=== PATIENT | female | born 1980 | race Two or more races ===

== ENCOUNTER 2022-03-02 16:24 | Emergency (ER) | payer BC, MEDICAID, SELFPAY ==
[2022-03-02 17:31] VITALS: BP 116/82; PULSE 94; TEMP 36.3; O2SAT 97; BMI 29.2
--- NOTE | 2022-03-02 18:00 | W.ED.GENADLT ---
HPI - General Adult General: Chief complaint: General Medical Stated complaint: sore throat Time Seen by Provider: 03/02/22 18:00 History of Present Illness: 41-year-old female comes in today with sore throat and some runny nose. Patient appears mildly unwell but not toxic. Patient appears in mild pain. Associated symptoms: Deny chest pain or dyspnea Review of Systems Const: Denies: fever(s) ENMT: Reports: throat pain Card: Denies: chest pain Resp: Denies: dyspnea Physical Exam Const: COMMON NORMALS: alert HENMT: COMMON NORMALS: normocephalic HEAD & SCALP: normocephalic THROAT: abnormal tonsil bilateral erythema and hypertrophy and posterior oropharynx abnormal erythema Neck/C-Spine: GENERAL: Yes lymphadenopathy Lymphadenopathy location: anterior cervical CERVICAL SPINE: Yes cervical ROM normal Resp: COMMON NORMALS: normal respiratory effort and clear to auscultation bilaterally AUSCULTATION: clear to auscultation bilaterally Cardio: COMMON NORMALS: regular rate and regular rhythm RATE: regular rate RHYTHM: regular rhythm GI: COMMON NORMALS: Soft to palpation PALPATION: Yes Soft to palpation Extremity: COMMON NORMALS: no pedal edema Neuro: SENSORIUM/ORIENTATION: Yes alert Skin: COMMON NORMALS: turgor normal GENERAL SKIN EXAM: turgor normal Course Vital Signs: Vital signs: Vital Signs Temperature 97.4 F L 03/02/22 17:31 Pulse Rate 94 03/02/22 17:31 Blood Pressure 116/82 03/02/22 17:31 Pulse Oximetry 97 03/02/22 17:31 Oxygen Delivery Me thod 03/02/22 17:31 MDM - General Adult Medical Decision Making 41-year-old female comes in today for complaints of sore throat and runny nose. On exam patient has some tonsillar swelling and redness to the posterior pharynx. Vital signs are normal. Differential diagnosis includes viral pharyngitis, strep pharyngitis, upper respiratory infection. Strep, influenza, and COVID test were negative. We will treat for bacterial tonsillitis with a dose of dexamethasone for the swelling of the tonsils, and clindamycin. Patient was instructed in Czech per [employer]. Patient reported understanding of care plan and need for follow-up or return to the ER. Lab Data Laboratory Results Influenza Type A Ag negative (Negative) 03/02/22 18:16 Influenza Type B Ag negative (Negative) 03/02/22 18:16 SARS-CoV-2 Ag (Rapid) negative (Negative) 03/02/22 18:16 Group A Strep Rapid Negative (Negative) 03/02/22 18:16 Discharge Plan Discharge Patient Disposition: Home Clinical Impression: Acute erythematous tonsillitis Condition: Stable Prescriptions: New clindamycin HCl 300 mg capsule 300 mg PO TID 7 Days Qty: 21 0RF Discharge Orders: Discharge ED (Routine); Ordered 03/02/22 Ordered By: Junito Dillard Referrals: Jono Redding DO [Primary Care Provider] - Patient Instructions: Opioid Safety, Pain Management Activity Restrictions/Additional Instructions: Hogar y descanso. Ethel denisa agua y l?quidos. Use paracetamol e ibuprofeno para la fiebre y el dolor. Willow antibi?sheila clindamicina 300 mg 1 comprimido 3 veces al d?a ozzy 7 d?as. Seguimiento con atenci?n primaria seg?n sea necesario. Regrese a la wali de urgencias si los s?ntomas empeoran, sveta la incapacidad para tragar o la dificultad para respirar o nuevas inquietudes. Home and rest. Drink plenty of water and fluids. Use acetaminophen and ibuprofen for fever and pain. Take antibiotic clindamycin 300 mg 1 tablet 3 times a day for 7 days. Follow-up with primary care as needed. Return to ED for worsening symptoms such as inability to swallow or shortness of breath or new concerns. Coding Level of Care Code ED Clean Up Person for Allison Fwd Exam Comprehensive
[2022-03-02 18:34] LABS: Rapid Strep A Test Negative (Negative)
[2022-03-02 18:44] LABS: Influenza A by IFA negative (Negative); Influenza B by IFA negative (Negative); SARS Covid-2 Antigen negative (Negative)
[2022-03-02] MEDS: clindamycin 150 mg Capsule 300 MG PO (19:26)
[2022-03-02] MEDS: dexamethasone 10 mg/mL INJ IM (19:27)
== END 2022-03-02 19:31 | disposition home or self-care (01) ==
PROVIDERS: Emergency Provider Nurse Practitioner Family; PCP Family Medicine
DX: J03.80 Acute tonsillitis due to other specified organisms (principal); Z20.822 Contact with and (suspected) exposure to COVID-19
CPT/HCPCS: 87081; 87426; 87804; 87880; 96372; 99284; J1100

== ENCOUNTER 2022-06-04 12:37 | Outpatient (CLI) | payer BC, MEDICAID, SELFPAY ==
--- NOTE | 2022-06-04 12:43 | US_ITS ---
WS: [id number] TRANSABDOMINAL PELVIC AND TRANSVAGINAL PELVIC ULTRASOUND HISTORY: IRREGULAR MENSES Fibroids, uterus COMPARISON: None available. Uterus: 8.8 cm x 5.3 cm x 4.8 cm. Anteverted uterus with mild heterogeneity. Very coarse appearance o f the myometrium. There is mild change in echogenicity in the posterior myometrium but no definite fi broid is identified. There is some shadowing from the myometrium which may indicate an underlying fib roid. Endometrium: 1.6 cm. Top normal size endometrium. No increased vascularity or change in echogenicity. Right ovary: 2.8 cm x 2.3 cm x 1.5 cm. Normal size RIGHT ovary. No solid or cystic mass. Normal vascu larity. Left ovary: 3.1 cm x 2.1 cm x 1.8 cm. Normal size ovary. Small hemorrhagic follicle with a maximum di ameter 1.5 cm. Normal vascularity within the normal ovarian tissue. Free fluid: No free fluid. US/US pelv w/transvag [id number] IMPRESSION: 1. Mild heterogeneity throughout the myometrium. Although there is no discrete fibroid identified there may be underlying fibroids. 2. Top normal size endometrium.
== END 2022-06-04 12:38 | disposition home or self-care (01) ==
LOC: RAD 12:39
PROVIDERS: PCP Family Medicine; Visit Provider Family Medicine
DX: N92.6 Irregular menstruation, unspecified (principal); D25.9 Leiomyoma of uterus, unspecified
CPT/HCPCS: 76830; 76856

== ENCOUNTER → 2022-07-13 11:35 | Outpatient (BNVA) | payer BC, MEDICAID, SELFPAY | PROVIDERS: PCP Family Medicine; Visit Provider Obstetrics & Gynecology | DX: Z01.419 Encounter for gynecological examination (general) (routine) without abnormal findings (principal) | CPT/HCPCS: 83001; 84146; 84443; 84702 ==

== ENCOUNTER 2022-07-20 01:10 | Emergency (ER) | payer BC, MEDICAID, SELFPAY ==
--- NOTE | 2022-07-20 01:13 | XRR_ITS ---
PROCEDURE INFORMATION: Exam: XR Chest Exam date and time: 07/20/2022 1:18 AM Age: 41 years old Clinical indication: Pain; Chest pressure; Additional info: Cp TECHNIQUE: Imaging protocol: Radiologic exam of the chest. Views: 1 view. COMPARISON: No relevant prior studies available. FINDINGS: Lungs: Unremarkable. No consolidation. Pleural spaces: Unremarkable. No pleural effusion. No pneumothorax. Heart/Mediastinum: Unremarkable. No cardiomegaly. Bones/joints: Unremarkable. XR/XR chest 1V portable [id number] IMPRESSION: No acute findings.
[2022-07-20 01:17] VITALS: BP 149/101; PULSE 85; RESP 26; TEMP 37.1; O2SAT 98; BMI 29.2
--- NOTE | 2022-07-20 01:17 | ECG_ITS ---
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 Measurements Intervals [place] Rate: 83 P: 55 MT: 141 QRS: 3 QRSD: 80 T: 25 QT: 371 QTc: 438 Interpretive Statements SINUS RHYTHM LOW QRS VOLTAGE IN PRECORDIAL LEADS [QRS DEFLECTION < 1.0 mV IN CHEST LEADS] No previous ECG available for comparison Electronically Signed On 07-20-2022 23:36:58 CDT by Bridget Strange M.D. [id number]
--- NOTE | 2022-07-20 01:21 | ED_ITS ---
HPI - Chest Pain General: Chief Complaint: Chest Pain Stated Complaint: chest pain Time Seen by Provider: 07/20/22 01:13 Source: patient Mode of arrival: ambulatory Limitations: no limitations History of Present Illness: 41-year-old female states she been having very sharp left-sided chest pain today. states that she did help him lift a lawnmower earlier today she states pain is very sharp worse with palpation worse with movement she rates her pain a 7 out of 10. She denies any shortness of breath denies any nausea no diaphoresis. She has a history of hypertension along with diabetes and high cholesterol Associated symptoms: Deny abdominal pain, dyspnea, fever(s), nausea or vomiting Review of Systems Const: Denies: fever(s), chills, body aches or change in appetite Eyes: Denies: blurry vision or eye discomfort ENMT: Denies: throat pain or dental pain Card: Reports: chest pain Resp: Denies: dyspnea GI: Denies: abdominal pain, nausea, vomiting or diarrhea : Denies: dysuria Musc: Denies: neck pain or back pain Skin/Breast: Denies: rash Neuro: Denies: headache(s) Psych: Denies: depression Narinder/Lymph: Denies: easy bruising All/Imm: Denies: urticaria PFSH ED PFSH: Medical History (Updated 07/20/22 @ 02:00 by Екатерина Calixto MD) Hyperlipidemia Hypertension Type 2 diabetes mellitus Family History Father Diabetes Heart disease Mother Heart disease Grandmother Heart disease paternal/maternal Grandfather Heart disease paternal/maternal Family/Other Thyroid disease aunt/paternal Denies family history of Colon cancer Ovarian cancer Breast cancer Hypertension Uterine cancer Stroke Social History Smoking and tobacco status: former smoker Physical Exam Const: COMMON NORMALS: no acute distress, patient oriented x3 and healthy a ppearing HENMT: COMMON NORMALS: normocephalic and atraumatic HEAD & SCALP: normocephalic and atraumatic Eye: COMMON NORMALS: Equal, round and reactive pupils present and EOMs intact bilaterally PUPIL: Yes Equal, round and reactive pupils present Neck/C-Spine: COMMON NORMALS: full ROM and supple Chest: COMMONS NORMALS: normal inspection of the chest OTHER: point tender over left chest reproduces her pain Resp: COMMON NORMALS: normal respiratory effort, No retractions, No use of accessory muscles and clear to auscultation bilaterally AUSCULTATION: clear to auscultation bilaterally Cardio: COMMON NORMALS: regular rate, regular rhythm and No murmurs present (Cardio) RATE: regular rate RHYTHM: regular rhythm GI: COMMON NORMALS: Normal to inspection, nondistended, normoactive bowel sounds present, Soft to palpation, non-tender and no masses PALPATION: Yes Soft to palpation Extremity: COMMON NORMALS: normal to inspection and full ROM Neuro: COMMON NORMALS: patient oriented x3, moves all extremities and no focal motor deficits Psych: COMMON NORMALS: mental status grossly normal, Normal thought process present and cooperative THOUGHT PROCESS: Normal thought process present Skin: COMMON NORMALS: no rashes or lesions noted and no wounds GENERAL SKIN EXAM: no rashes or lesions noted Course Vital Signs: Vital signs: Vital Signs Temperature 98.7 F 07/20/22 01:17 Pulse Rate 85 07/20/22 01:17 Respiratory Rate 20 H 07/20/22 01:31 Blood Pressure 149/101 07/20/22 01:17 Pulse Oximetry 98 07/20/22 01:17 Oxygen Delivery Me thod 07/20/22 01:17 MDM - Chest Pain Medical Decision Making Patient presents here with chest pain is likely muscle skeletal pain. It st arted after she had lifted a mower earlier today she is point tender on exam reproduces her pain x-ray EKG and troponin here are all normal we will place her on pain meds she is to follow-up with her PCP and return if worsening. Lab Data 07/20/22 01:19 07/20/22 01:19 Laboratory Results WBC 9.4 10^3/uL (4.0-10.0) 07/20/22 01:19 RBC 4.81 10^6/uL (4.1-5.3) 07/20/22 01:19 Hgb 13.7 g/dL (11.5-15.3) 07/20/22 01:19 Hct 41.3 % (37.0-47.0) 07/20/22 01:19 MCV 85.9 fl (81-99) 07/20/22 01:19 MCH 28.5 pg (28.0-34.0) 07/20/22 01:19 MCHC 33.2 g/dL (30.0-36.0) 07/20/22 01:19 RDW 11.9 % (12.1-15.1) L 07/20/22 01:19 Plt Count 367 10^3/cmm (130-400) 07/20/22 01:19 MPV 9.4 fL (7.4-10.4) 07/20/22 01:19 Neut % (Auto) 47.4 % 07/20/22 01:19 Lymph % (Auto) 43.4 % 07/20/22 01:19 Whitley % (Auto) 7.4 % 07/20/22 01:19 Eos % (Auto) 1.2 % 07/20/22 01:19 Baso % (Auto) 0.4 % 07/20/22 01:19 Neut # (Auto) 4.43 10^3/uL (1.8-7.7) 07/20/22 01:19 Lymph # (Auto) 4.1 10^3/uL (0.8-4.8) 07/20/22 01:19 Whitley # (Auto) 0.7 10^3/uL (0.2-0.9) 07/20/22 01:19 Eos # (Auto) 0.1 10^3/uL (0.0-0.8) 07/20/22 01:19 Baso # (Auto) 0.0 10^3/uL (0.0-0.1) 07/20/22 01:19 Nucleated RBC % (auto) 0 % 07/20/22 01:19 Nucleated RBCs # 0.0 /100WBC 07/20/22 01:19 PT 11.60 SECONDS (12.1-14.9) L 07/20/22 01:19 INR 0.83 (0.8-1.2) 07/20/22 01:19 Sodium 137 mmol/L (136-145) 07/20/22 01:19 Potassium 4.0 mmol/L (3.5-5.1) 07/20/22 01:19 Chloride 101 mmol/L (98-107) 07/20/22 01:19 Carbon Dioxide 25 mmol/L (22-29) 07/20/22 01:19 Anion Gap 15.0 (5-19) 07/20/22 01:19 BUN 11 mg/dL (6-20) 07/20/22 01:19 Creatinine 0.5 mg/dL (0.5-0.9) 07/20/22 01:19 GFR Calculation 135.3 mL/min (90-130) H 07/20/22 01:19 Glucose 225 mg/dL (65-115) H 07/20/22 01:19 Calculated Osmolality 290 mOsm/kg (285-295) 07/20/22 01:19 Calcium 9.3 mg/dL (8.5-10.5) 07/20/22 01:19 Total Bilirubin 0.2 mg/dL (0.15-1.2) 07/20/22 01:19 AST 16 U/L (0-32) 07/20/22 01:19 ALT 29 U/L (0-33) 07/20/22 01:19 Alkaline Phosphatase 80 U/L (35-105) 07/20/22 01:19 Troponin T Baseline 6 ng/L (0-10) 07/20/22 01:19 Total Protein 7.2 g/dL (6.6-8.7) 07/20/22 01:19 Albumin 3.9 g/dL (3.5-5.2) 07/20/22 01:19 Globulin 3.3 g/dL (1.3-4.6) 07/20/22 01:19 Lipase 41 U/L (13-60) 07/20/22 01:19 EKG Data EKG 1: I personally reviewed and interpreted this EKG as follows: EKG interpretation date: 07/20/22 EKG interpretation time: 01:17 Interpretation: nsr hr [address] or t wave abnormalities qrs 80 qtc 411 Discharge Plan Discharge Patient Disposition: Home Clinical Impression: Chest wall pain Condition: Stable Prescriptions: New hydrocodone-acetaminophen 5-325 mg tablet 1 tab PO Q6H PRN (Reason: pain) Qty: 14 0RF Naprosyn 500 mg tablet 500 mg PO BID PRN (Reason: pain) Qty: 20 0RF No Action pantoprazole [Protonix] 40 mg tablet,delayed release (DR/EC) 40 mg PO DAILY lisinopril 40 mg tablet 40 mg PO DAILY cyclobenzaprine 10 mg tablet 10 mg PO TID levothyroxine [Synthroid] 300 mcg tablet 300 mcg PO DAILY levothyroxine [Synthroid] 50 mcg tablet 50 mcg PO DAILY atorvastatin 40 mg tablet 40 mg PO DAILY etodolac 500 mg tablet 500 mg PO BID Janumet 50-1,000 mg tablet 1 tab PO BID (DME) FreeStyle Federico 2 Sensor Kit See Rx Instructions .Route Qty: 1 2RF Rx Instructions: As directed (DME) Omnipod 5 G6 Intro Kit (Gen 5) Cartridge See Rx Instructions .Route Qty: 1 2RF Rx Instructions: As directed insulin aspart U-100 [Novolog FlexPen U-100 Insulin] 100 unit/mL (3 mL) insulin pen 35 unit SUBCUT TID 90 Days Qty: 96 0RF insulin glargine [Lantus Solostar U-100 Insulin] 100 unit/mL (3 mL) insulin pen 65 unit SUBCUT DAILY 30 Days Qty: 19.5 2RF Rx Instructions: 65 units at night Discharge Orders: Discharge ED (Routine); Ordered 07/20/22 Ordered By: Екатерина Calixto Referrals: Cooper Venegas MD [Primary Care Provider] - 1-3 days Discharge Diet: Advance as tolerated Discharge Activity: Resume usual activity Patient Instructions: Chest Wall Pain (ED), Opioid Safety Coding Level of Care Code ED Manager Managed Care for Allison Pope
[2022-07-20 01:31] VITALS: RESP 20
[2022-07-20] MEDS: morphine 4 mg/mL SDV 1 mL IVP (01:31)
[2022-07-20 01:32] LABS: Basophils % 0.4 %; Eosinophils # 0.1 10^3/uL (0.0-0.8); Eosinophils % 1.2 %; Hematocrit 41.3 % (37.0-47.0); Hemoglobin 13.7 g/dL (11.5-15.3); Lymphocytes # 4.1 10^3/uL (0.8-4.8); Lymphocytes % 43.4 %; Mean Corpuscular HGB Conc 33.2 g/dL (30.0-36.0); Mean Corpuscular Hemoglobin 28.5 pg (28.0-34.0); Mean Corpuscular Volume 85.9 fl (81-99); Mean Platelet Volume 9.4 fL (7.4-10.4); Monocytes # 0.7 10^3/uL (0.2-0.9); Monocytes % 7.4 %; Neutrophils # 4.43 10^3/uL (1.8-7.7); Neutrophils % 47.4 %; Nucleated Red Blood Cells % 0 %; Platelet Count 367 10^3/cmm (130-400); Red Blood Count 4.81 10^6/uL (4.1-5.3); Red Cell Distribution Width 11.9 % (12.1-15.1); White Blood Count 9.4 10^3/uL (4.0-10.0)
[2022-07-20] MEDS: ondansetron 2 mg/ML SDV 2 mL 4 MG IVP (01:32)
[2022-07-20 01:43] LABS: INR 0.83 (0.8-1.2)
[2022-07-20 01:51] LABS: Troponin(5th) Baseline 6 ng/L (0-10)
[2022-07-20 01:54] LABS: Alanine Aminotransferase 29 U/L (0-33); Albumin Level 3.9 g/dL (3.5-5.2); Alkaline Phosphatase 80 U/L (35-105); Aspartate Amino Transferase 16 U/L (0-32); Blood Urea Nitrogen 11 mg/dL (6-20); Calcium 9.3 mg/dL (8.5-10.5); Carbon Dioxide 25 mmol/L (22-29); Chloride 101 mmol/L (98-107); Creatinine Clr Calc Pharmacy 136.7277; Globulin 3.3 g/dL (1.3-4.6); Glomerular Filtration Rate 135.3 mL/min (90-130); Glucose 225 mg/dL (65-115); Lipase 41 U/L (13-60); Osmolality Calculated 290 mOsm/kg (285-295); Sodium 137 mmol/L (136-145); Total Bilirubin 0.2 mg/dL (0.15-1.2); Total Protein 7.2 g/dL (6.6-8.7)
[2022-07-20] MEDS: ketorolac 30 mg/mL INJ 15 MG IVP (02:10)
[2022-07-20] MEDS: HYDROcodone-acetaminophen 5-325 mg Tablet 1 TAB PO (02:12)
[2022-07-20 02:19] VITALS: BP 120/78; PULSE 92; RESP 20; O2SAT 95
== END 2022-07-20 02:21 | disposition home or self-care (01) ==
PROVIDERS: Emergency Provider Emergency Medicine; PCP Family Medicine
DX: R07.89 Other chest pain (principal); Z79.4 Long term (current) use of insulin; E78.5 Hyperlipidemia, unspecified; I10 Essential (primary) hypertension; E11.9 Type 2 diabetes mellitus without complications; Z87.891 Personal history of nicotine dependence
CPT/HCPCS: 71045; 80053; 83690; 84484; 85025; 85610; 93005; 96374; 96375; 99285; J1885; J2270; J2405

== ENCOUNTER 2022-08-03 08:43 | Outpatient (CLI) | payer BC, MEDICAID, SELFPAY ==
--- NOTE | 2022-08-03 08:54 | US_ITS ---
WS: [id number] RIGHT UPPER QUADRANT ULTRASOUND HISTORY: ABDOMINAL PAIN RIGHT UPPER QUADRANT COMPARISON: None available. Liver: 13.6 cm in length. Normal size liver and echogenicity. No bile duct dilatation or mass. Portal Vein: Normal hepatopetal flow with monophasic waveform. Gallbladder: Normally distended gallbladder with no stones or wall thickening. CBD: 0.3 cm Pancreas: Normal size and echogenicity. Right kidney: 10.6 cm in length. Normal size and echogenicity. No hydronephrosis or mass. Aorta and IVC: Unremarkable abdominal aorta and IVC. No ascites. US/US abdomen limited [id number] IMPRESSION: Normal RIGHT upper quadrant ultrasound.
== END 2022-08-03 08:44 | disposition home or self-care (01) ==
LOC: RAD 08:48
PROVIDERS: PCP Family Medicine; Visit Provider Family Medicine
DX: R10.11 Right upper quadrant pain (principal)
CPT/HCPCS: 76705

== ENCOUNTER → 2022-08-17 09:13 | Outpatient (BNVA) | payer BC, MEDICAID, SELFPAY | PROVIDERS: PCP Family Medicine; Visit Provider Obstetrics & Gynecology | DX: R10.2 Pelvic and perineal pain (principal); R93.89 Abnormal findings on diagnostic imaging of other specified body structures | CPT/HCPCS: 76830 ==

== ENCOUNTER 2022-09-22 10:24 | Outpatient (CLI) | payer BC, MEDICAID, SELFPAY ==
[2022-09-22 11:14] LABS: Free T4 Free Thyroxine 2.85 ng/dL (0.82-1.77); Thyroid Stimulating Hormone 0.01 uIU/mL (0.27-4.20)
== END 2022-09-22 10:25 | disposition home or self-care (01) ==
LOC: LAB 10:27
PROVIDERS: PCP Family Medicine; Visit Provider Internal Medicine
DX: E03.9 Hypothyroidism, unspecified (principal); E11.9 Type 2 diabetes mellitus without complications
CPT/HCPCS: 36415; 84439; 84443

== ENCOUNTER 2022-09-30 08:54 | Day surgery (SDC) | payer BC, MEDICAID, SELFPAY ==
[2022-09-28 14:45] VITALS: BMI 31.3
--- NOTE | 2022-09-28 14:56 | ECG_ITS ---
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 Measurements Intervals [place] Rate: 80 P: 62 [place]: 133 QRS: 17 QRSD: 85 T: 38 QT: 418 QTc: 483 Interpretive Statements SINUS RHYTHM POSSIBLE LEFT ATRIAL ENLARGEMENT [-0.1mV P-WAVE IN V1/V2] LOW QRS VOLTAGE IN PRECORDIAL LEADS [QRS DEFLECTION < 1.0 mV IN CHEST LEADS] NONSPECIFIC T-WAVE ABNORMALITY Compared to ECG 07/20/2022 01:17:32 T-wave abnormality now present Electronically Signed On 09-28-2022 17:25:36 CDT by Carlin Washington M.D. [id number]
[2022-09-28 15:26] LABS: Basophils % 0.4 %; Eosinophils # 0.2 10^3/uL (0.0-0.8); Eosinophils % 2.4 %; Hematocrit 44.2 % (37.0-47.0); Hemoglobin 14.4 g/dL (11.5-15.3); Lymphocytes # 2.5 10^3/uL (0.8-4.8); Lymphocytes % 34.9 %; Mean Corpuscular HGB Conc 32.6 g/dL (30.0-36.0); Mean Corpuscular Hemoglobin 27.8 pg (28.0-34.0); Mean Corpuscular Volume 85.3 fl (81-99); Mean Platelet Volume 10.1 fL (7.4-10.4); Monocytes # 0.5 10^3/uL (0.2-0.9); Monocytes % 7.7 %; Neutrophils # 3.82 10^3/uL (1.8-7.7); Neutrophils % 54.3 %; Nucleated Red Blood Cells % 0 %; Platelet Count 399 10^3/cmm (130-400); Red Blood Count 5.18 10^6/uL (4.1-5.3); Red Cell Distribution Width 12.2 % (12.1-15.1)
[2022-09-28 15:29] LABS: OR HCG Qualitative Urine Negative (Negative)
[2022-09-28 15:47] LABS: Alanine Aminotransferase 29 U/L (0-33); Albumin Level 3.9 g/dL (3.5-5.2); Alkaline Phosphatase 95 U/L (35-105); Anion Gap 16.5 (5-19); Aspartate Amino Transferase 18 U/L (0-32); Blood Urea Nitrogen 8 mg/dL (6-20); Carbon Dioxide 23 mmol/L (22-29); Chloride 99 mmol/L (98-107); Globulin 3.2 g/dL (1.3-4.6); Glomerular Filtration Rate 135.3 mL/min (90-130); Glucose 257 mg/dL (65-115); Osmolality Calculated 287 mOsm/kg (285-295); Potassium 3.5 mmol/L (3.5-5.1); Sodium 135 mmol/L (136-145); Total Bilirubin 0.2 mg/dL (0.15-1.2); Total Protein 7.1 g/dL (6.6-8.7)
--- NOTE | 2022-09-28 16:47 | P.ANESASSM_ITS ---
Pre-Anesthetic Assessment Height/Weight: Height 1.6 m Weight 80.286 kg Operation Date: 09/30/22 14:55 Proposed Procedures p Hysteroscopy, dilation and curettage with Myosure [id number], N94.6,N92.6(Not Applicable) - Stevie Jones MD s Dilation And Curettage (D&C)(Not Applicable) - Stevie Jones MD Familial anesthetic complications: none Was Beta Kamila taken within 24 hours: N/A Was Clonidine taken within 24 hours: N/A Social No alcohol and No tobacco Exam alert, oriented x 3, clear to auscultation bilaterally and regular rate & rhythm Airway Submandibular: within normal limits Cervical ROM: within normal limits Mallampati: Class II Dentition: full CV/HEM Hypertension Metabolic Diabetes Mellitus, Hyperlipidemia, Morbid Obesity and Thyroid Disease [facility] [place] Osteoarthritis/DJD Anesthetic Plan ASA status: 3 Anesthesia: General Medications/Allergies Home Medications Medication Instructions Recorded Confirmed Last Taken Type atorvastatin 40 mg tablet 40 mg PO DAILY 05/27/22 09/28/22 09/28/22 History cyclobenzaprine 10 mg tablet 10 mg PO TID 05/27/22 09/28/22 09/28/22 History etodolac 500 mg tablet 500 mg PO BID 05/27/22 09/28/22 09/28/22 History levothyroxine 50 mcg tablet 50 mcg PO DAILY 05/27/22 09/28/22 09/28/22 History (Synthroid) lisinopril 40 mg tablet 40 mg PO DAILY 05/27/22 09/28/22 09/28/22 History pantoprazole 40 mg tablet,delayed 40 mg PO DAILY 05/27/22 09/28/22 09/28/22 History release (Protonix) sitagliptin phosphate 50 1 tab PO BID 05/27/22 09/28/22 09/28/22 History mg-metformin 1,000 mg tablet (Janumet) hydrocodone 5 mg-acetaminophen 325 1 tab PO Q6H PRN pain #14 tabs 07/20/22 09/28/22 09/28/22 Rx mg tablet naproxen 500 mg tablet (Naprosyn) 500 mg PO BID PRN pain #20 tabs 07/20/22 09/28/22 09/14/22 Rx flash glucose scanning reader #1 ea 09/24/22 09/28/22 Unknown Rx (FreeStyle Federico 2 [place]) flash glucose sensor (FreeStyle #6 ea 09/24/22 09/28/22 Unknown Rx Federico 2 Sensor kit) insulin aspart U-100 100 unit/mL 35 unit (0.35 mL) SUBCUT TID 90 09/24/22 09/28/22 09/28/22 Rx (3 mL) subcutaneous pen (Novolog days #96 mL FlexPen U-100 Insulin aspart) insulin glargine 100 unit/mL (3 75 unit (0.75 mL) SUBCUT DAILY 30 09/24/22 09/28/22 09/27/22 Rx mL) subcutaneous pen (Lantus days #19.5 mL Solostar U-100 Insulin) insulin pump cart,automated,BT #10 ea 09/24/22 09/28/22 Unknown Rx (Omnipod 5 G6 Pods (Gen 5) subcutaneous cartridge) insulin pump cartridge,automated #1 ea 09/24/22 09/28/22 Unknown Rx dose,BT with controller subcutaneous (Omnipod 5 G6 Intro Kit (Gen 5) subcutaneous cartridge with controller) levothyroxine 200 mcg tablet 200 mcg PO DAILY #90 tabs 09/24/22 09/28/22 09/28/22 Rx (Synthroid) Allergies Allergy/AdvReac Type Severity Reaction Status Date / Time No Known Allergies Allergy Verified 09/28/22 14:39 [facility] Anesthesia Medical History Hyperlipidemia Hypertension Type 2 diabetes mellitus Family History Father Diabetes Heart disease Mother Heart disease Grandmother Heart disease paternal/maternal Grandfather Heart disease paternal/maternal Family/Other Thyroid disease aunt/paternal Denies family history of Colon cancer Ovarian cancer Breast cancer Hypertension Uterine cancer Stroke Social History Smoking and tobacco status: former smoker Female Reproductive History Date of last menstrual period: 09/25/22 Data Anesthesia 09/28/22 15:00 09/28/22 15:00 Short CBC 09/28/22 Range/Units 15:00 WBC 7.0 (4.0-10.0) 10^3/uL Hgb 14.4 (11.5-15.3) g/dL Hct 44.2 (37.0-47.0) % MCV 85.3 (81-99) fl Plt Count 399 (130-400) 10^3/cmm Neut % (Auto) 54.3 % Neut # (Auto) 3.82 (1.8-7.7) 10^3/uL BMP 09/28/22 15:00 Sodium 135 L Potassium 3.5 Chloride 99 Carbon Dioxide 23 BUN 8 Creatinine 0.5 Glucose 257 H Calcium 9.0 Liver Function 09/28/22 Range/Units 15:00 Total Bilirubin 0.2 (0.15-1.2) mg/dL AST 18 (0-32) U/L ALT 29 (0-33) U/L Alkaline Phosphatase 95 (35-105) U/L Albumin 3.9 (3.5-5.2) g/dL Cardiac Studies: No Data to Display
[2022-09-29 21:21] LABS: Add Urine Microscopic? YES; Bilirubin Urine Neg (Negative); Blood Urine 3+ (Negative); Glucose Urine UA 4+ (Normal); Ketones Urine Negative (Negative); Leukocyte Esterase Urine Negative (Negative); Nitrate Urine Negative (Negative); Protein Urine Neg (Negative); Specific Gravity, Urine 1.015 (1.005-1.030); Urine Appearance Clear (CLEAR); Urine Color Light yellow (Yellow); Urobilinogen Urine Norm (Negative); pH Urine 5 (5-7)
[2022-09-29 21:22] LABS: Add Urine Culture? No; RBC Urine 0-4 /hpf (0-2); Squamous Epithelial Cell Urine 0-4 /hpf (0-5); WBC Urine 0-4 /hpf (0-5)
[2022-09-30] VITALS (12 sets, daily range): BP systolic 123–154; BP diastolic 73–108; PULSE 70–108; RESP 12–17; TEMP 36.1–36.7; O2SAT 92–99
--- NOTE | 2022-09-30 09:33 | W.PM.OPSUD ---
Surgery/Procedure H&P Update DATE OF PROCEDURE: September 30, 2022 DATE H&P PERFORMED: 09/28/22 H&P UPDATE INFORMATION: I have reviewed H&P completed within last 30 days, I have examined patient prior to procedure and No changes to prior documentation PLANNED PROCEDURE: Operation Date: 09/30/22 10:30 Proposed Procedures p Hysteroscopy, dilation and curettage with Myosure [id number], N94.6,N92.6(Not Applicable) - Stevie Jones MD s Dilation And Curettage (D&C)(Not Applicable) - Stevie Jones MD
[2022-09-30 09:38] LABS: Glucose Point of Care 248 mg/dL (70-110)
[2022-09-30] MEDS: sodium chloride 0.9% 1,000 ML 30 ML IV (09:39)
[2022-09-30] MEDS: ceFAZolin 2,000 MG in sodium chloride 0.9% (plus) 50 ML 100 MG IV (12:10)
--- NOTE | 2022-09-30 12:24 | P.ANESUD_ITS ---
Pre-Anesthetic Update Pre-Anesthetic Assessment: Date of Surgery/Procedure: 09/30/22 Proposed Procedure: Operation Date: 09/30/22 10:30 Proposed Procedures p Hysteroscopy, dilation and curettage with Myosure [id number], N 94.6,N92.6(Not Applicable) - Stevie Jones MD s Dilation And Curettage (D&C)(Not Applicable) - Stevie Jones MD Any changes to Pre-Anesthetic Assessment?: No Last Intake: Intake Last Liquid Date 09/29/22 Last Liquid Time 22:30 Last Solid Date 09/29/22 Last Solid Time 22:00 Labs Last 48hrs: Short CBC 09/28/22 Range/Units 15:00 WBC 7.0 (4.0-10.0) 10^3/ uL Hgb 14.4 (11.5-15.3) g/dL Hct 44.2 (37.0-47.0) % MCV 85.3 (81-99) fl Plt Count 399 (130-400) 10^3/c mm Neut % (Auto) 54.3 % Neut # (Auto) 3.82 (1.8-7.7) 10^3/u L BMP 09/28/22 15:00 Sodium 135 L Potassium 3.5 Chloride 99 Carbon Dioxide 23 BUN 8 Creatinine 0.5 Glucose 257 H Calcium 9.0 Liver Function 09/28/22 Range/Units 15:00 Total Bilirubin 0.2 (0.15-1.2) mg/dL AST 18 (0-32) U/L ALT 29 (0-33) U/L Alkaline Phosphata se 95 (35-105) U/L Albumin 3.9 (3.5-5.2) g/dL Urine 09/28/22 Range/Units 15:26 Urine Color Light yellow (Yellow) Urine Appearance Clear (CLEAR) Urine pH 5 (5-7) Ur Specific Gravit y 1.015 (1.005-1.030) Urine Protein Neg (Negative) Urine Glucose (UA) 4+ H (Normal) Urine Ketones Negative (Negative) Urine Nitrate Negative (Negative) Urine Bilirubin Neg (Negative) Ur Leukocyte Mari ase Negative (Negative) Urine RBC 0-4 H (0-2) /hpf Urine WBC 0-4 H (0-5) /hpf Blood Bank 09/28/22 15:00 Blood Type B Positive Rho(D) Type Positive Antibody Screen Negative Vitals: Temperature 97.9 F 09/30/22 09:27 Temperature Source Temporal Artery S can 09/30/22 09:27 Pulse Rate 89 09/30/22 09:27 Respiratory Rate 16 09/30/22 09:27 Blood Pressure 123/89 09/30/22 09:27 Blood Pressure Lilly n 100 09/30/22 09:27 Pulse Oximetry 99 09/30/22 09:27 Oxygen Delivery Me thod Room Air 09/30/22 09:27 Exam: Pre-Anes Outpt Exam: alert, oriented x 3, clear to auscultation bilaterally and regular rate & rhythm Cardiac Studies: No Data to Display
--- NOTE | 2022-09-30 12:54 | PM.OP ---
Operative Report Date of procedure: September 30, 2022 Pre-op diagnosis: Abnormal uterine bleeding, pelvic pain, dyspareunia, endometrial polyp Post-op diagnosis: Abnormal uterine bleeding, chronic pelvic pain Procedure done: Hysteroscopy with dilation and curettage via MyoSure Specimens removed/disposition: Endometrial curettings Surgeon: Stevie Jones MD Estimated blood loss (mL): 10 IV fluids (mL): 500 Procedure: After informed consent, the risks included but were not limited to bleeding, infection, injury to internal organs. The patient was counseled on a possible laparotomy and on the potential need for hysterectomy. The patient expressed understanding of the risks involved, all questions were answered, and the patient consented to the procedure. The patient was taken to the operating room where general anesthesia was administered. She was placed in the dorsal lithotomy position and prepped and draped in sterile fashion. A time out procedure was performed. The patient was examined under anesthesia and found to have a normal uterus with normal adnexa. A sterile weight speculum was placed in the vagina. The uterus was then gently sounded to 7 cm, and the cervix was dilated. The 0 degrees MyoSure hysteroscope was advanced gently to the uterine fundus while visualizing the monitor. Survey of the uterine cavity showed: Proliferative and, the fundus shows normal proliferative endometrium; left ostium was visualized, and lateral wall with proliferative endometrium; right ostium visualized, and lateral wall with proliferative endometrium; anterior and posterior chester are with proliferative endometrium; endocervical canal is normal. The MyoSure device was advanced and the direct visualization the endometrium was morcellated without complication. At the end of morcellation the fluid deficit was 370 mL and was estimated at approximately 200 mL were on the floor. There was minimal bleeding noted and the tenaculum removed with goad hemostasis noted. The patient tolerated the procedure well. The patient was taken to the recovery area in stable condition.
[2022-09-30] MEDS: fentaNYL 50 mcg/mL INJ 2mL IVP (13:12)
[2022-09-30] MEDS: metoprolol tartrate 1 mg/1 mL SDV 5 mL 5 MG (13:14)
[2022-09-30] MEDS: ibuprofen 800 mg tablet PO (13:58)
--- NOTE | 2022-09-30 14:10 | ANE.PACU2 ---
Inpatient post-anesthesia follow up: Airway intact: Yes Vital signs: Temperature 98 F Pulse Rate 79 Respiratory Rate 16 Blood Pressure 132/73 Pulse Oximetry 98 Oxygen Delivery Me thod Room Air Oxygen Flow Rate 1.0 Fraction of Inspir ed Oxygen Hydration adequate: Yes Nausea and vomiting: No Pain level: 3 Mental status: Baseline
== END 2022-09-30 14:30 | disposition home or self-care (01) ==
PROVIDERS: PCP Family Medicine; Visit Provider Obstetrics & Gynecology
PROC: 0UDB8ZZ Extraction of Endometrium, Via Natural or Artificial Opening Endoscopic (ICD-10-PCS; CPT 58558; principal; 2022-09-30 10:20)
PROC: (CPT 58120; 2022-09-30 10:20)
DX: N92.6 Irregular menstruation, unspecified (principal); N94.6 Dysmenorrhea, unspecified; I10 Essential (primary) hypertension; E78.5 Hyperlipidemia, unspecified; E11.9 Type 2 diabetes mellitus without complications; E03.9 Hypothyroidism, unspecified; Z87.891 Personal history of nicotine dependence
CPT/HCPCS: 58558; 36416; 80053; 81001; 82962; 84703; 85025; 86850; 86900; 88305; 93005; J0690; J1100; J1170; J2250; J2405; J2704; J3010; J3490; J7030

== ENCOUNTER 2022-11-05 14:05 | Emergency (ER) | payer BC, MEDICAID, SELFPAY ==
[2022-11-05 14:24] VITALS: BP 162/111; PULSE 84; RESP 15; O2SAT 96
--- NOTE | 2022-11-05 14:44 | W.ED.GIBLEED ---
HPI - GI Bleed General: Chief complaint: GI Bleed Stated complaint: abd pain, vaginal bleed Time Seen by Provider: 11/05/22 14:26 Source: patient and tenter Mode of arrival: ambulatory Limitations: no limitations History of Present Illness: Patient is a 41-year-old female who is primarily Dominican-speaking so history being obtained from the use of a sas etl developer service here for complaints of bleeding from her rectum that she noticed yesterday. Patient states following a bowel movement yesterday she noticed what she describes as black tarry blood that she noticed on her leg and when she wiped. She noticed the same findings today following a bowel movement. She states she does have a history of hemorrhoids and wonders if they could be bleeding. She states she takes pantoprazole daily secondary to stomach ulcers . Unknown whether she has ever had an EGD. She does report a colonoscopy by Dr. So a few months ago. Patient states she has been taking ibuprofen and naproxen daily over the past 2 to 3 weeks for costochondritis. Denies alcohol use. She does not describe any abdominal pain at this time. Denies lightheadedness, dizziness, passing out episodes. MD complaint: melena Onset (ago): day(s) (yesterday) Severity: mild Relieving factors: bowel movement Exacerbating factors: none Context: hemorrhoids and other (reports stomach ulcers ) Associated symptoms: Reports no associated symptoms; Denies abdominal pain, chills, fever(s), headache(s), malaise, nausea, rash or vomiting Treatments Prior to Arrival: none Review of Systems Const: Denies: fever(s), chills, body aches, fatigue or malaise Card: Denies: chest pain Resp: Denies: dyspnea GI: Reports: melena; Denies: abdominal pain, nausea, vomiting or diarrhea : Denies: flank pain or dysuria Musc: Denies: neck pain, back pain, extremity pain or joint pain Skin/Breast: Denies: rash Neuro: Denies: headache(s), numbness in extremities, weakness in extremities, sensory changes or dizziness FORMERLY [facility], [facility]–1983 ED PFSH: Medical History Hyperlipidemia Hypertension Type 2 diabetes mellitus Family History Father Diabetes Heart disease Mother Heart disease Grandmother Heart disease paternal/maternal Grandfather Heart disease paternal/maternal Family/Other Thyroid disease aunt/paternal Denies family history of Colon cancer Ovarian cancer Breast cancer Hypertension Uterine cancer Stroke Social History Smoking and tobacco status: former smoker Physical Exam Const: COMMON NORMALS: no acute distress, patient oriented x3, no limitations, alert and well nourished EXAM LIMITATIONS: language barrier GENERAL APPEARANCE: cooperative NUTRITIONAL APPEARANCE: overweight ORIENTATION/CONSCIOUSNESS: Yes awake, Yes oriented to person, Yes oriented to place and Yes oriented to time Eye: COMMON NORMALS: no scleral icterus Resp: COMMON NORMALS: normal respiratory effort and clear to auscultation bilaterally AUSCULTATION: clear to auscultation bilaterally Cardio: COMMON NORMALS: regular rate and regular rhythm RATE: regular rate RHYTHM: regular rhythm GI: RECTAL EXAM: normal sphincter tone, heme negative stool and other (skin tags vs non-thrombosed hemorrhoidal tissue) Extremity: COMMON NORMALS: normal to inspection GENERAL: Yes normal exam except as noted Neuro: COMMON NORMALS: patient oriented x3 SENSORIUM/ORIENTATION: Yes alert, Yes oriented to person, Yes oriented to place and Yes oriented to time Course Vital Signs: Vital signs: Vital Signs Pulse Rate 81 11/05/22 14:47 Respiratory Rate 16 11/05/22 14:47 Blood Pressure 162/111 11/05/22 14:47 Pulse Oximetry 91 11/05/22 14:47 Oxygen Delivery Me thod Room Air 11/05/22 14:24 MDM - GI Bleed Medical Decision Making Patient here for complaints of black tarry stool starting yesterday. Her vital signs are stable. H&H is normal. She quantifies as a few teaspoons per bowel movement (2 total BMs from yesterday). Her hemoccult was negative today. Certainly history is suspicious for an upper GI bleed especially given her naproxen and ibuprofen use daily over the past 3 weeks. I think less likely bleeding hemorrhoids. Patient will be instructed to discontinue all anti-inflammatory use. She will continue her pantoprazole and I will add Carafate. We will place referral to general surgery to get her set up for evaluation for possible endoscopy. Return ED precautions given. Patient and family voiced understanding of current instructions. Lab Data 11/05/22 14:53 11/05/22 14:53 Laboratory Results WBC 8.1 10^3/uL (4.0-10.0) 11/05/22 14:53 RBC 5.22 10^6/uL (4.1-5.3) 11/05/22 14:53 Hgb 14.6 g/dL (11.5-15.3) 11/05/22 14:53 Hct 44.7 % (37.0-47.0) 11/05/22 14:53 MCV 85.6 fl (81-99) 11/05/22 14:53 MCH 28.0 pg (28.0-34.0) 11/05/22 14:53 MCHC 32.7 g/dL (30.0-36.0) 11/05/22 14:53 RDW 12.6 % (12.1-15.1) 11/05/22 14:53 Plt Count 345 10^3/cmm (130-400) 11/05/22 14:53 MPV 9.3 fL (7.4-10.4) 11/05/22 14:53 Neut % (Auto) 53.7 % 11/05/22 14:53 Lymph % (Auto) 37.0 % 11/05/22 14:53 [place] % (Auto) 6.3 % 11/05/22 14:53 Eos % (Auto) 2.0 % 11/05/22 14:53 Baso % (Auto) 0.6 % 11/05/22 14:53 Neut # (Auto) 4.35 10^3/uL (1.8-7.7) 11/05/22 14:53 Lymph # (Auto) 3.0 10^3/uL (0.8-4.8) 11/05/22 14:53 [place] # (Auto) 0.5 10^3/uL (0.2-0.9) 11/05/22 14:53 Eos # (Auto) 0.2 10^3/uL (0.0-0.8) 11/05/22 14:53 Baso # (Auto) 0.1 10^3/uL (0.0-0.1) 11/05/22 14:53 Nucleated RBC % (auto) 0 % 11/05/22 14:53 Nucleated RBCs # 0.0 /100WBC 11/05/22 14:53 PT 12.50 SECONDS (12.1-14.9) 11/05/22 14:53 INR 0.91 (0.8-1.2) 11/05/22 14:53 APTT 25.2 SECONDS (23.9-36.7) 11/05/22 14:53 Sodium 136 mmol/L (136-145) 11/05/22 14:53 Potassium 4.0 mmol/L (3.5-5.1) 11/05/22 14:53 Chloride 103 mmol/L (98-107) 11/05/22 14:53 Carbon Dioxide 22 mmol/L (22-29) 11/05/22 14:53 Anion Gap 15.0 (5-19) 11/05/22 14:53 BUN 12 mg/dL (6-20) 11/05/22 14:53 Creatinine 0.4 mg/dL (0.5-0.9) L 11/05/22 14:53 GFR Calculation 175.0 mL/min (90-130) H 11/05/22 14:53 Glucose 224 mg/dL (65-115) H 11/05/22 14:53 Calculated Osmolality 289 mOsm/kg (285-295) 11/05/22 14:53 Calcium 8.6 mg/dL (8.5-10.5) 11/05/22 14:53 Total Bilirubin 0.3 mg/dL (0.15-1.2) 11/05/22 14:53 AST 15 U/L (0-32) 11/05/22 14:53 ALT 22 U/L (0-33) 11/05/22 14:53 Alkaline Phosphatase 98 U/L (35-105) 11/05/22 14:53 Total Protein 7.4 g/dL (6.6-8.7) 11/05/22 14:53 Albumin 4.1 g/dL (3.5-5.2) 11/05/22 14:53 Globulin 3.3 g/dL (1.3-4.6) 11/05/22 14:53 Discharge Plan Discharge Patient Disposition: Home Clinical Impression: Hemorrhoids Qualifiers: Hemorrhoid type: unspecified Qualified Code(s): K64.9 - Unspecified hemorrhoids Condition: Stable Prescriptions: New Carafate 1 gram tablet 1 g PO TID 14 Days Qty: 42 0RF Continued pantoprazole [Protonix] 40 mg tablet,delayed release (DR/EC) 40 mg PO DAILY Discontinued ibuprofen 800 mg tablet 800 mg PO TID PRN (Reason: pain) Qty: 60 3RF naproxen [Naprosyn] 500 mg tablet 500 mg PO BID PRN (Reason: pain) Qty: 20 0RF No Action lisinopril 40 mg tablet 40 mg PO DAILY cyclobenzaprine 10 mg tablet 10 mg PO TID levothyroxine [Synthroid] 50 mcg tablet 50 mcg PO DAILY atorvastatin 40 mg tablet 40 mg PO DAILY etodolac 500 mg tablet 500 mg PO BID Janumet 50-1,000 mg tablet 1 tab PO BID (DME) FreeStyle Federico 2 [place] Misc See Rx Instructions .Route Qty: 1 0RF Rx Instructions: As directed (DME) FreeStyle Federico 2 Sensor Kit See Rx Instructions .Route Qty: 6 0RF Rx Instructions: change every 14days insulin glargine [Lantus Solostar U-100 Insulin] 100 unit/mL (3 mL) insulin pen 75 unit SUBCUT DAILY 30 Days Qty: 19.5 2RF Rx Instructions: 75 units at night (DME) Omnipod 5 G6 Intro Kit (Gen 5) Cartridge See Rx Instructions .Route Qty: 1 2RF Rx Instructions: As directed (DME) Omnipod 5 G6 Pods (Gen 5) Cartridge See Rx Instructions .ROUTE .MEDSUPPLY Qty: 10 3RF Rx Instructions: change pod every 3 days levothyroxine [Synthroid] 200 mcg tablet 200 mcg PO DAILY Qty: 90 0RF nitrofurantoin monohyd/m-cryst 100 mg capsule 100 mg PO Q12H 7 Days Qty: 14 0RF Rx Instructions: must administer with a meal/food insulin aspart U-100 [Novolog U-100 Insulin aspart] 100 unit/mL solution See Rx Instructions .ROUTE .COMPLEX Qty: 30 0RF Dose Instruction: ADMINISTER 200 UNITS DAILY VIA INSULIM PUMP. Rx Instructions: ADMINISTER 150 UNITS DAILY VIA INSULIM PUMP. hydrocodone-acetaminophen 5-325 mg tablet 1 tab PO Q6H PRN (Reason: pain) Qty: 14 0RF acetaminophen 325 mg capsule 325 mg PO Q4H PRN (Reason: fever or pain) Qty: 60 0RF Discharge Orders: Discharge ED (Routine); Ordered 11/05/22 Ordered By: Emily Bonilla Referrals: Cooper Venegas MD [Primary Care Provider] - Activity Restrictions/Additional Instructions: Patient's blood work here was unremarkable. As we discussed I want her to discontinue with the naproxen and ibuprofen. I would like her to continue her pantoprazole and I will be adding Carafate. I will place a referral to have her set up with general surgery for further evaluation of hemorrhoids versus a possible upper GI bleed. She may return to the emergency department for worsening rectal bleeding/black stools, severe abdominal pain, lightheadedness/dizziness/passing out episodes, or any other concerns she may have. Coding Level of Care Code ED Getter Operator for Allison Pope
[2022-11-05 14:47] VITALS: BP 162/111; PULSE 81; RESP 16; O2SAT 91
[2022-11-05 15:06] LABS: Basophils # 0.1 10^3/uL (0.0-0.1); Basophils % 0.6 %; Eosinophils # 0.2 10^3/uL (0.0-0.8); Hematocrit 44.7 % (37.0-47.0); Hemoglobin 14.6 g/dL (11.5-15.3); Mean Corpuscular HGB Conc 32.7 g/dL (30.0-36.0); Mean Corpuscular Volume 85.6 fl (81-99); Mean Platelet Volume 9.3 fL (7.4-10.4); Monocytes # 0.5 10^3/uL (0.2-0.9); Monocytes % 6.3 %; Neutrophils # 4.35 10^3/uL (1.8-7.7); Neutrophils % 53.7 %; Nucleated Red Blood Cells % 0 %; Platelet Count 345 10^3/cmm (130-400); Red Blood Count 5.22 10^6/uL (4.1-5.3); Red Cell Distribution Width 12.6 % (12.1-15.1); White Blood Count 8.1 10^3/uL (4.0-10.0)
[2022-11-05 15:19] LABS: INR 0.91 (0.8-1.2)
[2022-11-05 15:20] LABS: Partial Thromboplastin Time 25.2 SECONDS (23.9-36.7)
[2022-11-05 15:29] LABS: Alanine Aminotransferase 22 U/L (0-33); Albumin Level 4.1 g/dL (3.5-5.2); Alkaline Phosphatase 98 U/L (35-105); Aspartate Amino Transferase 15 U/L (0-32); Blood Urea Nitrogen 12 mg/dL (6-20); Calcium 8.6 mg/dL (8.5-10.5); Carbon Dioxide 22 mmol/L (22-29); Chloride 103 mmol/L (98-107); Globulin 3.3 g/dL (1.3-4.6); Glucose 224 mg/dL (65-115); Osmolality Calculated 289 mOsm/kg (285-295); Sodium 136 mmol/L (136-145); Total Bilirubin 0.3 mg/dL (0.15-1.2); Total Protein 7.4 g/dL (6.6-8.7)
[2022-11-05 16:24] VITALS: BP 122/85; PULSE 82; RESP 16; O2SAT 94
--- NOTE | 2022-11-06 11:56 | PC.SOCIAL ---
Addendum entered by Linda Aguirre 11/17/22 07:40: Patient had a follow up appointment scheduled with general surgery - patient did not attend appointment. Addendum entered by Linda Aguirre 11/11/22 13:10: Patient has a follow up appointment scheduled for Wednesday, November 16, 2022 at 2:[address] Pettit at general surgery. Original Note: General Surgery Referral Referral to general surgery at this time. Clinic to contact patient with appt date/time.
== END 2022-11-05 16:25 | disposition home or self-care (01) ==
PROVIDERS: Emergency Provider Physician Assistant; PCP Family Medicine
DX: K64.9 Unspecified hemorrhoids (principal); E11.9 Type 2 diabetes mellitus without complications; I10 Essential (primary) hypertension; E78.5 Hyperlipidemia, unspecified; Z79.4 Long term (current) use of insulin; Z79.84 Long term (current) use of oral hypoglycemic drugs; Z87.891 Personal history of nicotine dependence
CPT/HCPCS: 36415; 80053; 85025; 85610; 85730; 99283

== ENCOUNTER → 2022-12-02 16:25 | Outpatient (BNVA) | payer BC, MEDICAID, SELFPAY | PROVIDERS: PCP Family Medicine; Visit Provider Internal Medicine | DX: R53.83 Other fatigue (principal); E11.9 Type 2 diabetes mellitus without complications | CPT/HCPCS: 36415; 80053; 80061; 82044; 83036; 84439; 84443 ==

== ENCOUNTER 2023-01-22 11:40 | Outpatient (CLI) | payer BC, MEDICAID, SELFPAY ==
--- NOTE | 2023-01-22 11:56 | XR_ITS ---
WS: [id number] Right knee, 3 views, 01/22/2023 Clinical Data: R KNEE PAIN Comparison: None. Findings: No fractures or dislocations are seen. The joint spaces are normal. The patella is intact. The soft t issues are unremarkable. Impression: Negative right knee. Kellgren-Louis Classification: grade 0 (none): definite absence of x-ray changes of osteoarthritis
== END 2023-01-22 11:41 | disposition home or self-care (01) ==
PROVIDERS: PCP Family Medicine; Visit Provider Family Medicine
DX: M25.561 Pain in right knee (principal)
CPT/HCPCS: 73562

== ENCOUNTER → 2023-05-07 12:35 | Outpatient (BNVA) | payer BC, MEDICAID, SELFPAY | PROVIDERS: PCP Family Medicine; Visit Provider Internal Medicine | DX: R39.9 Unspecified symptoms and signs involving the genitourinary system (principal); N94.6 Dysmenorrhea, unspecified; N92.6 Irregular menstruation, unspecified | CPT/HCPCS: 36415; 80053; 81001 ==

== ENCOUNTER 2023-05-26 23:30 | Observation (INO) | payer BC, MEDICAID, SELFPAY ==
[2023-05-26 23:35] VITALS: BP 161/111; PULSE 100; RESP 14; TEMP 36.4; O2SAT 98; BMI 31.3
[2023-05-26 23:59] LABS: Basophils # 0.1 10^3/uL (0.0-0.1); Basophils % 0.3 %; Hematocrit 42.5 % (36-47); Lymphocytes # 3.3 10^3/uL (0.8-4.8); Mean Corpuscular HGB Conc 35.1 g/dL (30-55); Mean Corpuscular Hemoglobin 29.2 pg (27-33); Mean Corpuscular Volume 83.3 fl (85-98); Mean Platelet Volume 9.7 fL (7.4-10.4); Monocytes # 0.8 10^3/uL (0.2-0.9); Monocytes % 4.2 %; Neutrophils # 15.27 10^3/uL (1.8-7.7); Neutrophils % 78.1 %; Nucleated Red Blood Cells % 0 %; Platelet Count 401 10^3/cmm (157-399); Red Cell Distribution Width 12.6 % (12.1-15.1); White Blood Count 19.55 10^3/uL (3.29-11.43)
[2023-05-27] VITALS (7 sets, daily range): BP systolic 115–142; BP diastolic 71–96; PULSE 66–83; RESP 16–17; TEMP 36.6; O2SAT 98–100; BMI 31.3
[2023-05-27 00:01] LABS: HCG Qualitative Urine. Negative (Negative)
[2023-05-27 00:02] LABS: Add Urine Microscopic? NO; Charge for UA Resulting for Rev; Protein Urine Neg (Negative); Urine Appearance Clear (CLEAR); Urine Color Straw (Yellow); pH Urine 5 (5-7)
[2023-05-27 00:03] LABS: Bilirubin Urine Neg (Negative); Blood Urine Neg (Negative); Glucose Urine UA 4+ (Normal); Ketones Urine Negative (Negative); Leukocyte Esterase Urine Negative (Negative); Nitrate Urine Negative (Negative); Urobilinogen Urine Norm (Negative)
[2023-05-27 00:15] LABS: Alanine Aminotransferase 33 U/L (0-33); Albumin Level 4.7 g/dL (3.5-5.2); Alkaline Phosphatase 108 U/L (35-105); Anion Gap 22.3 (5-19); Aspartate Amino Transferase 17 U/L (0-32); Blood Urea Nitrogen 10 mg/dL (6-20); Calcium 9.8 mg/dL (8.5-10.5); Carbon Dioxide 19 mmol/L (22-29); Chloride 91 mmol/L (98-107); Globulin 3.4 g/dL (1.3-4.6); Glomerular Filtration Rate 91.3 mL/min (90-130); Osmolality Calculated 295 mOsm/kg (285-295); Potassium 4.3 mmol/L (3.5-5.1); Sodium 128 mmol/L (136-145); Total Bilirubin 0.2 mg/dL (0.15-1.2); Total Protein 8.1 g/dL (6.6-8.7)
[2023-05-27 00:26] LABS: Glucose 634 mg/dL (65-115)
--- NOTE | 2023-05-27 00:47 | CTR_ITS ---
PROCEDURE INFORMATION: Exam: CT Abdomen And Pelvis With Contrast Exam date and time: 05/27/2023 1:01 AM Age: 42 years old Clinical indication: Abdominal pain; Localized; Left lower quadrant (llq); Additional info: Llq abd pain TECHNIQUE: Imaging protocol: Computed tomography of the abdomen and pelvis with contrast. Radiation optimization: All CT scans at this facility use at least one of these dose optimization techniques: automated exposure control; mA and/or kV adjustment per patient size (includes targeted exams where dose is matched to clinical indication); or iterative reconstruction. Contrast material: OMNI 350; Contrast volume: 80 ml; Contrast route: INTRAVENOUS (IV); COMPARISON: No relevant prior studies available. RADIATION DOSE METRICS: Total DLP (mGy-cm): 758.1 FINDINGS: Lungs: The lung bases are clear. Diaphragm: Small hiatal hernia. Liver: There is fatty infiltration of the liver. Gallbladder and bile ducts: No definite gallbladder abnormality by CT. No biliary tree dilation. Pancreas: Unremarkable. Spleen: Unremarkable. Adrenal glands: Unremarkable. Kidneys and ureters: Unremarkable. Stomach and bowel: No significant bowel distention. There are no CT findings to suggest diverticulitis. Appendix: The appendix is not identified with certainty, however no pericecal inflammatory changes are seen. The cecum is located in the right mid to upper abdomen in this patient at this time. Intraperitoneal space: No free intraperitoneal air, or ascites. Vasculature: No evidence for abdominal aortic aneurysm. Lymph nodes: No retroperitoneal adenopathy. Urinary bladder: Unremarkable as visualized. Reproductive: 45 x 35 x 40 mm left adnexal/ovarian cyst. While a physiologic cyst is still likely, other etiologies are not excluded. Ultrasound could further evaluate these ovarian findings if felt clinically indicated, and could also be used for appropriate follow-up. Appropriate follow up may be useful in this age group, to insure against a persistent or enlarging lesion/neoplasm. No cul-de-sac fluid. Bones/joints: No significant acute finding. Soft tissues: No significant acute finding. CT/CT abdomen pelvis w con* [id number] IMPRESSION: 1. 45 x 35 x 40 mm left adnexal/ovarian cyst, see above discussion. 2. No findings to suggest diverticulitis. 3. No evidence for appendicitis, however a normal appendix is not definitely visible. 4. No free air or significant bowel distention. 5. Other findings discussed above.
[2023-05-27] MEDS: ketorolac 30 mg/mL INJ IVP (00:54)
[2023-05-27] MEDS: sodium chloride 0.9% 1,000 ML 999 ML IV (00:54)
[2023-05-27] MEDS: insulin regular-human 100 units/1 mL 10 UNIT IVP (00:55)
[2023-05-27] MEDS: iohexol 350 mg/mL 500 mL Btl (per mL) IV (01:05)
--- NOTE | 2023-05-27 01:55 | ED_ITS ---
HPI - Female Genitourinary 2 General: Chief complaint: Urogenital-Female Stated complaint: vaginal pain, left abdomen pain Time Seen by Provider: 05/26/23 23:57 History of Present Illness: 42-year-old female presents to the emerg ency department with her . She is mostly Wolof-speaking and her is translating. Patient states that she started having left lower quadrant abdominal pain that was sudden onset approximately 4 hours prior to arrival here in the emergency department. She endorses nausea without vomiting. Patient does states that Dr. Jones did diagnose the patient with ovarian cyst approximately 4 years ago. Patient states the pain is a 9 out of 10 at present. Any type of movement makes the pain worse. Associated symptoms: Reports abdominal pain and nausea Date of Last Menstrual Period: 04/26/23 Review of Systems 2 General: Reports: 10 or more systems reviewed and unremarkable except in HPI and below GI: Reports: abdominal pain and nausea PFSH ED 2 PFSH: Medical History Hyperlipidemia Type 2 diabetes mellitus Hypertension Family History Father Diabetes Heart disease Mother Heart disease Grandmother Heart disease paternal/maternal Grandfather Heart disease paternal/maternal Family/Other Thyroid disease aunt/paternal Denies family history of Colon cancer Ovarian cancer Breast cancer Hypertension Uterine cancer Stroke Social History Smoking and tobacco/nicotine status: former use of tobacco/nicotine Female Reproductive History: Date of last menstrual period: 04/26/23 Physical Exam 2 Narrative: EXAM NARRATIVE: Constitutional: the patient appears well nourished and of normal development. Vital signs as documented. Moderate acute distress at present. Alert and oriented-to person, place, time and situation. Head, eyes, ears, nose, mouth, throat: Normocephalic, atraumatic. Pupils-equal, round, reactive to light. No scleral icterus. Normal-appearing external ears. Normal appearing nasal turbinates, no drainage. No obvious oral lesions, posterior oropharynx without erythema or exudates. Neck: Supple, trachea is midline, no lymphadenopathy, no jugular venous distension, thyromegaly, or carotid bruits. Carotid upstrokes are brisk bilaterally. Lungs: clear to auscultation to all lung delgadillo. Symmetrical rise and fall of chest, no obvious signs of increased work of breathing at present. Cardiac: Regular rate and rhythm, positive S1, S2. No murmurs, rubs or gallops that I can appreciate Abdomen: Soft, left lower quadrant is tender to palpation, normal active bowel sounds to all quadrants. No palpable masses, no organomegaly and abdominal bruits. Extremities: 2+ pulses in the upper extremities that are equal bilaterally, 2+ pulses in the lower extremities that are equal bilaterally. Non-edematous. Moves all extremities well, sensation to all extremities are noted. Skin: Warm, dry, intact. Course 2 Vital Signs: Vital signs: Vital Signs Temperature 97.6 F 05/26/23 23:35 Pulse Rate 74 05/27/23 03:41 Respiratory Rate 14 05/26/23 23:35 Blood Pressure 115/85 05/27/23 03:41 Pulse Oximetry 100 05/27/23 03:41 Oxygen Delivery Me thod Room Air 05/26/23 23:35 MDM - Female Medical Decision Making Physical exam completed and documented, I will obtain laboratory evaluation to include a CBC, CMP, lipase, urinalysis, and a CT scan of the patient's abdomen pelvis to evaluate for possible differential diagnosis of bowel obstruction, incarcerated hernia, abdominal wall strain, abdominal wall hematoma, colitis, acute appendicitis, diverticulitis. After review of the CT scan and the patient's continued pain as well as elevated white blood cell count. I will obtain blood cultures, provide the patient pain Toradol for pain relief and Rocephin antibiotic. I will also obtain an ultrasound to rule out ovarian torsion Her blood glucose level significantly elevated I will provide her IV insulin and reevaluate her [id number] glucose level. Patient is noted to have hyponatremia with a sodium of 128, which is most likely pseudohyponatremia secondary to her hyperglycemia. I have contacted the hospitalist physician to request admission of the patient and I will also consult AVIONICS ELECTRICAL ENGINEER for the patient's complex left ovarian cyst. Medical Records I reviewed the patient's medical records. Lab Data I reviewed the patient's lab results. 05/26/23 23:52 05/26/23 23:52 Radiology Impressions Abdomen/Pelvis CT 05/27/23 00:47 IMPRESSION: 1. 45 x 35 x 40 mm left adnexal/ovarian cyst, see above discussion. 2. No findings to suggest diverticulitis. 3. No evidence for appendicitis, however a normal appendix is not definitely visible. 4. No free air or significant bowel distention. 5. Other findings discussed above. Pelvis Ultrasound 05/27/23 02:17 IMPRESSION: 1. 38 x 30 x 32 mm left ovarian cyst, see above discussion. 2. Blood flow detected in each ovary. 3. Probable small uterine fibroid, details above. 4. Other details discussed above. IMPRESSION: 1. 38 x 30 x 32 mm left ovarian cyst, see above discussion. 2. Blood flow detected in each ovary. 3. Probable small uterine fibroid, details above. 4. Other details discussed above. Chest X-Ray 05/27/23 03:06 IMPRESSION: 1. Unremarkable chest. 2. Other findings discussed above. Laboratory Results WBC 19.55 10^3/uL (3.29-11.43) H 05/26/23 23:52 RBC 5.10 10^6/uL (3.85-5.65) 05/26/23 23:52 Hgb 14.90 g/dL (11.27-16.99) 05/26/23 23:52 Hct 42.5 % (36-47) 05/26/23 23:52 MCV 83.3 fl (85-98) L 05/26/23 23:52 MCH 29.2 pg (27-33) 05/26/23 23:52 MCHC 35.1 g/dL (30-55) 05/26/23 23:52 RDW 12.6 % (12.1-15.1) 05/26/23 23:52 Plt Count 401 10^3/cmm (157-399) H 05/26/23 23:52 MPV 9.7 fL (7.4-10.4) 05/26/23 23:52 Neut % (Auto) 78.1 % 05/26/23 23:52 Lymph % (Auto) 17.0 % 05/26/23 23:52 [place] % (Auto) 4.2 % 05/26/23 23:52 Eos % (Auto) 0.0 % 05/26/23 23:52 Baso % (Auto) 0.3 % 05/26/23 23:52 Neut # (Auto) 15.27 10^3/uL (1.8-7.7) H 05/26/23 23:52 Lymph # (Auto) 3.3 10^3/uL (0.8-4.8) 05/26/23 23:52 [place] # (Auto) 0.8 10^3/uL (0.2-0.9) 05/26/23 23:52 Eos # (Auto) 0.0 10^3/uL (0.0-0.8) 05/26/23 23:52 Baso # (Auto) 0.1 10^3/uL (0.0-0.1) 05/26/23 23:52 Nucleated RBC % (auto) 0 % 05/26/23 23:52 Nucleated RBCs # 0.0 /100WBC 05/26/23 23:52 Sodium 128 mmol/L (136-145) L 05/26/23 23:52 Potassium 4.3 mmol/L (3.5-5.1) 05/26/23 23:52 Chloride 91 mmol/L (98-107) L 05/26/23 23:52 Carbon Dioxide 19 mmol/L (22-29) L 05/26/23 23:52 Anion Gap 22.3 (5-19) H 05/26/23 23:52 BUN 10 mg/dL (6-20) 05/26/23 23:52 Creatinine 0.7 mg/dL (0.5-0.9) 05/26/23 23:52 GFR Calculation 91.3 mL/min (90-130) 05/26/23 23:52 Glucose 634 mg/dL (65-115) H* 05/26/23 23:52 POC Glucose 265 mg/dL (70-110) H 05/27/23 02:12 Calculated Osmolality 295 mOsm/kg (285-295) 05/26/23 23:52 Lactic Acid 1.5 mmol/L (0.5-2.2) 05/27/23 03:55 Calcium 9.8 mg/dL (8.5-10.5) 05/26/23 23:52 Total Bilirubin 0.2 mg/dL (0.15-1.2) 05/26/23 23:52 AST 17 U/L (0-32) 05/26/23 23:52 ALT 33 U/L (0-33) 05/26/23 23:52 Alkaline Phosphatase 108 U/L (35-105) H 05/26/23 23:52 Total Protein 8.1 g/dL (6.6-8.7) 05/26/23 23:52 Albumin 4.7 g/dL (3.5-5.2) 05/26/23 23:52 Globulin 3.4 g/dL (1.3-4.6) 05/26/23 23:52 Procalcitonin 0.05 ng/mL (0-0.5) 05/27/23 03:55 HCG, Qual Negative (Negative) 05/26/23 23:45 Urine Color Straw (Yellow) 05/26/23 23:45 Urine Appearance Clear (CLEAR) 05/26/23 23:45 Urine pH 5 (5-7) 05/26/23 23:45 Ur Specific [place] 1.010 (1.005-1.030) 05/26/23 23:45 Urine Protein Neg (Negative) 05/26/23 23:45 Urine Glucose (UA) 4+ (Normal) H 05/26/23 23:45 Urine Ketones Negative (Negative) 05/26/23 23:45 Urine Blood Neg (Negative) 05/26/23 23:45 Urine Nitrate Negative (Negative) 05/26/23 23:45 Urine Bilirubin Neg (Negative) 05/26/23 23:45 Urine Urobilinogen Norm mg/dL (Negative) 05/26/23 23:45 Ur Leukocyte Esterase Negative (Negative) 05/26/23 23:45 All radiology interpretation(s) finalized by discharge Discharge Plan Discharge Patient Disposition: Placed in Observation Clinical Impression: Diabetes mellitus due to underlying condition with hyperglycemia, Acute hyponatremia, Abdominal pain, Ovarian cyst Condition: Stable Prescriptions: No Action pantoprazole [Protonix] 40 mg tablet,delayed release (DR/EC) 40 mg PO DAILY lisinopril 40 mg tablet 40 mg PO DAILY cyclobenzaprine 10 mg tablet 10 mg PO TID atorvastatin 40 mg tablet 40 mg PO DAILY etodolac 500 mg tablet 500 mg PO BID Janumet 50-1,000 mg tablet 1 tab PO BID insulin glargine [Lantus Solostar U-100 Insulin] 100 unit/mL (3 mL) insulin pen 75 unit SUBCUT DAILY 30 Days Qty: 19.5 2RF Rx Instructions: 75 units at night (DME) Dexcom G7 Unishear Operator Misc See Rx Instructions .Route Qty: 1 0RF Rx Instructions: As directed (DME) Dexcom G7 Sensor Device See Rx Instructions .ROUTE .COMPLEX Qty: 9 0RF Dose Instruction: CHANGE EVERY 10 DAYS Rx Instructions: CHANGE EVERY 10 DAYS nitrofurantoin monohyd/m-cryst 100 mg capsule 100 mg PO Q12H 7 Days Qty: 14 0RF Rx Instructions: must administer with a meal/food insulin aspart U-100 [Novolog U-100 Insulin aspart] 100 unit/mL solution See Rx Instructions .ROUTE .COMPLEX Qty: 30 0RF Dose Instruction: ADMINISTER 200 UNITS DAILY VIA INSULIM PUMP. Rx Instructions: ADMINISTER 150 UNITS DAILY VIA INSULIM PUMP. levothyroxine 150 mcg tablet 150 mcg PO DAILY Qty: 30 2RF hydrocodone-acetaminophen 5-325 mg tablet 1 tab PO Q6H PRN (Reason: pain) Qty: 14 0RF acetaminophen 325 mg capsule 325 mg PO Q4H PRN (Reason: fever or pain) Qty: 60 0RF Referrals: Cooper Venegas MD [Primary Care Provider] - Patient Instructions: Abdominal Pain (ED) Coding Level of Care Code ED Die Designer for Allison Pope
[2023-05-27 02:15] LABS: Glucose Point of Care 265 mg/dL (70-110)
--- NOTE | 2023-05-27 02:17 | USR_ITS ---
PROCEDURE INFORMATION: Exam: US Duplex Artery or Vein of the Abdominal and/or Reproductive Organs, Limited Exam date and time: 05/27/2023 2:33 AM Age: 42 years old Clinical indication: Patient HX: G2-p2-a0-l2 presenting with left pelvic pain x 3 hours. ; Additional info: Llq abd pain--r/o ovarian torsion TECHNIQUE: Imaging protocol: Real-time duplex ultrasound scan of the arterial or venous flow of the abdomen and/or reproductive organs, with color Doppler flow and spectral waveform analysis with image documentation. Exam focused on the region of clinical interest. Duplex exam was performed to evaluate for vascular conditions. COMPARISON: CT Abdomen/Pelvis 05/27/2023 1:01 AM FINDINGS: The uterus measures 10.3 cm in length. Probable small uterine fibroid in the right uterine fundus, measuring 13 x 12 x 12 mm. There is no intrauterine fluid. Endometrial thickness is 6 mm. There is no free pelvic fluid. The right ovary measures 30 x 17 x 20 mm, estimated volume 5.3 cc. The right ovary appears essentially unremarkable. The left ovary is enlarged, measuring 44 x 38 x 41 mm, estimated volume 35.9 cc. Complex cyst in the left ovary, measuring 38 x 30 x 32 mm. This corresponds with the earlier CT finding. This cyst contains diffuse internal echoes and some thin septations. The appearance likely represents a physiologic/hemorrhagic cyst, other etiologies not excluded. As clinically directed, follow up in one to three months may be useful to evaluate for resolution of a physiologic cyst, and to guard against a persistent/enlarging lesion. Ovarian blood flow was evaluated with color and spectral Doppler imaging. Arterial blood flow detected within each ovary. Resistance index in the right ovary is 0.73. Resistance index in the left ovary is 0.34. The urinary bladder was not completely evaluated/imaged at this time. Endovaginal scanning provided better visualization/evaluation of the endometrium and ovaries/adnexal regions, as discussed above. PROCEDURE INFORMATION: Exam: US Pelvis Complete, Transabdominal and US Pelvis, Transvaginal Exam date and time: 05/27/2023 2:33 AM Age: 42 years old Clinical indication: Patient HX: G2-p2-a0-l2 presenting with left pelvic pain x 3 hours. ; Additional info: Llq abd pain--r/o ovarian torsion LABS AND CLINICAL REPORTS: Last menstrual period start date: 04/24/2023 TECHNIQUE: Imaging protocol: Real-time complete transabdominal and transvaginal pelvic ultrasound with image documentation. Transvaginal imaging was used for better evaluation of the endometrium, adnexa, and/or cervix. COMPARISON: CT Abdomen/Pelvis 05/27/2023 1:01 AM FINDINGS: The uterus measures 10.3 cm in length. Probable small uterine fibroid in the right uterine fundus, measuring 13 x 12 x 12 mm. There is no intrauterine fluid. Endometrial thickness is 6 mm. There is no free pelvic fluid. The right ovary measures 30 x 17 x 20 mm, estimated volume 5.3 cc. The right ovary appears essentially unremarkable. The left ovary is enlarged, measuring 44 x 38 x 41 mm, estimated volume 35.9 cc. Complex cyst in the left ovary, measuring 38 x 30 x 32 mm. This corresponds with the earlier CT finding. This cyst contains diffuse internal echoes and some thin septations. The appearance likely represents a physiologic/hemorrhagic cyst, other etiologies not excluded. As clinically directed, follow up in one to three months may be useful to evaluate for resolution of a physiologic cyst, and to guard against a persistent/enlarging lesion. Ovarian blood flow was evaluated with color and spectral Doppler imaging. Arterial blood flow detected within each ovary. Resistance index in the right ovary is 0.73. Resistance index in the left ovary is 0.34. The urinary bladder was not completely evaluated/imaged at this time. Endovaginal scanning provided better visualization/evaluation of the endometrium and ovaries/adnexal regions, as discussed above. US/US pelvic complete* [id number] IMPRESSION: 1. 38 x 30 x 32 mm left ovarian cyst, see above discussion. 2. Blood flow detected in each ovary. 3. Probable small uterine fibroid, details above. 4. Other details discussed above.
--- NOTE | 2023-05-27 03:06 | XRR_ITS ---
PROCEDURE INFORMATION: Exam: XR Chest Exam date and time: 05/27/2023 3:23 AM Age: 42 years old Clinical indication: Cough TECHNIQUE: Imaging protocol: Radiologic exam of the chest. Views: 2 views. COMPARISON: CR XR chest 1V portable [id number] 07/20/2022 1:18 AM FINDINGS: Lungs: No CHF/pulmonary edema. The lungs appear essentially clear. Pleural spaces: No visible pneumothorax. No pleural fluid. Heart/Mediastinum: Heart size is normal. Bones/joints: No significant acute finding. XR/XR chest 2V* [id number] IMPRESSION: 1. Unremarkable chest. 2. Other findings discussed above.
[2023-05-27] MEDS: cefTRIAXone 1,000 MG in sodium chloride 0.9% (plus) 50 ML 100 MG IV (03:35)
[2023-05-27 04:22] LABS: Lactic Sepsis W/Reflex 1.5 mmol/L (0.5-2.2)
[2023-05-27 04:28] LABS: Procalcitonin 0.05 ng/mL (0-0.5)
--- NOTE | 2023-05-27 06:07 | P.HP_ITS ---
Providers/Chief Complaint 2 Admitting Physician: Montrell Perea Primary Care Provider: Cooper Venegas MD Chief Complaint: vaginal pain, left abdomen pain History of Present Illness Pleasant 42-year-old lady with history of diabetes, uses Humalog 35 units 3 times daily as well as Lantus 75 units at night came into the ER due to malaise, left lower abdominal pain, nausea, in ER with finding of severe hyperglycemia, 634, also with leukocytosis 19.55. CT abdomen pelvis showing large 45 x 35 x 40 mm left adnexal ovarian cyst without other acute abnormalities. Pelvic ultrasound showing 38 x 30 x 32 mm left ovarian cyst with diffuse internal echoes and some thin septations, appearance likely representing physiologic/hemorrhagic cyst, other etiologies not excluded. Blood flow is noted in the ovary. Gynecology consultation is being requested. In ER she received 10 units of insulin. Urine ketones are negative. Noted anion gap 22.3, bicarb 19. She received a dose of ceftriaxone. Incidentally she had also yesterday gotten a large tattoo on the right arm, there has not been any redness, swelling, drainage or other issues with the tattoo. History and review of systems obtained via finance controller. Review of Systems 2 Const: Denies: fever(s), chills, body aches or malaise ENMT: Denies: throat pain Card: Denies: chest pain, edema, pre-syncope or dyspnea on exertion Resp: Denies: dyspnea, productive cough, change in phlegm color or hemoptysis GI: Reports: abdominal pain; Denies: nausea, vomiting, diarrhea, constipation, hematochezia or melena : Denies: flank pain, urinary frequency or hematuria Musc: Denies: back pain, joint swelling or joint redness Skin/Breast: Denies: rash or new lesions Neuro: Denies: headache(s) Medications/Allergies Home Medications Medication Instructions Recorded Confirmed Last Taken Type atorvastatin 40 mg tablet 40 mg PO DAILY 05/27/22 05/07/23 09/28/22 History cyclobenzaprine 10 mg tablet 10 mg PO TID 05/27/22 05/07/23 09/28/22 History etodolac 500 mg tablet 500 mg PO BID 05/27/22 05/07/23 09/28/22 History lisinopril 40 mg tablet 40 mg PO DAILY 05/27/22 05/07/23 09/28/22 History pantoprazole 40 mg tablet,delayed 40 mg PO DAILY 05/27/22 05/07/23 09/28/22 History release (Protonix) sitagliptin phosphate 50 1 tab PO BID 05/27/22 05/07/23 09/28/22 History mg-metformin 1,000 mg tablet (Janumet) hydrocodone 5 mg-acetaminophen 325 1 tab PO Q6H PRN pain #14 tabs 07/20/22 05/07/23 09/28/22 Rx mg tablet insulin glargine 100 unit/mL (3 75 unit (0.75 mL) SUBCUT DAILY 30 09/24/22 05/07/23 09/27/22 Rx mL) subcutaneous pen (Lantus days #19.5 mL Solostar U-100 Insulin) acetaminophen 325 mg capsule 325 mg PO Q4H PRN fever or pain 09/30/22 05/07/23 Unknown Rx #60 caps insulin aspart U-100 100 unit/mL See Rx Instructions .Route 10/15/22 05/07/23 Unknown Rx subcutaneous solution (Novolog .COMPLEX #30 mL U-100 Insulin aspart) nitrofurantoin 100 mg PO Q12H 7 days #14 caps 10/19/22 05/07/23 Unknown Rx monohydrate/macrocrystals 100 mg capsule 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 meter,continuous #1 ea 12/02/22 05/07/23 Unknown Rx (Dexcom G7 [employer]closure Par[employer]egal) levothyroxine 150 mcg tablet 150 mcg PO DAILY #30 tabs 12/03/22 05/07/23 Unknown Rx 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 sensor (Dexcom G7 #9 ea 05/07/23 05/07/23 Unknown Rx Sensor device) Allergies Allergy/AdvReac Type Severity Reaction Status Date / Time No Known Allergies Allergy Verified 05/07/23 10:25 PFSH Acute 2 PFSH: Medical History GERD (gastroesophageal reflux disease) Hypothyroidism Rheumatoid arthritis CAD (coronary artery disease) Migraine Hx of myocardial infarction Hyperlipidemia Type 2 diabetes mellitus Hypertension Surgical History History of laparoscopic appendectomy Hx of section History of thyroid surgery Family History Father Diabetes Heart disease Mother Heart disease Grandmother Heart disease paternal/maternal Grandfather Heart disease paternal/maternal Family/Other Thyroid disease aunt/paternal Denies family history of Colon cancer Ovarian cancer Breast cancer Hypertension Uterine cancer Stroke Social History Smoking and tobacco/nicotine status: former use of tobacco/nicotine Female Reproductive History: Date of last menstrual period: 04/26/23 Vitals/I&O/Wt Last Vital Signs Temp 97.6 F 05/26/23 23:35 Pulse 66 05/27/23 05:30 Resp 14 05/26/23 23:35 BP 119/80 05/27/23 05:30 Pulse Ox 99 05/27/23 05:30 O2 Del Method Room Air 05/27/23 05:30 05/26/23 05/26/23 05/27/23 14:59 22:59 06:59 Intake Total 1050 / 1050 Balance 1050 / 1050 Weight last 48 hrs Weight 80.286 kg Physical Exam 2 Narrative: Accompanied by her . Const: COMMON NORMALS: patient oriented x3 and alert GENERAL APPEARANCE: c ooperative ORIENTATION/CONSCIOUSNESS: Yes awake HENMT: COMMON NORMALS: oropharynx normal Neck/C-Spine: COMMON NORMALS: no JVD Resp: COMMON NORMALS: normal respiratory effort and clear to auscultation bilaterally AUSCULTATION: clear to auscultation bilaterally Cardio: COMMON NORMALS: no JVD, regular rhythm, S1 normal heart sound present, S2 normal heart sound present and No murmurs present (Cardio) RHYTHM: regular rhythm HEART SOUNDS: S1 normal heart sound present and S2 normal heart sound present GI: COMMON NORMALS: Normal to inspection, nondistended, normoactive bowel sounds present and Soft to palpation PALPATION: Yes Soft to palpation : OTHER: Left lower quadrant tenderness. Extremity: COMMON NORMALS: no joint enlargement and no pedal edema Neuro: COMMON NORMALS: patient oriented x3 and moves all extremities S ENSORIUM/ORIENTATION: Yes alert Skin: COMMON NORMALS: no rashes or lesions noted GENERAL SKIN EXAM: no rashes or lesions noted OTHER: Large new tattoo over the right shoulder and arm. No erythema, no swelling, ulceration or drainage. Data 05/26/23 23:52 05/26/23 23:52 Micro: Microbiology 05/27/23 03:59 Blood Culture - Preliminary Blood SPECIMEN COLLECTED 05/27/23 03:55 Blood Culture - Preliminary Blood SPECIMEN COLLECTED A&P Assessment and plan (1) Hyperglycemia: Severe hyperglycemia blood glucose up to 650. Concern for early DKA with anion gap of 22, bicarb 19. Will check VBG. Denies history of DKA. Reviewed vitals, CBC, CMP, UA, ER note, discussed with ER physician. Received 10 units regular insulin with improvement in blood glucose down to 265. Continue short acting insulin, continue Lantus. Will give IV hydration with 150 mL NS. Monitor for risk of fluid overload. Reassess chemistry, magnesium, phosphorus. Continue Accu-Cheks. (2) Ovarian cyst: Large ovarian cyst, possibly physiologic versus hemorrhagic, symptomatic with left lower quadrant pain. Nausea. Reports history of what I understand is possibly tubal ligation. Gynecology consultation. Chlamydia, gonorrhea were requested in ER. She received a dose of ceftriaxone. (3) Leukocytosis: Discussed with her and his also leukocytosis 19.55, unclear etiology, could be secondary to severe hyperglycemia, possibly secondary to stress, cyst, also new large tattoo over right arm/shoulder. This does not show signs of infection. UA reviewed, no sign of infection. Chest x-ray unremarkable. Will check COVID PCR panel. Plan HTN: Monitor blood pressure. Hypothyroidism: Continue levothyroxine HLD GERD: PPI CAD Rheumatoid arthritis Other medical problems. Requested home medications to be confirmed, please review and reconcile once available. Attestations 2 Medical Necessity Statement*: Place in observation for additional assessment and optimization of severe hyperglycemia, possible early DKA, large symptomatic left ovarian cyst. Diagnoses Hyperglycemia R73.9 Ovarian cyst N83.209 Leukocytosis D72.829
[2023-05-27] MEDS: sodium chloride 0.9% 1,000 ML 150 ML IV (06:47)
[2023-05-27] MEDS: heparin 5,000 unit/mL INJ 1 mL 5000 UNIT SUBCUT ×2 (06:47→17:44)
[2023-05-27 07:12] LABS: Base Excess VBG 0.5 mmol/L (-3.0-3.0); Blood Gas Operator Identificat CAK; Blood Gas Sample Type Venous; HCO3 VBG 25.5 mmol/L (24-28); PCO2 VBG 41.6 mmHg (41-51); PO2 VBG 27.8 mmHg (25-40); Venous Blood Gas Hematocrit 42.9 % (37-47)
[2023-05-27 07:29] LABS: Basophils # 0.1 10^3/uL (0.0-0.1); Basophils % 0.4 %; Eosinophils # 0.1 10^3/uL (0.0-0.8); Eosinophils % 0.7 %; Hematocrit 38.9 % (36-47); Lymphocytes # 4.7 10^3/uL (0.8-4.8); Lymphocytes % 34.1 %; Mean Corpuscular HGB Conc 33.7 g/dL (30-55); Mean Corpuscular Hemoglobin 28.6 pg (27-33); Mean Corpuscular Volume 84.9 fl (85-98); Mean Platelet Volume 9.6 fL (7.4-10.4); Monocytes # 0.8 10^3/uL (0.2-0.9); Monocytes % 6.1 %; Neutrophils % 58.4 %; Nucleated Red Blood Cells % 0 %; Platelet Count 332 10^3/cmm (157-399); Red Blood Count 4.58 10^6/uL (3.85-5.65); White Blood Count 13.71 10^3/uL (3.29-11.43)
[2023-05-27 07:33] LABS: Glucose Point of Care 285 mg/dL (70-110)
[2023-05-27 07:34] LABS: Alanine Aminotransferase 25 U/L (0-33); Albumin Level 3.9 g/dL (3.5-5.2); Alkaline Phosphatase 86 U/L (35-105); Anion Gap 14.3 (5-19); Aspartate Amino Transferase 14 U/L (0-32); Blood Urea Nitrogen 10 mg/dL (6-20); Calcium 8.3 mg/dL (8.5-10.5); Carbon Dioxide 24 mmol/L (22-29); Chloride 100 mmol/L (98-107); Globulin 3.1 g/dL (1.3-4.6); Glomerular Filtration Rate 91.3 mL/min (90-130); Glucose 295 mg/dL (65-115); Osmolality Calculated 290 mOsm/kg (285-295); Phosphorus 3.3 mg/dL (2.5-4.5); Potassium 3.3 mmol/L (3.5-5.1); Sodium 135 mmol/L (136-145); Total Bilirubin 0.2 mg/dL (0.15-1.2)
[2023-05-27] MEDS: pantoprazole DR 40 mg Tablet PO (08:32)
[2023-05-27] MEDS: levothyroxine 150 mcg Tablet PO (08:32)
[2023-05-27 08:50] LABS: Estmated Average Glucose 283; Hemoglobin A1C 11.5 % (4.0-6.0)
--- NOTE | 2023-05-27 09:28 | PC.PHAR ---
PT VERIFIED TYLENOL PAIN RELIEVER OF CHOICE AT HOME. AFTER THAN, SHE STATES NO ITALIAN. VERIFIED MOST CURRENT MEDICATIONS WITH SHAKIRYasmin IN [place]. [phone]. NOVOLOG INSULIN VERIFIED IS PEN. NO MEDICATION HISTORY FOUND FOR HER INSULIN PUMP-MED LIST SHOWS 150 UNITS DAILY VIA INSULIN PUMP. 05/27/23
[2023-05-27 10:13] LABS: Glucose Point of Care 266 mg/dL (70-110)
[2023-05-27] MEDS: insulin lispro 100 unit/1 mL SUBCUT ×4 (10:27→23:05)
--- NOTE | 2023-05-27 10:27 | P.PN_ITS ---
Subjective 2 Subjective: This morning patient is stating that her pain on the left side is 10 out of [address] Jones who recommended outpatient repeat ultrasound after 4 weeks this could be a physiological cyst we do not see any sign of abscess white count is trending down no fever No signs of ovarian torsion Patient is stating that she normally gets menstrual cycle around 12 of the month she is not experiencing any vaginal bleeding Vitals/I&O/Wt Last Vital Signs Temp 97.6 F 05/26/23 23:35 Pulse 76 05/27/23 07:20 Resp 16 05/27/23 07:20 BP 115/71 05/27/23 07:20 Pulse Ox 98 05/27/23 07:20 O2 Del Method Room Air 05/27/23 05:30 05/26/23 05/27/23 05/27/23 22:59 06:59 14:59 Intake Total 1050 / 1050 Balance 1050 / 1050 Weight last 48 hrs Weight 80.286 kg Physical Exam 2 Narrative: Awake and alert GCS 15 No signs of peritonitis or rigidity Left lower quadrant pain on deep palpation Otherwise abdomen is soft Nonfocal neuroexam Pleasant cough Currently on room air S1, S2 Data 05/27/23 07:06 05/27/23 07:06 Micro: Microbiology 05/27/23 03:59 Blood Culture - Preliminary Blood SPECIMEN COLLECTED 05/27/23 03:55 Blood Culture - Preliminary Blood SPECIMEN COLLECTED A&P Assessment and plan (1) Diabetes mellitus due to underlying condition with hyperglycemia: (2) Hyperglycemia: (3) Chronic pelvic pain in female: (4) Abdominal pain: (5) Dysmenorrhea: (6) Dyspareunia: (7) Irregular menstrual bleeding: (8) Ovarian cyst: (9) UTI symptoms: Plan For pain management I will keep patient in the hospital for 1 more day Spoke with Dr. Jones who recommended outpatient ultrasound after 4 weeks patient is due for diagnostic laparoscopy for concern of endometritis in June. There is no active signs of ovarian torsion or ovarian abscess, patient is afebrile, leukocytosis trending down For hyperglycemia continue sliding scale patient will need insulin higher dose with sliding scale Hemoglobin A1c is around 11 which has not improved in the last 12 months Attestations 2 Medical Necessity Statement*: Likely discharge tomorrow Coding Level of Care Code Acute Code for Chg Fwd Diagnoses Diabetes mellitus due to underlying condition with hyperglycemia E08.65 Hyperglycemia R73.9 Chronic pelvic pain in female R10.2; G89.29 Abdominal pain R10.9 Dysmenorrhea N94.6 Dyspareunia Irregular menstrual bleeding N92.6 Ovarian cyst N83.209 UTI symptoms R39.9
[2023-05-27 11:21] LABS: Glucose Point of Care 232 mg/dL (70-110)
[2023-05-27] MEDS: insulin lispro 100 unit/1 mL 10 UNIT SUBCUT ×2 (12:17→17:44)
[2023-05-27] MEDS: sodium chloride 0.9% 1,000 ML 100 ML IV (15:29)
--- NOTE | 2023-05-27 17:00 | PM.OBGYCN ---
Providers/Reason for Consult Consulting Physican/Specialty*: Stevie Jones MD Reason for Consult*: Pelvic pain Ovarian cyst Requesting Physcian: Dr. Arroyo Attending Physician: Montrell Perea Primary Care Provider: Cooper Venegas MD [facility] Consult HPI History of Present Illness Suzanna Chaidez is a 42 year old female with abdominal pain. Present Details Date of Last Menstrual Period: 04/26/23 Review of Systems Const: Denies: fever(s), chills, body aches or malaise ENMT: Denies: throat pain Card: Denies: chest pain, edema, pre-syncope or dyspnea on exertion Resp: Denies: dyspnea, productive cough, change in phlegm color or hemoptysis GI: Reports: abdominal pain; Denies: nausea, vomiting, diarrhea, constipation, hematochezia or melena : Denies: flank pain, urinary frequency or hematuria Musc: Denies: back pain, joint swelling or joint redness Skin/Breast: Denies: rash or new lesions Neuro: Denies: headache(s) Medications/Allergies Home Medications Medication Instructions Recorded Confirmed Last Taken Type atorvastatin 40 mg tablet 40 mg PO DAILY 05/27/22 05/27/23 09/28/22 History pantoprazole 40 mg tablet,delayed 40 mg PO DAILY 05/27/22 05/27/23 09/28/22 History release (Protonix) acetaminophen 325 mg capsule 325 mg PO Q4H PRN fever or pain 09/30/22 05/27/23 Unknown Rx #60 caps insulin aspart U-100 100 unit/mL See Rx Instructions .Route 10/15/22 05/27/23 Unknown Rx subcutaneous solution (Novolog .COMPLEX #30 mL U-100 Insulin aspart) 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 meter,continuous #1 ea 12/02/22 05/27/23 Unknown Rx (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) levothyroxine 150 mcg tablet 150 mcg PO DAILY #30 tabs 12/03/22 05/27/23 Unknown Rx 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 sensor (Dexcom G7 #9 ea 05/07/23 05/27/23 Unknown Rx Sensor device) [id number]-jrnmjlgvffxyg-bqqhmzxl 1 cap PO PRN PRN MIGRAINES 05/27/23 05/27/23 Unknown History 50 mg-300 mg-40 mg capsule hydrochlorothiazide 12.5 mg tablet 12.5 mg PO QAM 05/27/23 05/27/23 Unknown History insulin glargine 100 unit/mL 35 unit SUBCUT TID 05/27/23 05/27/23 Unknown History subcutaneous solution (Lantus U-100 Insulin) naproxen 500 mg tablet See Rx Instructions .Route .COMPLEX 05/27/23 05/27/23 Unknown History prednisone 20 mg tablet 20 mg PO BID 05/27/23 05/27/23 Unknown History Allergies Allergy/AdvReac Type Severity Reaction Status Date / Time No Known Allergies Allergy Verified 05/07/23 10:25 Current Medications Generic Name Dose Route Start Last Admin Trade Name Freq PRN Reason Stop Dose Admin Heparin Sodium (Porcine) 5,000 unit 05/27/23 06:33 05/27/23 06:47 Heparin 5,000 Unit/Ml Inj 1 Ml SUBCUT 5,000 unit Q12H DAMIAN Administration Sodium Chloride 1,000 mls @ 100 mls/hr 05/27/23 06:33 05/27/23 15:29 Sodium Chloride 0.9% IV 100 mls/hr .Q10H DAMIAN Administration Insulin Human Lispro 0 unit 05/27/23 08:00 05/27/23 12:17 Insulin Lispro 100 Unit/1 Ml SUBCUT 6 unit WM&BEDTIME DAMIAN Administration Protocol Insulin Human Lispro 10 unit 05/27/23 11:00 05/27/23 12:17 Insulin Lispro 100 Unit/1 Ml SUBCUT 10 unit TIDAC DAMIAN Administration Levothyroxine Sodium 150 mcg 05/27/23 09:00 05/27/23 08:32 Levothyroxine 150 Mcg Tablet PO 150 mcg DAILY DAMIAN Administration Pantoprazole Sodium 40 mg 05/27/23 09:00 05/27/23 08:[address] 40 Mg Tablet PO 40 mg DAILY DAMIAN Administration PFSH [facility] PFSH: Medical History GERD (gastroesophageal reflux disease) Hypothyroidism Rheumatoid arthritis CAD (coronary artery disease) Migraine Hx of myocardial infarction Hyperlipidemia Type 2 diabetes mellitus Hypertension Surgical History History of laparoscopic appendectomy Hx of section History of thyroid surgery Family History Father Diabetes Heart disease Mother Heart disease Grandmother Heart disease paternal/maternal Grandfather Heart disease paternal/maternal Family/Other Thyroid disease aunt/paternal Denies family history of Colon cancer Ovarian cancer Breast cancer Hypertension Uterine cancer Stroke Social History Smoking and tobacco/nicotine status: former use of tobacco/nicotine Vitals/I&O/Wt Last Vital Signs Temp 97.6 F 05/26/23 23:35 Pulse 81 05/27/23 11:10 Resp 16 05/27/23 11:10 BP 127/85 05/27/23 11:10 Pulse Ox 99 05/27/23 11:10 O2 Del Method Room Air 05/27/23 11:10 05/27/23 05/27/23 05/27/23 06:59 14:59 22:59 Intake Total 1050 / 1050 710 / 710 410 / 1120 Balance 1050 / 1050 710 / 710 410 / 1120 Weight last 48 hrs Weight 80.286 kg Weight 80.286 kg Physical Exam Const: COMMON NORMALS: no acute distress, average body habitus and patient oriented x3 GENERAL APPEARANCE: cooperative and well kempt HENMT: COMMON NORMALS: normocephalic and atraumatic HEAD & SCALP: normocephalic and atraumatic Neck/C-Spine: COMMON NORMALS: full ROM Chest: COMMONS NORMALS: normal inspection of the chest Resp: COMMON NORMALS: normal respiratory effort Cardio: COMMON NORMALS: regular rate and regular rhythm RATE: regular rate RHYTHM: regular rhythm GI: INSPECTION: Yes normal to inspection Neuro: COMMON NORMALS: patient oriented x3 Psych: APPEARANCE: Yes well kempt Data 05/27/23 07:06 05/27/23 07:06 Micro: Microbiology 05/27/23 03:59 Blood Culture - Preliminary Blood SPECIMEN COLLECTED 05/27/23 03:55 Blood Culture - Preliminary Blood SPECIMEN COLLECTED US: Radiologist's impression: [address] [address] Ultrasound Report Signed Patient: Suzanna Chaidez Unit #: [id number] : 1980 Age/Sex: 42 / F ADM Date: 05/26/23 Loc: ER Room/Bed: Attending Dr: Ordering Provider/Ordering MD: Srini Ortiz MD Date of Service: 05/27/23 Procedure(s): US pelvic complete* [id number] Accession Number(s): [id number] Report Number: [id number] PROCEDURE INFORMATION: Exam: US Duplex Artery or Vein of the Abdominal and/or Reproductive Organs, Limited Exam date and time: 05/27/2023 2:33 AM Age: 42 years old Clinical indication: Patient HX: G2-p2-a0-l2 presenting with left pelvic pain x 3 hours. ; Additional info: Llq abd pain--r/o ovarian torsion TECHNIQUE: Imaging protocol: Real-time duplex ultrasound scan of the arterial or venous flow of the abdomen and/or reproductive organs, with color Doppler flow and spectral waveform analysis with image documentation. Exam focused on the region of clinical interest. Duplex exam was performed to evaluate for vascular conditions. COMPARISON: CT Abdomen/Pelvis 05/27/2023 1:01 AM FINDINGS: The uterus measures 10.3 cm in length. Probable small uterine fibroid in the right uterine fundus, measuring 13 x 12 x 12 mm. There is no intrauterine fluid. Endometrial thickness is 6 mm. There is no free pelvic fluid. The right ovary measures 30 x 17 x 20 mm, estimated volume 5.3 cc. The right ovary appears essentially unremarkable. The left ovary is enlarged, measuring 44 x 38 x 41 mm, estimated volume 35.9 cc. Complex cyst in the left ovary, measuring 38 x 30 x 32 mm. This corresponds with the earlier CT finding. This cyst contains diffuse internal echoes and some thin septations. The appearance likely represents a physiologic/hemorrhagic cyst, other etiologies not excluded. As clinically directed, follow up in one to three months may be useful to evaluate for resolution of a physiologic cyst, and to guard against a persistent/enlarging lesion. Ovarian blood flow was evaluated with color and spectral Doppler imaging. Arterial blood flow detected within each ovary. Resistance index in the right ovary is 0.73. Resistance index in the left ovary is 0.34. The urinary bladder was not completely evaluated/imaged at this time. Endovaginal scanning provided better visualization/evaluation of the endometrium and ovaries/adnexal regions, as discussed above. PROCEDURE INFORMATION: Exam: US Pelvis Complete, Transabdominal and US Pelvis, Transvaginal Exam date and time: 05/27/2023 2:33 AM Age: 42 years old Clinical indication: Patient HX: G2-p2-a0-l2 presenting with left pelvic pain x 3 hours. ; Additional info: Llq abd pain--r/o ovarian torsion LABS AND CLINICAL REPORTS: Last menstrual period start date: 04/24/2023 TECHNIQUE: Imaging protocol: Real-time complete transabdominal and transvaginal pelvic ultrasound with image documentation. Transvaginal imaging was used for better evaluation of the endometrium, adnexa, and/or cervix. COMPARISON: CT Abdomen/Pelvis 05/27/2023 1:01 AM FINDINGS: The uterus measures 10.3 cm in length. Probable small uterine fibroid in the right uterine fundus, measuring 13 x 12 x 12 mm. There is no intrauterine fluid. Endometrial thickness is 6 mm. There is no free pelvic fluid. The right ovary measures 30 x 17 x 20 mm, estimated volume 5.3 cc. The right ovary appears essentially unremarkable. The left ovary is enlarged, measuring 44 x 38 x 41 mm, estimated volume 35.9 cc. Complex cyst in the left ovary, measuring 38 x 30 x 32 mm. This corresponds with the earlier CT finding. This cyst contains diffuse internal echoes and some thin septations. The appearance likely represents a physiologic/hemorrhagic cyst, other etiologies not excluded. As clinically directed, follow up in one to three months may be useful to evaluate for resolution of a physiologic cyst, and to guard against a persistent/enlarging lesion. Ovarian blood flow was evaluated with color and spectral Doppler imaging. Arterial blood flow detected within each ovary. Resistance index in the right ovary is 0.73. Resistance index in the left ovary is 0.34. The urinary bladder was not completely evaluated/imaged at this time. Endovaginal scanning provided better visualization/evaluation of the endometrium and ovaries/adnexal regions, as discussed above. US/US pelvic complete* [id number] IMPRESSION: 1. 38 x 30 x 32 mm left ovarian cyst, see above discussion. 2. Blood flow detected in each ovary. 3. Probable small uterine fibroid, details above. 4. Other details discussed above. IMPRESSION: 1. 38 x 30 x 32 mm left ovarian cyst, see above discussion. 2. Blood flow detected in each ovary. 3. Probable small uterine fibroid, details above. 4. Other details discussed above. A&P Assessment and plan (1) Chronic pelvic pain in female: Mrs. Chaidez 42 y/o femal e with history chronic pelvic. Came ER for acute pain. Ultrasound suggestive of Left corpus luteum cyst measuring 38 x 30 x 32 mm. The recommendation is to follow-up ultrasound in 4 weeks. The patient is scheduled for a diagnostic laparoscopy next month. (2) Dysmenorrhea: Plan Pain management and follow-up at the [facility] Coding Level of Care Code Acute Code for [facility] Fwd Diagnoses Chronic pelvic pain in female R10.2; G89.29 Dysmenorrhea N94.6
[2023-05-27 18:01] LABS: Glucose Point of Care 250 mg/dL (70-110)
[2023-05-27 18:09] LABS: Adenovirus Not Detected (NOT DETECT); Chlamydia Pneumoniae Not Detected (NOT DETECT); Human Metapneumovirus Not Detected (NOT DETECT); Human Rhinovirus/Enterovirus Not Detected (NOT DETECT); Influenza A Not Detected (NOT DETECT); Influenza A H1 Not Detected (NOT DETECT); Influenza A H1-2009 Not Detected (NOT DETECT); Influenza A H3 Not Detected (NOT DETECT); Influenza B Not Detected (NOT DETECT); Mycoplasma Pneumoniae Not Detected (NOT DETECT); Parainfluenza Virus Type 1 Not Detected (NOT DETECT); Parainfluenza Virus Type 2 Not Detected (NOT DETECT); Parainfluenza Virus Type 3 Not Detected (NOT DETECT); Parainfluenza Virus Type 4 Not Detected (NOT DETECT); Respiratory Syncytial Virus A Not Detected (NOT DETECT); Respiratory Syncytial Virus B Not Detected (NOT DETECT); SARS-COV-2 Not Detected (NOT DETECT)
[2023-05-27 18:22] LABS: Coronavirus 229E,HKU1,NL63,OC4 Detected (NOT DETECT)
[2023-05-27] MEDS: oxyCODONE-APAP 5-325 mg Tablet PO (21:24)
[2023-05-27 22:41] LABS: Glucose Point of Care 241 mg/dL (70-110)
[2023-05-27] MEDS: insulin glargine 100 units/1 mL 75 UNIT SUBCUT (23:06)
[2023-05-28] VITALS: BP 125/84; PULSE 74; RESP 17; TEMP 36.8; O2SAT 98
[2023-05-28] MEDS: oxyCODONE-APAP 5-325 mg Tablet PO ×3 (01:19→08:15)
[2023-05-28] MEDS: sodium chloride 0.9% 1,000 ML 100 ML IV (01:52)
[2023-05-28 04:00] VITALS: BP 123/79; PULSE 72; RESP 16; TEMP 37; O2SAT 97
[2023-05-28 05:56] LABS: Basophils % 0.4 %; Eosinophils # 0.2 10^3/uL (0.0-0.8); Eosinophils % 1.8 %; Hematocrit 38.1 % (36-47); Lymphocytes # 5.6 10^3/uL (0.8-4.8); Lymphocytes % 53.7 %; Mean Corpuscular HGB Conc 33.6 g/dL (30-55); Mean Corpuscular Hemoglobin 29.1 pg (27-33); Mean Corpuscular Volume 86.6 fl (85-98); Mean Platelet Volume 9.7 fL (7.4-10.4); Monocytes # 0.5 10^3/uL (0.2-0.9); Monocytes % 5.2 %; Neutrophils # 4.04 10^3/uL (1.8-7.7); Neutrophils % 38.6 %; Nucleated Red Blood Cells % 0 %; Platelet Count 278 10^3/cmm (157-399); Red Cell Distribution Width 13.2 % (12.1-15.1); White Blood Count 10.46 10^3/uL (3.29-11.43)
[2023-05-28 06:15] LABS: Anion Gap 11.6 (5-19); Blood Urea Nitrogen 7 mg/dL (6-20); Carbon Dioxide 24 mmol/L (22-29); Chloride 106 mmol/L (98-107); Glomerular Filtration Rate 109.1 mL/min (90-130); Glucose 187 mg/dL (65-115); Osmolality Calculated 289 mOsm/kg (285-295); Potassium 3.6 mmol/L (3.5-5.1); Sodium 138 mmol/L (136-145)
[2023-05-28] MEDS: heparin 5,000 unit/mL INJ 1 mL 5000 UNIT SUBCUT (06:29)
[2023-05-28 06:34] LABS: Slide Review Slide Review Perform
[2023-05-28 07:00] LABS: Glucose Point of Care 167 mg/dL (70-110)
[2023-05-28 07:29] VITALS: BP 120/80; PULSE 71; RESP 18; TEMP 36.6; O2SAT 96
[2023-05-28] MEDS: pantoprazole DR 40 mg Tablet PO (08:14)
[2023-05-28] MEDS: levothyroxine 150 mcg Tablet PO (08:15)
[2023-05-28] MEDS: insulin lispro 100 unit/1 mL SUBCUT (08:20)
--- NOTE | 2023-05-28 09:20 | PC.CHAP ---
Pastoral Care Encounter/Spiritual Assessment Type of Contact [] Declined patient services coordinator visit [] Patient/Family/Request visit [] Outpatient visit [] Follow-up visit [] Physician referral [] Code/Alert [x] Routine visit [] Staff referral [] Actively dying [] Patient sleeping [] Family support [] [] Out of room [] Palliative care [] [] Receiving care in room [] Pre-surgical visit [] Trauma [] Long length of stay [] ICU visit [] Other: Relational/Emotional Strength [x] Patient feels connected with others/family/visitors/staff [] Distress [] Loneliness/isolation [] Abandonment doesn't speak Mongolian Spirituality of Patient [x] Person of Lela [] Attends Restoration of their Lela x[] Believes in Prayer [] Reads Bible or Catholic materials [] There are Spiritual issues to be addressed Treasury Consultant Interventions [x] Prayer [] Active listening [] Non-anxious presence [x] Spiritual/emotional support [] Crisis/trauma care [] Spiritual counseling [] Bereavement support [] Provided bereavement packet [] Provided Bible/devotional materials [] Provided toy/stuffed animal, coloring book to patient or family member [] Provided Communion [] Anointing/[place] [] Salvation [x] Completed spiritual assessment [] Other: Impact on Illness or Injury [] Angry [] Fearful [] Anxious [] Often cries [] Exhaustion [] Unable to work [] Unable to attend hoahaoism [] Unable to walk/stand [] Unable to read [] Unable to drive [] Unable to eat/drink [] Unable to sleep [] Unable to be with family [] Patient intubated [] Other: Summary Time spent with patient 5 min
[2023-05-28] MEDS: ondansetron 2 mg/ML SDV 2 mL 4 MG IVP (09:35)
--- NOTE | 2023-05-28 09:40 | P.DS_ITS ---
Discharge Providers Date of Admission: 05/27/23 05:36 Date of Discharge: May 28, 2023 Attending Provider at Admission: Montrell Perea Attending Provider at Discharge: Montrell Perea Primary Care Provider: Cooper Venegas MD Diagnoses at Discharge Discharge Diagnosis (1) Chronic pelvic pain in female: Status: Acute (2) Dysmenorrhea: Status: Acute Reason for Visit Reason for Visit: vaginal pain, left abdomen pain Hospital Course Hospital Course 42-year-old female with history of chronic pelvic pain has diagnostic laparoscopic procedure with Dr. Jones in June present to the hospital for worsening of left lower quadrant pain, she has an ovarian cyst, dimensions were discussed with Dr. Jones who recommended outpatient follow-up after 4 weeks, no sign of abscess, white count trended down significantly without use of antibiotics patient remained afebrile, her pain at the time of admission was 10/10 on discharge she is stating that her pain is 5/10, her menstrual cycle normally begins around 12 of the month but it has been irregular she is not bleeding currently, patient has poorly controlled diabetes, she is waiting Dr. Medina to talk to the insurance to get CGM/glucose sensor approved I have also notified her on request of patient. At the time of discharge I will give her Zofran, Levaquin, opioids along bowel regimen. 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 As per Dr. Jones differential diagnosis would include ovulatory phase of ovaria n cycle, endometriosis, awaiting abscess less likely, no signs of ovarian torsion. Physical Exam Narrative: Continue medical management GCS 15 awake and alert left lower quadrant pain 5/10 no active emesis S1, S2 Currently on room air is at the bedside Discharge Data Studies Completed and Pending Completed Studies During Hospitalization Category Date Time Status CT abdomen pelvis w con* [id number] Stat Cat Scan 05/27/23 00:47 Completed XR chest 2V* [id number] Stat Exams 05/27/23 03:06 Completed US pelvic complete* [id number] Stat Ultrasound 05/27/23 02:17 Completed Pending at discharge Category Date Time Status Blood Culture Stat Lab 05/27/23 03:59 Results Chlamydia/Gonorrh RNA,TMA URO Stat Lab 05/27/23 03:44 Received Radiology Impressions Abdomen/Pelvis CT 05/27/23 00:47 IMPRESSION: 1. 45 x 35 x 40 mm left adnexal/ovarian cyst, see above discussion. 2. No findings to suggest diverticulitis. 3. No evidence for appendicitis, however a normal appendix is not definitely visible. 4. No free air or significant bowel distention. 5. Other findings discussed above. Pelvis Ultrasound 05/27/23 02:17 IMPRESSION: 1. 38 x 30 x 32 mm left ovarian cyst, see above discussion. 2. Blood flow detected in each ovary. 3. Probable small uterine fibroid, details above. 4. Other details discussed above. IMPRESSION: 1. 38 x 30 x 32 mm left ovarian cyst, see above discussion. 2. Blood flow detected in each ovary. 3. Probable small uterine fibroid, details above. 4. Other details discussed above. Chest X-Ray 05/27/23 03:06 IMPRESSION: 1. Unremarkable chest. 2. Other findings discussed above. Laboratory Results WBC 10.46 10^3/uL (3.29-11.43) 05/28/23 05:25 RBC 4.40 10^6/uL (3.85-5.65) 05/28/23 05:25 Hgb 12.80 g/dL (11.27-16.99) 05/28/23 05:25 Hct 38.1 % (36-47) 05/28/23 05:25 MCV 86.6 fl (85-98) 05/28/23 05:25 MCH 29.1 pg (27-33) 05/28/23 05:25 MCHC 33.6 g/dL (30-55) 05/28/23 05:25 RDW 13.2 % (12.1-15.1) 05/28/23 05:25 Plt Count 278 10^3/cmm (157-399) 05/28/23 05:25 MPV 9.7 fL (7.4-10.4) 05/28/23 05:25 Neut % (Auto) 38.6 % 05/28/23 05:25 Lymph % (Auto) 53.7 % 05/28/23 05:25 [place] % (Auto) 5.2 % 05/28/23 05:25 Eos % (Auto) 1.8 % 05/28/23 05:25 Baso % (Auto) 0.4 % 05/28/23 05:25 Neut # (Auto) 4.04 10^3/uL (1.8-7.7) 05/28/23 05:25 Lymph # (Auto) 5.6 10^3/uL (0.8-4.8) H 05/28/23 05:25 [place] # (Auto) 0.5 10^3/uL (0.2-0.9) 05/28/23 05:25 Eos # (Auto) 0.2 10^3/uL (0.0-0.8) 05/28/23 05:25 Baso # (Auto) 0.0 10^3/uL (0.0-0.1) 05/28/23 05:25 Nucleated RBC % (auto) 0 % 05/28/23 05:25 Nucleated RBCs # 0.0 /100WBC 05/28/23 05:25 Specimen Type Venous 05/27/23 07:00 Sample Site Not Reportable 05/27/23 07:00 Jak Test N/a 05/27/23 07:00 VBG pH 7.40 (7.32-7.42) 05/27/23 07:00 VBG pCO2 41.6 mmHg (41-51) 05/27/23 07:00 VBG pO2 27.8 mmHg (25-40) 05/27/23 07:00 VBG HCO3 25.5 mmol/L (24-28) 05/27/23 07:00 VBG Base Excess 0.5 mmol/L (-3.0-3.0) 05/27/23 07:00 VBG Hematocrit 42.9 % (37-47) 05/27/23 07:00 O2 Delivery Device None 05/27/23 07:00 [employer] Lead ID Cak 05/27/23 07:00 Sodium 138 mmol/L (136-145) 05/28/23 05:25 Potassium 3.6 mmol/L (3.5-5.1) 05/28/23 05:25 Chloride 106 mmol/L (98-107) 05/28/23 05:25 Carbon Dioxide 24 mmol/L (22-29) 05/28/23 05:25 Anion Gap 11.6 (5-19) 05/28/23 05:25 BUN 7 mg/dL (6-20) 05/28/23 05:25 Creatinine 0.6 mg/dL (0.5-0.9) 05/28/23 05:25 GFR Calculation 109.1 mL/min (90-130) 05/28/23 05:25 Glucose 187 mg/dL (65-115) H 05/28/23 05:25 POC Glucose 167 mg/dL (70-110) H 05/28/23 05:57 Estimat Average Glucose 283 05/27/23 07:06 Hemoglobin A1c 11.5 % (4.0-6.0) H 05/27/23 07:06 Calculated Osmolality 289 mOsm/kg (285-295) 05/28/23 05:25 Lactic Acid 1.5 mmol/L (0.5-2.2) 05/27/23 03:55 Calcium 8.0 mg/dL (8.5-10.5) L 05/28/23 05:25 Phosphorus 3.3 mg/dL (2.5-4.5) 05/27/23 07:06 Magnesium 2.0 mg/dL (1.7-2.3) 05/27/23 07:06 Total Bilirubin 0.2 mg/dL (0.15-1.2) 05/27/23 07:06 AST 14 U/L (0-32) 05/27/23 07:06 ALT 25 U/L (0-33) 05/27/23 07:06 Alkaline Phosphatase 86 U/L (35-105) 05/27/23 07:06 Total Protein 7.0 g/dL (6.6-8.7) 05/27/23 07:06 Albumin 3.9 g/dL (3.5-5.2) 05/27/23 07:06 Globulin 3.1 g/dL (1.3-4.6) 05/27/23 07:06 Procalcitonin 0.05 ng/mL (0-0.5) 05/27/23 03:55 HCG, Qual Negative (Negative) 05/26/23 23:45 Urine Color Straw (Yellow) 05/26/23 23:45 Urine Appearance Clear (CLEAR) 05/26/23 23:45 Urine pH 5 (5-7) 05/26/23 23:45 Ur Specific Cosmos 1.010 (1.005-1.030) 05/26/23 23:45 Urine Protein Neg (Negative) 05/26/23 23:45 Urine Glucose (UA) 4+ (Normal) H 05/26/23 23:45 Urine Ketones Negative (Negative) 05/26/23 23:45 Urine Blood Neg (Negative) 05/26/23 23:45 Urine Nitrate Negative (Negative) 05/26/23 23:45 Urine Bilirubin Neg (Negative) 05/26/23 23:45 Urine Urobilinogen Norm mg/dL (Negative) 05/26/23 23:45 Ur Leukocyte Esterase Negative (Negative) 05/26/23 23:45 Coronavirus 229E (PCR) Detected (NOT DETECT) A 05/27/23 16:15 SARS-CoV-2 (PCR) Not detected (NOT DETECT) 05/27/23 16:15 Vitals Last Vital Signs Temp 97.9 F 05/28/23 07:29 Pulse 71 05/28/23 07:29 Resp 18 05/28/23 07:29 BP 120/80 05/28/23 07:29 Pulse Ox 96 05/28/23 07:29 O2 Del Method Room Air 05/28/23 07:29 Discharge Plan Discharge Patient Disposition: Home Condition: Stable Prescriptions: New oxycodone-acetaminophen 5-325 mg tablet 1 tab PO Q8H PRN (Reason: pain) Qty: 20 0RF (DME) Dexcom G7 Sensor Device See Rx Instructions .Route Qty: 1 0RF Rx Instructions: As directed (DME) Dexcom G7 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 [employer] Inspection Misc See Rx Instructions .Route Qty: 1 0RF Rx Instructions: As directed levofloxacin 750 mg tablet 750 mg PO DAILY 5 Days Qty: 5 0RF ondansetron HCl 4 mg tablet 4 mg PO Q8H PRN (Reason: nausea and vomiting) 4 Days Qty: 14 0RF Continued pantoprazole [Protonix] 40 mg tablet,delayed release (DR/EC) 40 mg PO DAILY atorvastatin 40 mg tablet 40 mg PO DAILY (DME) Dexcom G7 Super[employer] Inspection Misc See Rx Instructions .Route Qty: 1 0RF Rx Instructions: As directed (DME) Dexcom G7 Sensor Device See Rx Instructions .ROUTE .COMPLEX Qty: 9 0RF Dose Instruction: CHANGE EVERY 10 DAYS Rx Instructions: CHANGE EVERY 10 DAYS insulin aspart U-100 [Novolog U-100 Insulin aspart] 100 unit/mL solution See Rx Instructions .ROUTE .COMPLEX Qty: 30 0RF Dose Instruction: ADMINISTER 200 UNITS DAILY VIA INSULIM PUMP. Rx Instructions: ADMINISTER 150 UNITS DAILY VIA INSULIM PUMP. levothyroxine 150 mcg tablet 150 mcg PO DAILY Qty: 30 2RF acetaminophen 325 mg capsule 325 mg PO Q4H PRN (Reason: fever or pain) Qty: 60 0RF prednisone 20 mg tablet 20 mg PO BID naproxen 500 mg tablet See Rx Instructions .ROUTE .COMPLEX Rx Instructions: TAKE 1 TABLET BY MOUTH TWICE DAILY FOR 7 DAYS, THEN NEEDED. ubtzflljsr-eooewptbndhem-tahf 50-300-40 mg capsule 1 cap PO PRN PRN (Reason: MIGRAINES ) Lantus U-100 Insulin 100 unit/mL solution 35 unit SUBCUT TID Discontinued hydrochlorothiazide 12.5 mg tablet 12.5 mg PO QAM Discharge Orders: Discharge Order (Routine); Ordered 05/28/23 Ordered By: Светлана Arroyo Referrals: Cooper Venegas MD [Primary Care Provider] - Patient Instructions: Abdominal Pain (ED), Opioid Safety Discharge Attestations Time Spent in Discharge Care*: greater than 30 min Quality Metrics Clinical Quality Measures [ No reported AMI, CVA or VTE this stay] Coding Level of Care Code Acute Code for g Fwd Diagnoses Chronic pelvic pain in female R10.2; G89.29 Dysmenorrhea N94.6
[2023-05-28 09:53] LABS: Glucose Point of Care 186 mg/dL (70-110)
[2023-05-28 10:45] VITALS: BP 120/80; PULSE 71; RESP 18; TEMP 36.6; O2SAT 96
[2023-05-28 21:59] LABS: Chlamydia Trachomatis RNA TMA NOT DETECTED (NOT DETECTED); Neisseria Gonorrhoeae RNA, TMA NOT DETECTED (NOT DETECTED)
== END 2023-05-28 10:46 | disposition home or self-care (01) ==
LOC: ER 05-27 04:42 → MEDSURG 05-27 05:36
PROVIDERS: Internal Medicine; Admitting Provider Internal Medicine; Emergency Provider Internal Medicine; PCP Family Medicine; Visit Provider Internal Medicine
DX: R10.2 Pelvic and perineal pain (principal); G89.29 Other chronic pain; N94.6 Dysmenorrhea, unspecified; K21.9 Gastro-esophageal reflux disease without esophagitis; E03.9 Hypothyroidism, unspecified; M06.9 Rheumatoid arthritis, unspecified; I25.10 Atherosclerotic heart disease of native coronary artery without angina pectoris; I25.2 Old myocardial infarction; I10 Essential (primary) hypertension; Z87.891 Personal history of nicotine dependence; E08.65 Diabetes mellitus due to underlying condition with hyperglycemia; R39.9 Unspecified symptoms and signs involving the genitourinary system; N92.6 Irregular menstruation, unspecified
CPT/HCPCS: 36415; 36416; 71046; 74177; 76856; 80048; 80053; 81003; 81025; 82803; 82962; 83036; 83605; 83735; 84100; 84145; 85025; 87040; 87491; 87591; 87635; 96361; 96365; 96372; 96375; 99285; G0378; J0696; J1644; J1815; J1885; J2405; J7030; Q9967

== ENCOUNTER 2023-06-11 09:03 | Outpatient (CLI) | payer BC, MEDICAID, SELFPAY ==
--- NOTE | 2023-06-11 09:05 | XR_ITS ---
WS: [id number] Exam: XR elbow LT min 3V* [id number] Date/Time of Exam: 06/11/2023 9:05 AM Reason For Exam: L ELBOW PAIN/L ARM PAIN Findings: There are no fractures, soft tissue swelling, or calcifications. The elbow shows normal bony alignme nt. There is no irregularity of the bony architecture. IMPRESSION: Negative LEFT elbow.
== END 2023-06-11 09:04 | disposition home or self-care (01) ==
LOC: RAD 09:03
PROVIDERS: PCP Family Medicine; Visit Provider Family Medicine
DX: M25.522 Pain in left elbow (principal)
CPT/HCPCS: 73080

== ENCOUNTER 2023-07-06 06:03 | Day surgery (SDC) | payer BC, MEDICAID, SELFPAY ==
[2023-07-02 11:11] LABS: Add Urine Microscopic? NO; Charge for UA Resulting for Rev
--- NOTE | 2023-07-02 11:24 | SUR.PREOP ---
[address] Rodarte to inform about pre-op and stated she was giving a lunch and would be 20 minutes,1120 stated that he had to leave his work called,will relay message to dr rodarte
[2023-07-02 11:26] LABS: OR HCG Qualitative Urine Negative (Negative)
[2023-07-02 11:27] LABS: Bilirubin Urine Neg (Negative); Blood Urine Neg (Negative); Glucose Urine UA 4+ (Normal); Ketones Urine 1+ (Negative); Leukocyte Esterase Urine Negative (Negative); Nitrate Urine Negative (Negative); Protein Urine Neg (Negative); Urine Appearance Clear (CLEAR); Urine Color Yellow (Yellow); Urobilinogen Urine Neg (Negative); pH Urine 6 (5-7)
[2023-07-02 11:28] LABS: Basophils # 0.1 10^3/uL (0.0-0.1); Basophils % 0.6 %; Eosinophils # 0.2 10^3/uL (0.0-0.8); Eosinophils % 1.5 %; Hematocrit 42.3 % (36-47); Lymphocytes # 3.3 10^3/uL (0.8-4.8); Lymphocytes % 33.5 %; Mean Corpuscular HGB Conc 33.8 g/dL (30-55); Mean Corpuscular Volume 85.8 fl (85-98); Mean Platelet Volume 10.2 fL (7.4-10.4); Monocytes # 0.5 10^3/uL (0.2-0.9); Monocytes % 4.7 %; Neutrophils # 5.77 10^3/uL (1.8-7.7); Neutrophils % 59.5 %; Nucleated Red Blood Cells % 0 %; Platelet Count 336 10^3/cmm (157-399); Red Blood Count 4.93 10^6/uL (3.85-5.65); Red Cell Distribution Width 12.9 % (12.1-15.1); White Blood Count 9.72 10^3/uL (3.29-11.43)
[2023-07-02 11:44] LABS: Alanine Aminotransferase 26 U/L (0-33); Albumin Level 4.3 g/dL (3.5-5.2); Alkaline Phosphatase 102 U/L (35-105); Anion Gap 14.7 (5-19); Aspartate Amino Transferase 21 U/L (0-32); Blood Urea Nitrogen 7 mg/dL (6-20); Calcium 8.7 mg/dL (8.5-10.5); Carbon Dioxide 23 mmol/L (22-29); Chloride 104 mmol/L (98-107); Globulin 2.9 g/dL (1.3-4.6); Glomerular Filtration Rate 134.7 mL/min (90-130); Glucose 210 mg/dL (65-115); Osmolality Calculated 290 mOsm/kg (285-295); Potassium 3.7 mmol/L (3.5-5.1); Sodium 138 mmol/L (136-145); Total Bilirubin 0.4 mg/dL (0.15-1.2); Total Protein 7.2 g/dL (6.6-8.7)
[2023-07-06] VITALS (10 sets, daily range): BP systolic 101–124; BP diastolic 61–98; PULSE 65–90; RESP 12–20; TEMP 36.1–36.6; O2SAT 93–100; BMI 31.6
[2023-07-06 06:26] LABS: Glucose Point of Care 266 mg/dL (70-110)
[2023-07-06] MEDS: enoxaparin 30 mg/0.3 mL Syringe SUBCUT (06:31)
[2023-07-06] MEDS: sodium chloride 0.9% 1,000 ML 30 ML IV (06:33)
[2023-07-06] MEDS: sodium chloride 0.9% 500 ML IV (06:33)
[2023-07-06 06:40] LABS: OR HCG Qualitative Urine Negative (Negative)
--- NOTE | 2023-07-06 06:58 | W.PM.OPSUD ---
Surgery/Procedure H&P Update DATE OF PROCEDURE: July 06, 2023 DATE H&P PERFORMED: 05/27/23 H&P UPDATE INFORMATION: I have reviewed H&P completed within last 30 days, I have examined patient prior to procedure and No changes to prior documentation PREOP DIAGNOSIS: Chronic pelvic pain, dyspareunia, dysmenorrhea PLANNED PROCEDURE: Operation Date: 07/06/23 07:45 Proposed Procedures p Diagnostic laparosocpy 71966 R10.2, G89.29(Not Applicable) - Stevie Jones MD
--- NOTE | 2023-07-06 07:26 | P.ANESASSM_ITS ---
Pre-Anesthetic Assessment Height/Weight: Height 1.6 m Weight 81.08 kg Temp Pulse Resp BP Pulse Ox O2 Del Method 97.9 F 77 16 124/98 99 Room Air 07/06/23 06:25 07/06/23 06:25 07/06/23 06:25 07/06/23 06:25 07/06/23 06:25 07/06/23 06:25 Preop Diagnosis: Chronic pelvic pain, dyspareunia, dysmenorrhea Operation Date: 07/06/23 07:45 Proposed Procedures p Diagnostic laparosocpy 68013 R10.2, G89.29(Not Applicable) - Stevie Jones MD Familial anesthetic complications: None Was Beta Kamila taken within 24 hours: N/A Was Clonidine taken within 24 hours: N/A Last intake: Intake Last Liquid Date 07/05/23 Last Liquid Time 22:00 Last Solid Date 07/05/23 Last Solid Time 22:00 Social No alcohol and No tobacco Exam alert, oriented x 3, clear to auscultation bilaterally and regular rate & rhythm Airway Mallampati: Class III Dentition: full CV/HEM Hypertension GI Gastroesophageal Reflux Disease Metabolic Diabetes Mellitus, Hyperlipidemia, Morbid Obesity and Thyroid Disease Anesthetic Plan ASA status: 3 Anesthesia: General Risk of > 500 ml blood loss (7ml/kg in children): No Medications/Allergies Home Medications Medication Instructions Recorded Confirmed Last Taken Type atorvastatin 40 mg tablet 40 mg PO DAILY 05/27/22 07/06/23 07/05/23 History pantoprazole 40 mg tablet,delayed 40 mg PO DAILY 05/27/22 07/06/23 07/05/23 History release (Protonix) acetaminophen 325 mg capsule 325 mg PO Q4H PRN fever or pain 09/30/22 07/06/23 07/05/23 Rx #60 caps olklkclnnq-gdmiizwnscgkq-cqumzvrh 1 cap PO PRN PRN MIGRAINES 05/27/23 07/06/23 07/05/23 History 50 mg-300 mg-40 mg capsule naproxen 500 mg tablet 500 mg PO BID 05/27/23 07/06/23 07/05/23 History prednisone 20 mg tablet 20 mg PO BID 05/27/23 07/06/23 07/05/23 History insulin aspart U-100 100 unit/mL 35 unit (0.35 mL) SUBCUT TID #15 mL 06/03/23 07/06/23 07/05/23 Rx (3 mL) subcutaneous pen (Novolog FlexPen U-100 Insulin aspart) 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 meter,continuous #1 ea 06/08/23 07/06/23 07/05/23 Rx (Dexcom G7 Floor Covering Layer) 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 sensor (Dexcom G7 #3 ea 06/08/23 07/06/23 07/05/23 Rx Sensor device) levothyroxine 150 mcg tablet 150 mcg PO DAILY #32 tabs 06/08/23 07/06/23 07/05/23 Rx hydrochlorothiazide 12.5 mg tablet 12.5 mg PO DAILY 07/02/23 07/06/23 07/05/23 History insulin glargine 100 unit/mL 75 unit SUBCUT BEDTIME 07/02/23 07/06/23 07/05/23 History subcutaneous solution (Lantus U-100 Insulin) Allergies Allergy/AdvReac Type Severity Reaction Status Date / Time No Known Allergies Allergy Verified 07/06/23 06:22 Current Medications Generic Name Dose Route Start Last Admin Trade Name Freq PRN Reason Stop Dose Admin Sodium Chloride 1,000 mls @ 30 mls/hr 07/06/23 06:15 07/06/23 06:33 Sodium Chloride 0.9% IV 07/07/23 06:14 30 mls/hr .Q24H DAMIAN Administration PFSH Anesthesia Medical History Leukocytosis Hyperglycemia Ovarian cyst Abdominal pain Acute hyponatremia Diabetes mellitus due to underlying condition with hyperglycemia UTI symptoms Dyspareunia Dysmenorrhea Chronic pelvic pain in female Irregular menstrual bleeding GERD (gastroesophageal reflux disease) Hypothyroidism Rheumatoid arthritis CAD (coronary artery disease) Migraine Hx of myocardial infarction Hyperlipidemia Type 2 diabetes mellitus Hypertension Surgical History History of laparoscopic appendectomy Hx of section History of thyroid surgery Family History Father Diabetes Heart disease Mother Heart disease Grandmother Heart disease paternal/maternal Grandfather Heart disease paternal/maternal Family/Other Thyroid disease aunt/paternal Denies family history of Colon cancer Ovarian cancer Breast cancer Hypertension Uterine cancer Stroke Social History Smoking and tobacco/nicotine status: former use of tobacco/nicotine Female Reproductive History Date of last menstrual period: 06/01/23 Data Anesthesia 07/02/23 11:00 07/02/23 11:00 Cardiac Studies: 2 No Data to Display
[2023-07-06] MEDS: ceFAZolin 2,000 MG in sodium chloride 0.9% (plus) 50 ML 100 MG IV (07:44)
[2023-07-06] MEDS: BUPivacaine 0.5% INJ 10 mL INJECTION (08:17)
--- NOTE | 2023-07-06 09:04 | P.OP_ITS ---
Operative Report Date of procedure: July 06, 2023 Pre-op diagnosis: Pelvic pain Post-op diagnosis: Pelvic pain Multiple abdominal adhesions Post-op findings: Patient had right upper quadrant Uterus adhered to anterior abdominal wall Omental adhesions to the anterior abdominal wall Left adnexal adhesions Procedure done: Diagnostic laparoscopy Lysis of adhesions Surgeon: Stevie Jones MD Estimated blood loss (mL): 5 IV fluids (mL): 800 Urine output (mL): 300 Complications: None Findings: Multiple omental adhesions to the anterior abdominal wall Uterus adhered to anterior abdominal wall Left adnexa adhesions. Procedure: After informed consent, the patient was taken to the operating room where general anesthesia was administered. The patient was examined under anesthesia and found to have a normal uterus with normal adnexa. She was placed in the dorsal lithotomy position and prepped and draped in sterile fashion. Pre- Procedure Time-Out verifying the correct patient identity, correct procedure verified with consent, correct site and side, correct patient position, availability of correct implants and any special equipment or requirements was performed and acknowledge by the OR team. A weighted speculum was placed in the vagina, and the anterior lip of cervix was grasped with the single toothed tenaculum. A uterine manipulator was advanced into the endocervical. Tenaculum was removed after uterine manipulator was secured. The speculum was removed from the vagina. An intraumbilical incision was made with a scalpel. While tenting up on the abdomen, a Verres needle with sleeve was admitted into the intra-abdominal cavity. A saline drop test was performed and noted to be within normal limits. Pneumoperitoneum was attained with 4 liters of carbon dioxide. The Verres needle was removed. A 5 mm trocar and sleeve were admitted into the abdomen and laparoscopic confirmation of location was achieved, A second incision was made 3 cm above the symphysis pubis, and a 5 mm trocar and sleeve were admitted into the abdomen under direct, laparoscopic visualization without complication. A survey revealed abdominal omental adhesions to the anterior abdominal wall to right upper quadrant, lower suprapubic midline, and left abdominal wall. The pelvic survey shows the uterus adhered to anterior abdominal wall, left left adnexa with multiple adhesions and right adnexa normal. A 5 mm blunt probe was advanced through the second trocar sleeve, and light manipulation of ovaries and uterus to assess the posterior aspects was performed. The LigaSure laparoscopic blunt tipped device was used to lyse the omental adhesions without complications. The carbon dioxide was allowed to escape from the abdomen. The instruments were removed, and skin cover with a bandage. The instruments were removed from the vagina, and excellent hemostasis was noted. The patient tolerated the procedure well, and sponge, lap and needle count were correct times two. The patient taken to the recovery room in good condition.
[2023-07-06] MEDS: HYDROcodone-acetaminophen 5-325 mg Tablet 1 TAB PO (09:55)
--- NOTE | 2023-07-06 10:18 | PC.NURSE ---
Trevino removed, 10 ml balloon deflated prior. Pt tolerated well. Tisha pad with minimal bleeding.
--- NOTE | 2023-07-06 10:25 | ANE.PACU2 ---
Inpatient post-anesthesia follow up: Airway intact: Yes Vital signs: Temperature 97.0 F Pulse Rate 73 Respiratory Rate 20 Blood Pressure 101/72 Pulse Oximetry 95 Oxygen Delivery Me thod Room Air Oxygen Flow Rate 8 Fraction of Inspir ed Oxygen Hydration adequate: Yes Nausea and vomiting: No Pain level: 1 Mental status: Baseline
== END 2023-07-06 10:27 | disposition home or self-care (01) ==
PROVIDERS: Anesthesiology; PCP Family Medicine; Visit Provider Obstetrics & Gynecology
PROC: (CPT 49320; principal; 2023-07-06 07:35)
PROC: (CPT 58660; 2023-07-06 07:35)
DX: N73.6 Female pelvic peritoneal adhesions (postinfective) (principal); I10 Essential (primary) hypertension; K21.9 Gastro-esophageal reflux disease without esophagitis; E78.5 Hyperlipidemia, unspecified; E66.01 Morbid (severe) obesity due to excess calories; Z68.31 Body mass index [BMI] 31.0-31.9, adult; Z79.4 Long term (current) use of insulin; E11.65 Type 2 diabetes mellitus with hyperglycemia; M06.9 Rheumatoid arthritis, unspecified; I25.10 Atherosclerotic heart disease of native coronary artery without angina pectoris; I25.2 Old myocardial infarction; Z87.891 Personal history of nicotine dependence
CPT/HCPCS: 58660; 36415; 36416; 80053; 81003; 81025; 82962; 84703; 85025; 86850; 86900; J0330; J0690; J1100; J1200; J1650; J2250; J2371; J2405; J2704; J2710; J3010; J3490; J7030; J7040

== ENCOUNTER 2023-08-03 06:08 | Observation (INO) | payer BC, MEDICAID, SELFPAY ==
[2023-08-03] VITALS (10 sets, daily range): BP systolic 116–148; BP diastolic 84–92; PULSE 71–85; RESP 16–18; TEMP 36.6–36.8; O2SAT 93–99; BMI 31.8
--- NOTE | 2023-08-03 06:25 | W.ED.ABDPA2 ---
HPI - Abdominal Pain General: Chief Complaint: Abdominal Pain Stated Complaint: back and abd pain Time Seen by Provider: 08/03/23 06:10 Source: patient Mode of arrival: ambulatory History of Present Illness: 42-year-old female presents to the emergency room she is primarily a Egyptian speaker. Translation done on speaker phone with a medical associate at. Patient states she has severe abdominal pain the last couple 3 days. No fever no hematochezia or melena. No dysuria urgency or frequency no history of kidney stone she previously has had an appendectomy tubal ligation and section x 2. She is diabetic. Within the last month she had a laparoscopic exploratory surgery for chronic pelvic pain. She does still have her gallbladder in place. No fever sweats or chills. No vaginal discharge or bleeding. Refers most of the pain to the epigastric Left upper quadrant area radiating into her back MD elicited complaint: abdominal pain Onset (ago): day(s) Location: Epigastric and LUQ Quality: sharp Radiation: back Exacerbating factors: nothing Relieving factors: nothing Associated Symptoms: Reports GI cramping, nausea and poor appetite; Denies anorexia, belching, bloating, change in bowel habits, change in stool character, chills, coffee ground emesis, constipation, diarrhea, dyspepsia, dysuria, excessive flatus, fever(s), heartburn, hematochezia, hematuria, hematemesis, fecal incontinence, loose stools, melena, syncope and vomiting Related Data: Date of Last Menstrual Period: 06/30/23 Review of Systems Const: Denies: fever(s) or chills Card: Denies: chest pain or syncope Resp: Denies: dyspnea GI: Reports: nausea and GI cramping; Denies: abdominal pain, vomiting, hematemesis, coffee ground emesis, heartburn, diarrhea, constipation, bloating, belching, excessive flatus, fecal incontinence, change in bowel habits, change in stool character, hematochezia or melena : Denies: dysuria, urinary frequency, urinary urgency or hematuria Musc: Denies: neck pain or back pain Skin/Breast: Denies: rash PFSH ED PFSH: Medical History Leukocytosis Hyperglycemia Ovarian cyst Abdominal pain Acute hyponatremia Diabetes mellitus due to underlying condition with hyperglycemia UTI symptoms Dyspareunia Dysmenorrhea Chronic pelvic pain in female Irregular menstrual bleeding GERD (gastroesophageal reflux disease) Hypothyroidism Rheumatoid arthritis CAD (coronary artery disease) Migraine Hx of myocardial infarction Hyperlipidemia Type 2 diabetes mellitus Hypertension Surgical History History of laparoscopy (~07/06/23) Diagnostic laparoscopy with lysis of adhesions performed by Dr. Jones at [facility]. Multiple abdominal adhesions with the right upper quadrant uterus adhered to the anterior abdominal wall, omental adhesions to the anterior abdominal wall, left adnexal adhesions History of laparoscopic appendectomy Hx of section History of thyroid surgery Family History Father Diabetes Heart disease Mother Heart disease Grandmother Heart disease paternal/maternal Grandfather Heart disease paternal/maternal Family/Other Thyroid disease aunt/paternal Denies family history of Colon cancer Ovarian cancer Breast cancer Hypertension Uterine cancer Stroke Female Reproductive History: Date of last menstrual period: 06/30/23 Physical Exam Const: GENERAL APPEARANCE: cooperative and comfortable ORIENTATION/CONSCIOUSNESS: Yes awake, Yes oriented to person, Yes oriented to place and Yes oriented to time HENMT: COMMON NORMALS: normocephalic, atraumatic and hearing grossly normal bilaterally HEAD & SCALP: normocephalic and atraumatic Resp: COMMON NORMALS: normal respiratory effort, No retractions, No use of accessory muscles and clear to auscultation bilaterally AUSCULTATION: clear to auscultation bilaterally Cardio: COMMON NORMALS: regular rate, regular rhythm and No murmurs present (Cardio) RATE: regular rate RHYTHM: regular rhythm GI: COMMON NORMALS: No hepatosplenomegaly present AUSCULTATION: Yes normoactive bowel sounds PALPATION: Yes Tenderness to palpation present (GI), No Guarding due to palpation present (GI) and Yes No hepatosplenomegaly present Extremity: COMMON NORMALS: normal to inspection, capillary refill normal, no clubbing, cyanosis or edema, no calf tenderness and no pedal edema Neuro: SENSORIUM/ORIENTATION: Yes oriented to person, Yes oriented to place and Yes oriented to time Skin: COMMON NORMALS: no rashes or lesions noted GENERAL SKIN EXAM: no rashes or lesions noted Course Vital Signs: Vital signs: Vital Signs Temperature 98.0 F 08/03/23 06:14 Pulse Rate 71 08/03/23 12:27 Respiratory Rate 16 08/03/23 12:27 Blood Pressure 116/88 08/03/23 12:27 Pulse Oximetry 93 08/03/23 12:27 Oxygen Delivery Me thod Room Air 08/03/23 12:27 MDM - Abdominal Pain Medical Decision Making History obtained from patient via deburr operator. She is complaining of significant pain in her lower back. She told the nurse it was in her lower abdomen but when I had talked her she is referring the pain to the epigastric and left upper quadrant radiating into her back. She has no radicular-like symptoms. No red flag symptoms. Her lipase is slightly elevated white count elevated to suspect that is from the steroids. Will admit for back pain elevated lipase patient on observation discussed with hospitalist orders written Medical Records I reviewed the patient's medical records. Lab Data I reviewed the patient's lab results. 08/03/23 06:22 08/03/23 06:22 Labs/Radiology: Radiology Impressions Abdomen/Pelvis CT 08/03/23 06:56 IMPRESSION: No acute subdiaphragmatic pathology. Chest X-Ray 08/03/23 10:06 IMPRESSION: No acute findings. Laboratory Results WBC 14.61 10^3/uL (3.29-11.43) H 08/03/23 06:22 RBC 4.62 10^6/uL (3.85-5.65) 08/03/23 06:22 Hgb 13.30 g/dL (11.27-16.99) 08/03/23 06:22 Hct 39.3 % (36-47) 08/03/23 06:22 MCV 85.1 fl (85-98) 08/03/23 06:22 MCH 28.8 pg (27-33) 08/03/23 06:22 MCHC 33.8 g/dL (30-55) 08/03/23 06:22 RDW 12.6 % (12.1-15.1) 08/03/23 06:22 Plt Count 401 10^3/cmm (157-399) H 08/03/23 06:22 MPV 9.1 fL (7.4-10.4) 08/03/23 06:22 Neut % (Auto) 47.9 % 08/03/23 06:22 Lymph % (Auto) 43.3 % 08/03/23 06:22 Hughes % (Auto) 6.4 % 08/03/23 06:22 Eos % (Auto) 1.4 % 08/03/23 06:22 Baso % (Auto) 0.7 % 08/03/23 06:22 Neut # (Auto) 6.99 10^3/uL (1.8-7.7) 08/03/23 06:22 Lymph # (Auto) 6.3 10^3/uL (0.8-4.8) H 08/03/23 06:22 Hughes # (Auto) 0.9 10^3/uL (0.2-0.9) 08/03/23 06:22 Eos # (Auto) 0.2 10^3/uL (0.0-0.8) 08/03/23 06:22 Baso # (Auto) 0.1 10^3/uL (0.0-0.1) 08/03/23 06:22 Nucleated RBC % (auto) 0 % 08/03/23 06:22 Nucleated RBCs # 0.0 /100WBC 08/03/23 06:22 Sodium 136 mmol/L (136-145) 08/03/23 06:22 Potassium 3.7 mmol/L (3.5-5.1) 08/03/23 06:22 Chloride 102 mmol/L (98-107) 08/03/23 06:22 Carbon Dioxide 24 mmol/L (22-29) 08/03/23 06:22 Anion Gap 13.7 (5-19) 08/03/23 06:22 BUN 16 mg/dL (6-20) 08/03/23 06:22 Creatinine 0.7 mg/dL (0.5-0.9) 08/03/23 06:22 GFR Calculation 91.3 mL/min (90-130) 08/03/23 06:22 Glucose 181 mg/dL (65-115) H 08/03/23 06:22 Calculated Osmolality 288 mOsm/kg (285-295) 08/03/23 06:22 Calcium 8.8 mg/dL (8.5-10.5) 08/03/23 06:22 Total Bilirubin 0.2 mg/dL (0.15-1.2) 08/03/23 06:22 AST 18 U/L (0-32) 08/03/23 06:22 ALT 25 U/L (0-33) 08/03/23 06:22 Alkaline Phosphatase 91 U/L (35-105) 08/03/23 06:22 Total Protein 7.2 g/dL (6.6-8.7) 08/03/23 06:22 Albumin 3.9 g/dL (3.5-5.2) 08/03/23 06:22 Globulin 3.3 g/dL (1.3-4.6) 08/03/23 06:22 Triglycerides 198 mg/dL (0-150) H 08/03/23 06:22 Lipase 146 U/L (13-60) H 08/03/23 06:22 TSH 9.03 uIU/mL (0.27-4.20) H 08/03/23 06:22 HCG, Qual Negative (Negative) 08/03/23 06:22 Urine Color Straw (Yellow) 08/03/23 06:29 Urine Appearance Sl hazy (CLEAR) A 08/03/23 06:29 Urine pH 6 (5-7) 08/03/23 06:29 Ur Specific Logan 1.010 (1.005-1.030) 08/03/23 06:29 Urine Protein Neg (Negative) 08/03/23 06:29 Urine Glucose (UA) Norm (Normal) 08/03/23 06:29 Urine Ketones Negative (Negative) 08/03/23 06:29 Urine Blood Neg (Negative) 08/03/23 06:29 Urine Nitrate Negative (Negative) 08/03/23 06:29 Urine Bilirubin Neg (Negative) 08/03/23 06:29 Urine Urobilinogen Neg mg/dL (Negative) 08/03/23 06:29 Ur Leukocyte Esterase Negative (Negative) 08/03/23 06:29 Urine RBC 0-4 /hpf (0-2) H 08/03/23 06:29 Urine WBC 0-4 /hpf (0-5) H 08/03/23 06:29 Ur Squamous Epith Cells 0-4 /hpf (0-5) H 08/03/23 06:29 Amorphous Sediment Not Reportable 08/03/23 06:29 Urine Bacteria 1+ /hpf (NONE) H 08/03/23 06:29 Urine Yeast 1+ /hpf H 08/03/23 06:29 Ethyl Alcohol < 10 mg/dL (0-10) 08/03/23 06:22 All radiology interpretation(s) finalized by discharge Discharge Plan Discharge Condition: Stable Prescriptions: No Action pantoprazole [Protonix] 40 mg tablet,delayed release (DR/EC) 40 mg PO DAILY (DME) Dexcom G7 Boring Machine Feeder Misc See Rx Instructions .Route Qty: 1 0RF Rx Instructions: As directed (DME) Dexcom G7 Sensor Device See Rx Instructions .ROUTE .COMPLEX Qty: 3 1RF Dose Instruction: CHANGE EVERY 10 DAYS Rx Instructions: CHANGE EVERY 10 DAYS ibuprofen 800 mg tablet 800 mg PO TID PRN (Reason: pain) Qty: 60 0RF atorvastatin 80 mg tablet 80 mg PO DAILY paroxetine HCl 20 mg tablet 20 mg PO DAILY hydroxyzine HCl 25 mg tablet 25 - 50 mg PO Q6H PRN (Reason: Anxiety) Humalog KwikPen Insulin 100 unit/mL insulin pen 35 unit SUBCUT TID levothyroxine 150 mcg tablet See Rx Instructions .ROUTE .COMPLEX Rx Instructions: one tab (150mcg) po on Wednesday,Wednesday,Wednesday,,Wednesday and Wednesday and two tabs (300mcg) on Wednesday hydrochlorothiazide 12.5 mg Tablet 12.5 mg PO DAILY insulin glargine [Lantus U-100 Insulin] 100 unit/mL solution 75 unit SUBCUT BEDTIME acetaminophen 325 mg capsule 325 mg PO Q4H PRN (Reason: fever or pain) Qty: 60 0RF prednisone 20 mg tablet 20 mg PO BID Rx Instructions: for 5 days (rx filled 07/29/23) naproxen 500 mg tablet 500 mg PO BID PRN (Reason: Pain) eoadhbvysm-zgkgdowuolzng-ozjt 50-300-40 mg capsule 1 cap PO PRN PRN (Reason: MIGRAINES ) Referrals: Cooper Venegas MD [Primary Care Provider] - Coding Level of Care Code ED Utility Bill Complaints Investigator for Allison Pope
[2023-08-03 06:32] LABS: Basophils # 0.1 10^3/uL (0.0-0.1); Basophils % 0.7 %; Eosinophils # 0.2 10^3/uL (0.0-0.8); Eosinophils % 1.4 %; Hematocrit 39.3 % (36-47); Lymphocytes # 6.3 10^3/uL (0.8-4.8); Lymphocytes % 43.3 %; Mean Corpuscular HGB Conc 33.8 g/dL (30-55); Mean Corpuscular Hemoglobin 28.8 pg (27-33); Mean Corpuscular Volume 85.1 fl (85-98); Mean Platelet Volume 9.1 fL (7.4-10.4); Monocytes # 0.9 10^3/uL (0.2-0.9); Monocytes % 6.4 %; Neutrophils # 6.99 10^3/uL (1.8-7.7); Neutrophils % 47.9 %; Nucleated Red Blood Cells % 0 %; Platelet Count 401 10^3/cmm (157-399); Red Blood Count 4.62 10^6/uL (3.85-5.65); Red Cell Distribution Width 12.6 % (12.1-15.1); White Blood Count 14.61 10^3/uL (3.29-11.43)
[2023-08-03 06:46] LABS: Alanine Aminotransferase 25 U/L (0-33); Albumin Level 3.9 g/dL (3.5-5.2); Alkaline Phosphatase 91 U/L (35-105); Anion Gap 13.7 (5-19); Aspartate Amino Transferase 18 U/L (0-32); Blood Urea Nitrogen 16 mg/dL (6-20); Calcium 8.8 mg/dL (8.5-10.5); Carbon Dioxide 24 mmol/L (22-29); Chloride 102 mmol/L (98-107); Creatinine Clr Calc Pharmacy 109.3123; Globulin 3.3 g/dL (1.3-4.6); Glomerular Filtration Rate 91.3 mL/min (90-130); Glucose 181 mg/dL (65-115); Lipase 146 U/L (13-60); Osmolality Calculated 288 mOsm/kg (285-295); Potassium 3.7 mmol/L (3.5-5.1); Sodium 136 mmol/L (136-145); Total Bilirubin 0.2 mg/dL (0.15-1.2); Total Protein 7.2 g/dL (6.6-8.7)
[2023-08-03 06:51] LABS: HCG, Serum Qual Negative (Negative)
--- NOTE | 2023-08-03 06:56 | CTR_ITS ---
PROCEDURE INFORMATION: Exam: CT Abdomen And Pelvis Without Contrast Exam date and time: 08/03/2023 7:04 AM Age: 42 years old Clinical indication: Abdominal pain; Flank; Other: Bilateral TECHNIQUE: Imaging protocol: Computed tomography of the abdomen and pelvis without contrast. Radiation optimization: All CT scans at this facility use at least one of these dose optimization techniques: automated exposure control; mA and/or kV adjustment per patient size (includes targeted exams where dose is matched to clinical indication); or iterative reconstruction. COMPARISON: CT abdomen pelvis w con* [id number] 05/27/2023 1:01 AM RADIATION DOSE METRICS: Total DLP (mGy-cm): 792.79 FINDINGS: Liver: 20 cm borderline hepatomegaly. Gallbladder and bile ducts: Normal. No calcified stones. No ductal dilation. Pancreas: Normal. No ductal dilation. Spleen: Normal. No splenomegaly. Adrenal glands: Normal. No mass. Kidneys and ureters: Normal. No hydronephrosis. Stomach and bowel: Unremarkable. No obstruction. No mucosal thickening. Appendix: No evidence of appendicitis. Intraperitoneal space: Unremarkable. No free air. No significant fluid collection. Vasculature: Unremarkable. No abdominal aortic aneurysm. Lymph nodes: Unremarkable. No enlarged lymph nodes. Urinary bladder: Unremarkable as visualized. Reproductive: Unremarkable as visualized. Bones/joints: Unremarkable. No acute fracture. Soft tissues: Unremarkable. CT/CT abdomen pelvis wo con [id number] IMPRESSION: No acute subdiaphragmatic pathology.
[2023-08-03 06:58] LABS: Slide Review Slide Review Perform
[2023-08-03 07:09] LABS: Add Urine Culture? No; Add Urine Microscopic? YES; Bacteria Urine 1+ /hpf; Bilirubin Urine Neg (Negative); Blood Urine Neg (Negative); Glucose Urine UA Norm (Normal); Ketones Urine Negative (Negative); Leukocyte Esterase Urine Negative (Negative); Nitrate Urine Negative (Negative); Protein Urine Neg (Negative); RBC Urine 0-4 /hpf (0-2); Squamous Epithelial Cell Urine 0-4 /hpf (0-5); Urine Appearance SL Hazy (CLEAR); Urine Color Straw (Yellow); Urobilinogen Urine Neg (Negative); WBC Urine 0-4 /hpf (0-5); pH Urine 6 (5-7)
[2023-08-03 07:13] LABS: Triglycerides 198 mg/dL (0-150)
[2023-08-03 07:16] LABS: Alcohol Level < 10 mg/dL (0-10)
--- NOTE | 2023-08-03 07:22 | PC.NURSE ---
PATIENT INDUSTRIAL HEALTH ENGINEER LINE CALLED FOR PATIENT. BOTH NURSE AND PROVIDER PRESENT. PATIENT STATES ABDOMINAL PAIN AND BACK PAIN. PATIENT HAS HAD PAIN SINCE 3 AM. PATIENT DENIES GALLBLADDER PAIN OR VOMITTING. PATIENT HAS HAD APPENDIX REMOVED AND ABDOMINAL SURGERY WITH REBA. PATIENT IS A DIABETIC TREATED WITH INSULIN. PATENT AIRWAY, UNLABORED RESPIRATIONS, AND APPROPRIATE COLOR.
[2023-08-03] MEDS: sodium chloride 0.9% 1,000 ML 999 ML IV ×2 (07:32→08:28)
[2023-08-03] MEDS: morphine 4 mg/mL SDV 1 mL IVP ×3 (07:33→10:24)
[2023-08-03] MEDS: ondansetron 2 mg/ML SDV 2 mL 4 MG IVP (07:33)
--- NOTE | 2023-08-03 09:58 | PC.PHAR ---
unable to verify medications with pt-pts family was in room and verified medications-states the pt takes lipitor 80mg daily ext shows last filled 07/04/23 30d/s 40mg daily-pt unsure if she takes hctz 12.5mg daily ext shows last filled 08/01/23 30d/s-pt states she has humalog kwikpen 35 units tid and lantus 75 units hs ext shows last filled 06/03/23 35 units tid-pt had prednisone 20mg bid bottle rx filled 07/29/23 5d/s-pts family states the pt is out of norco 5/325mg one tab po q4h prn ext shows last filled 07/06/23 5d/s-
--- NOTE | 2023-08-03 10:01 | PC.NURSE ---
PATIENT TOLL GATE TENDER USED FOR DISCUSSION OF ADMISSION. PROVIDER AND NURSE PRESENT. PATIENT NPO UNTIL TOLD OTHERWISE BY ADMITTING PROVIDER. PATIENT HAD NO QUESTIONS OR FURTHER NEEDS.
--- NOTE | 2023-08-03 10:06 | XRR_ITS ---
PROCEDURE INFORMATION: Exam: XR Chest Exam date and time: 08/03/2023 10:18 AM Age: 42 years old Clinical indication: Cough and dyspnea; Additional info: Dyspnea/cough TECHNIQUE: Imaging protocol: Radiologic exam of the chest. Views: 1 view. COMPARISON: CR XR chest 2V* [id number] 05/27/2023 3:23 AM FINDINGS: Lungs: Unremarkable. No consolidation. Pleural spaces: Unremarkable. No pleural effusion. No pneumothorax. Heart/Mediastinum: Unremarkable. No cardiomegaly. Bones/joints: Unremarkable. XR/XR chest 1V portable [id number] IMPRESSION: No acute findings.
[2023-08-03] MEDS: sodium chlor 0.9% + KCl 20 mEq 20 MEQ/1,000 ML BAG 150 MEQ IV ×2 (10:23→18:28)
--- NOTE | 2023-08-03 10:53 | PC.NURSE ---
PATIENT CLOSING COORDINATOR USED FOR ADMITTING PROVIDER. PATIENT ASKED FOR ANY FURTHER NEEDS AFTER EVALUATION COMPLETE. PATIENT HAD NO NEEDS.
--- NOTE | 2023-08-03 11:01 | CT_ITS ---
WS: [id number] CT THORACIC SPINE HISTORY: intractable back pain TECHNIQUE: Contiguous 2.0 mm axial images are reviewed to thoracic spine. Images are reformatted in s agittal and coronal planes. All CT scans at [facility] use at least one of these dose optimiz ation techniques: automated exposure control; mA and/or kV adjustment per patient size (includes targ eted exams where dose is matched to clinical indication); or iterative reconstruction. DLP: 1534.34 mGy.cm COMPARISON: None available. Very mild long dextroscoliosis. Straightening of the normal thoracic kyphosis. Posterior thoracic ali gnment is normal. Facet joints are normally aligned. No destructive bone lesions. No disc protrusions , central or foraminal stenosis. There is no significant facet joint arthritis. Paravertebral soft ti ssues are normal. The visualized lungs are normal. Small hiatal hernia. Mild atherosclerosis in the visualized aorta. IMPRESSION: 1. Mild long curvature dextroscoliosis. 2. No fractures or significant stenosis. 3. No disc protrusions.
--- NOTE | 2023-08-03 11:01 | CT_ITS ---
WS: [id number] CT LUMBAR SPINE, noncontrast. HISTORY: intractable back pain TECHNIQUE: Contiguous 2.0 mm axial imaging are performed. Sagittal and coronal reformats are submitte d and reviewed. All CT scans at [facility] use at least one of these dose optimization techni ques: automated exposure control; mA and/or kV adjustment per patient size (includes targeted exams w here dose is matched to clinical indication); or iterative reconstruction. IV contrast: None DLP: 1534.34 mGy.cm COMPARISON: None available. Normal lumbar alignment with no loss of disc space height or vertebral body height. L1-2: Normal. L2-3: Normal. L3-4: Normal. L4-5: Very mild annular disc bulging. Shallow RIGHT foraminal disc protrusion. There is very slight d isc contact on the RIGHT traversing L5 nerve root. No stenosis. L5-S1: Mild annular disc bulging with very small bilateral paracentral disc protrusions. Very slight contact on the S1 nerve roots, LEFT greater than RIGHT. Mild foraminal narrowing. Visualized retroperitoneum is normal. IMPRESSION: 1. No high-grade central or foraminal stenosis. 2. L4-5: Very shallow RIGHT foraminal disc protrusion. Minimal contact on the RIGHT traversing L5 ne rve root. 3. Small bilateral paracentral disc protrusions contacting the S1 nerve roots. Mild foraminal narrow ing.
--- NOTE | 2023-08-03 11:06 | PM.HP ---
Providers/Chief Complaint Admitting Physician: Jorge Mendes MD, Hospitalist. Primary Care Provider: Cooper Venegas MD Chief Complaint: back and abd pain History of Present Illness Suzanna Chaidez is a 42 year old female presenting from home with severe lower thoracic/upper lumbar pain that started last night around 3 AM. It radiates some into the mid abdomen and flank on both sides but right greater than left. She denies any injury. She has not had any fever. She reports no nausea. Last stool was 2 days ago, without constipation. She did have a surgery, approximately 1 month ago which was for chronic pelvic pain. At that surgery multiple adhesions were lysed. After multiple doses of pain medicine she was still hurting significantly and I was asked to put her on the hospital under observation category. There was initial concern of pancreatitis, but the patient denies any nausea or vomiting to me. She reports no upper abdominal discomfort. She was recently on prednisone, for a left shoulder injury and is now just completed it. History and physical was completed with the aid of javascript programmer services. Review of Systems General: Reports: 10 or more systems reviewed and unremarkable except in HPI and below Card: Denies: chest pain Resp: Denies: dyspnea GI: Reports: abdominal pain; Denies: nausea, vomiting, hematochezia or melena Medications/Allergies Home Medications Medication Instructions Recorded Confirmed Last Taken Type pantoprazole 40 mg tablet,delayed 40 mg PO DAILY 05/27/22 08/03/23 07/05/23 History release (Protonix) ksrnhxdnxn-imfoypjqstpvm-vwmrksnd 1 cap PO PRN PRN MIGRAINES 05/27/23 08/03/23 07/05/23 History 50 mg-300 mg-40 mg capsule naproxen 500 mg tablet 500 mg PO BID PRN Pain 05/27/23 08/03/23 07/05/23 History prednisone 20 mg tablet 20 mg PO BID 05/27/23 08/03/23 07/05/23 History 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 meter,continuous #1 ea 06/08/23 08/03/23 07/05/23 Rx (Dexcom G7 Operations Staff Specialist Security) 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 sensor (Dexcom G7 #3 ea 06/08/23 08/03/23 07/05/23 Rx Sensor device) hydrochlorothiazide 12.5 mg tablet 12.5 mg PO DAILY 07/02/23 08/03/2324 History insulin glargine 100 unit/mL 75 unit SUBCUT BEDTIME 07/02/23 08/03/23 07/05/23 History subcutaneous solution (Lantus U-100 Insulin) acetaminophen 325 mg capsule 325 mg PO Q4H PRN fever or pain 07/06/23 08/03/23 Unknown Rx #60 caps ibuprofen 800 mg tablet 800 mg PO TID PRN pain #60 tabs 07/22/23 08/03/23 Unknown Rx atorvastatin 80 mg tablet 80 mg PO DAILY 08/03/23 08/03/23 Unknown History hydroxyzine HCl 25 mg tablet 25 - 50 mg PO Q6H PRN Anxiety 08/03/23 08/03/23 Unknown History insulin lispro 100 unit/mL 35 unit SUBCUT TID 08/03/23 08/03/23 Unknown History subcutaneous pen (Humalog KwikPen (U-100) Insulin) levothyroxine 150 mcg tablet See Rx Instructions .Route .COMPLEX 08/03/23 08/03/23 Unknown History paroxetine HCl 20 mg tablet 20 mg PO DAILY 08/03/23 08/03/23 Unknown History Allergies Allergy/AdvReac Type Severity Reaction Status Date / Time No Known Allergies Allergy Verified 07/22/23 10:54 PFSH Acute PFSH: Medical History (Updated 08/03/23 @ 11:22 by Jorge Mendes MD) Leukocytosis Hyperglycemia Ovarian cyst Abdominal pain Acute hyponatremia Diabetes mellitus due to underlying condition with hyperglycemia UTI symptoms Dyspareunia Dysmenorrhea Chronic pelvic pain in female Irregular menstrual bleeding GERD (gastroesophageal reflux disease) Hypothyroidism Rheumatoid arthritis CAD (coronary artery disease) Migraine Hx of myocardial infarction Hyperlipidemia Type 2 diabetes mellitus Hypertension Surgical History History of laparoscopy (~07/06/23) Diagnostic laparoscopy with lysis of adhesions performed by Dr. Jones at [facility]. Multiple abdominal adhesions with the right upper quadrant uterus adhered to the anterior abdominal wall, omental adhesions to the anterior abdominal wall, left adnexal adhesions History of laparoscopic appendectomy Hx of section History of thyroid surgery Family History Father Diabetes Heart disease Mother Heart disease Grandmother Heart disease paternal/maternal Grandfather Heart disease paternal/maternal Family/Other Thyroid disease aunt/paternal Denies family history of Colon cancer Ovarian cancer Breast cancer Hypertension Uterine cancer Stroke Female Reproductive History: Date of last menstrual period: 06/30/23 Vitals/I&O/Wt Last Vital Signs Temp 98.0 F 08/03/23 06:14 Pulse 85 08/03/23 10:52 Resp 18 08/03/23 10:52 BP 129/86 08/03/23 10:52 Pulse Ox 95 08/03/23 10:52 O2 Del Method Room Air 08/03/23 10:52 08/02/23 08/03/23 08/03/23 22:59 06:59 14:59 Intake Total 1931.4 / 1931.4 Balance 1931. Weight last 48 hrs Weight 88.451 kg Physical Exam Narrative: General exam is a female in apparent pain, reporting sitting up makes her back feel better HEENT: Atraumatic normocephalic. Oropharynx clear. Neck is supple no lymphadenopathy thyromegaly Cardiovascular regular rate and rhythm without murmur, no S3 or S4 Lungs clear no wheezing or crackles Abdomen some tenderness to palpation in the right mid quadrant. Slider in the left. Back tenderness is present around T10-L2 bone palpation both sides, perhaps right greater than left is deferred Extremities no sinus clubbing edema, no sacral paresthesia, good strength but some increase in pain with left straight leg raise. Neuro: No obvious focal deficits. Data 08/03/23 06:22 08/03/23 06:22 Other Labs: Chest x-ray which I reviewed demonstrates no infiltrate CT abdomen pelvis reported as normal. A&P Assessment and plan (1) Back pain: Patient has back pain, this seems to radiate around more on the right side. Differential diagnosis is very wide. She could have some lumbar spine or lower thoracic issues, musculoskeletal pain, constipation., Musculoskeletal pain, constipation. Although her lipase is slightly high I do not think it is likely she has pancreatitis as she does not have any upper abdominal pain, or nausea. Pain control with Tylenol, oxycodone and morphine for breakthrough pain. Flexeril for muscle spasm. Physical therapy consult secondary to back pain Imaging of her thoracic and lumbar spine. I do not think there is likely an infection so this can be done without contrast. Close continue monitoring Secondary to recent surgery I will at least notify her surgeon regarding her admission Repeat laboratory tomorrow Will treat constipation which I think is likely present on CT with MiraLAX twice daily, senna 2 tablets twice daily, and hydration. Check TSH. Previous ones appear abnormal. (2) Type 2 diabetes mellitus: Continue long-acting insulin Sliding scale, moderate Plan Other medical problems as outlined by past medical history. Full code Lovenox for DVT prophylaxis Attestations Medical Necessity Statement*: Will require less than 2 midnight stay for evaluation and treatment of intractable back pain, as well as possible constipation. Diagnoses Back pain M54.9 Type 2 diabetes mellitus E11.9
[2023-08-03 12:04] LABS: Thyroid Stimulating Hormone 9.03 uIU/mL (0.27-4.20)
[2023-08-03 13:54] LABS: Glucose Point of Care 226 mg/dL (70-110)
[2023-08-03 14:24] LABS: Glucose Point of Care 192 mg/dL (70-110)
[2023-08-03] MEDS: enoxaparin 40 mg/0.4 mL Syringe SUBCUT (14:40)
[2023-08-03] MEDS: insulin lispro 100 unit/1 mL SUBCUT ×3 (14:40→21:22)
[2023-08-03] MEDS: sennosides-docusate Tablet 2 TAB PO (14:40)
[2023-08-03] MEDS: oxyCODONE 5 mg IR Tab/Cap PO (15:05)
[2023-08-03 16:47] LABS: Glucose Point of Care 194 mg/dL (70-110)
[2023-08-03] MEDS: polyethylene glycol 3350 Pkt 17 gm PO (18:31)
[2023-08-03 20:56] LABS: Glucose Point of Care 215 mg/dL (70-110)
[2023-08-03] MEDS: insulin glargine 100 units/1 mL 75 UNIT SUBCUT (21:22)
[2023-08-04] VITALS: BP 159/71; PULSE 93; RESP 17; TEMP 36.8; O2SAT 95
[2023-08-04] MEDS: sodium chlor 0.9% + KCl 20 mEq 20 MEQ/1,000 ML BAG 150 MEQ IV (00:55)
[2023-08-04 03:46] VITALS: BP 120/70; PULSE 88; RESP 16; TEMP 36.8; O2SAT 95
[2023-08-04 05:42] LABS: Basophils # 0.1 10^3/uL (0.0-0.1); Basophils % 0.5 %; Eosinophils # 0.1 10^3/uL (0.0-0.8); Eosinophils % 0.9 %; Hematocrit 38.4 % (36-47); Lymphocytes # 2.6 10^3/uL (0.8-4.8); Lymphocytes % 26.8 %; Mean Corpuscular HGB Conc 32.8 g/dL (30-55); Mean Corpuscular Hemoglobin 28.4 pg (27-33); Mean Corpuscular Volume 86.7 fl (85-98); Mean Platelet Volume 9.2 fL (7.4-10.4); Monocytes # 0.7 10^3/uL (0.2-0.9); Monocytes % 7.3 %; Neutrophils # 6.25 10^3/uL (1.8-7.7); Neutrophils % 64.1 %; Nucleated Red Blood Cells % 0 %; Platelet Count 336 10^3/cmm (157-399); Red Blood Count 4.43 10^6/uL (3.85-5.65); Red Cell Distribution Width 12.9 % (12.1-15.1); White Blood Count 9.76 10^3/uL (3.29-11.43)
[2023-08-04 06:08] LABS: Alanine Aminotransferase 26 U/L (0-33); Albumin Level 3.8 g/dL (3.5-5.2); Alkaline Phosphatase 88 U/L (35-105); Anion Gap 12.2 (5-19); Aspartate Amino Transferase 15 U/L (0-32); Blood Urea Nitrogen 8 mg/dL (6-20); Calcium 8.9 mg/dL (8.5-10.5); Carbon Dioxide 26 mmol/L (22-29); Chloride 106 mmol/L (98-107); Creatinine Clr Calc Pharmacy 125.9508; Globulin 3.1 g/dL (1.3-4.6); Glomerular Filtration Rate 109.1 mL/min (90-130); Glucose 140 mg/dL (65-115); Osmolality Calculated 291 mOsm/kg (285-295); Potassium 4.2 mmol/L (3.5-5.1); Sodium 140 mmol/L (136-145); Total Bilirubin 0.3 mg/dL (0.15-1.2); Total Protein 6.9 g/dL (6.6-8.7)
[2023-08-04 06:36] LABS: Glucose Point of Care 110 mg/dL (70-110)
[2023-08-04 07:31] VITALS: BP 127/80; PULSE 83; RESP 16; TEMP 36.7; O2SAT 95
--- NOTE | 2023-08-04 08:26 | PM.DCS ---
Discharge Providers Date of Admission: 08/03/23 14:04 Date of Discharge: August 04, 2023 Attending Provider at Admission: Jorge Mendes MD Attending Provider at Discharge: Jorge Mendes MD Primary Care Provider: Cooper Venegas MD Diagnoses at Discharge Discharge Diagnosis (1) Back pain: Status: Acute (2) Type 2 diabetes mellitus: Status: Acute Reason for Visit Reason for Visit: back and abd pain Hospital Course Hospital Course Patient presented to the hospital with abdomen and back pain. There was some difficulty initially with patient's history, but this was clarified through the use of an official economic analyst. She related back and abdominal pain, mainly on the right side. She denied any recent injury. She had had no nausea or vomiting. Differential is very broad, but there was concern of intractable discomfort in the emergency department. She was placed under an observation status, and was started on stool softener. She was given a consistent carb diet. Physical therapy consultation was obtained. CT noncontrast of her thoracic and lumbar spine was obtained. She did have some evidence of disc protrusion at L4/L5 and L5-S1. Thoracic spine was largely normal. She was treated with as needed muscle relaxers, pain medication. With this she had improvement. Physical therapy gave recommendations on exercises at discharge. She is asked to follow-up with with her primary care provider regarding her low back pain with radiation of the abdomen. She had no evidence of rash. A CT abdomen and pelvis had also been done as lipase was minimally elevated. She had no abdominal pain, CT abnormality, or nausea during her hospital stay. Physical Exam Narrative: General exam no distress Neck is supple no lymphadenopathy thyromegaly Cardiovascular regular rate and rhythm, no murmur Lungs clear Abdomen is soft, nontender Extremities no sinus clubbing edema Back demonstrates slight right paralumbar tenderness to palpation Neuro no focal deficits Discharge Data Studies Completed and Pending Completed Studies During Hospitalization Category Date Time Status CT abdomen pelvis wo con [id number] Stat Cat Scan 08/03/23 06:[address] lumbar spine wo con* [id number] Routine Cat Scan 08/03/23 11:[address] thoracic spin wo con* [id number] Routine Cat Scan 08/03/23 11:01 Completed XR chest 1V portable [id number] Stat Exams 08/03/23 10:06 Completed Radiology Impressions Abdomen/Pelvis CT 08/03/23 06:56 IMPRESSION: No acute subdiaphragmatic pathology. Chest X-Ray 08/03/23 10:06 IMPRESSION: No acute findings. Laboratory Results WBC 9.76 10^3/uL (3.29-11.43) 08/04/23 05:19 RBC 4.43 10^6/uL (3.85-5.65) 08/04/23 05:19 Hgb 12.60 g/dL (11.27-16.99) 08/04/23 05:19 Hct 38.4 % (36-47) 08/04/23 05:19 MCV 86.7 fl (85-98) 08/04/23 05:19 MCH 28.4 pg (27-33) 08/04/23 05:19 MCHC 32.8 g/dL (30-55) 08/04/23 05:19 RDW 12.9 % (12.1-15.1) 08/04/23 05:19 Plt Count 336 10^3/cmm (157-399) 08/04/23 05:19 MPV 9.2 fL (7.4-10.4) 08/04/23 05:19 Neut % (Auto) 64.1 % 08/04/23 05:19 Lymph % (Auto) 26.8 % 08/04/23 05:19 [place] % (Auto) 7.3 % 08/04/23 05:19 Eos % (Auto) 0.9 % 08/04/23 05:19 Baso % (Auto) 0.5 % 08/04/23 05:19 Neut # (Auto) 6.25 10^3/uL (1.8-7.7) 08/04/23 05:19 Lymph # (Auto) 2.6 10^3/uL (0.8-4.8) 08/04/23 05:19 [place] # (Auto) 0.7 10^3/uL (0.2-0.9) 08/04/23 05:19 Eos # (Auto) 0.1 10^3/uL (0.0-0.8) 08/04/23 05:19 Baso # (Auto) 0.1 10^3/uL (0.0-0.1) 08/04/23 05:19 Nucleated RBC % (auto) 0 % 08/04/23 05:19 Nucleated RBCs # 0.0 /100WBC 08/04/23 05:19 Sodium 140 mmol/L (136-145) 08/04/23 05:19 Potassium 4.2 mmol/L (3.5-5.1) 08/04/23 05:19 Chloride 106 mmol/L (98-107) 08/04/23 05:19 Carbon Dioxide 26 mmol/L (22-29) 08/04/23 05:19 Anion Gap 12.2 (5-19) 08/04/23 05:19 BUN 8 mg/dL (6-20) 08/04/23 05:19 Creatinine 0.6 mg/dL (0.5-0.9) 08/04/23 05:19 GFR Calculation 109.1 mL/min (90-130) 08/04/23 05:19 Glucose 140 mg/dL (65-115) H 08/04/23 05:19 POC Glucose 110 mg/dL (70-110) 08/04/23 06:32 Calculated Osmolality 291 mOsm/kg (285-295) 08/04/23 05:19 Calcium 8.9 mg/dL (8.5-10.5) 08/04/23 05:19 Magnesium 2.0 mg/dL (1.7-2.3) 08/04/23 05:19 Total Bilirubin 0.3 mg/dL (0.15-1.2) 08/04/23 05:19 AST 15 U/L (0-32) 08/04/23 05:19 ALT 26 U/L (0-33) 08/04/23 05:19 Alkaline Phosphatase 88 U/L (35-105) 08/04/23 05:19 Total Protein 6.9 g/dL (6.6-8.7) 08/04/23 05:19 Albumin 3.8 g/dL (3.5-5.2) 08/04/23 05:19 Globulin 3.1 g/dL (1.3-4.6) 08/04/23 05:19 Triglycerides 198 mg/dL (0-150) H 08/03/23 06:22 Lipase 146 U/L (13-60) H 08/03/23 06:22 TSH 9.03 uIU/mL (0.27-4.20) H 08/03/23 06:22 HCG, Qual Negative (Negative) 08/03/23 06:22 Urine Color Straw (Yellow) 08/03/23 06:29 Urine Appearance Sl hazy (CLEAR) A 08/03/23 06:29 Urine pH 6 (5-7) 08/03/23 06:29 Ur Specific [place] 1.010 (1.005-1.030) 08/03/23 06:29 Urine Protein Neg (Negative) 08/03/23 06:29 Urine Glucose (UA) Norm (Normal) 08/03/23 06:29 Urine Ketones Negative (Negative) 08/03/23 06:29 Urine Blood Neg (Negative) 08/03/23 06:29 Urine Nitrate Negative (Negative) 08/03/23 06:29 Urine Bilirubin Neg (Negative) 08/03/23 06:29 Urine Urobilinogen Neg mg/dL (Negative) 08/03/23 06:29 Ur Leukocyte Esterase Negative (Negative) 08/03/23 06:29 Urine RBC 0-4 /hpf (0-2) H 08/03/23 06:29 Urine WBC 0-4 /hpf (0-5) H 08/03/23 06:29 Ur Squamous Epith Cells 0-4 /hpf (0-5) H 08/03/23 06:29 Amorphous Sediment Not Reportable 08/03/23 06:29 Urine Bacteria 1+ /hpf (NONE) H 08/03/23 06:29 Urine Yeast 1+ /hpf H 08/03/23 06:29 Ethyl Alcohol < 10 mg/dL (0-10) 08/03/23 06:22 Vitals Last Vital Signs Temp 98.0 F 08/04/23 07:31 Pulse 83 08/04/23 07:31 Resp 16 08/04/23 07:31 BP 127/80 08/04/23 07:31 Pulse Ox 95 08/04/23 07:31 O2 Del Method Room Air 08/04/23 07:31 Discharge Plan Discharge Patient Disposition: Home Condition: Stable Prescriptions: New cyclobenzaprine 10 mg Tablet 10 mg PO TID PRN (Reason: Muscle Spasms) Qty: 10 0RF polyethylene glycol 3350 17 gram Powder In Packet 17 g PO BID Qty: 60 0RF Senna Laxative 8.6 mg tablet 8.6 mg PO DAILY Qty: 30 0RF tramadol 50 mg tablet 50 mg PO TID PRN (Reason: pain) Qty: 20 0RF Continued pantoprazole [Protonix] 40 mg tablet,delayed release (DR/EC) 40 mg PO DAILY (DME) Dexcom G7 Microwave Supervisor Misc See Rx Instructions .Route Qty: 1 0RF Rx Instructions: As directed (DME) Dexcom G7 Sensor Device See Rx Instructions .ROUTE .COMPLEX Qty: 3 1RF Dose Instruction: CHANGE EVERY 10 DAYS Rx Instructions: CHANGE EVERY 10 DAYS atorvastatin 80 mg tablet 80 mg PO DAILY paroxetine HCl 20 mg tablet 20 mg PO DAILY hydroxyzine HCl 25 mg tablet 25 - 50 mg PO Q6H PRN (Reason: Anxiety) Humalog KwikPen Insulin 100 unit/mL insulin pen 35 unit SUBCUT TID levothyroxine 150 mcg tablet See Rx Instructions .ROUTE .COMPLEX Rx Instructions: one tab (150mcg) po on Wednesday,Wednesday,Wednesday,,Wednesday and Wednesday and two tabs (300mcg) on Wednesday hydrochlorothiazide 12.5 mg Tablet 12.5 mg PO DAILY insulin glargine [Lantus U-100 Insulin] 100 unit/mL solution 75 unit SUBCUT BEDTIME acetaminophen 325 mg capsule 325 mg PO Q4H PRN (Reason: fever or pain) Qty: 60 0RF nrbupekyef-taojcqackckoy-ynof 50-300-40 mg capsule 1 cap PO PRN PRN (Reason: MIGRAINES ) Discontinued ibuprofen 800 mg tablet 800 mg PO TID PRN (Reason: pain) Qty: 60 0RF prednisone 20 mg tablet 20 mg PO BID Rx Instructions: for 5 days (rx filled 07/29/23) naproxen 500 mg tablet 500 mg PO BID PRN (Reason: Pain) Discharge Orders: Discharge Order (Routine); Ordered 08/04/23 Ordered By: Jorge Mendes Referrals: Cooper Venegas MD [Primary Care Provider] - 08/10/23 1:30 pm Discharge Diet: Diabetic Discharge Activity: Limit activity as instructed Patient Instructions: Cyclobenzaprine (By mouth), Laxative, Stool Softeners (By mouth), Tramadol (By mouth), Polyethylene Glycol 3350 (By mouth), Back Pain (GEN), Opioid Safety Activity Restrictions/Additional Instructions: Take medicine as prescribed Monitor for sedation Follow-up with your primary care provider 3 to 5 days Therapy instructions as per physical therapy Return for any concerns Discharge Attestations Time Spent in Discharge Care*: greater than 30 min Quality Metrics Clinical Quality Measures [ No reported AMI, CVA or VTE this stay] Coding Level of Care Code 45013 Total time (in minutes) for Discharge: 35 Diagnoses Back pain M54.9 Type 2 diabetes mellitus E11.9
[2023-08-04 09:21] VITALS: RESP 16
[2023-08-04] MEDS: PARoxetine 20 mg Tablet PO (09:21)
[2023-08-04] MEDS: pantoprazole DR 40 mg Tablet PO (09:21)
[2023-08-04] MEDS: atorvastatin 40 mg Tablet 80 MG PO (09:21)
[2023-08-04] MEDS: levothyroxine 150 mcg Tablet PO (09:21)
[2023-08-04] MEDS: oxyCODONE 5 mg IR Tab/Cap PO (09:21)
[2023-08-04] MEDS: acetaminophen 325 mg Tablet 650 MG PO (10:07)
[2023-08-04 10:10] VITALS: BP 127/80; PULSE 83; RESP 16; TEMP 36.7; O2SAT 95
== END 2023-08-04 10:23 | disposition home or self-care (01) ==
LOC: ER 11:28 → MEDSURG 08-04 07:46
PROVIDERS: Admitting Provider Internal Medicine; Emergency Provider Family Medicine; PCP Family Medicine; Visit Provider Internal Medicine
DX: M51.26 Other intervertebral disc displacement, lumbar region (principal); M51.27 Other intervertebral disc displacement, lumbosacral region; R10.9 Unspecified abdominal pain; E11.65 Type 2 diabetes mellitus with hyperglycemia; Z98.890 Other specified postprocedural states; Z79.4 Long term (current) use of insulin; I25.10 Atherosclerotic heart disease of native coronary artery without angina pectoris; I25.2 Old myocardial infarction; I10 Essential (primary) hypertension
CPT/HCPCS: 36415; 36416; 71045; 72128; 72131; 74176; 80053; 80307; 81001; 82962; 83690; 83735; 84443; 84478; 84703; 85025; 96361; 96372; 96374; 96375; 96376; 97110; 97116; 97161; 97530; 99285; G0378; J1650; J1815; J2270; J2405; J3480; J7030

== ENCOUNTER → 2023-08-25 14:42 | Outpatient (BNVA) | payer BC, MEDICAID, SELFPAY | PROVIDERS: PCP Family Medicine; Referring Provider Family Medicine; Visit Provider Internal Medicine Cardiovascular Disease | DX: R07.9 Chest pain, unspecified (principal) | CPT/HCPCS: 93005 ==

== ENCOUNTER → 2023-10-20 10:00 | Outpatient (BNVA) | payer BC, MEDICAID, SELFPAY | PROVIDERS: PCP Family Medicine; Referring Provider Nurse Practitioner Family; Visit Provider Specialist | DX: M25.561 Pain in right knee (principal); M17.11 Unilateral primary osteoarthritis, right knee; G89.29 Other chronic pain | CPT/HCPCS: 73560; 73565 ==

== ENCOUNTER → 2023-11-08 11:07 | Outpatient (BNVA) | payer BC, MEDICAID, SELFPAY | PROVIDERS: PCP Family Medicine; Visit Provider Obstetrics & Gynecology | DX: N93.9 Abnormal uterine and vaginal bleeding, unspecified (principal); N83.201 Unspecified ovarian cyst, right side | CPT/HCPCS: 76830 ==

== ENCOUNTER 2023-11-29 21:26 | Emergency (ER) | payer BC, MEDICAID, SELFPAY ==
[2023-11-29 21:31] VITALS: BP 157/99; PULSE 86; RESP 18; TEMP 36.3; O2SAT 95; BMI 30.1
--- NOTE | 2023-11-29 21:51 | ED_ITS ---
HPI - Skin/Abscess/Foreign Bdy 2 General: Chief complaint: Skin/Abscess/Foreign Body Stated complaint: Bee Sting on Face Time Seen by Provider: 11/29/23 21:39 Source: patient and family Mode of arrival: ambulatory Limitations: no limitations History of Present Illness: Patient was transported the emergency department by her significant other. She was stung by a yellow jacket or honey bee approximately 7 PM today. She is here because she is having mild amount of swelling and pain in the infraorbital region of her left face where she was stung. She is not having any difficulty swallowing, abdominal pain, wheezing, skin rash etc. She has not had a history of allergic reactions to bee or wasp or other arthropod stings. She otherwise is in her normal state of health. She is an insulin requiring diabetic. She takes 3 doses of insulin daily with nighttime Lantus. MD complaint: insect bite/sting Location: face Severity: mild Relieving factors: none Exacerbating factors: none Associated symptoms: Reports no associated symptoms; Deny chills, fever(s), nausea or vomiting Treatments prior to arrival: Benadryl Related Data Home Medications Medication Instructions Recorded Confirmed pantoprazole 40 mg tablet,delayed 40 mg PO DAILY 05/27/22 11/22/23 release (Protonix) jfrxxpwbah-gttsbwpohjlna-zocnptab 1 cap PO PRN PRN MIGRAINES 05/27/23 11/22/23 50 mg-300 mg-40 mg capsule hydrochlorothiazide 12.5 mg tablet 12.5 mg PO DAILY 07/02/23 11/22/23 atorvastatin 80 mg tablet 80 mg PO DAILY 08/03/23 11/22/23 hydroxyzine HCl 25 mg tablet 25 - 50 mg PO Q6H PRN Anxiety 08/03/23 11/22/23 levothyroxine 150 mcg tablet See Rx Instructions .Route .COMPLEX 08/03/23 11/22/23 paroxetine HCl 20 mg tablet 20 mg PO DAILY 08/03/23 11/22/23 Previous Rx's Medication Instructions Recorded 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 meter,continuous #1 ea 06/08/23 (Dexcom G7 Swine Genetics Researcher) acetaminophen 325 mg capsule 325 mg PO Q4H PRN fever or pain 07/06/23 #60 caps cyclobenzaprine 10 mg tablet 10 mg PO TID PRN Muscle Spasms #10 08/04/23 tabs polyethylene glycol 3350 17 gram 17 g PO BID #60 ea 08/04/23 oral powder packet sennosides 8.6 mg tablet (Senna 8.6 mg PO DAILY #30 tabs 08/04/23 Laxative) tramadol 50 mg tablet 50 mg PO TID PRN pain #20 tabs 08/04/23 aspirin 81 mg tablet,delayed 81 mg PO DAILY #30 tabs 08/25/23 release (Adult Low Dose Aspirin) nitroglycerin 0.4 mg sublingual 0.4 mg sublingual Q5M PRN chest 08/25/23 tablet (Nitrostat) pain #30 tabs 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 sensor (Dexcom G7 #3 ea 09/13/23 Sensor device) insulin glargine 100 unit/mL 80 unit (0.8 mL) SUBCUT BEDTIME 09/13/23 subcutaneous solution (Lantus #72 mL U-100 Insulin) insulin lispro 100 unit/mL 35 unit (0.35 mL) SUBCUT TID #31.5 09/14/23 subcutaneous solution (Humalog mL U-100 Insulin) insulin syringe-needle U-100 1 mL #100 ea 11/01/23 30 gauge x 5/16 (Advocate Syringes) Allergies Allergy/AdvReac Type Severity Reaction Status Date / Time bee venom protein (honey bee) Allergy ADR-Swelling Verified 11/29/23 21:36 of the Eye Review of Systems 2 Const: Denies: fever(s) or chills Eyes: Denies: change in vision ENMT: Denies: throat pain, odynophagia or nasal discharge Card: Denies: palpitations or lightheadedness Resp: Denies: dyspnea, wheezing or stridor GI: Denies: abdominal pain, nausea or vomiting Skin/Breast: Reports: skin swelling Neuro: Denies: headache(s), numbness in extremities or weakness in extremities All/Imm: Denies: urticaria, throat swelling or itchy eyes PFSH ED 2 PFSH: Medical History Chronic pelvic pain in female Leukocytosis Hyperglycemia Ovarian cyst Abdominal pain Acute hyponatremia Diabetes mellitus due to underlying condition with hyperglycemia UTI symptoms Dyspareunia Dysmenorrhea Irregular menstrual bleeding GERD (gastroesophageal reflux disease) Hypothyroidism Rheumatoid arthritis CAD (coronary artery disease) Migraine Hx of myocardial infarction Hyperlipidemia Type 2 diabetes mellitus Hypertension Surgical History History of laparoscopy (~07/06/23) Diagnostic laparoscopy with lysis of adhesions performed by Dr. Jones at [facility]. Multiple abdominal adhesions with the right upper quadrant uterus adhered to the anterior abdominal wall, omental adhesions to the anterior abdominal wall, left adnexal adhesions History of laparoscopic appendectomy Hx of section History of thyroid surgery Family History Father Diabetes Heart disease Mother Heart disease Grandmother Heart disease paternal/maternal Grandfather Heart disease paternal/maternal Family/Other Thyroid disease aunt/paternal Denies family history of Colon cancer Ovarian cancer Breast cancer Hypertension Uterine cancer Stroke Social History Smoking and tobacco/nicotine status: never used tobacco/nicotine Physical Exam 2 Narrative: EXAM NARRATIVE: She is alert and oriented in no acute distress. Is comfortable and communicates with broken Beninese+Mauritanian as well as through her significant other. Const: COMMON NORMALS: no acute distress, average body habitus and patient oriented x3 GENERAL APPEARANCE: cooperative NUTRITIONAL APPEARANCE: o verweight HENMT: COMMON NORMALS: normocephalic, Normal nasal mucous membranes and turbinates present, moist oral mucous membranes and oropharynx normal HEAD & SCALP: normocephalic FACE & SINUS: face symmetric FACE & SINUS IMAGES: 1. Minimize local swelling and local tenderness. No erythema. No pustule no obvious site of inoculation etc. NOSE: Normal nasal mucous membranes and turbinates present Eye: COMMON NORMALS: Equal, round and reactive pupils present, EOMs intact bilaterally and conjunctivae normal CONJUNCTIVA: Yes conjunctivae normal P UPIL: Yes Equal, round and reactive pupils present Neck/C-Spine: COMMON NORMALS: full ROM and no lymphadenopathy Lymph: LYMPHATIC: no lymphadenopathy noted Resp: COMMON NORMALS: normal respiratory effort, No use of accessory muscles and clear to auscultation bilaterally EFFORT & INSPECTION: Yes able to speak in complete sentences AUSCULTATION: clear to auscultation bilaterally Cardio: COMMON NORMALS: regular rate, regular rhythm, No murmurs present (Cardio) and Peripheral pulses 2+ throughout RATE: regular rate RHYTHM: r egular rhythm PERIPHERAL PULSES: Peripheral pulses 2+ throughout GI: COMMON NORMALS: Soft to palpation PALPATION: Yes Soft to palpation Back/Pelvis: COMMON NORMALS: thoracic and lumbar spine normal to inspection and thoraco-lumbar ROM normal Extremity: COMMON NORMALS: normal to inspection, full ROM, capillary refill normal and no pedal edema Neuro: COMMON NORMALS: patient oriented x3, moves all extremities, no focal motor deficits and no sensory deficits noted Skin: COMMON NORMALS: no rashes or lesions noted, turgor normal, no jaundice, no petechiae and no mottling GENERAL SKIN EXAM: no rashes or lesions noted and turgor normal Course 2 Reevaluation(s): Reevaluation #1: Patient subjectively improving. Reexamination reveals again no signs of systemic reaction. She is speaking in a normal voice has no wheezing no skin rash no abdominal pain etc. Time: 22:31 Vital Signs: Vital signs: Vital Signs Temperature 97.3 F L 11/29/23 21:31 Pulse Rate 86 11/29/23 21:31 Respiratory Rate 18 11/29/23 21:31 Blood Pressure 157/99 11/29/23 21:31 Pulse Oximetry 95 11/29/23 21:31 Oxygen Delivery Me thod Room Air 11/29/23 21:31 MDM - Skin/Abscess/Foreign Bdy Medicial Decision Making Patient presented as noted in HPI. She has local reaction to bee sting with local soft tissue tenderness and local swelling. Absolutely no evidence of systemic reaction, anaphylaxis etc. She is now almost 3 hours after her stenting. We will treat her with oral antihistamines for itching, nonsteroidals for pain control and avoid any kind of steroids given the limited nature of her clinical picture as well as to avoid significant perturbations in her glucose control. Her emergency department stay was unremarkable with improvement in her subjective local symptoms without any systemic involvement or other concerns suggesting more generalized reaction. She is stable at this time to be discharged with home care with return instructions. No radiology studies performed this visit Discharge Plan Discharge Patient Disposition: Home Clinical Impression: Bee sting Condition: Stable Prescriptions: No Action pantoprazole [Protonix] 40 mg tablet,delayed release (DR/EC) 40 mg PO DAILY (DME) Dexcom G7 Swine Genetics Researcher Misc See Rx Instructions .Route Qty: 1 0RF Rx Instructions: As directed aspirin [Adult Low Dose Aspirin] 81 mg tablet,delayed release (DR/EC) 81 mg PO DAILY Qty: 30 3RF nitroglycerin [Nitrostat] 0.4 mg tablet, sublingual 0.4 mg sublingual Q5M PRN (Reason: chest pain) Qty: 30 3RF (DME) Dexcom G7 Sensor Device See Rx Instructions .ROUTE .COMPLEX Qty: 3 1RF Dose Instruction: CHANGE EVERY 10 DAYS Rx Instructions: CHANGE EVERY 10 DAYS insulin glargine [Lantus U-100 Insulin] 100 unit/mL solution 80 unit SUBCUT BEDTIME Qty: 72 1RF insulin lispro [Humalog U-100 Insulin] 100 unit/mL solution 35 unit SUBCUT TID Qty: 31.5 1RF Rx Instructions: please advise patient insurance will only cover vials (DME) insulin syringe-needle U-100 [Advocate Syringes] 1 mL 30 gauge x 5/16 syringe See Rx Instructions .Route Qty: 100 0RF Rx Instructions: ok to use insurance preferred atorvastatin 80 mg tablet 80 mg PO DAILY paroxetine HCl 20 mg tablet 20 mg PO DAILY hydroxyzine HCl 25 mg tablet 25 - 50 mg PO Q6H PRN (Reason: Anxiety) levothyroxine 150 mcg tablet See Rx Instructions .ROUTE .COMPLEX Rx Instructions: one tab (150mcg) po on Wednesday,Wednesday,Wednesday,,Wednesday and Wednesday and two tabs (300mcg) on Wednesday cyclobenzaprine 10 mg Tablet 10 mg PO TID PRN (Reason: Muscle Spasms) Qty: 10 0RF polyethylene glycol 3350 17 gram Powder In Packet 17 g PO BID Qty: 60 0RF Senna Laxative 8.6 mg tablet 8.6 mg PO DAILY Qty: 30 0RF tramadol 50 mg tablet 50 mg PO TID PRN (Reason: pain) Qty: 20 0RF hydrochlorothiazide 12.5 mg Tablet 12.5 mg PO DAILY acetaminophen 325 mg capsule 325 mg PO Q4H PRN (Reason: fever or pain) Qty: 60 0RF cplkthkbvt-eaumaojdfxdvt-plfp 50-300-40 mg capsule 1 cap PO PRN PRN (Reason: MIGRAINES ) Discharge Orders: Discharge ED (Routine); Ordered 11/29/23 Ordered By: Stevie Putnam Referrals: Cooper Venegas MD [Primary Care Provider] - Discharge Diet: Usual diet Discharge Activity: Resume usual activity Patient Instructions: Opioid Safety, Pain Management Activity Restrictions/Additional Instructions: As we discussed while you are in the emergency department you have a local reaction to the venom of the bee sting. We recommend continue using ice to the area for 10 to 15 minutes couple times daily for the next 24 hours. You may continue with the hydroxyzine or Atarax 25 mg every 6 hours for any itching. You may also use ibuprofen 4 mg or Aleve 200 mg twice daily for any pain. If you have any increasing swelling, difficulty breathing, nausea vomiting or other concerning symptoms you are welcome to return to the emergency department at any time. 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
[2023-11-29] MEDS: hyDROXYzine 25 mg Capsule PO (21:56)
[2023-11-29] MEDS: naproxen 500 mg Tablet PO (21:56)
== END 2023-11-29 23:09 | disposition home or self-care (01) ==
PROVIDERS: Emergency Provider Emergency Medicine; PCP Family Medicine
DX: T63.441A Toxic effect of venom of bees, accidental (unintentional), initial encounter (principal); Z79.82 Long term (current) use of aspirin; Z79.4 Long term (current) use of insulin; E11.9 Type 2 diabetes mellitus without complications; I25.10 Atherosclerotic heart disease of native coronary artery without angina pectoris; I25.2 Old myocardial infarction; E78.5 Hyperlipidemia, unspecified; I10 Essential (primary) hypertension
CPT/HCPCS: 99283

== ENCOUNTER → 2023-12-15 12:40 | Outpatient (BNVA) | payer BC, MEDICAID, SELFPAY | PROVIDERS: PCP Family Medicine; Visit Provider Internal Medicine | DX: E11.9 Type 2 diabetes mellitus without complications (principal); E78.5 Hyperlipidemia, unspecified; E03.9 Hypothyroidism, unspecified | CPT/HCPCS: 36415; 80053; 80061; 82044; 83036; 84439; 84443 ==

== ENCOUNTER → 2023-12-30 10:28 | Outpatient (BNVA) | payer BC, MEDICAID, SELFPAY | PROVIDERS: PCP Family Medicine; Visit Provider Obstetrics & Gynecology | DX: N83.291 Other ovarian cyst, right side (principal); D25.9 Leiomyoma of uterus, unspecified; R10.2 Pelvic and perineal pain | CPT/HCPCS: 76830 ==

== ENCOUNTER 2024-03-29 10:00 | Observation (INO) | payer BC, MEDICAID, SELFPAY ==
[2024-03-20 11:19] LABS: Add Urine Microscopic? NO
[2024-03-20 11:22] LABS: Bilirubin Urine Negative (Negative); Blood Urine Negative (Negative); Glucose Urine UA 3+ (Normal); Ketones Urine Negative (Negative); Leukocyte Esterase Urine Negative (Negative); Nitrate Urine Negative (Negative); Protein Urine Negative (Negative); Specific Gravity, Urine 1.021 (1.005-1.030); Urine Appearance Clear (CLEAR); Urine Color Yellow (Yellow); Urobilinogen Urine 0.2 mg/dL (Negative)
[2024-03-20 11:25] LABS: Charge for UA Resulting for Rev
--- NOTE | 2024-03-20 11:49 | P.ANESASSM_ITS ---
Pre-Anesthetic Assessment Height/Weight: Height 5 ft 3 in Preop Diagnosis: Pelvic pain Operation Date: 03/29/24 07:00 Proposed Procedures p Total Abdominal Hysterectomy 22783, G89.29, N92.0(Not Applicable) - Stevie Jones MD Was Beta Kamila taken within 24 hours: N/A Was Clonidine taken within 24 hours: N/A Social No alcohol and No tobacco Exam alert, oriented x 3, clear to auscultation bilaterally and regular rate & rhythm Airway Submandibular: within normal limits Cervical ROM: within normal limits Mallampati: Class II Dentition: full Anesthetic Plan ASA status: 3 Anesthesia: General Other: Patient presents for preop evaluation for planned hysterectomy next week Plan for n.p.o. after midnight the night before surgery No prior issues with anesthesia Type 2 diabetes on insulin Hypertension on HCTZ Hypothyroidism on Synthroid GERD on Protonix Labs pending today METs greater than 4 Plan for general anesthesia Medications/Allergies Home Medications Medication Instructions Recorded Confirmed Last Taken Type xgytvfrpwn-fzdepctovuzsd-jusdatcx 1 cap PO PRN PRN MIGRAINES 05/27/23 03/20/24 07/05/23 History 50 mg-300 mg-40 mg capsule 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 meter,continuous #1 ea 06/08/23 03/20/24 07/05/23 Rx (Dexcom G7 Psychiatric Therapist) acetaminophen 325 mg capsule 325 mg PO Q4H PRN fever or pain 07/06/23 03/20/24 Unknown Rx #60 caps atorvastatin 80 mg tablet 80 mg PO DAILY 08/03/23 03/20/24 03/20/24 History hydroxyzine HCl 25 mg tablet 25 - 50 mg PO Q6H PRN Anxiety 08/03/23 03/20/24 Unknown History levothyroxine 150 mcg tablet See Rx Instructions .Route .COMPLEX 08/03/23 03/20/24 03/20/24 History paroxetine HCl 20 mg tablet 20 mg PO DAILY 08/03/23 03/20/24 03/20/24 History cyclobenzaprine 10 mg tablet 10 mg PO TID PRN Muscle Spasms #10 08/04/23 03/20/24 Unknown Rx tabs sennosides 8.6 mg tablet (Senna 8.6 mg PO DAILY #30 tabs 08/04/23 03/20/24 03/20/24 Rx Laxative) tramadol 50 mg tablet 50 mg PO TID PRN pain #20 tabs 08/04/23 03/20/24 Unknown Rx nitroglycerin 0.4 mg sublingual 0.4 mg sublingual Q5M PRN chest 08/25/23 03/20/24 Unknown Rx tablet (Nitrostat) pain #30 tabs insulin glargine 100 unit/mL 80 unit (0.8 mL) SUBCUT BEDTIME 09/13/23 03/20/24 03/19/24 Rx subcutaneous solution (Lantus #72 mL U-100 Insulin) insulin syringe-needle U-100 1 mL #100 ea 11/01/23 03/20/24 Unknown Rx 30 gauge x 5/16 (Advocate Syringes) diclofenac sodium 75 mg 75 mg PO Q12H PRN pain #20 tabs 01/21/24 03/20/24 Unknown Rx tablet,delayed release hydrochlorothiazide 12.5 mg tablet 12.5 mg PO QAM 01/21/24 03/20/24 03/20/24 History ibuprofen 800 mg tablet 800 mg PO TID PRN Pain 01/21/24 03/20/24 Unknown History insulin aspart U-100 100 unit/mL 35 unit SUBCUT TID 01/21/24 03/20/24 03/20/24 History (3 mL) subcutaneous pen levothyroxine 137 mcg tablet See Rx Instructions .Route .COMPLEX 01/21/24 03/20/24 Unknown History levothyroxine 150 mcg tablet See Rx Instructions .Route .COMPLEX 01/21/24 03/20/24 Unknown History naproxen 500 mg tablet See Rx Instructions .Route .COMPLEX 01/21/24 03/20/24 Unknown History nitroglycerin 0.4 mg sublingual See Rx Instructions .Route .COMPLEX 01/21/24 03/20/24 Unknown History tablet pantoprazole 40 mg tablet,delayed 40 mg PO DAILY 01/21/24 03/20/24 03/20/24 History release 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 sensor (Dexcom G7 #3 ea 03/16/24 03/20/24 Unknown Rx Sensor device) Allergies Allergy/AdvReac Type Severity Reaction Status Date / Time bee venom protein (honey bee) Allergy ADR-Swelling Verified 03/20/24 08:11 of the Eye [facility] Anesthesia Medical History Chronic pelvic pain in female Leukocytosis Hyperglycemia Ovarian cyst Abdominal pain Acute hyponatremia Diabetes mellitus due to underlying condition with hyperglycemia UTI symptoms Dyspareunia Dysmenorrhea Irregular menstrual bleeding GERD (gastroesophageal reflux disease) Hypothyroidism Rheumatoid arthritis CAD (coronary artery disease) Migraine Hx of myocardial infarction Hyperlipidemia Type 2 diabetes mellitus Hypertension Surgical History History of laparoscopy (~07/06/23) Diagnostic laparoscopy with lysis of adhesions performed by Dr. Jones at [facility]. Multiple abdominal adhesions with the right upper quadrant uterus adhered to the anterior abdominal wall, omental adhesions to the anterior abdominal wall, left adnexal adhesions History of laparoscopic appendectomy Hx of section History of thyroid surgery Family History Father Diabetes Heart disease Mother Heart disease Grandmother Heart disease paternal/maternal Grandfather Heart disease paternal/maternal Family/Other Thyroid disease aunt/paternal Father Diabetes Denies family history of Colon cancer Ovarian cancer Hyperlipidemia Breast cancer Hypertension Uterine cancer Stroke Social History Smoking and tobacco/nicotine status: never used tobacco/nicotine Female Reproductive History Date of last menstrual period: 03/08/24 Data Anesthesia 03/20/24 11:30 03/20/24 11:30 Urine 03/20/24 Range/Units 11:15 Urine Color Yellow (Yellow) Urine Appearance Clear (CLEAR) Urine pH 6.0 (5-7) Ur Specific [place] 1.021 (1.005-1.030) Urine Protein Negative (Negative) Urine Glucose (UA) 3+ H (Normal) Urine Ketones Negative (Negative) Urine Nitrate Negative (Negative) Urine Bilirubin Negative (Negative) Ur Leukocyte Esterase Negative (Negative) Cardiac Studies: 2 No Data to Display
[2024-03-20 11:51] LABS: Basophils # 0.1 10^3/uL (0.0-0.1); Basophils % 0.7 %; Eosinophils # 0.2 10^3/uL (0.0-0.8); Eosinophils % 2.2 %; Hematocrit 39.3 % (36-47); Lymphocytes # 3.5 10^3/uL (0.8-4.8); Lymphocytes % 35.5 %; Mean Corpuscular HGB Conc 30.8 g/dL (30-55); Mean Corpuscular Hemoglobin 22.4 pg (27-33); Mean Corpuscular Volume 72.9 fl (85-98); Mean Platelet Volume 9.4 fL (7.4-10.4); Monocytes # 0.6 10^3/uL (0.2-0.9); Monocytes % 5.5 %; Neutrophils # 5.55 10^3/uL (1.8-7.7); Neutrophils % 55.8 %; Nucleated Red Blood Cells % 0 %; Platelet Count 467 10^3/cmm (157-399); Red Blood Count 5.39 10^6/uL (3.85-5.65); Red Cell Distribution Width 15.5 % (12.1-15.1); White Blood Count 9.95 10^3/uL (3.29-11.43)
[2024-03-20 12:16] LABS: Alanine Aminotransferase 24 U/L (0-33); Albumin Level 4.2 g/dL (3.5-5.2); Alkaline Phosphatase 106 U/L (35-105); Anion Gap 17.4 (5-19); Aspartate Amino Transferase 22 U/L (0-32); Blood Urea Nitrogen 6 mg/dL (6-20); Calcium 9.8 mg/dL (8.5-10.5); Carbon Dioxide 24 mmol/L (22-29); Chloride 98 mmol/L (98-107); Globulin 3.4 g/dL (1.3-4.6); Glomerular Filtration Rate 90.9 mL/min (90-130); Glucose 279 mg/dL (65-115); Osmolality Calculated 290 mOsm/kg (285-295); Potassium 3.4 mmol/L (3.5-5.1); Sodium 136 mmol/L (136-145); Total Bilirubin 0.3 mg/dL (0.15-1.2); Total Protein 7.6 g/dL (6.6-8.7)
[2024-03-29] VITALS (15 sets, daily range): BP systolic 105–158; BP diastolic 69–95; PULSE 91–104; RESP 12–20; TEMP 36.6–37.1; O2SAT 90–100; BMI 30.4
[2024-03-29 06:20] LABS: OR HCG Qualitative Urine Negative (Negative)
[2024-03-29] MEDS: sodium chloride 0.9% 1,000 ML 30 ML IV (06:30)
[2024-03-29 06:36] LABS: Glucose Point of Care 215 mg/dL (70-110)
[2024-03-29] MEDS: enoxaparin 30 mg/0.3 mL Syringe SUBCUT (06:39)
[2024-03-29] MEDS: metroNIDAZOLE IV 500 MG/100 ML PREMIX 100 MG IV (06:39)
[2024-03-29] MEDS: scopolamine 1.5 Patch 1 PATCH TRANSDERMA (06:40)
--- NOTE | 2024-03-29 06:59 | ANES.PAUD2 ---
Pre-Anesthetic Update Pre-Anesthetic Assessment: Date of Surgery/Procedure: 03/29/24 Preop Diagnosis: Uterine fibroid, pelvic pain Proposed Procedure: Operation Date: 03/29/24 07:00 Proposed Procedures p Total Abdominal Hysterectomy 68341, G89.29, N92.0(Not Applicable) - Stevie Jones MD Any changes to Pre-Anesthetic Assessment?: No Last Intake: Intake Last Liquid Date 03/28/24 Last Liquid Time 23:00 Last Solid Date 03/28/24 Last Solid Time 22:00 Vitals: Temperature 97.9 F 03/29/24 06:09 Temperature Source Temporal Artery S can 03/29/24 06:09 Pulse Rate 92 03/29/24 06:09 Respiratory Rate 17 03/29/24 06:09 Blood Pressure 158/95 03/29/24 06:09 Blood Pressure Lilly n 116 03/29/24 06:09 Pulse Oximetry 98 03/29/24 06:09 Oxygen Delivery Me thod Room Air 03/29/24 06:09 Exam: Pre-Anes Outpt Exam: alert, oriented x 3, clear to auscultation bilaterally and regular rate & rhythm Other Pertinent Information: Other Pertinent Information: Discussed with patient, , exercise equipment specialist and Dr. Jones regarding chest pains she'd been having. She went to ER and this chest pain was found to be reproducible with palpation. She was given NSAIDs and has had no recurrence of these chest pains. She states she is able to achieve > 4 METS with out SOB or CP. Denies syncope or pre-syncope. States the chest pains were provoked by engaging her upper extremities, such as scrubbing floors. Cardiac Studies: No Data to Display
--- NOTE | 2024-03-29 07:01 | W.PM.OPSUD ---
Surgery/Procedure H&P Update DATE OF PROCEDURE: March 29, 2024 DATE H&P PERFORMED: 03/20/24 H&P UPDATE INFORMATION: I have reviewed H&P completed within last 30 days, I have examined patient prior to procedure and No changes to prior documentation PREOP DIAGNOSIS: Uterine fibroid, pelvic pain PLANNED PROCEDURE: Operation Date: 03/29/24 07:00 Proposed Procedures p Total Abdominal Hysterectomy 19240, G89.29, N92.0(Not Applicable) - Stevie Jones MD
[2024-03-29] MEDS: ceFAZolin 2,000 mg SDV 2000 MG IVP (07:11)
[2024-03-29] MEDS: BUPivacaine liposome 13.3 mg/mL SDV 20 mL 266 MG INFILTRATI (09:29)
[2024-03-29] MEDS: BUPivacaine 0.5% INJ 30 mL INJECTION (09:32)
--- NOTE | 2024-03-29 09:43 | W.PM.BPON ---
Date of Procedure: 03/29/24 Surgeon: Stevie Jones MD Potato Picker(s): Procedure(s) performed: Total abdominal hysterectomy, left ovarian cystectomy Findings of the procedure(s): Multiple adhesions, fibroid uterus, left ovarian cyst Estimated blood loss: 150 mL Specimen(s) removed: Uterus, left ovarian cyst capsule Post-operative diagnosis: Status post total abdominal hysterectomy and left ovarian cystectomy
--- NOTE | 2024-03-29 09:45 | PM.OP ---
Operative Report Date of procedure: March 29, 2024 Pre-op diagnosis: Fibroid uterus Pelvic pain Dysmenorrhea Dyspareunia Post-op diagnosis: same Post-op diagnosis: Pelvic adhesions Post-op findings: Multiple pelvic adhesions Procedure done: Total abdominal hysterectomy Lysis of adhesions Left ovarian cystectomy Specimens removed/disposition: Uterus Left ovarian cyst Capsule Surgeon: Stevie Jones MD Estimated blood loss (mL): 150 IV fluids (mL): 1,900 Urine output (mL): 200 Findings: Multiple pelvic adhesions Procedure: The patient was taken to the operating room, and after adequate level of general anesthesia was achieved, the patient was placed in the Trendelenburg position, prepped and draped in the usual sterile fashion. Subsequently, a Pfannenstiel incision was made and the incision was taken down to the fascia. The fascia was opened up sharply. The fascia was extended to the length of the incision using the Wharton scissors. At this time, the rectus muscles were dissected from the fascia superiorly and inferiorly to the symphysis pubis. The midline rectus muscles were opened sharply and extended superiorly and inferiorly. The peritoneum was visualized, grasped, opened sharply, and extended superiorly and inferiorly towards the bladder. The abdominal contents were packed superiorly away from the operative site using the lap packs. At this time, the pelvic organs were noted showing adhesions and left ovarian cyst. The Evan self-retaining retractor was placed. Bowel was packed away from the operative site. Multiple pelvic adhesions were noted . The anterior surface of the uterus was completely adhered to the anterior abdominal wall and bladder. The fundus of the uterus was then grasped with a triple-tooth tenaculum and retracted up and out of the pelvic cavity creating traction and countertraction while dissecting the adhesions of the uterus by sharp and blunt dissection, with careful separation of the bladder ensuring no injury to the bladder. At this point, Anabella clamps were placed in both right and left adnexal regions. Subsequently, using the LigaSure cautery unit, the round ligaments were grasped, cauterized, and dissected. The bladder flap was then formed and the bladder flap was pushed away down anteriorly over the lower uterine segment, pushed away from the operative site on both the right and left sides. Subsequently, the posterior leaf of the broad ligament was opened sharply and the LigaSure instrument was then placed below the level of the ovary in both the right and left side, care being taken not to damage bowel or uterus and the tubo-ovarian ligament was then grasped, cauterized, and again dissected. Further dissection of the broad ligament was carried down posteriorly towards the uterine vessels. The bladder was pushed inferiorly down towards the vagina. Subsequently, the uterine vessels were then grasped again with the LigaSure machine, cauterized, and dissected. The cardinal ligaments were further grasped, dissected, and suture ligated, again with the LigaSure machine. At that point, the LigaSure machine instrument was stopped and straight Zeppelin clamps were used on the cardinal ligaments down towards the uterosacral ligaments. The cardinal ligaments were grasped, dissected with a scalpel and then ligated with transfixion sutures with #1 Vicryl suture down to the uterosacral ligaments. The uterosacral ligaments were grasped, dissected, and suture ligated again with #1 Vicryl suture and transfixion sutures. At that time, the bladder had been pushed over the vagina and at this time right-angle Zeppelin clamps were placed on the vagina at the level of the cervix, and using the Maycol scissors, the cervix was dissected away from the vagina. At this time, the vaginal cuff was then closed using interrupted sutures of #1 Vicryl suture from the midline to each lateral corner. After the good hemostasis had been achieved in the vaginal cuff, both the right and left adnexa was visualized and no more bleeding was noted. Then proceeded to perform left ovarian cystectomy. The suspensory ligament of the left ovary was anchored with a [place] clamp. The ovarian capsule was incised with the scalpel near the base of the cyst. With tissue forceps the ovarian capsule was elevated with small Metzenbaum scissors the alveolar tissue between the cyst and the ovarian capsule was dissected while the margins of the capsule were held with Allis clamps. The ovarian cyst was completely dissected and send to pathology. . Hemostasis within the bed of the ovary was a control by electrocoagulation of small bleeders. A running mattress sutured was place with 3-0 Vicril suture. When the lower pole of the ovary was reached the same sutured was use tools sutured the edges of the ovary in a running baseball inverting fashion. The cuff was intact with no bleeding noted. The bladder was visualized and no bleeding was noted. Seprafilm was then placed over the vaginal cuff. The Evan self-retaining retractor was removed as well as the anterior and inferior blades. The lap packs were removed, and at this time, general closure of the abdomen was carried out. The peritoneum was closed with a 2-0 Vicryl suture and continuous running suture. The fascia was closed using a #1 Vicryl suture from each corner to the midline. Subcutaneous tissue was cauterized. No bleeding was noted. The subcutaneous tissue was then reapproximated using plain sutures and interrupted sutures, and the skin was closed using Insorb absorbable subcuticular bety. The patient tolerated the procedure well and was transferred to the recovery room in excellent condition. The patient returned to the floor for recovery.
[2024-03-29 10:18] LABS: Glucose Point of Care 280 mg/dL (70-110)
--- NOTE | 2024-03-29 10:25 | ANE.PACU2 ---
Inpatient post-anesthesia follow up: Airway intact: Yes Vital signs: Temperature 98.0 F Pulse Rate 99 Respiratory Rate 16 Blood Pressure 117/74 Pulse Oximetry 94 Oxygen Delivery Me thod Room Air Oxygen Flow Rate 8 Fraction of Inspir ed Oxygen Hydration adequate: Yes Nausea and vomiting: No Pain level: 1 Mental status: Baseline
[2024-03-29] MEDS: insulin regular-human 100 units/1 mL 10 UNIT IVP (10:27)
--- NOTE | 2024-03-29 10:44 | PC.NURSE ---
1037 - accepted into room OB 11 with at side - informed Tory of 10 units of insulin given for blood sugar of 280 - per Dr Polanco - BP 108/69 - pulse 100 - 02 91% temp 98.1
[2024-03-29] MEDS: HYDROcodone-acetaminophen 5-325 mg Tablet PO (11:22)
[2024-03-29] MEDS: ondansetron 2 mg/ML SDV 2 mL 4 MG IVP (11:31)
[2024-03-29] MEDS: HYDROmorphone 1 mg/mL INJ 1 mL 1.5 MG IVP (13:41)
[2024-03-29] MEDS: ketorolac 30 mg/mL INJ IVP ×2 (17:24→22:59)
[2024-03-29 17:27] LABS: Glucose Point of Care 248 mg/dL (70-110)
[2024-03-29] MEDS: alum-mag-hydroxide-sime 30 mL UDC PO (17:33)
[2024-03-29] MEDS: insulin lispro 100 unit/1 mL 35 UNIT SUBCUT (17:43)
[2024-03-29] MEDS: docusate sodium 100 mg Capsule PO (19:22)
[2024-03-29] MEDS: insulin glargine 100 units/1 mL 80 UNIT SUBCUT (21:18)
[2024-03-29 21:29] LABS: Glucose Point of Care 167 mg/dL (70-110)
--- NOTE | 2024-03-29 22:35 | PC.NURSE ---
At 1999 rounding this nurse asked patient if she had been up to the chair after surgery or up to walk. At this time the patient, and their skid worker reported that Dr. Jones had told them that she did not have to get up until the morning and patient refused to get out of bed at this time. During change of shift report this was also reported to this nurse and it was reported to this nurse that Dr. Jones was aware.
[2024-03-30 05:05] VITALS: BP 155/89; PULSE 85; RESP 16; TEMP 37; O2SAT 97
[2024-03-30 05:29] LABS: Hematocrit 30.8 % (36-47); Mean Corpuscular HGB Conc 31.2 g/dL (30-55); Mean Corpuscular Hemoglobin 22.8 pg (27-33); Mean Corpuscular Volume 73.2 fl (85-98); Mean Platelet Volume 9.4 fL (7.4-10.4); Platelet Count 345 10^3/cmm (157-399); Red Blood Count 4.21 10^6/uL (3.85-5.65); Red Cell Distribution Width 15.7 % (12.1-15.1); White Blood Count 17.22 10^3/uL (3.29-11.43)
[2024-03-30] MEDS: docusate sodium 100 mg Capsule PO ×2 (08:35→17:35)
[2024-03-30] MEDS: pantoprazole DR 40 mg Tablet PO (08:36)
[2024-03-30] MEDS: hydroCHLOROthiazide 25 mg Tablet 12.5 MG PO (08:36)
[2024-03-30] MEDS: atorvastatin 40 mg Tablet 80 MG PO (08:36)
[2024-03-30] MEDS: insulin lispro 100 unit/1 mL 35 UNIT SUBCUT ×3 (08:49→17:34)
[2024-03-30 08:57] LABS: Glucose Point of Care 169 mg/dL (70-110)
[2024-03-30] MEDS: PARoxetine 20 mg Tablet PO (09:32)
[2024-03-30] MEDS: levothyroxine 150 mcg Tablet PO (09:33)
[2024-03-30 10:18] VITALS: BP 132/90; PULSE 85; RESP 16; TEMP 37; O2SAT 98
[2024-03-30] MEDS: ibuprofen 800 mg tablet PO ×2 (12:14→20:10)
[2024-03-30 12:21] LABS: Glucose Point of Care 241 mg/dL (70-110)
--- NOTE | 2024-03-30 12:42 | P.PN_ITS ---
Subjective 2 Subjective: Mrs. Chaidez 43-year-old female status post total abdominal hysterectomy and left ovarian cystectomy day 1. Refers feeling better than yesterday. Vitals/I&O/Wt Last Vital Signs Temp 98.6 F 03/30/24 10:18 Pulse 85 03/30/24 10:18 Resp 16 03/30/24 10:18 BP 132/90 03/30/24 10:18 Pulse Ox 98 03/30/24 10:18 O2 Del Method Room Air 03/30/24 10:18 O2 Flow Rate 8 03/29/24 10:02 03/29/24 03/30/24 03/30/24 22:59 06:59 14:59 Output Total 1200 / 2700 1450 / 4150 Balance -1200 / -1650 -1450 / -3100 Weight last 48 hrs Weight 78.018 kg Physical Exam 2 Narrative: GA: Alert and oriented ?3. HEENT: WNL. Heart: Regular rate and rhythm. Lungs: Clear to auscultation bilaterally. Abdomen: Bowel sounds present, nontender, minimal tenderness, incision clean and dry, no redness, pain or edema. MUSIC COMPOSER: spotting bleeding. Extremities: No edema, no cyanosis, no calves pain. Urinary Catheter Management: Trevino: Cath Placed During This Visit: yes, but has since been removed by the nurse Reason for Continuing Indwelling Catheter: Decision to DC Catheter Urinary Catheter Date of Insertion: 03/29/24 Urinary Catheter Time of Insertion: 07:40 Date Urinary Catheter Removed: 03/30/24 Time Urinary Catheter Discontinued: 05:20 Data 03/30/24 05:14 03/20/24 11:30 A&P Assessment and plan (1) Status post total abdominal hysterectomy: Mrs. Chaidez 43-year-old female with status post total abdominal hysterectomy and left ovarian cystectomy postoperative day 1. Afebrile hemodynamically stable. Tolerating diet well. Plan Continue postop observation Attestations 2 Medical Necessity Statement*: In my professional opinion per admitting diagnosis. Coding Level of Care Code Acute Code for Chg Fwd Diagnoses Status post total abdominal hysterectomy Z90.710
[2024-03-30] MEDS: HYDROcodone-acetaminophen 5-325 mg Tablet PO (16:07)
[2024-03-30 16:13] VITALS: BP 119/72; PULSE 82; RESP 16; TEMP 36.9; O2SAT 97
[2024-03-30 17:41] LABS: Glucose Point of Care 111 mg/dL (70-110)
[2024-03-30] MEDS: simethicone 80 mg Chew PO (20:09)
[2024-03-30] MEDS: insulin glargine 100 units/1 mL 80 UNIT SUBCUT (20:15)
[2024-03-30 21:24] LABS: Glucose Point of Care 174 mg/dL (70-110)
[2024-03-30 22:00] VITALS: BP 128/76; PULSE 81; RESP 18; TEMP 36.8; O2SAT 97
[2024-03-31 06:07] VITALS: BP 107/71; PULSE 87; RESP 18; TEMP 36.8; O2SAT 96
[2024-03-31] MEDS: HYDROcodone-acetaminophen 5-325 mg Tablet PO (06:07)
[2024-03-31] MEDS: hydroCHLOROthiazide 25 mg Tablet 12.5 MG PO (06:07)
--- NOTE | 2024-03-31 08:05 | PM.PN ---
Subjective Subjective: Mrs. Chaidez 43-year-old female with status post total abdominal hysterectomy and left ovarian cystectomy day 2. Refers feeling better than yesterday. Vitals/I&O/Wt Last Vital Signs Temp 98.1 F 04/01/24 04:30 Pulse 77 04/01/24 04:30 Resp 15 04/01/24 04:30 BP 140/90 04/01/24 04:30 Pulse Ox 96 04/01/24 04:30 O2 Del Method Room Air 04/01/24 04:30 O2 Flow Rate 8 03/29/24 10:02 03/31/24 04/01/24 04/01/24 22:59 06:59 14:59 Intake Total 999 Balance 999 Physical Exam Narrative: GA: Alert and oriented ?3. HEENT: WNL. Heart: Regular rate and rhythm. Lungs: Clear to auscultation bilaterally. Abdomen: Bowel sounds present, nontender, minimal tenderness, incision clean and dry, no redness, pain or edema. CHANNEL CEMENTER OUTSOLE MACHINE: spotting bleeding. Extremities: No edema, no cyanosis, no calves pain. Urinary Catheter Management: Trevino: Cath Placed During This Visit: yes, but has since been removed by the nurse Reason for Continuing Indwelling Catheter: Decision to DC Catheter Urinary Catheter Date of Insertion: 03/29/24 Urinary Catheter Time of Insertion: 07:40 Date Urinary Catheter Removed: 03/30/24 Time Urinary Catheter Discontinued: 05:20 Data 03/30/24 05:14 03/20/24 11:30 A&P Assessment and plan (1) Status post total abdominal hysterectomy: Mrs. Chaidez 43-year-old female with status post total abdominal hysterectomy and left ovarian cystectomy postoperative day 2. She is afebrile hemodynamically stable. Tolerating diet well. Ambulating without difficulty. Has not had bowel movement yet. Plan Continue postop observation Attestations Medical Necessity Statement*: In my professional opinion per admitting diagnosis Coding Level of Care Code Acute Code for Chg Fwd Diagnoses Status post total abdominal hysterectomy Z90.710
[2024-03-31 09:01] LABS: Glucose Point of Care 151 mg/dL (70-110)
[2024-03-31] MEDS: insulin lispro 100 unit/1 mL 35 UNIT SUBCUT ×2 (09:46→18:25)
[2024-03-31] MEDS: pantoprazole DR 40 mg Tablet PO (09:47)
[2024-03-31] MEDS: sennosides 8.6 mg Tablet PO (09:47)
[2024-03-31] MEDS: docusate sodium 100 mg Capsule PO ×2 (09:47→18:26)
[2024-03-31] MEDS: atorvastatin 40 mg Tablet 80 MG PO (09:47)
[2024-03-31] MEDS: PARoxetine 20 mg Tablet PO (09:47)
[2024-03-31] MEDS: ibuprofen 800 mg tablet PO ×3 (09:48→21:11)
[2024-03-31 09:50] VITALS: BP 124/70; PULSE 84; RESP 17; TEMP 36.8
[2024-03-31 12:00] LABS: Glucose Point of Care 235 mg/dL (70-110)
[2024-03-31 12:15] LABS: Glucose Point of Care 112 mg/dL (70-110)
[2024-03-31 16:20] VITALS: BP 110/73; PULSE 80; RESP 17; TEMP 36.7
[2024-03-31 18:05] LABS: Glucose Point of Care 195 mg/dL (70-110)
[2024-03-31] MEDS: insulin glargine 100 units/1 mL 80 UNIT SUBCUT (21:12)
[2024-03-31 21:19] LABS: Glucose Point of Care 201 mg/dL (70-110)
[2024-03-31 22:35] VITALS: BP 136/87; PULSE 80; RESP 15; TEMP 36.9; O2SAT 97
[2024-04-01 04:30] VITALS: BP 140/90; PULSE 77; RESP 15; TEMP 36.7; O2SAT 96
[2024-04-01 07:40] LABS: Glucose Point of Care 91 mg/dL (70-110)
[2024-04-01] MEDS: insulin lispro 100 unit/1 mL 35 UNIT SUBCUT (09:06)
[2024-04-01] MEDS: atorvastatin 40 mg Tablet 80 MG PO (09:07)
[2024-04-01] MEDS: pantoprazole DR 40 mg Tablet PO (09:07)
[2024-04-01] MEDS: docusate sodium 100 mg Capsule PO (09:08)
[2024-04-01] MEDS: ibuprofen 800 mg tablet PO (09:08)
[2024-04-01] MEDS: sennosides 8.6 mg Tablet PO (09:08)
[2024-04-01] MEDS: hydroCHLOROthiazide 25 mg Tablet 12.5 MG PO (09:09)
[2024-04-01] MEDS: levothyroxine 100 mcg Tablet 150 MCG PO (09:09)
--- NOTE | 2024-04-01 11:41 | PM.OBGYDC ---
Discharge Providers ELECTRIC METER INSPECTOR Date of Admission: 03/29/24 10:00 Date of Discharge: 04/01/24 Attending Provider at Admission: Stevie Jones MD Attending Provider at Discharge: Stevie Jones MD Primary ELECTRIC METER INSPECTOR: Stevie Jones MD Primary Care Provider: Cooper Venegas MD Diagnoses at Discharge Discharge Diagnosis (1) Status post total abdominal hysterectomy: Status: Acute Reason for Visit Reason for Visit: G89.29 Hospital Course Hospital Course Mrs. Chaidez 43-year-old female G2, P2 with history of chronic pelvic pain, left ovarian cyst and abnormal uterine bleeding unresponsive to medical management. Was admitted for planned abdominal hysterectomy. A total abdominal hysterectomy, lysis of adhesion and left ovarian cystectomy were performed without complications. observation have been uneventful. She is afebrile and hemodynamically stable postoperative day 3. Tolerating diet well. Ambulating without difficulty. She was counseled regarding pelvic rest for 6 weeks (no sex, no tampons, no vaginal douches). Return to the emergency room if any fever, increased bleeding or pain. She was also counseled regarding limitations on heavy weight lifting to nothing heavier than a gallon of milk. Physical Exam Narrative: GA: Alert and oriented ?3. HEENT: WNL. Heart: Regular rate and rhythm. Lungs: Clear to auscultation bilaterally. Abdomen: Bowel sounds present, nontender, minimal tenderness, incision clean and dry, no redness, pain or edema. MANAGER PIPELINE: spotting bleeding. Extremities: No edema, no cyanosis, no calves pain. Urinary Catheter Management: Trevino: Cath Placed During This Visit: yes, but has since been removed by the nurse Reason for Continuing Indwelling Catheter: Decision to DC Catheter Urinary Catheter Date of Insertion: 03/29/24 Urinary Catheter Time of Insertion: 07:40 Date Urinary Catheter Removed: 03/30/24 Time Urinary Catheter Discontinued: 05:20 History History History 2 Term 2 0 Miscarriages/Ectopic 0 Living Children 2 Discharge Data Studies Completed and Pending Pending at discharge Category Date Time Status Pathology: Surgical [PTH] Routine Pth 03/29/24 09:15 Received Laboratory Results WBC 17.22 10^3/uL (3.29-11.43) H 03/30/24 05:14 RBC 4.21 10^6/uL (3.85-5.65) 03/30/24 05:14 Hgb 9.60 g/dL (11.27-16.99) L 03/30/24 05:14 Hct 30.8 % (36-47) L 03/30/24 05:14 MCV 73.2 fl (85-98) L 03/30/24 05:14 MCH 22.8 pg (27-33) L 03/30/24 05:14 MCHC 31.2 g/dL (30-55) 03/30/24 05:14 RDW 15.7 % (12.1-15.1) H 03/30/24 05:14 Plt Count 345 10^3/cmm (157-399) 03/30/24 05:14 MPV 9.4 fL (7.4-10.4) 03/30/24 05:14 Neut % (Auto) 55.8 % 03/20/24 11:30 Lymph % (Auto) 35.5 % 03/20/24 11:30 [place] % (Auto) 5.5 % 03/20/24 11:30 Eos % (Auto) 2.2 % 03/20/24 11:30 Baso % (Auto) 0.7 % 03/20/24 11:30 Neut # (Auto) 5.55 10^3/uL (1.8-7.7) 03/20/24 11:30 Lymph # (Auto) 3.5 10^3/uL (0.8-4.8) 03/20/24 11:30 [place] # (Auto) 0.6 10^3/uL (0.2-0.9) 03/20/24 11:30 Eos # (Auto) 0.2 10^3/uL (0.0-0.8) 03/20/24 11:30 Baso # (Auto) 0.1 10^3/uL (0.0-0.1) 03/20/24 11:30 Nucleated RBC % (auto) 0 % 03/20/24 11:30 Nucleated RBCs # 0.0 /100WBC 03/20/24 11:30 Sodium 136 mmol/L (136-145) 03/20/24 11:30 Potassium 3.4 mmol/L (3.5-5.1) L 03/20/24 11:30 Chloride 98 mmol/L (98-107) 03/20/24 11:30 Carbon Dioxide 24 mmol/L (22-29) 03/20/24 11:30 Anion Gap 17.4 (5-19) 03/20/24 11:30 BUN 6 mg/dL (6-20) 03/20/24 11:30 Creatinine 0.7 mg/dL (0.5-0.9) 03/20/24 11:30 GFR Calculation 90.9 mL/min (90-130) 03/20/24 11:30 Glucose 279 mg/dL (65-115) H 03/20/24 11:30 POC Glucose 91 mg/dL (70-110) 04/01/24 07:34 Calculated Osmolality 290 mOsm/kg (285-295) 03/20/24 11:30 Calcium 9.8 mg/dL (8.5-10.5) 03/20/24 11:30 Total Bilirubin 0.3 mg/dL (0.15-1.2) 03/20/24 11:30 AST 22 U/L (0-32) 03/20/24 11:30 ALT 24 U/L (0-33) 03/20/24 11:30 Alkaline Phosphatase 106 U/L (35-105) H 03/20/24 11:30 Total Protein 7.6 g/dL (6.6-8.7) 03/20/24 11:30 Albumin 4.2 g/dL (3.5-5.2) 03/20/24 11:30 Globulin 3.4 g/dL (1.3-4.6) 03/20/24 11:30 Urine Color Yellow (Yellow) 03/20/24 11:15 Urine Appearance Clear (CLEAR) 03/20/24 11:15 Urine pH 6.0 (5-7) 03/20/24 11:15 Ur Specific [place] 1.021 (1.005-1.030) 03/20/24 11:15 Urine Protein Negative (Negative) 03/20/24 11:15 Urine Glucose (UA) 3+ (Normal) H 03/20/24 11:15 Urine Ketones Negative (Negative) 03/20/24 11:15 Urine Blood Negative (Negative) 03/20/24 11:15 Urine Nitrate Negative (Negative) 03/20/24 11:15 Urine Bilirubin Negative (Negative) 03/20/24 11:15 Urine Urobilinogen 0.2 mg/dL (Negative) 03/20/24 11:15 Ur Leukocyte Esterase Negative (Negative) 03/20/24 11:15 Amorphous Sediment Not Reportable 03/20/24 11:15 Urine HCG, Qual Negative (Negative) 03/29/24 06:19 Blood Type B Positive 03/29/24 06:15 Rho(D) Type Rh positive 03/29/24 06:15 Antibody Screen Negative 03/29/24 06:15 Vitals Last Vital Signs Temp 98.1 F 04/01/24 04:30 Pulse 77 04/01/24 04:30 Resp 15 04/01/24 04:30 BP 140/90 04/01/24 04:30 Pulse Ox 96 04/01/24 04:30 O2 Del Method Room Air 04/01/24 04:30 O2 Flow Rate 8 03/29/24 10:02 Results Labs OB ([facility]): Blood Type B Positive 03/29/24 Antibody Screen Negative 03/29/24 Hct 30.8 % (36-47) L 03/30/24 Hgb 9.60 g/dL (11.27-16.99) L 03/30/24 Rho(D) Type Rh positive 03/29/24 Plt Count 345 10^3/cmm (157-399) 03/30/24 TSH 1.69 uIU/mL (0.27-4.20) 12/15/23 Free T4 1.35 ng/dL (0.82-1.77) 12/15/23 C.trachomatis RNA (TMA) Not detected (NOT DETECTED) 05/26/23 N.gonorrhoeae RNA (TMA) Not detected (NOT DETECTED) 05/26/23 Chlamydia/GC Comment See note 05/26/23 Hemoglobin A1c 11.2 % (4.0-6.0) H 12/15/23 FSH 4.6 mIU/mL 07/13/22 Ser , Semi-Qnt 1.00 mIU/mL 07/13/22 HCG, Qual Negative (Negative) 01/21/24 Pap Smear Interpret See note 10/25/23 Prolactin 13.56 ng/mL (4.8-23.3) 07/13/22 Discharge Plan Discharge Patient Disposition: Home Condition: Stable Prescriptions: New hydrocodone-acetaminophen 5-325 mg tablet 1 tab PO Q4H PRN (Reason: pain) Qty: 30 0RF acetaminophen 325 mg capsule 325 mg PO Q4H PRN (Reason: fever or pain) Qty: 60 0RF docusate sodium [Colace] 100 mg capsule 100 mg PO BID Qty: 60 0RF ferrous sulfate [Iron (ferrous sulfate)] 325 mg (65 mg iron) tablet 325 mg PO BID Qty: 60 0RF ibuprofen 800 mg tablet 800 mg PO TID PRN (Reason: pain) Qty: 60 0RF Continued (DME) Dexcom G7 Senior Strategy Analyst Misc See Rx Instructions .Route Qty: 1 0RF Rx Instructions: As directed insulin glargine [Lantus U-100 Insulin] 100 unit/mL solution 80 unit SUBCUT BEDTIME Qty: 72 1RF (DME) Dexcom G7 Sensor Device See Rx Instructions .ROUTE .COMPLEX Qty: 3 1RF Dose Instruction: CHANGE EVERY 10 DAYS Rx Instructions: CHANGE EVERY 10 DAYS (DME) insulin syringe-needle U-100 [Advocate Syringes] 1 mL 30 gauge x 5/16 syringe See Rx Instructions .Route Qty: 100 0RF Rx Instructions: ok to use insurance preferred atorvastatin 80 mg tablet 80 mg PO DAILY paroxetine HCl 20 mg tablet 20 mg PO DAILY hydroxyzine HCl 25 mg tablet 25 - 50 mg PO Q6H PRN (Reason: Anxiety) levothyroxine 150 mcg tablet See Rx Instructions .ROUTE .COMPLEX Rx Instructions: one tab (150mcg) po on Wednesday,Wednesday,Wednesday,,Wednesday and Wednesday and two tabs (300mcg) on Wednesday cyclobenzaprine 10 mg Tablet 10 mg PO TID PRN (Reason: Muscle Spasms) Qty: 10 0RF sennosides [Senna Laxative] 8.6 mg tablet 8.6 mg PO DAILY Qty: 30 0RF tramadol 50 mg tablet 50 mg PO TID PRN (Reason: pain) Qty: 20 0RF pantoprazole 40 mg tablet,delayed release (DR/EC) 40 mg PO DAILY nitroglycerin 0.4 mg tablet, sublingual See Rx Instructions .ROUTE .COMPLEX Rx Instructions: PLACE ONE TABLET UNDER TONGUE NEEDED FOR CHEST PAIN EVERY 5 MINUTES hydrochlorothiazide 12.5 mg tablet 12.5 mg PO QAM ibuprofen 800 mg tablet 800 mg PO TID PRN (Reason: Pain) insulin aspart U-100 100 unit/mL (3 mL) insulin pen 35 unit SUBCUT TID acetaminophen 325 mg capsule 325 mg PO Q4H PRN (Reason: fever or pain) Qty: 60 0RF azqrwzednn-ljuksvjxnqecd-jbho 50-300-40 mg capsule 1 cap PO PRN PRN (Reason: MIGRAINES ) Discharge Orders: Discharge Order (Routine); Ordered 04/01/24 Ordered By: Stevie Jones Referrals: Stevie Jones MD [Physician] - 05/12/24 10:00 am Cassidy Black APN, VARUN [Nurse Practitioner] - 04/21/24 11:30 am Discharge Diet: Diabetic Discharge Activity: Limit activity as instructed Patient Instructions: Acute Wound Care (DC), Opioid Safety (DC), Vaginal Hysterectomy (DC), Ovarian Cyst Removal (GEN), OB Discharge Report, OB Food/Drug Interaction Guide, Opioid Safety, Post Anesthesia Care Activity Restrictions/Additional Instructions: 1. Please call [facility] on next working day to make your post-operative appointment in 2 weeks. 2. Please stay home until you come back to the clinic on first post-hospatilization check up. 3. Please follow instructions on your medications CAREFULLY. 4. If you have abdominal incision, do not cover it unless dressing is necessary because of drainage. OK to shower, but avoid bath. Leave steri-strips until they fall off. If they are still on one week after surgery, you may remove them. 5. If you had vaginal surgery or vaginal repair, Dr. Jones may instruct you to take SITZ bath. 6. Yellow, blood tinged odorous vaginal discharge is usually normal after hysterectomy or vaginal surgeries. 7. No SEXUAL INTERCOURSE, tampons, or douches until you are completely released from the post-operative care. 8. Avoid constipation by eating right and maybe using some Metamucil or Milk of Magnesia. 9. All prescription refills are given during the working hours. Please do no wait till it runs out. Call the clinic at [phone] before your medication runs out. The clinic will get in touch with your doctor to prescribe medications if necessary. 10. Please remain within 40 mile radius from our hospital because emergencies do happen now and then during the post-operative period. 11. If you have stairs at home, take one step at a time slowly and minimize the number of trips. It helps to stay in one floor for the next few days. No lifting except what you can lift by one hand until you are released from the post-operative care. 12. Driving is discouraged until you are well healed. It may be 3-4 weeks before you feel strong enough to drive. You should be able to turn and look through the rear window without pain and you should be able to push the brake pedal very hard without pain before you drive. No fast rules, but SAFETY should be your primary concern. DO NOT drive if you are on sedating medications such as narcotics. 13. Call the clinic (during working hours) to make urgent appointment or go to the Emergency room, if any of the following occurs: i. Vaginal bleeding becomes heavy, more than a period. ii. Incision becomes red and sore, or drains pus. iii. Your TEMPERATURE is over 100.4F or you have chill. iv. IV site becomes red and swollen (a little ``knot?? is usually OK) v. Persistent nausea and vomiting vi. Persistent constipation or diarrhea vii. Rash or allergic reaction to medications. Discharge Attestations ELECTRIC METER INSPECTOR Time Spent in Discharge Care*: greater than 30 min Coding Level of Care Code Acute Code for Chg Fwd Diagnoses Status post total abdominal hysterectomy Z90.710
[2024-04-01 12:22] VITALS: BP 132/81; PULSE 74; RESP 16; TEMP 36.7; O2SAT 98
== END 2024-04-01 12:24 | disposition home or self-care (01) ==
LOC: OBGYN 10:03
PROVIDERS: Admitting Provider Obstetrics & Gynecology; PCP Family Medicine; Visit Provider Obstetrics & Gynecology
PROC: 0UT90ZZ Resection of Uterus, Open Approach (ICD-10-PCS; CPT 58150; principal; 2024-03-29 07:00)
DX: D25.9 Leiomyoma of uterus, unspecified (principal); N73.6 Female pelvic peritoneal adhesions (postinfective); N83.202 Unspecified ovarian cyst, left side; K66.0 Peritoneal adhesions (postprocedural) (postinfection); E11.9 Type 2 diabetes mellitus without complications; I10 Essential (primary) hypertension; E03.9 Hypothyroidism, unspecified; K21.9 Gastro-esophageal reflux disease without esophagitis; Z79.4 Long term (current) use of insulin; M06.9 Rheumatoid arthritis, unspecified; E78.5 Hyperlipidemia, unspecified
CPT/HCPCS: 58150; 58925; 36415; 36416; 51702; 80053; 81003; 81025; 82962; 85025; 85027; 86850; 86900; 88305; 88307; 96372; 96374; 96376; A4216; C9290; G0378; J0690; J1100; J1171; J1650; J1815; J1885; J2371; J2405; J2704; J3010; J3490; J7030

== ENCOUNTER → 2024-04-27 17:03 | Outpatient (BNVA) | payer BC, MEDICAID, SELFPAY | PROVIDERS: PCP Family Medicine; Visit Provider Nurse Practitioner Women's Health | DX: R30.0 Dysuria (principal) | CPT/HCPCS: 87086 ==

== ENCOUNTER → 2024-05-12 11:16 | Outpatient (BNVA) | payer BC, MEDICAID, SELFPAY | PROVIDERS: PCP Family Medicine; Visit Provider Obstetrics & Gynecology | DX: R10.2 Pelvic and perineal pain (principal); G89.29 Other chronic pain | CPT/HCPCS: 85025 ==

== ENCOUNTER 2024-05-20 00:02 | Emergency (ER) | payer BC, MEDICAID, SELFPAY ==
[2024-05-20 00:23] VITALS: BP 139/92; PULSE 88; RESP 18; TEMP 36.5; O2SAT 100
--- NOTE | 2024-05-20 00:31 | XRR_ITS ---
PROCEDURE INFORMATION: Exam: XR Abdomen Exam date and time: 05/20/2024 12:47 AM Age: 43 years old Clinical indication: Constipation and nausea; Abdominal pain; Prior surgery; Surgery date: 6+ months; Surgery type: Hysterectomy. Appy; C/O lower abd pain with nausea and constipation; Additional info: Abdominal pain, constipation, TECHNIQUE: Imaging protocol: Radiologic exam of the abdomen. Views: Frontal supine view of the abdomen. 1 View. COMPARISON: CT abdomen pelvis wo con [id number] 08/03/2023 7:04 AM FINDINGS: Gastrointestinal tract: Normal. No bowel dilation. Bones/joints: Unremarkable. XR/XR abdomen 1V* [id number] IMPRESSION: No acute findings.
--- NOTE | 2024-05-20 00:33 | ED_ITS ---
HPI - Abdominal Pain 2 General: Chief Complaint: Abdominal Pain Stated Complaint: low abd pain Time Seen by Provider: 05/20/24 00:29 History of Present Illness: Patient presents complaining of low pelvic abdominal pain that started tonight while she was out to eat. Patient's approximately 8 weeks out from a total abdominal hysterectomy by Dr. Jones. She has seen him for follow-up. Patient is intermittently taking hydrocodone, and has reported of constipation in the past. Patient only speaks Wolof and we are using [employer] to help with the exchange of information. Related Data Home Medications ?Medication ?Instructions ?Recorded ?Confirmed nbgkyofwfb-iidtewkfvlutp-ivqjylgw 1 cap PO PRN PRN ALEX DICK 05/27/23 05/12/24 50 mg-300 mg-40 mg capsule atorvastatin 80 mg tablet 80 mg PO DAILY 08/03/2304/14 hydroxyzine HCl 25 mg tablet 25 - 50 mg PO Q6H PRN Anx iety 08/03/23 05/12/24 levothyroxine 150 mcg tablet See Rx Instructions .Vonda myers .COMPLEX 08/03/23 05/12/24 paroxetine HCl 20 mg tablet 20 mg PO DAILY 08/03/23 hydrochlorothiazide 12.5 mg tablet 12.5 mg PO QAM 01/1005/12/24 insulin aspart U-100 100 unit/mL 35 unit SUBCUT TID 05/12/24 (3 mL) subcutaneous pen nitroglycerin 0.4 mg sublingual See Rx Instructions .R oute .COMPLEX 01/21/24 05/12/24 tablet pantoprazole 40 mg tablet,delayed 40 mg PO DAILY 01/2005/12/24 release Previous Rx's ?Medication ?Instructions ?Recorded 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 meter,continuous #1 ea 06/08/23 (Dexcom G7 Aerospace Physiological Technician) cyclobenzaprine 10 mg tablet 10 mg PO TID PRN Muscle S pasms #10 08/04/23 tabs sennosides 8.6 mg tablet (Senna 8.6 mg PO DAILY #30 ta bs 08/04/23 Laxative) tramadol 50 mg tablet 50 mg PO TID PRN pain #20 ta bs 08/04/23 insulin glargine 100 unit/mL 80 unit (0.8 mL) SUBCUT B EDTIME 09/13/23 subcutaneous solution (Lantus #72 mL U-100 Insulin) insulin syringe-needle U-100 1 mL #100 ea 11/01/23 30 gauge x 5/16 (Advocate Syringes) 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 sensor (Dexcom G7 #3 ea 03/16/24 Sensor device) acetaminophen 325 mg capsule 325 mg PO Q4H PRN fever o r pain 04/01/24 #60 caps docusate sodium 100 mg capsule 100 mg PO BID #60 caps 04/01/24 (Colace) ferrous sulfate 325 mg (65 mg 325 mg PO BID #60 tabs 1 06/02/23 iron) tablet (Iron (ferrous sulfate)) hydrocodone 5 mg-acetaminophen 325 1 tab PO Q4H PRN pa in #30 tabs 04/01/24 mg tablet ibuprofen 800 mg tablet 800 mg PO TID PRN pain #60 t abs 04/01/24 metronidazole 500 mg tablet 500 mg PO BID #14 tabs nitrofurantoin 100 mg PO Q12H 7 days #14 ca ps 04/27/24 monohydrate/macrocrystals 100 mg capsule (Macrobid) Allergies Allergy/AdvReac Type Severity Reaction Status Date / Time No Known Allergies Allergy Verified 05/20/24 00:28 Review of Systems 2 General: Reports: 10 or more systems reviewed and unremarkable except in HPI and below PFSH ED 2 PFSH: Medical History Abdominal adhesions Treated during laparoscopy in June 2023 Chronic pelvic pain in female Leukocytosis Hyperglycemia Ovarian cyst Abdominal pain Acute hyponatremia Diabetes mellitus due to underlying condition with hyperglycemia UTI symptoms Dyspareunia Dysmenorrhea Irregular menstrual bleeding GERD (gastroesophageal reflux disease) Hypothyroidism Rheumatoid arthritis CAD (coronary artery disease) Migraine Hx of myocardial infarction Hyperlipidemia Type 2 diabetes mellitus Hypertension Surgical History H/O tubal ligation Status post total abdominal hysterectomy (~05/30/23) SHERI, CONCETTA, left ovarian cystectomy--performed for fibroid uterus, pelvic pain, dysmenorrhea, dyspareunia by Dr. Jones at [facility]. Multiple pelvic adhesions were noted on the anterior surface of the uterus to the anterior abdominal wall and bladder. Benign pathology History of laparoscopy (~07/06/23) Diagnostic laparoscopy with lysis of adhesions performed by Dr. Jones at [facility]. Multiple abdominal adhesions with the right upper quadrant uterus adhered to the anterior abdominal wall, omental adhesions to the anterior abdominal wall, left adnexal adhesions History of laparoscopic appendectomy Hx of section History of thyroid surgery Family History Father Diabetes Heart disease Mother Heart disease Grandmother Heart disease paternal/maternal Grandfather Heart disease paternal/maternal Family/Other Thyroid disease aunt/paternal Father Diabetes Denies family history of Colon cancer Ovarian cancer Hyperlipidemia Breast cancer Hypertension Uterine cancer Stroke Social History Smoking and tobacco/nicotine status: never used tobacco/nicotine Physical Exam 2 Const: COMMON NORMALS: no acute distress, average body habitus, patient oriented x3, no limitations, healthy appearing, alert and well nourished Neck/C-Spine: COMMON NORMALS: no JVD Chest: COMMONS NORMALS: normal inspection of the chest and normal palpation of entire chest wall Resp: COMMON NORMALS: normal respiratory effort, No retractions, No use of accessory muscles and clear to auscultation bilaterally AUSCULTATION: clear to auscultation bilaterally Cardio: COMMON NORMALS: no JVD, regular rate, regular rhythm, S1 normal heart sound present, S2 normal heart sound present, No gallops present (Cardio), No clicks present (Cardio), No murmurs present (Cardio) and No rub (Cardio) R ATE: regular rate RHYTHM: regular rhythm HEART SOUNDS: S1 normal heart sound present and S2 normal heart sound present GI: COMMON NORMALS: Normal to inspection, nondistended, normoactive bowel sounds present, Soft to palpation, No hepatosplenomegaly present and no masses; negative for non-tender (Tender to palpate lower abdominal region) PALPATION: Yes Soft to palpation and Yes No hepatosplenomegaly present Neuro: COMMON NORMALS: patient oriented x3 SENSORIUM/ORIENTATION: Yes alert Course 2 Vital Signs: Vital signs: Vital Signs Temperature 97.7 F 05/20/24 00:23 Pulse Rate 88 05/20/24 00:23 Respiratory Rate 18 05/20/24 00:23 Blood Pressure 139/92 05/20/24 00:23 Pulse Oximetry 100 05/20/24 00:23 MDM - Abdominal Pain Medical Decision Making Abdominal x-ray was obtained which showed no acute findings, lab work was obtained which showed white count 12.2, hemoglobin 11.6, BUN/creatinine 10 and 0.7, lactic acid 1.2, urinalysis shows 3+ glucose, patient was given 30 mg Toradol IM and 4 mg of Zofran is improved her pain much. These results was discussed with the patient. It is suggested patient follow back up with her PCP or surgeon for further evaluation and treatment. Medical Records I reviewed the patient's medical records. Lab Data I reviewed the patient's lab results. 05/20/24 01:14 05/20/24 01:14 Labs/Radiology: Radiology Impressions Abdomen X-Ray 05/20/24 00:31 IMPRESSION: No acute findings. Laboratory Results WBC 12.20 10^3/uL (3.29-11.43) H 05/20/24 01:14 RBC 5.27 10^6/uL (3.85-5.65) 05/20/24 01:14 Hgb 11.60 g/dL (11.27-16.99) 05/20/24 01:14 Hct 37.2 % (36-47) 05/20/24 01:14 MCV 70.6 fl (85-98) L 05/20/24 01:14 MCH 22.0 pg (27-33) L 05/20/24 01:14 MCHC 31.2 g/dL (30-55) 05/20/24 01:14 RDW 16.7 % (12.1-15.1) H 05/20/24 01:14 Plt Count 546 10^3/cmm (157-399) H 05/20/24 01:14 MPV 9.5 fL (7.4-10.4) 05/20/24 01:14 Neut % (Auto) 60.2 % 05/20/24 01:14 Lymph % (Auto) 33.0 % 05/20/24 01:14 [place] % (Auto) 4.7 % 05/20/24 01:14 Eos % (Auto) 1.2 % 05/20/24 01:14 Baso % (Auto) 0.7 % 05/20/24 01:14 Neut # (Auto) 7.33 10^3/uL (1.8-7.7) 05/20/24 01:14 Lymph # (Auto) 4.0 10^3/uL (0.8-4.8) 05/20/24 01:14 [place] # (Auto) 0.6 10^3/uL (0.2-0.9) 05/20/24 01:14 Eos # (Auto) 0.2 10^3/uL (0.0-0.8) 05/20/24 01:14 Baso # (Auto) 0.1 10^3/uL (0.0-0.1) 05/20/24 01:14 Nucleated RBC % (auto) 0 % 05/20/24 01:14 Nucleated RBCs # 0.0 /100WBC 05/20/24 01:14 Sodium 132 mmol/L (136-145) L 05/20/24 01:14 Potassium 3.6 mmol/L (3.5-5.1) 05/20/24 01:14 Chloride 95 mmol/L (98-107) L 05/20/24 01:14 Carbon Dioxide 24 mmol/L (22-29) 05/20/24 01:14 Anion Gap 16.6 (5-19) 05/20/24 01:14 BUN 10 mg/dL (6-20) 05/20/24 01:14 Creatinine 0.7 mg/dL (0.5-0.9) 05/20/24 01:14 GFR Calculation 90.9 mL/min (90-130) 05/20/24 01:14 Glucose 340 mg/dL (65-115) H 05/20/24 01:14 Calculated Osmolality 286 mOsm/kg (285-295) 05/20/24 01:14 Lactic Acid 1.2 mmol/L (0.5-2.2) 05/20/24 01:14 Calcium 9.1 mg/dL (8.5-10.5) 05/20/24 01:14 Magnesium 2.1 mg/dL (1.7-2.3) 05/20/24 01:14 Total Bilirubin 0.2 mg/dL (0.15-1.2) 05/20/24 01:14 AST 17 U/L (0-32) 05/20/24 01:14 ALT 24 U/L (0-33) 05/20/24 01:14 Alkaline Phosphatase 133 U/L (35-105) H 05/20/24 01:14 Total Protein 8.4 g/dL (6.6-8.7) 05/20/24 01:14 Albumin 4.5 g/dL (3.5-5.2) 05/20/24 01:14 Globulin 3.9 g/dL (1.3-4.6) 05/20/24 01:14 Urine Color Yellow (Yellow) 05/20/24 01:15 Urine Appearance Clear (CLEAR) 05/20/24 01:15 Urine pH 6.5 (5-7) 05/20/24 01:15 Ur Specific [place] 1.026 (1.005-1.030) 05/20/24 01:15 Urine Protein Negative (Negative) 05/20/24 01:15 Urine Glucose (UA) 3+ (Normal) H 05/20/24 01:15 Urine Ketones Trace (Negative) 05/20/24 01:15 Urine Blood Negative (Negative) 05/20/24 01:15 Urine Nitrate Negative (Negative) 05/20/24 01:15 Urine Bilirubin Negative (Negative) 05/20/24 01:15 Urine Urobilinogen 0.2 mg/dL (Negative) 05/20/24 01:15 Ur Leukocyte Esterase Negative (Negative) 05/20/24 01:15 Urine RBC 11-20 /hpf (0-2) H 05/20/24 01:15 Urine WBC 0-5 /hpf (0-5) 05/20/24 01:15 Ur Squamous Epith Cells 0-5 /hpf (0-5) 05/20/24 01:15 Amorphous Sediment Not Reportable 05/20/24 01:15 Urine Bacteria Trace /hpf (NONE) 05/20/24 01:15 Hyaline Casts 0-4 /lpf H 05/20/24 01:15 All radiology interpretation(s) finalized by discharge Discharge Plan Discharge Patient Disposition: Home Clinical Impression: Abdominal pain Qualifiers: Abdominal location: unspecified location Qualified Code(s): R10.9 - Unspecified abdominal pain Condition: Stable Prescriptions: No Action (DME) Dexcom G7 Aerospace Physiological Technician Misc See Rx Instructions .Route Qty: 1 0RF Rx Instructions: As directed insulin glargine [Lantus U-100 Insulin] 100 unit/mL solution 80 unit SUBCUT BEDTIME Qty: 72 1RF (DME) Dexcom G7 Sensor Device See Rx Instructions .ROUTE .COMPLEX Qty: 3 1RF Dose Instruction: CHANGE EVERY 10 DAYS Rx Instructions: CHANGE EVERY 10 DAYS metronidazole 500 mg tablet 500 mg PO BID Qty: 14 0RF nitrofurantoin monohyd/m-cryst [Macrobid] 100 mg capsule 100 mg PO Q12H 7 Days Qty: 14 0RF Rx Instructions: must administer with a meal/food (DME) insulin syringe-needle U-100 [Advocate Syringes] 1 mL 30 gauge x 5/16 syringe See Rx Instructions .Route Qty: 100 0RF Rx Instructions: ok to use insurance preferred atorvastatin 80 mg tablet 80 mg PO DAILY paroxetine HCl 20 mg tablet 20 mg PO DAILY hydroxyzine HCl 25 mg tablet 25 - 50 mg PO Q6H PRN (Reason: Anxiety) levothyroxine 150 mcg tablet See Rx Instructions .ROUTE .COMPLEX Rx Instructions: one tab (150mcg) po on Wednesday,Wednesday,Wednesday,,Wednesday and Wednesday and two tabs (300mcg) on Wednesday cyclobenzaprine 10 mg Tablet 10 mg PO TID PRN (Reason: Muscle Spasms) Qty: 10 0RF sennosides [Senna Laxative] 8.6 mg tablet 8.6 mg PO DAILY Qty: 30 0RF tramadol 50 mg tablet 50 mg PO TID PRN (Reason: pain) Qty: 20 0RF pantoprazole 40 mg tablet,delayed release (DR/EC) 40 mg PO DAILY nitroglycerin 0.4 mg tablet, sublingual See Rx Instructions .ROUTE .COMPLEX Rx Instructions: PLACE ONE TABLET UNDER TONGUE NEEDED FOR CHEST PAIN EVERY 5 MINUTES hydrochlorothiazide 12.5 mg tablet 12.5 mg PO QAM insulin aspart U-100 100 unit/mL (3 mL) insulin pen 35 unit SUBCUT TID gyxrcmbjem-gqhuszmxcoytj-hsjr 50-300-40 mg capsule 1 cap PO PRN PRN (Reason: MIGRAINES ) ibuprofen 800 mg tablet 800 mg PO TID PRN (Reason: pain) Qty: 60 0RF hydrocodone-acetaminophen 5-325 mg tablet 1 tab PO Q4H PRN (Reason: pain) Qty: 30 0RF ferrous sulfate [Iron (ferrous sulfate)] 325 mg (65 mg iron) tablet 325 mg PO BID Qty: 60 0RF docusate sodium [Colace] 100 mg capsule 100 mg PO BID Qty: 60 0RF acetaminophen 325 mg capsule 325 mg PO Q4H PRN (Reason: fever or pain) Qty: 60 0RF Discharge Orders: Discharge ED (Routine); Ordered 05/20/24 Ordered By: Shemar Cox Referrals: Cooper Venegas MD [Primary Care Provider] - 1 week Patient Instructions: Abdominal Pain (ED) Activity Restrictions/Additional Instructions: Your evaluation ER that included physical exam, lab work, urinalysis, abdominal x-ray did not reveal any significant abnormalities. You are given Toradol and Zofran to help with pain and nausea. Continue take your medicines you have been previously prescribed at home for pain. Please follow-up with your family practice physician in the next 7 days for further evaluation and treatment as needed. Print Language: Wolof Coding Level of Care Code ED Marketing Development Manager for Allison Pope
[2024-05-20] MEDS: ondansetron 2 mg/ML SDV 2 mL 4 MG IVP (01:10)
[2024-05-20] MEDS: ketorolac 30 mg/mL INJ IVP (01:10)
[2024-05-20 01:22] LABS: Basophils # 0.1 10^3/uL (0.0-0.1); Basophils % 0.7 %; Eosinophils # 0.2 10^3/uL (0.0-0.8); Eosinophils % 1.2 %; Hematocrit 37.2 % (36-47); Mean Corpuscular HGB Conc 31.2 g/dL (30-55); Mean Corpuscular Volume 70.6 fl (85-98); Mean Platelet Volume 9.5 fL (7.4-10.4); Monocytes # 0.6 10^3/uL (0.2-0.9); Monocytes % 4.7 %; Neutrophils # 7.33 10^3/uL (1.8-7.7); Neutrophils % 60.2 %; Nucleated Red Blood Cells % 0 %; Platelet Count 546 10^3/cmm (157-399); Red Blood Count 5.27 10^6/uL (3.85-5.65); Red Cell Distribution Width 16.7 % (12.1-15.1)
[2024-05-20 01:36] LABS: Bilirubin Urine Negative (Negative); Blood Urine Negative (Negative); Glucose Urine UA 3+ (Normal); Ketones Urine Trace (Negative); Leukocyte Esterase Urine Negative (Negative); Nitrate Urine Negative (Negative); Protein Urine Negative (Negative); Specific Gravity, Urine 1.026 (1.005-1.030); Urine Appearance Clear (CLEAR); Urine Color Yellow (Yellow); Urobilinogen Urine 0.2 mg/dL (Negative); pH Urine 6.5 (5-7)
[2024-05-20 01:38] LABS: Alanine Aminotransferase 24 U/L (0-33); Albumin Level 4.5 g/dL (3.5-5.2); Alkaline Phosphatase 133 U/L (35-105); Anion Gap 16.6 (5-19); Aspartate Amino Transferase 17 U/L (0-32); Blood Urea Nitrogen 10 mg/dL (6-20); Calcium 9.1 mg/dL (8.5-10.5); Carbon Dioxide 24 mmol/L (22-29); Chloride 95 mmol/L (98-107); Creatinine Clr Calc Pharmacy 102.3102; Globulin 3.9 g/dL (1.3-4.6); Glomerular Filtration Rate 90.9 mL/min (90-130); Glucose 340 mg/dL (65-115); Magnesium 2.1 mg/dL (1.7-2.3); Osmolality Calculated 286 mOsm/kg (285-295); Potassium 3.6 mmol/L (3.5-5.1); Sodium 132 mmol/L (136-145); Total Bilirubin 0.2 mg/dL (0.15-1.2); Total Protein 8.4 g/dL (6.6-8.7)
[2024-05-20 01:39] LABS: Lactic Sepsis W/Reflex 1.2 mmol/L (0.5-2.2)
[2024-05-20 01:41] LABS: Add Urine Microscopic? YES
[2024-05-20 02:23] LABS: UA Manual Slide Review YES; UA Slide Review UA Slide Review Perf
[2024-05-20 02:24] LABS: Bacteria Urine TRACE /hpf; Hyaline Casts Urine 0-4 /lpf; RBC Urine 0-4 /hpf (0-2); Squamous Epithelial Cell Urine 0-4 /hpf (0-5); WBC Urine 0-4 /hpf (0-5)
[2024-05-20 02:49] VITALS: BP 116/70; PULSE 79; RESP 16; O2SAT 95
== END 2024-05-20 02:55 | disposition home or self-care (01) ==
PROVIDERS: Emergency Provider Emergency Medicine; PCP Family Medicine
DX: R10.9 Unspecified abdominal pain (principal); Z79.4 Long term (current) use of insulin; I25.10 Atherosclerotic heart disease of native coronary artery without angina pectoris; E11.9 Type 2 diabetes mellitus without complications; E78.5 Hyperlipidemia, unspecified
CPT/HCPCS: 74018; 80053; 81001; 83605; 83735; 85025; 96374; 96375; 99284; 99285; J1885; J2405

== ENCOUNTER → 2024-06-07 08:32 | Outpatient (BNVA) | payer BC, MEDICAID, SELFPAY | PROVIDERS: PCP Family Medicine; Visit Provider Obstetrics & Gynecology | DX: R10.2 Pelvic and perineal pain (principal); G89.29 Other chronic pain | CPT/HCPCS: 76830 ==

== ENCOUNTER → 2024-06-15 09:49 | Outpatient (BNVA) | payer BC, MEDICAID, SELFPAY | PROVIDERS: PCP Family Medicine; Visit Provider Internal Medicine | DX: E03.9 Hypothyroidism, unspecified (principal) | CPT/HCPCS: 36415; 84439; 84443 ==

== ENCOUNTER 2024-07-18 12:37 | Emergency (ER) | payer MEDICAID, SELFPAY ==
--- NOTE | 2024-07-18 12:38 | XR_ITS ---
WS: [id number] Exam: XR chest 1V portable [id number] Date/Time of Exam: 07/18/2024 1:02 PM Reason For Exam: cp Comparison 01/21/2024. Lungs are fully expanded and clear. Normal cardiomediastinal silhouette. Unremarkable bony structures. XR/XR chest 1V portable [id number] IMPRESSION: 1. Negative chest.
--- NOTE | 2024-07-18 12:38 | ECG_ITS ---
[facility] Pat Name: Suzanna Chaidez Department: Room: Gender: Female Cad Intern: : 1980 Requested By: Екатерина Calixto Order Number: [id number] Reading MD: Bridget Strange M.D. Measurements Intervals [place] Rate: 88 P: 40 MO: 144 QRS: -8 QRSD: 92 T: 38 QT: 330 QTc: 400 Interpretive Statements SINUS RHYTHM POSSIBLE LEFT ATRIAL ENLARGEMENT [-0.1mV P-WAVE IN V1/V2] LOW QRS VOLTAGE IN PRECORDIAL LEADS [QRS DEFLECTION < 1.0 mV IN CHEST LEADS] POSSIBLE RIGHT VENTRICULAR CONDUCTION DELAY [RSR (QR) IN V1/V2] NONSPECIFIC T-WAVE ABNORMALITY Compared to ECG 08/25/2023 14:49:26 Low QRS voltage now present T-wave abnormality still present Electronically Signed On 07-18-2024 18:47:42 CDT by Bridget Strange M.D. [email or web address]
[2024-07-18 12:42] VITALS: BP 146/95; PULSE 91; TEMP 36.6; O2SAT 100
--- NOTE | 2024-07-18 13:03 | ED_ITS ---
HPI - Back Pain/Injury 2 General: Chief Complaint: Back Pain/Injury Stated Complaint: chest pain Time Seen by Provider: 07/18/24 12:49 History of Present Illness: 43-year-old female who presents emergenc y room with complaint of chest pain worse with inspiration and palpation. She also has some pain into her back. She has no dysuria urgency or frequency. No fever sweats or chills no abdominal pain. No productive cough. No history of coronary artery disease or arrhythmias patient does not speak Bulgarian a clinical medical transcriptionist was used on an iPad. Associated symptoms: Deny abdominal pain, chills, dysuria, fever(s) or urinary urgency Related Data Home Medications ?Medication ?Instructions ?Recorded ?Confirmed atorvastatin 80 mg tablet 80 mg PO DAILY 08/03/2312/04 hydroxyzine HCl 25 mg tablet 25 - 50 mg PO Q6H PRN Anx iety 08/03/23 07/18/24 hydrochlorothiazide 12.5 mg tablet 12.5 mg PO QAM 01/1007/18/24 insulin aspart U-100 100 unit/mL 35 unit SUBCUT TID 07/18/24 (3 mL) subcutaneous pen nitroglycerin 0.4 mg sublingual See Rx Instructions .R oute .COMPLEX 01/21/24 07/18/24 tablet pantoprazole 40 mg tablet,delayed 40 mg PO DAILY 01/2007/18/24 release paroxetine HCl 40 mg tablet 40 mg PO QPM 07/18/2412/04 sitagliptin phosphate 50 1 tab PO BID 07/18/24 mg-metformin 1,000 mg tablet (Janumet) trazodone 50 mg tablet 50 mg PO BEDTIME PRN Sleep 0 07/18/24 07/18/24 Previous Rx's ?Medication ?Instructions ?Recorded 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 meter,continuous #1 ea 06/08/23 ([employer] G7 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) insulin glargine 100 unit/mL 80 unit (0.8 mL) SUBCUT B EDTIME 09/13/23 subcutaneous solution (Lantus #72 mL U-100 Insulin) insulin syringe-needle U-100 1 mL #100 ea 11/01/23 30 gauge x 5/16 (Advocate Syringes) acetaminophen 325 mg capsule 325 mg PO Q4H PRN fever o r pain 04/01/24 #60 caps ferrous sulfate 325 mg (65 mg 325 mg PO BID #60 tabs 1 06/02/23 iron) tablet (Iron (ferrous sulfate)) ibuprofen 800 mg tablet 800 mg PO TID PRN pain #60 t abs 04/01/24 nitrofurantoin 100 mg PO Q12H 7 days #14 ca ps 04/27/24 monohydrate/macrocrystals 100 mg capsule (Macrobid) 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 sensor (Dexcom G7 #3 ea 06/01/24 Sensor device) levothyroxine 175 mcg tablet 175 mcg PO DAILY #30 tabs 06/15/24 (Synthroid) methylprednisolone 4 mg tablets in See Rx Instructions PO .COMPLEX 07/18/24 a dose pack (Medrol (Steven)) #21 ea tizanidine 4 mg tablet 4 mg PO Q6H PRN muscle spast icity 07/18/24 #20 tabs tramadol 50 mg tablet 50 mg PO Q6H PRN pain #14 ta bs 07/18/24 Allergies Allergy/AdvReac Type Severity Reaction Status Date / Time No Known Allergies Allergy Verified 07/18/24 12:48 Review of Systems 2 Const: Denies: fever(s) or chills Card: Reports: chest pain (With inspiration and palpation) Resp: Denies: dyspnea GI: Denies: abdominal pain : Denies: dysuria, urinary frequency or urinary urgency Musc: Denies: neck pain or back pain Skin/Breast: Denies: rash PFSH ED 2 PFSH: Medical History Abdominal adhesions Treated during laparoscopy in June 2023 Chronic pelvic pain in female Leukocytosis Hyperglycemia Ovarian cyst Abdominal pain Acute hyponatremia Diabetes mellitus due to underlying condition with hyperglycemia UTI symptoms Dyspareunia Dysmenorrhea Irregular menstrual bleeding GERD (gastroesophageal reflux disease) Hypothyroidism Rheumatoid arthritis CAD (coronary artery disease) Migraine Hx of myocardial infarction Hyperlipidemia Type 2 diabetes mellitus Hypertension Surgical History H/O tubal ligation Status post total abdominal hysterectomy (~05/30/23) SHERI, CONCETTA, left ovarian cystectomy--performed for fibroid uterus, pelvic pain, dysmenorrhea, dyspareunia by Dr. Jones at [facility]. Multiple pelvic adhesions were noted on the anterior surface of the uterus to the anterior abdominal wall and bladder. Benign pathology History of laparoscopy (~07/06/23) Diagnostic laparoscopy with lysis of adhesions performed by Dr. Jones at [facility]. Multiple abdominal adhesions with the right upper quadrant uterus adhered to the anterior abdominal wall, omental adhesions to the anterior abdominal wall, left adnexal adhesions History of laparoscopic appendectomy Hx of section History of thyroid surgery Family History Father Diabetes Heart disease Mother Heart disease Grandmother Heart disease paternal/maternal Grandfather Heart disease paternal/maternal Family/Other Thyroid disease aunt/paternal Father Diabetes Denies family history of Colon cancer Ovarian cancer Hyperlipidemia Breast cancer Hypertension Uterine cancer Stroke Social History Smoking and tobacco/nicotine status: never used tobacco/nicotine Physical Exam 2 Const: COMMON NORMALS: no acute distress GENERAL APPEARANCE: cooperative and comfortable ORIENTATION/CONSCIOUSNESS: Yes awake, Yes oriented to person, Yes oriented to place and Yes oriented to time HENMT: COMMON NORMALS: normocephalic, atraumatic and hearing grossly normal bilaterally HEAD & SCALP: normocephalic and atraumatic Resp: COMMON NORMALS: normal respiratory effort, No retractions, No use of accessory muscles and clear to auscultation bilaterally AUSCULTATION: clear to auscultation bilaterally Cardio: COMMON NORMALS: regular rate, regular rhythm and No murmurs present (Cardio) RATE: regular rate RHYTHM: regular rhythm GI: COMMON NORMALS: Soft to palpation and No hepatosplenomegaly present A USCULTATION: Yes normoactive bowel sounds PALPATION: Yes Soft to palpation, No Tenderness to palpation present (GI), No Guarding due to palpation present (GI) and Yes No hepatosplenomegaly present Extremity: COMMON NORMALS: normal to inspection, capillary refill normal, no clubbing, cyanosis or edema, no calf tenderness and no pedal edema Neuro: SENSORIUM/ORIENTATION: Yes oriented to person, Yes oriented to place and Yes oriented to time Skin: COMMON NORMALS: no rashes or lesions noted GENERAL SKIN EXAM: no rashes or lesions noted Course 2 Vital Signs: Vital signs: Vital Signs Temperature 97.8 F 07/18/24 12:42 Pulse Rate 84 07/18/24 15:38 Respiratory Rate 20 H 07/18/24 13:47 Blood Pressure 118/79 07/18/24 15:38 Pulse Oximetry 97 07/18/24 15:38 Oxygen Delivery Me thod Room Air 07/18/24 13:48 MDM - Back Pain/Injury Medical Decision Making Cardiac enzymes negative. EKG no acute changes. Will discharge patient home all of her symptoms are reproducible with palpation and with deep inspiration. Will discharge patient home with tramadol tizanidine and steroid taper have her follow-up with primary care Medical Records I reviewed the patient's medical records. Labs I reviewed the patient's lab results. 07/18/24 12:52 07/18/24 12:52 Radiology Impressions Chest X-Ray 07/18/24 12:38 IMPRESSION: 1. Negative chest. Laboratory Results WBC 8.81 10^3/uL (3.29-11.43) 07/18/24 12:52 RBC 5.00 10^6/uL (3.85-5.65) 07/18/24 12:52 Hgb 10.90 g/dL (11.27-16.99) L 07/18/24 12:52 Hct 36.0 % (36-47) 07/18/24 12:52 MCV 72.0 fl (85-98) L 07/18/24 12:52 MCH 21.8 pg (27-33) L 07/18/24 12:52 MCHC 30.3 g/dL (30-55) 07/18/24 12:52 RDW 17.2 % (12.1-15.1) H 07/18/24 12:52 Plt Count 508 10^3/cmm (157-399) H 07/18/24 12:52 MPV 9.0 fL (7.4-10.4) 07/18/24 12:52 Neut % (Auto) 55.7 % 07/18/24 12:52 Lymph % (Auto) 33.1 % 07/18/24 12:52 [place] % (Auto) 7.6 % 07/18/24 12:52 Eos % (Auto) 2.6 % 07/18/24 12:52 Baso % (Auto) 0.7 % 07/18/24 12:52 Neut # (Auto) 4.90 10^3/uL (1.8-7.7) 07/18/24 12:52 Lymph # (Auto) 2.9 10^3/uL (0.8-4.8) 07/18/24 12:52 [place] # (Auto) 0.7 10^3/uL (0.2-0.9) 07/18/24 12:52 Eos # (Auto) 0.2 10^3/uL (0.0-0.8) 07/18/24 12:52 Baso # (Auto) 0.1 10^3/uL (0.0-0.1) 07/18/24 12:52 Nucleated RBC % (auto) 0 % 07/18/24 12:52 Nucleated RBCs # 0.0 /100WBC 07/18/24 12:52 PT 12.70 SECONDS (12.1-14.9) 07/18/24 12:52 INR 0.89 (0.8-1.2) 07/18/24 12:52 Sodium 137 mmol/L (136-145) 07/18/24 12:52 Potassium 3.9 mmol/L (3.5-5.1) 07/18/24 12:52 Chloride 102 mmol/L (98-107) 07/18/24 12:52 Carbon Dioxide 23 mmol/L (22-29) 07/18/24 12:52 Anion Gap 15.9 (5-19) 07/18/24 12:52 BUN 8 mg/dL (6-20) 07/18/24 12:52 Creatinine 0.5 mg/dL (0.5-0.9) 07/18/24 12:52 GFR Calculation 134.0 mL/min (90-130) H 07/18/24 12:52 Glucose 213 mg/dL (65-115) H 07/18/24 12:52 Calculated Osmolality 289 mOsm/kg (285-295) 07/18/24 12:52 Calcium 9.4 mg/dL (8.5-10.5) 07/18/24 12:52 Total Bilirubin 0.2 mg/dL (0.15-1.2) 07/18/24 12:52 AST 21 U/L (0-32) 07/18/24 12:52 ALT 24 U/L (0-33) 07/18/24 12:52 Alkaline Phosphatase 94 U/L (35-105) 07/18/24 12:52 Troponin T Baseline < 6 ng/L (0-10) 07/18/24 12:52 Troponin T 120 Minute 6.00 ng/L (0-10) 07/18/24 14:30 Delta Troponin T 0.29140 ABS# (0-10) 07/18/24 14:30 Total Protein 7.2 g/dL (6.6-8.7) 07/18/24 12:52 Albumin 4.3 g/dL (3.5-5.2) 07/18/24 12:52 Globulin 2.9 g/dL (1.3-4.6) 07/18/24 12:52 Lipase 43 U/L (13-60) 07/18/24 12:52 All radiology interpretation(s) finalized by discharge Discharge Plan Discharge Patient Disposition: Home Clinical Impression: Acute chest wall pain, Back pain Condition: Stable Prescriptions: New tizanidine 4 mg tablet 4 mg PO Q6H PRN (Reason: muscle spasticity) Qty: 20 0RF Rx Instructions: do not exceed 3 doses per 24 hrs methylprednisolone [Medrol (Steven)] 4 mg tablets,dose pack See Rx Instructions .ROUTE .COMPLEX Qty: 21 0RF Rx Instructions: orally per package directions tramadol 50 mg tablet 50 mg PO Q6H PRN (Reason: pain) Qty: 14 0RF Discontinued naproxen 500 mg tablet See Rx Instructions .ROUTE .COMPLEX Rx Instructions: TAKE 1 TABLET BY MOUTH TWICE DAILY WITH FOOD FOR 7 DAYS THEN NEEDED. No Action (DME) Dexcom G7 Voip Technician Misc See Rx Instructions .Route Qty: 1 0RF Rx Instructions: As directed insulin glargine [Lantus U-100 Insulin] 100 unit/mL solution 80 unit SUBCUT BEDTIME Qty: 72 1RF nitrofurantoin monohyd/m-cryst [Macrobid] 100 mg capsule 100 mg PO Q12H 7 Days Qty: 14 0RF Rx Instructions: must administer with a meal/food (DME) insulin syringe-needle U-100 [Advocate Syringes] 1 mL 30 gauge x 5/16 syringe See Rx Instructions .Route Qty: 100 0RF Rx Instructions: ok to use insurance preferred (DME) Dexcom G7 Sensor Device See Rx Instructions .ROUTE .COMPLEX Qty: 3 1RF Dose Instruction: CHANGE EVERY 10 DAYS Rx Instructions: CHANGE EVERY 10 DAYS levothyroxine [Synthroid] 175 mcg tablet 175 mcg PO DAILY Qty: 30 3RF atorvastatin 80 mg tablet 80 mg PO DAILY hydroxyzine HCl 25 mg tablet 25 - 50 mg PO Q6H PRN (Reason: Anxiety) pantoprazole 40 mg tablet,delayed release (DR/EC) 40 mg PO DAILY nitroglycerin 0.4 mg tablet, sublingual See Rx Instructions .ROUTE .COMPLEX Rx Instructions: PLACE ONE TABLET UNDER TONGUE NEEDED FOR CHEST PAIN EVERY 5 MINUTES hydrochlorothiazide 12.5 mg tablet 12.5 mg PO QAM insulin aspart U-100 100 unit/mL (3 mL) insulin pen 35 unit SUBCUT TID trazodone 50 mg tablet 50 mg PO BEDTIME PRN (Reason: Sleep) Janumet 50-1,000 mg Tablet 1 tab PO BID paroxetine HCl 40 mg tablet 40 mg PO QPM ibuprofen 800 mg tablet 800 mg PO TID PRN (Reason: pain) Qty: 60 0RF ferrous sulfate [Iron (ferrous sulfate)] 325 mg (65 mg iron) tablet 325 mg PO BID Qty: 60 0RF acetaminophen 325 mg capsule 325 mg PO Q4H PRN (Reason: fever or pain) Qty: 60 0RF Discharge Orders: Discharge ED (Routine); Ordered 07/18/24 Ordered By: Demetrius Padilla Referrals: Cooper Venegas MD [Primary Care Provider] - Discharge Diet: Usual diet Discharge Activity: Increase activity as tolerated Patient Instructions: Opioid Safety, Pain Management Activity Restrictions/Additional Instructions: Thank you for choosing [facility] for your healthcare needs today. It is very important that you follow up as instructed or that you return to the Emergency Department should you have concerns or if your condition changes or worsens in any way. You were seen in the emergency room with complaint of chest pain and back pain that is worse with palpation worse with movement and inspiration. Your cardiac enzymes and EKG appeared normal. Recommend that you follow-up with your primary care doctor as needed. You can use the ibuprofen that was previously prescribed but do not take ibuprofen and naproxen at the same time. Print Language: Uruguayan Coding Level of Care Code ED Loaders for Allison Pope
[2024-07-18 13:06] LABS: Basophils # 0.1 10^3/uL (0.0-0.1); Basophils % 0.7 %; Eosinophils # 0.2 10^3/uL (0.0-0.8); Eosinophils % 2.6 %; Lymphocytes # 2.9 10^3/uL (0.8-4.8); Lymphocytes % 33.1 %; Mean Corpuscular HGB Conc 30.3 g/dL (30-55); Mean Corpuscular Hemoglobin 21.8 pg (27-33); Monocytes # 0.7 10^3/uL (0.2-0.9); Monocytes % 7.6 %; Neutrophils % 55.7 %; Nucleated Red Blood Cells % 0 %; Platelet Count 508 10^3/cmm (157-399); Red Cell Distribution Width 17.2 % (12.1-15.1); White Blood Count 8.81 10^3/uL (3.29-11.43)
[2024-07-18 13:14] LABS: INR 0.89 (0.8-1.2)
[2024-07-18 13:21] LABS: Troponin(5th) Baseline < 6 ng/L (0-10)
[2024-07-18 13:25] LABS: Alanine Aminotransferase 24 U/L (0-33); Albumin Level 4.3 g/dL (3.5-5.2); Alkaline Phosphatase 94 U/L (35-105); Anion Gap 15.9 (5-19); Aspartate Amino Transferase 21 U/L (0-32); Blood Urea Nitrogen 8 mg/dL (6-20); Calcium 9.4 mg/dL (8.5-10.5); Carbon Dioxide 23 mmol/L (22-29); Chloride 102 mmol/L (98-107); Creatinine Clr Calc Pharmacy 142.8227; Globulin 2.9 g/dL (1.3-4.6); Glucose 213 mg/dL (65-115); Lipase 43 U/L (13-60); Osmolality Calculated 289 mOsm/kg (285-295); Potassium 3.9 mmol/L (3.5-5.1); Sodium 137 mmol/L (136-145); Total Bilirubin 0.2 mg/dL (0.15-1.2); Total Protein 7.2 g/dL (6.6-8.7)
--- NOTE | 2024-07-18 13:33 | PC.PHAR ---
Addendum entered by Alina Conner 07/18/24 13:35: Janument 50-1000 empty bottle that shows 1 daily at lunch. Pharmacy shows last fill was 2022 as bid dosage. Original Note: Pts' presented rx bottles. Some medications have last fill dates that are old. Verified most current medications with last fill dates and day supply with [facility]. 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
[2024-07-18] MEDS: methylPREDNISolone sod succ 125 mg/2 mL INJ IVP (13:46)
[2024-07-18] MEDS: ketorolac 30 mg/mL INJ IVP (13:46)
[2024-07-18 13:47] VITALS: RESP 20
[2024-07-18] MEDS: morphine 4 mg/mL SDV 1 mL IVP (13:47)
[2024-07-18 13:48] VITALS: BP 136/94; PULSE 87; O2SAT 97
--- NOTE | 2024-07-18 14:38 | ECG_ITS ---
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 Measurements Intervals [place] Rate: 76 P: 53 [place]: 156 QRS: 2 QRSD: 81 T: 35 QT: 418 QTc: 472 Interpretive Statements SINUS RHYTHM POSSIBLE LEFT ATRIAL ENLARGEMENT [-0.1mV P-WAVE IN V1/V2] LOW QRS VOLTAGE IN PRECORDIAL LEADS [QRS DEFLECTION < 1.0 mV IN CHEST LEADS] POSSIBLE RIGHT VENTRICULAR CONDUCTION DELAY [RSR (QR) IN V1/V2] Compared to ECG 07/18/2024 12:42:47 T-wave abnormality no longer present Electronically Signed On 07-18-2024 18:55:04 CDT by Bridget Strange M.D. [email or web address]
[2024-07-18 15:02] LABS: Troponin 5 2HR Delta 0.00001 ABS# (0-10)
[2024-07-18 15:38] VITALS: BP 118/79; PULSE 84; O2SAT 97
== END 2024-07-18 15:38 | disposition home or self-care (01) ==
PROVIDERS: Emergency Medicine; Emergency Provider Family Medicine; PCP Family Medicine
DX: R07.89 Other chest pain (principal); M54.9 Dorsalgia, unspecified; Z79.4 Long term (current) use of insulin; E78.5 Hyperlipidemia, unspecified; E11.9 Type 2 diabetes mellitus without complications; I25.10 Atherosclerotic heart disease of native coronary artery without angina pectoris; I10 Essential (primary) hypertension
CPT/HCPCS: 36415; 71045; 80053; 83690; 84484; 85025; 85610; 93005; 96374; 96375; 99285; J1885; J2270; J2919

== ENCOUNTER 2024-08-02 00:12 | Emergency (ER) | payer SELFPAY ==
[2024-08-02] VITALS (9 sets, daily range): BP systolic 109–160; BP diastolic 75–112; PULSE 64–93; RESP 18; TEMP 36.5; O2SAT 93–97; BMI 29.2
--- NOTE | 2024-08-02 00:15 | XRR_ITS ---
PROCEDURE INFORMATION: Exam: XR Chest Exam date and time: 08/02/2024 12:34 AM Age: 43 years old Clinical indication: Chest pressure and chest wall pain; Additional info: Cp TECHNIQUE: Imaging protocol: Radiologic exam of the chest. Views: 1 view. COMPARISON: CR XR chest 1V portable [id number] 07/18/2024 1:04 PM FINDINGS: Lungs: Prominent bronchovascular markings may reflect a viral infection. Pleural spaces: Unremarkable. No pleural effusion. No pneumothorax. Heart/Mediastinum: Unremarkable. No cardiomegaly. Bones/joints: Unremarkable. XR/XR chest 1V portable [id number] IMPRESSION: Prominent bronchovascular markings may reflect a viral infection.
--- NOTE | 2024-08-02 00:15 | ECG_ITS ---
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 Measurements Intervals [place] Rate: 90 P: 66 [place]: 140 QRS: 24 QRSD: 78 T: 56 QT: 370 QTc: 453 Interpretive Statements SINUS RHYTHM LOW QRS VOLTAGE IN PRECORDIAL LEADS [QRS DEFLECTION < 1.0 mV IN CHEST LEADS] Compared to ECG 07/18/2024 15:04:31 No significant changes Electronically Signed On 08-02-2024 08:30:49 CDT by Bridget Strange M.D. [email or web address]
--- NOTE | 2024-08-02 00:35 | ED_ITS ---
HPI - Chest Pain 2 General: Chief Complaint: Chest Pain Stated Complaint: Chest Pains Time Seen by Provider: 08/02/24 00:15 Source: patient Mode of arrival: ambulatory History of Present Illness: 43-year-old female states been having sh hillary pain in her chest and backs been going on for 2 days. States much worse with movement along with palpation. Pain has been constant in nature she denies any shortness of breath denies any nausea. Denies any cough or fever Associated symptoms: Deny abdominal pain, dyspnea, fever(s), nausea or vomiting Related Data Home Medications ?Medication ?Instructions ?Recorded ?Confirmed atorvastatin 80 mg tablet 80 mg PO DAILY 08/03/2312/04 hydroxyzine HCl 25 mg tablet 25 - 50 mg PO Q6H PRN Anx iety 08/03/23 07/18/24 hydrochlorothiazide 12.5 mg tablet 12.5 mg PO QAM 01/1007/18/24 insulin aspart U-100 100 unit/mL 35 unit SUBCUT TID 07/18/24 (3 mL) subcutaneous pen nitroglycerin 0.4 mg sublingual See Rx Instructions .R oute .COMPLEX 01/21/24 07/18/24 tablet pantoprazole 40 mg tablet,delayed 40 mg PO DAILY 01/2007/18/24 release paroxetine HCl 40 mg tablet 40 mg PO QPM 07/18/2412/04 sitagliptin phosphate 50 1 tab PO BID 07/18/24 mg-metformin 1,000 mg tablet (Janumet) trazodone 50 mg tablet 50 mg PO BEDTIME PRN Sleep 0 07/18/24 07/18/24 Previous Rx's ?Medication ?Instructions ?Recorded 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 meter,continuous #1 ea 06/08/23 (Dexcom G7 Senior Ux Designer) insulin glargine 100 unit/mL 80 unit (0.8 mL) SUBCUT B EDTIME 09/13/23 subcutaneous solution (Lantus #72 mL U-100 Insulin) insulin syringe-needle U-100 1 mL #100 ea 11/01/23 30 gauge x 5/16 (Advocate Syringes) acetaminophen 325 mg capsule 325 mg PO Q4H PRN fever o r pain 04/01/24 #60 caps ferrous sulfate 325 mg (65 mg 325 mg PO BID #60 tabs 1 06/02/23 iron) tablet (Iron (ferrous sulfate)) ibuprofen 800 mg tablet 800 mg PO TID PRN pain #60 t abs 04/01/24 nitrofurantoin 100 mg PO Q12H 7 days #14 ca ps 04/27/24 monohydrate/macrocrystals 100 mg capsule (Macrobid) 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 sensor (Dexcom G7 #3 ea 06/01/24 Sensor device) levothyroxine 175 mcg tablet 175 mcg PO DAILY #30 tabs 06/15/24 (Synthroid) methylprednisolone 4 mg tablets in See Rx Instructions PO .COMPLEX 07/18/24 a dose pack (Medrol (Steven)) #21 ea tizanidine 4 mg tablet 4 mg PO Q6H PRN muscle spast icity 07/18/24 #20 tabs tramadol 50 mg tablet 50 mg PO Q6H PRN pain #14 ta bs 07/18/24 hydrocodone 5 mg-acetaminophen 325 1 tab PO Q6H PRN pa in #14 tabs 08/02/24 mg tablet Allergies Allergy/AdvReac Type Severity Reaction Status Date / Time No Known Allergies Allergy Verified 07/18/24 12:48 Review of Systems 2 Const: Denies: fever(s), chills, body aches or change in appetite ENMT: Denies: throat pain or dental pain Card: Reports: chest pain Resp: Denies: dyspnea GI: Denies: abdominal pain, nausea, vomiting or diarrhea Musc: Denies: neck pain or back pain Skin/Breast: Denies: rash Neuro: Denies: headache(s) PFSH ED 2 PFSH: Medical History Abdominal adhesions Treated during laparoscopy in June 2023 Chronic pelvic pain in female Leukocytosis Hyperglycemia Ovarian cyst Abdominal pain Acute hyponatremia Diabetes mellitus due to underlying condition with hyperglycemia UTI symptoms Dyspareunia Dysmenorrhea Irregular menstrual bleeding GERD (gastroesophageal reflux disease) Hypothyroidism Rheumatoid arthritis CAD (coronary artery disease) Migraine Hx of myocardial infarction Hyperlipidemia Type 2 diabetes mellitus Hypertension Surgical History H/O tubal ligation Status post total abdominal hysterectomy (~05/30/23) SHERI, [place], left ovarian cystectomy--performed for fibroid uterus, pelvic pain, dysmenorrhea, dyspareunia by Dr. Jones at [facility]. Multiple pelvic adhesions were noted on the anterior surface of the uterus to the anterior abdominal wall and bladder. Benign pathology History of laparoscopy (~07/06/23) Diagnostic laparoscopy with lysis of adhesions performed by Dr. Jones at [facility]. Multiple abdominal adhesions with the right upper quadrant uterus adhered to the anterior abdominal wall, omental adhesions to the anterior abdominal wall, left adnexal adhesions History of laparoscopic appendectomy Hx of section History of thyroid surgery Family History Father Diabetes Heart disease Mother Heart disease Grandmother Heart disease paternal/maternal Grandfather Heart disease paternal/maternal Family/Other Thyroid disease aunt/paternal Father Diabetes Denies family history of Colon cancer Ovarian cancer Hyperlipidemia Breast cancer Hypertension Uterine cancer Stroke Social History Smoking and tobacco/nicotine status: never used tobacco/nicotine Physical Exam 2 Const: COMMON NORMALS: no acute distress, patient oriented x3 and healthy appearing HENMT: COMMON NORMALS: normocephalic and atraumatic HEAD & SCALP: n ormocephalic and atraumatic Eye: COMMON NORMALS: conjunctivae normal CONJUNCTIVA: Yes conjunctivae normal Neck/C-Spine: COMMON NORMALS: full ROM and supple Chest: COMMONS NORMALS: normal inspection of the chest OTHER: point tender in center of chest reproduces pain Resp: COMMON NORMALS: normal respiratory effort, No retractions, No use of accessory muscles and clear to auscultation bilaterally AUSCULTATION: clear to auscultation bilaterally Cardio: COMMON NORMALS: regular rate, regular rhythm and No murmurs present (Cardio) RATE: regular rate RHYTHM: regular rhythm GI: COMMON NORMALS: Normal to inspection, nondistended, normoactive bowel sounds present, Soft to palpation, non-tender and no masses PALPATION: Yes Soft to palpation Extremity: COMMON NORMALS: normal to inspection and full ROM Neuro: COMMON NORMALS: patient oriented x3, moves all extremities and no focal motor deficits Psych: COMMON NORMALS: mental status grossly normal, Normal thought process present and cooperative THOUGHT PROCESS: Normal thought process present Skin: COMMON NORMALS: no rashes or lesions noted and no wounds GENERAL SKIN EXAM: no rashes or lesions noted Course 2 Vital Signs: Vital signs: Vital Signs Temperature 97.7 F 08/02/24 00:15 Pulse Rate 64 08/02/24 03:07 Respiratory Rate 18 08/02/24 00:15 Blood Pressure 109/83 08/02/24 03:07 Pulse Oximetry 95 08/02/24 03:07 Oxygen Delivery Me thod Room Air 08/02/24 01:36 MDM - Chest Pain Medical Decision Making Patient presents for chest pain atypical in nature troponins imaging here is all normal patient stable for discharge follow-up PCP return if worsening. Medical Records I reviewed the patient's medical records. Lab Data I reviewed the patient's lab results. 08/02/24 00:34 08/02/24 00:34 Radiology Impressions Chest X-Ray 08/02/24 00:15 IMPRESSION: Prominent bronchovascular markings may reflect a viral infection. Chest/Abdomen/Pelvis CT 08/02/24 01:27 IMPRESSION: No acute findings. IMPRESSION: Interval development of 3.9 cm presumed right-sided ovarian cyst. No additional acute finding. Laboratory Results WBC 18.24 10^3/uL (3.29-11.43) H 08/02/24 00:34 RBC 5.09 10^6/uL (3.85-5.65) 08/02/24 00:34 Hgb 11.20 g/dL (11.27-16.99) L 08/02/24 00:34 Hct 36.1 % (36-47) 08/02/24 00:34 MCV 70.9 fl (85-98) L 08/02/24 00:34 MCH 22.0 pg (27-33) L 08/02/24 00:34 MCHC 31.0 g/dL (30-55) 08/02/24 00:34 RDW 16.7 % (12.1-15.1) H 08/02/24 00:34 Plt Count 477 10^3/cmm (157-399) H 08/02/24 00:34 MPV 9.2 fL (7.4-10.4) 08/02/24 00:34 Neut % (Auto) 75.3 % 08/02/24 00:34 Lymph % (Auto) 19.3 % 08/02/24 00:34 Camp % (Auto) 4.1 % 08/02/24 00:34 Eos % (Auto) 0.4 % 08/02/24 00:34 Baso % (Auto) 0.4 % 08/02/24 00:34 Neut # (Auto) 13.73 10^3/uL (1.8-7.7) H 08/02/24 00:34 Lymph # (Auto) 3.5 10^3/uL (0.8-4.8) 08/02/24 00:34 Camp # (Auto) 0.7 10^3/uL (0.2-0.9) 08/02/24 00:34 Eos # (Auto) 0.1 10^3/uL (0.0-0.8) 08/02/24 00:34 Baso # (Auto) 0.1 10^3/uL (0.0-0.1) 08/02/24 00:34 Nucleated RBC % (auto) 0 % 08/02/24 00: Nucleated RBCs # 0.0 /100WBC 08/02/24 00:34 PT 12.30 SECONDS (12.1-14.9) 08/02/24 00:34 INR 0.85 (0.8-1.2) 08/02/24 00:34 Sodium 133 mmol/L (136-145) L 08/02/24 00:34 Potassium 4.6 mmol/L (3.5-5.1) 08/02/24 00:34 Chloride 98 mmol/L (98-107) 08/02/24 00:34 Carbon Dioxide 23 mmol/L (22-29) 08/02/24 00:34 Anion Gap 16.6 (5-19) 08/02/24 00:34 BUN 8 mg/dL (6-20) 08/02/24 00:34 Creatinine 1.1 mg/dL (0.5-0.9) H 08/02/24 00:34 GFR Calculation 54.0 mL/min (90-130) L 08/02/24 00:34 Glucose 382 mg/dL (65-115) H 08/02/24 00:34 Calculated Osmolality 290 mOsm/kg (285-295) 08/02/24 00:34 Calcium 9.5 mg/dL (8.5-10.5) 08/02/24 00:34 Total Bilirubin 0.2 mg/dL (0.15-1.2) 08/02/24 00:34 AST 12 U/L (0-32) 08/02/24 00:34 ALT 18 U/L (0-33) 08/02/24 00:34 Alkaline Phosphatase 102 U/L (35-105) 08/02/24 00:34 Troponin T Baseline < 6 ng/L (0-10) 08/02/24 00:34 Troponin T 120 Minute 6.00 ng/L (0-10) 08/02/24 02:30 Delta Troponin T 0.90989 ABS# (0-10) 08/02/24 02:30 Total Protein 7.6 g/dL (6.6-8.7) 08/02/24 00:34 Albumin 4.4 g/dL (3.5-5.2) 08/02/24 00:34 Globulin 3.2 g/dL (1.3-4.6) 08/02/24 00:34 Lipase 56 U/L (13-60) 08/02/24 00:34 All radiology interpretation(s) finalized by discharge EKG Data EKG 1: I personally reviewed and interpreted this EKG as follows: EKG interpretation date: 08/02/24 EKG interpretation time: 00:17 Interpretation: nsr hr [address] elevation qrs 78 qtc 417 EKG 2: I personally reviewed and interpreted this EKG as follows: EKG interpretation date: 08/02/24 EKG interpretation time: 02:26 Interpretation: nsr hr [address] elevation qrs 78 qtc 426 Discharge Plan Discharge Patient Disposition: Home Clinical Impression: Atypical chest pain Condition: Stable Prescriptions: New hydrocodone-acetaminophen 5-325 mg tablet 1 tab PO Q6H PRN (Reason: pain) Qty: 14 0RF No Action (DME) Dexcom G7 Senior Ux Designer Misc See Rx Instructions .Route Qty: 1 0RF Rx Instructions: As directed insulin glargine [Lantus U-100 Insulin] 100 unit/mL solution 80 unit SUBCUT BEDTIME Qty: 72 1RF nitrofurantoin monohyd/m-cryst [Macrobid] 100 mg capsule 100 mg PO Q12H 7 Days Qty: 14 0RF Rx Instructions: must administer with a meal/food (DME) insulin syringe-needle U-100 [Advocate Syringes] 1 mL 30 gauge x 5/16 syringe See Rx Instructions .Route Qty: 100 0RF Rx Instructions: ok to use insurance preferred (DME) Dexcom G7 Sensor Device See Rx Instructions .ROUTE .COMPLEX Qty: 3 1RF Dose Instruction: CHANGE EVERY 10 DAYS Rx Instructions: CHANGE EVERY 10 DAYS levothyroxine [Synthroid] 175 mcg tablet 175 mcg PO DAILY Qty: 30 3RF atorvastatin 80 mg tablet 80 mg PO DAILY hydroxyzine HCl 25 mg tablet 25 - 50 mg PO Q6H PRN (Reason: Anxiety) pantoprazole 40 mg tablet,delayed release (DR/EC) 40 mg PO DAILY nitroglycerin 0.4 mg tablet, sublingual See Rx Instructions .ROUTE .COMPLEX Rx Instructions: PLACE ONE TABLET UNDER TONGUE NEEDED FOR CHEST PAIN EVERY 5 MINUTES hydrochlorothiazide 12.5 mg tablet 12.5 mg PO QAM insulin aspart U-100 100 unit/mL (3 mL) insulin pen 35 unit SUBCUT TID trazodone 50 mg tablet 50 mg PO BEDTIME PRN (Reason: Sleep) Janumet 50-1,000 mg Tablet 1 tab PO BID paroxetine HCl 40 mg tablet 40 mg PO QPM tizanidine 4 mg tablet 4 mg PO Q6H PRN (Reason: muscle spasticity) Qty: 20 0RF Rx Instructions: do not exceed 3 doses per 24 hrs methylprednisolone [Medrol (Steven)] 4 mg tablets,dose pack See Rx Instructions .ROUTE .COMPLEX Qty: 21 0RF Rx Instructions: orally per package directions tramadol 50 mg tablet 50 mg PO Q6H PRN (Reason: pain) Qty: 14 0RF ibuprofen 800 mg tablet 800 mg PO TID PRN (Reason: pain) Qty: 60 0RF ferrous sulfate [Iron (ferrous sulfate)] 325 mg (65 mg iron) tablet 325 mg PO BID Qty: 60 0RF acetaminophen 325 mg capsule 325 mg PO Q4H PRN (Reason: fever or pain) Qty: 60 0RF Discharge Orders: Discharge ED (Routine); Ordered 08/02/24 Ordered By: Екатерина Calixto Referrals: Cooper Venegas MD [Primary Care Provider] - 4-7 days Discharge Diet: Advance as tolerated Discharge Activity: Resume usual activity Patient Instructions: Chest Pain (ED) Print Language: Serbian Coding Level of Care Code ED [employer] Brakeman for Allison Pope
[2024-08-02] MEDS: ondansetron 2 mg/ML SDV 2 mL 4 MG IVP (00:38)
[2024-08-02] MEDS: HYDROmorphone 0.5 MG/0.5 ML INJ IVP (00:39)
[2024-08-02 00:45] LABS: Basophils # 0.1 10^3/uL (0.0-0.1); Basophils % 0.4 %; Eosinophils # 0.1 10^3/uL (0.0-0.8); Eosinophils % 0.4 %; Hematocrit 36.1 % (36-47); Lymphocytes # 3.5 10^3/uL (0.8-4.8); Lymphocytes % 19.3 %; Mean Corpuscular Volume 70.9 fl (85-98); Mean Platelet Volume 9.2 fL (7.4-10.4); Monocytes # 0.7 10^3/uL (0.2-0.9); Monocytes % 4.1 %; Neutrophils # 13.73 10^3/uL (1.8-7.7); Neutrophils % 75.3 %; Nucleated Red Blood Cells % 0 %; Platelet Count 477 10^3/cmm (157-399); Red Blood Count 5.09 10^6/uL (3.85-5.65); Red Cell Distribution Width 16.7 % (12.1-15.1); White Blood Count 18.24 10^3/uL (3.29-11.43)
[2024-08-02 00:55] LABS: INR 0.85 (0.8-1.2)
[2024-08-02 01:01] LABS: Troponin(5th) Baseline < 6 ng/L (0-10)
[2024-08-02 01:04] LABS: Alanine Aminotransferase 18 U/L (0-33); Albumin Level 4.4 g/dL (3.5-5.2); Alkaline Phosphatase 102 U/L (35-105); Anion Gap 16.6 (5-19); Aspartate Amino Transferase 12 U/L (0-32); Blood Urea Nitrogen 8 mg/dL (6-20); Calcium 9.5 mg/dL (8.5-10.5); Carbon Dioxide 23 mmol/L (22-29); Chloride 98 mmol/L (98-107); Creatinine Clr Calc Pharmacy 63.2371; Globulin 3.2 g/dL (1.3-4.6); Glucose 382 mg/dL (65-115); Lipase 56 U/L (13-60); Osmolality Calculated 290 mOsm/kg (285-295); Potassium 4.6 mmol/L (3.5-5.1); Sodium 133 mmol/L (136-145); Total Bilirubin 0.2 mg/dL (0.15-1.2); Total Protein 7.6 g/dL (6.6-8.7)
--- NOTE | 2024-08-02 01:27 | CTR_ITS ---
PROCEDURE INFORMATION: Exam: CTA Chest With Contrast Exam date and time: 08/02/2024 1:49 AM Age: 43 years old Clinical indication: Abdominal tenderness; Shortness of breath; Additional info: Cp/flank pain TECHNIQUE: Imaging protocol: Computed tomographic angiography of the chest with contrast. Exam focused on the arteries. 3D rendering (Not supervised by radiologist): MIP and/or 3D reconstructed images were created by the technologist. Radiation optimization: All CT scans at this facility use at least one of these dose optimization techniques: automated exposure control; mA and/or kV adjustment per patient size (includes targeted exams where dose is matched to clinical indication); or iterative reconstruction. Contrast material: OMNI 350; Contrast volume: 100 ml; Contrast route: INTRAVENOUS (IV); COMPARISON: CR (CHEST, ) 08/02/2024 12:34 AM RADIATION DOSE METRICS: Total DLP (mGy-cm): 1213.17 FINDINGS: Pulmonary arteries: Normal. No pulmonary emboli. Aorta: Unremarkable. No aortic aneurysm. No aortic dissection. Lungs: Unremarkable. No consolidation. No masses. Pleural spaces: Unremarkable. No pneumothorax. No pleural effusion. Heart: Unremarkable. No cardiomegaly. No pericardial effusion. Lymph nodes: Unremarkable. No enlarged lymph nodes. Bones/joints: Unremarkable. No acute fracture. Soft tissues: Unremarkable. PROCEDURE INFORMATION: Exam: CT Abdomen And Pelvis With Contrast Exam date and time: 08/02/2024 1:49 AM Age: 43 years old Clinical indication: Abdominal tenderness; Shortness of breath; Additional info: Cp/flank pain TECHNIQUE: Imaging protocol: Computed tomography of the abdomen and pelvis with contrast. Radiation optimization: All CT scans at this facility use at least one of these dose optimization techniques: automated exposure control; mA and/or kV adjustment per patient size (includes targeted exams where dose is matched to clinical indication); or iterative reconstruction. Contrast material: OMNI 350; Contrast volume: 100 ml; Contrast route: INTRAVENOUS (IV); COMPARISON: CT abdomen pelvis con [id number] 08/03/2023 7:04 AM RADIATION DOSE METRICS: Total DLP (mGy-cm): 0.01 FINDINGS: Liver: Normal. No mass. Gallbladder and biliary ducts: Normal. No calcified stones. No ductal dilation. Pancreas: Normal. No ductal dilation. Spleen: Normal. No splenomegaly. Adrenal glands: Normal. No mass. Kidneys and ureters: Normal. No hydronephrosis. Stomach and bowel: Small hiatal hernia. No obstruction. No mucosal thickening. Appendix: No evidence of appendicitis. Intraperitoneal space: Unremarkable. No free air. No significant fluid collection. Vasculature: Unremarkable. No abdominal aortic aneurysm. Lymph nodes: Unremarkable. No enlarged lymph nodes. Urinary bladder: Unremarkable as visualized. Reproductive: Patient has undergone hysterectomy. One of the ovaries can be seen posterior to the bladder measuring 4.5 x 4 6 cm in size containing a cyst measuring 3.9 x 2.4 cm in size. This appears most probably to represent the right ovary as the left ovary is believed to be visualized on image 36 of series 14. Bones/joints: Unremarkable. No acute fracture. Soft tissues: Unremarkable. CT/CT angio chest w abd pel w con IMPRESSION: No acute findings. IMPRESSION: Interval development of 3.9 cm presumed right-sided ovarian cyst. No additional acute finding.
[2024-08-02] MEDS: ketorolac 30 mg/mL INJ IVP (01:35)
[2024-08-02] MEDS: iohexol 350 mg/mL 500 mL Btl (per mL) IV (02:05)
--- NOTE | 2024-08-02 02:15 | ECG_ITS ---
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 Measurements Intervals [place] Rate: 63 P: 59 CO: 139 QRS: 7 QRSD: 78 T: 39 QT: 419 QTc: 431 Interpretive Statements SINUS RHYTHM LOW QRS VOLTAGE IN PRECORDIAL LEADS [QRS DEFLECTION < 1.0 mV IN CHEST LEADS] Compared to ECG 07/18/2024 15:04:31 No significant changes Electronically Signed On 08-02-2024 08:33:49 CDT by Bridget Strange M.D. [email or web address]
[2024-08-02 02:50] LABS: Troponin 5 2HR Delta 0.00001 ABS# (0-10)
[2024-08-02] MEDS: HYDROcodone-acetaminophen 5-325 mg Tablet 1 TAB PO (03:25)
== END 2024-08-02 03:30 | disposition home or self-care (01) ==
PROVIDERS: Emergency Provider Emergency Medicine; PCP Family Medicine
DX: R07.89 Other chest pain (principal); Z79.4 Long term (current) use of insulin; E11.9 Type 2 diabetes mellitus without complications; E78.5 Hyperlipidemia, unspecified; I10 Essential (primary) hypertension; I25.10 Atherosclerotic heart disease of native coronary artery without angina pectoris
CPT/HCPCS: 36415; 71045; 71275; 74177; 80053; 83690; 84484; 85025; 85610; 93005; 96374; 96375; 99285; J1171; J1885; J2405; J9999

== ENCOUNTER 2024-09-16 08:50 | Emergency (ER) | payer OTHER, MEDICAID, SELFPAY ==
[2024-09-16] VITALS (7 sets, daily range): BP systolic 86–112; BP diastolic 54–68; PULSE 67–77; RESP 15; TEMP 37.1; O2SAT 90–98
[2024-09-16 09:03] LABS: Glucose Point of Care 477 mg/dL (70-110)
--- NOTE | 2024-09-16 09:06 | ECG_ITS ---
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
[2024-09-16 09:08] LABS: Basophils # 0.1 10^3/uL (0.0-0.1); Basophils % 0.5 %; Eosinophils # 0.1 10^3/uL (0.0-0.8); Eosinophils % 1.1 %; Hematocrit 37.5 % (36-47); Lymphocytes # 3.1 10^3/uL (0.8-4.8); Lymphocytes % 30.4 %; Mean Corpuscular HGB Conc 31.5 g/dL (30-55); Mean Corpuscular Hemoglobin 22.3 pg (27-33); Mean Corpuscular Volume 70.8 fl (85-98); Mean Platelet Volume 9.5 fL (7.4-10.4); Monocytes # 0.5 10^3/uL (0.2-0.9); Monocytes % 4.9 %; Neutrophils # 6.39 10^3/uL (1.8-7.7); Neutrophils % 62.7 %; Nucleated Red Blood Cells % 0 %; Platelet Count 471 10^3/cmm (157-399); White Blood Count 10.19 10^3/uL (3.29-11.43)
--- NOTE | 2024-09-16 09:09 | W.ED.SYNCOPE ---
HPI - Syncope General: Chief Complaint: Syncope Stated Complaint: high BS lathergic Time Seen by Provider: 09/16/24 08:57 Source: patient and family Mode of arrival: ambulatory History of Present Illness: 43-year-old female is here she is working at [employer] and had a syncopal event. She is a diabetic her blood sugar is 477. Has been states she also started some new sleeping medicines and she has been more tired lately she states she just feels tired currently denies any headache denies any chest pain no vomiting or diarrhea. Associated symptoms: Deny abdominal pain, chest pain, fever(s), headache(s) or nausea Related Data Home Medications ?Medication ?Instructions ?Recorded ?Confirmed atorvastatin 80 mg tablet 80 mg PO DAILY 08/03/23 09/13/24 hydroxyzine HCl 25 mg tablet 25 - 50 mg PO Q6H PRN Anxiety 08/03/23 09/13/24 hydrochlorothiazide 12.5 mg tablet 12.5 mg PO QAM 01/21/24 09/13/24 insulin aspart U-100 100 unit/mL 35 unit SUBCUT TID 01/21/24 09/13/24 (3 mL) subcutaneous pen pantoprazole 40 mg tablet,delayed 40 mg PO DAILY 01/21/24 09/13/24 release paroxetine HCl 40 mg tablet 40 mg PO QPM 07/18/24 09/13/24 sitagliptin phosphate 50 1 tab PO BID 07/18/24 09/13/24 mg-metformin 1,000 mg tablet (Janumet) trazodone 50 mg tablet 50 mg PO BEDTIME PRN Sleep 07/18/24 09/13/24 Previous Rx's ?Medication ?Instructions ?Recorded 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,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,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 06/08/23 (Dexcom G7 Retail Loss Prevention Specialist) acetaminophen 325 mg capsule 325 mg PO Q4H PRN fever or pain 04/01/24 #60 caps ferrous sulfate 325 mg (65 mg 325 mg PO BID #60 tabs 04/01/24 iron) tablet (Iron (ferrous sulfate)) ibuprofen 800 mg tablet 800 mg PO TID PRN pain #60 tabs 04/01/24 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 sensor (Dexcom G7 #3 ea 06/01/24 Sensor device) tizanidine 4 mg tablet 4 mg PO Q6H PRN muscle spasticity 07/18/24 #20 tabs tramadol 50 mg tablet 50 mg PO Q6H PRN pain #14 tabs 07/18/24 hydrocodone 5 mg-acetaminophen 325 1 tab PO Q6H PRN pain #14 tabs 08/02/24 mg tablet metoprolol succinate 25 mg 12.5 mg (1/2 x 25 mg) PO DAILY #90 09/12/24 tablet,extended release 24 hr tabs insulin glargine 100 unit/mL 80 unit (0.8 mL) SUBCUT BEDTIME 09/14/24 subcutaneous solution (Lantus #72 mL U-100 Insulin) insulin syringe-needle U-100 1 mL #100 ea 09/14/24 30 gauge x 5/16 (Advocate Syringes) Allergies Allergy/AdvReac Type Severity Reaction Status Date / Time No Known Allergies Allergy Verified 09/13/24 14:29 Review of Systems Const: Denies: fever(s), chills, body aches or change in appetite ENMT: Denies: throat pain or dental pain Card: Reports: syncope; Denies: chest pain Resp: Denies: dyspnea GI: Denies: abdominal pain, nausea, vomiting or diarrhea Musc: Denies: neck pain or back pain Skin/Breast: Denies: rash Neuro: Denies: headache(s) PFSH ED PFSH: Medical History Abdominal adhesions Treated during laparoscopy in June 2023 Chronic pelvic pain in female Leukocytosis Hyperglycemia Ovarian cyst Abdominal pain Acute hyponatremia Diabetes mellitus due to underlying condition with hyperglycemia UTI symptoms Dyspareunia Dysmenorrhea Irregular menstrual bleeding GERD (gastroesophageal reflux disease) Hypothyroidism Rheumatoid arthritis CAD (coronary artery disease) Migraine Hx of myocardial infarction Hyperlipidemia Type 2 diabetes mellitus Hypertension Surgical History H/O tubal ligation Status post total abdominal hysterectomy (~05/30/23) SHERI, [place], left ovarian cystectomy--performed for fibroid uterus, pelvic pain, dysmenorrhea, dyspareunia by Dr. Jones at [facility]. Multiple pelvic adhesions were noted on the anterior surface of the uterus to the anterior abdominal wall and bladder. Benign pathology History of laparoscopy (~07/06/23) Diagnostic laparoscopy with lysis of adhesions performed by Dr. Jones at [facility]. Multiple abdominal adhesions with the right upper quadrant uterus adhered to the anterior abdominal wall, omental adhesions to the anterior abdominal wall, left adnexal adhesions History of laparoscopic appendectomy Hx of section History of thyroid surgery Family History Father Diabetes Heart disease Mother Heart disease Grandmother Heart disease paternal/maternal Grandfather Heart disease paternal/maternal Family/Other Thyroid disease aunt/paternal Father Diabetes Denies family history of Colon cancer Ovarian cancer Hyperlipidemia Breast cancer Hypertension Uterine cancer Stroke Social History Smoking and tobacco/nicotine status: never used tobacco/nicotine Physical Exam Const: COMMON NORMALS: no acute distress, patient oriented x3 and healthy appearing HENMT: COMMON NORMALS: normocephalic and atraumatic HEAD & SCALP: normocephalic and atraumatic Eye: COMMON NORMALS: conjunctivae normal CONJUNCTIVA: Yes conjunctivae normal Neck/C-Spine: COMMON NORMALS: full ROM and supple Chest: COMMONS NORMALS: normal inspection of the chest and normal palpation of entire chest wall Resp: COMMON NORMALS: normal respiratory effort, No retractions, No use of accessory muscles and clear to auscultation bilaterally AUSCULTATION: clear to auscultation bilaterally Cardio: COMMON NORMALS: regular rate, regular rhythm and No murmurs present (Cardio) RATE: regular rate RHYTHM: regular rhythm GI: COMMON NORMALS: Normal to inspection, nondistended, normoactive bowel sounds present, Soft to palpation, non-tender and no masses PALPATION: Yes Soft to palpation Extremity: COMMON NORMALS: normal to inspection and full ROM Neuro: COMMON NORMALS: patient oriented x3, moves all extremities and no focal motor deficits Psych: COMMON NORMALS: mental status grossly normal, Normal thought process present and cooperative THOUGHT PROCESS: Normal thought process present Skin: COMMON NORMALS: no rashes or lesions noted and no wounds GENERAL SKIN EXAM: no rashes or lesions noted Course Vital Signs: Vital signs: Vital Signs Temperature 98.8 F 09/16/24 08:56 Pulse Rate 77 09/16/24 08:56 Respiratory Rate 15 09/16/24 08:56 Blood Pressure 102/68 09/16/24 11:00 Pulse Oximetry 96 09/16/24 11:00 Oxygen Delivery Me thod Room Air 09/16/24 10:01 MDM - Syncope Medical Decision Making Patient presents here after syncopal event likely due to her new medication or her hyperglycemia not in DKA she feels much improved after fluids blood pressures improved orthostatics were normal glucose is improved she stable for discharge follow-up with PCP return if worsening. Medical Records I reviewed the patient's medical records. Lab Data I reviewed the patient's lab results. 09/16/24 09:02 09/16/24 09:02 Laboratory Results WBC 10.19 10^3/uL (3.29-11.43) 09/16/24 09:02 RBC 5.30 10^6/uL (3.85-5.65) 09/16/24 09:02 Hgb 11.80 g/dL (11.27-16.99) 09/16/24 09:02 Hct 37.5 % (36-47) 09/16/24 09:02 MCV 70.8 fl (85-98) L 09/16/24 09:02 MCH 22.3 pg (27-33) L 09/16/24 09:02 MCHC 31.5 g/dL (30-55) 09/16/24 09:02 RDW 17.0 % (12.1-15.1) H 09/16/24 09:02 Plt Count 471 10^3/cmm (157-399) H 09/16/24 09:02 MPV 9.5 fL (7.4-10.4) 09/16/24 09:02 Neut % (Auto) 62.7 % 09/16/24 09:02 Lymph % (Auto) 30.4 % 09/16/24 09:02 [place] % (Auto) 4.9 % 09/16/24 09:02 Eos % (Auto) 1.1 % 09/16/24 09:02 Baso % (Auto) 0.5 % 09/16/24 09:02 Neut # (Auto) 6.39 10^3/uL (1.8-7.7) 09/16/24 09:02 Lymph # (Auto) 3.1 10^3/uL (0.8-4.8) 09/16/24 09:02 [place] # (Auto) 0.5 10^3/uL (0.2-0.9) 09/16/24 09:02 Eos # (Auto) 0.1 10^3/uL (0.0-0.8) 09/16/24 09:02 Baso # (Auto) 0.1 10^3/uL (0.0-0.1) 09/16/24 09:02 Nucleated RBC % (auto) 0 % 09/16/24 09:02 Nucleated RBCs # 0.0 /100WBC 09/16/24 09:02 Sodium 128 mmol/L (136-145) L 09/16/24 09:02 Potassium 3.7 mmol/L (3.5-5.1) 09/16/24 09:02 Chloride 93 mmol/L (98-107) L 09/16/24 09:02 Carbon Dioxide 20 mmol/L (22-29) L 09/16/24 09:02 Anion Gap 18.7 (5-19) 09/16/24 09:02 BUN 9 mg/dL (6-20) 09/16/24 09:02 Creatinine 0.8 mg/dL (0.5-0.9) 09/16/24 09:02 GFR Calculation 77.9 mL/min (90-130) L 09/16/24 09:02 Glucose 438 mg/dL (65-115) H 09/16/24 09:02 POC Glucose 328 mg/dL (70-110) H 09/16/24 10:10 Calculated Osmolality 284 mOsm/kg (285-295) L 09/16/24 09:02 Calcium 9.5 mg/dL (8.5-10.5) 09/16/24 09:02 Total Bilirubin 0.2 mg/dL (0.15-1.2) 09/16/24 09:02 AST 20 U/L (0-32) 09/16/24 09:02 ALT 24 U/L (0-33) 09/16/24 09:02 Alkaline Phosphatase 114 U/L (35-105) H 09/16/24 09:02 Total Protein 7.8 g/dL (6.6-8.7) 09/16/24 09:02 Albumin 4.2 g/dL (3.5-5.2) 09/16/24 09:02 Globulin 3.6 g/dL (1.3-4.6) 09/16/24 09:02 No radiology studies performed this visit EKG Data EKG 1: I personally reviewed and interpreted this EKG as follows: EKG interpretation date: 09/16/24 EKG interpretation time: 10:07 Interpretation: nsr hr [address] elevation qrs 92 qtc 428 Discharge Plan Discharge Patient Disposition: Home Clinical Impression: Syncope, Hyperglycemia Condition: Stable Prescriptions: No Action (DME) Dexcom G7 Retail Loss Prevention Specialist Misc See Rx Instructions .Route Qty: 1 0RF Rx Instructions: As directed metoprolol succinate 25 mg tablet extended release 24 hr 12.5 mg PO DAILY Qty: 90 3RF insulin glargine [Lantus U-100 Insulin] 100 unit/mL solution 80 unit SUBCUT BEDTIME Qty: 72 1RF (DME) insulin syringe-needle U-100 [Advocate Syringes] 1 mL 30 gauge x 5/16 syringe See Rx Instructions .Route Qty: 100 0RF Rx Instructions: ok to use insurance preferred (DME) Dexcom G7 Sensor Device See Rx Instructions .ROUTE .COMPLEX Qty: 3 1RF Dose Instruction: CHANGE EVERY 10 DAYS Rx Instructions: CHANGE EVERY 10 DAYS atorvastatin 80 mg tablet 80 mg PO DAILY hydroxyzine HCl 25 mg tablet 25 - 50 mg PO Q6H PRN (Reason: Anxiety) pantoprazole 40 mg tablet,delayed release (DR/EC) 40 mg PO DAILY hydrochlorothiazide 12.5 mg tablet 12.5 mg PO QAM insulin aspart U-100 100 unit/mL (3 mL) insulin pen 35 unit SUBCUT TID trazodone 50 mg tablet 50 mg PO BEDTIME PRN (Reason: Sleep) Janumet 50-1,000 mg Tablet 1 tab PO BID paroxetine HCl 40 mg tablet 40 mg PO QPM tizanidine 4 mg tablet 4 mg PO Q6H PRN (Reason: muscle spasticity) Qty: 20 0RF Rx Instructions: do not exceed 3 doses per 24 hrs tramadol 50 mg tablet 50 mg PO Q6H PRN (Reason: pain) Qty: 14 0RF hydrocodone-acetaminophen 5-325 mg tablet 1 tab PO Q6H PRN (Reason: pain) Qty: 14 0RF ibuprofen 800 mg tablet 800 mg PO TID PRN (Reason: pain) Qty: 60 0RF ferrous sulfate [Iron (ferrous sulfate)] 325 mg (65 mg iron) tablet 325 mg PO BID Qty: 60 0RF acetaminophen 325 mg capsule 325 mg PO Q4H PRN (Reason: fever or pain) Qty: 60 0RF Discharge Orders: Discharge ED (Routine); Ordered 09/16/24 Ordered By: Екатерина Calixto Referrals: Cooper Venegas MD [Primary Care Provider, [facility]] - 4-7 days Discharge Diet: Advance as tolerated Discharge Activity: Resume usual activity Patient Instructions: Syncope (ED), Diabetic Hyperglycemia (ED) Stand Alone Forms: Work/School Release Print Language: Guatemalan Coding Level of Care Code ED 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
[2024-09-16] MEDS: sodium chloride 0.9% 1,000 ML 999 ML IV ×2 (09:25)
[2024-09-16 09:26] LABS: Alanine Aminotransferase 24 U/L (0-33); Albumin Level 4.2 g/dL (3.5-5.2); Alkaline Phosphatase 114 U/L (35-105); Aspartate Amino Transferase 20 U/L (0-32); Blood Urea Nitrogen 9 mg/dL (6-20); Calcium 9.5 mg/dL (8.5-10.5); Carbon Dioxide 20 mmol/L (22-29); Chloride 93 mmol/L (98-107); Creatinine Clr Calc Pharmacy 87.6067; Globulin 3.6 g/dL (1.3-4.6); Glomerular Filtration Rate 77.9 mL/min (90-130); Glucose 438 mg/dL (65-115); Osmolality Calculated 284 mOsm/kg (285-295); Sodium 128 mmol/L (136-145); Total Bilirubin 0.2 mg/dL (0.15-1.2); Total Protein 7.8 g/dL (6.6-8.7)
[2024-09-16] MEDS: insulin regular-human 100 units/1 mL 10 UNIT IVP (09:26)
[2024-09-16 09:34] LABS: Anion Gap 18.7 (5-19); Potassium 3.7 mmol/L (3.5-5.1)
[2024-09-16 10:13] LABS: Glucose Point of Care 328 mg/dL (70-110)
[2024-09-16 11:30] LABS: Glucose Point of Care 253 mg/dL (70-110)
== END 2024-09-16 11:33 | disposition home or self-care (01) ==
PROVIDERS: Emergency Provider Emergency Medicine; PCP Family Medicine
DX: R55 Syncope and collapse (principal); E11.65 Type 2 diabetes mellitus with hyperglycemia; I10 Essential (primary) hypertension; E78.5 Hyperlipidemia, unspecified
CPT/HCPCS: 36415; 36416; 80053; 82962; 85025; 93005; 96361; 96374; 99284; J1815; J7030

== ENCOUNTER 2024-11-18 14:47 | Emergency (ER) | payer OTHER, SELFPAY ==
[2024-11-18 14:48] VITALS: BP 147/93; PULSE 112; RESP 16; TEMP 36.8; O2SAT 99; BMI 29.5
[2024-11-18 15:27] VITALS: PULSE 100; O2SAT 100
[2024-11-18 15:35] LABS: Hematocrit 43.7 % (36-47); Hemoglobin 14.10 g/dL (11.27-16.99); Mean Corpuscular HGB Conc 32.3 g/dL (30-55); Mean Corpuscular Hemoglobin 24.0 pg (27-33); Mean Corpuscular Volume 74.3 fl (85-98); Nucleated Red Blood Cells % 0 %; Platelet Count 468 10^3/cmm (157-399); Red Blood Count 5.88 10^6/uL (3.85-5.65); White Blood Count 12.03 10^3/uL (3.29-11.43)
[2024-11-18 15:38] LABS: Ketone (Acetest) Serum Negative (Negative)
[2024-11-18 15:49] LABS: Alanine Aminotransferase 23 U/L (0-33); Albumin Level 4.6 g/dL (3.5-5.2); Alkaline Phosphatase 120 U/L (35-105); Anion Gap 19.5 (5-19); Aspartate Amino Transferase 15 U/L (0-32); Blood Urea Nitrogen 11 mg/dL (6-20); Calcium 10.8 mg/dL (8.5-10.5); Carbon Dioxide 22 mmol/L (22-29); Chloride 98 mmol/L (98-107); Creatinine Clr Calc Pharmacy 116.4145; Globulin 4.0 g/dL (1.3-4.6); Glucose 270 mg/dL (65-115); Osmolality Calculated 291 mOsm/kg (285-295); Potassium 3.5 mmol/L (3.5-5.1); Sodium 136 mmol/L (136-145); Total Protein 8.6 g/dL (6.6-8.7)
--- NOTE | 2024-11-18 15:51 | W.ED.RECABL ---
HPI - Recheck/Abnormal Lab/Rx General: Chief Complaint: Recheck/Abnormal Lab/Rx Stated Complaint: high blood sugar (2 doses insulin) Time Seen by Provider: 11/18/24 15:00 History of Present Illness: HPI: Patient dates that she took her glucose this morning and it was measuring in the high 400s. Gave herself 35 units of insulin. Later today however and the blood glucose was still high so gave herself another 35 units of insulin. She states that now her blood glucose has been in the 300s and she is concerned that this is falling too quickly and unsafe. Patient has been feeling otherwise more fatigued than usual at home with upper respiratory symptoms, congestion, rhinorrhea. No UTI symptoms, chest pain, or shortness of breath. REVIEW OF SYSTEMS: 10 systems reviewed and otherwise unremarkable except for those noted in HPI. PHYSCIAL EXAM: Triage vital signs reviewed Gen: A&O NAD HEENT: NCAT, EOMI, not icteric. External ears normal. No rhinorrhea. Moist mucous membranes. Neck: Supple, full range of motion, no observable masses, No meningeal sign. Lungs: No Respiratory distress. CV: RRR, no edema. Abdomen: Soft, nondistended, No rebound tenderness. MSK: No joint swelling, no redness. Skin: No rashes, petechiae, lesions. Normal color per patient. Neuro: Normal Gait, Grossly intact. Psych: Appropriate for situation. PROCEDURES: N/A Related Data Home Medications ?Medication ?Instructions ?Recorded ?Confirmed atorvastatin 80 mg tablet 80 mg PO QPM 08/03/23 11/18/24 hydroxyzine HCl 25 mg tablet 25 - 50 mg PO Q6H PRN Anxiety 08/03/23 11/18/24 hydrochlorothiazide 12.5 mg tablet 12.5 mg PO QAM 01/21/24 11/18/24 insulin aspart U-100 100 unit/mL 35 unit SUBCUT TID 01/21/24 11/18/24 (3 mL) subcutaneous pen pantoprazole 40 mg tablet,delayed 40 mg PO DAILY 01/21/24 11/18/24 release paroxetine HCl 40 mg tablet 40 mg PO QPM 07/18/24 11/18/24 trazodone 50 mg tablet 50 mg PO BEDTIME PRN Sleep 07/18/24 11/18/24 cyclobenzaprine 10 mg tablet 10 mg PO Q8H PRN Muscle Spasm 11/18/24 11/18/24 ezetimibe 10 mg tablet 10 mg PO DAILY 11/18/24 11/18/24 insulin glargine-yfgn 100 unit/mL 80 unit SUBCUT BEDTIME 11/18/24 11/18/24 (3 mL) subcutaneous pen levothyroxine 150 mcg tablet See Rx Instructions .Route .COMPLEX 11/18/24 11/18/24 Previous Rx's ?Medication ?Instructions ?Recorded 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,marketing communications coordinator,cont #1 ea 06/08/23 (Dexcom G7 Service Center Appraiser) acetaminophen 325 mg capsule 325 mg PO Q4H PRN fever or pain 04/01/24 #60 caps ferrous sulfate 325 mg (65 mg 325 mg PO BID #60 tabs 04/01/24 iron) tablet (Iron (ferrous sulfate)) 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 sensor (Dexcom G7 #3 ea 06/01/24 Sensor device) tizanidine 4 mg tablet 4 mg PO Q6H PRN muscle spasticity 07/18/24 #20 tabs tramadol 50 mg tablet 50 mg PO Q6H PRN pain #14 tabs 07/18/24 hydrocodone 5 mg-acetaminophen 325 1 tab PO Q6H PRN pain #14 tabs 08/02/24 mg tablet metoprolol succinate 25 mg 12.5 mg (1/2 x 25 mg) PO DAILY #90 09/12/24 tablet,extended release 24 hr tabs insulin syringe-needle U-100 1 mL #100 ea 09/14/24 30 gauge x 5/16 (Advocate Syringes) Allergies Allergy/AdvReac Type Severity Reaction Status Date / Time No Known Allergies Allergy Verified 10/09/24 10:22 [facility] ED PFSH: Medical History (Updated 11/18/24 @ 17:09 by Oneil Salazar MD) Abdominal adhesions Treated during laparoscopy in June 2023 Chronic pelvic pain in female Leukocytosis Hyperglycemia Ovarian cyst Abdominal pain Acute hyponatremia Diabetes mellitus due to underlying condition with hyperglycemia UTI symptoms Dyspareunia Dysmenorrhea Irregular menstrual bleeding GERD (gastroesophageal reflux disease) Hypothyroidism Rheumatoid arthritis CAD (coronary artery disease) Migraine Hx of myocardial infarction Hyperlipidemia Type 2 diabetes mellitus Hypertension Surgical History H/O tubal ligation Status post total abdominal hysterectomy (~05/30/23) SHERI, CONCET[place], left ovarian cystectomy--performed for fibroid uterus, pelvic pain, dysmenorrhea, dyspareunia by Dr. Jones at [facility]. Multiple pelvic adhesions were noted on the anterior surface of the uterus to the anterior abdominal wall and bladder. Benign pathology History of laparoscopy (~07/06/23) Diagnostic laparoscopy with lysis of adhesions performed by Dr. Jones at [facility]. Multiple abdominal adhesions with the right upper quadrant uterus adhered to the anterior abdominal wall, omental adhesions to the anterior abdominal wall, left adnexal adhesions History of laparoscopic appendectomy Hx of section History of thyroid surgery Family History Father Diabetes Heart disease Mother Heart disease Grandmother Heart disease paternal/maternal Grandfather Heart disease paternal/maternal Family/Other Thyroid disease aunt/paternal Father Diabetes Denies family history of Colon cancer Ovarian cancer Hyperlipidemia Breast cancer Hypertension Uterine cancer Stroke Social History Smoking and tobacco/nicotine status: unknown if used tobacco/nicotine Course Vital Signs: Vital signs: Vital Signs Temperature 98.2 F 11/18/24 14:48 Pulse Rate 85 11/18/24 17:19 Respiratory Rate 16 11/18/24 14:48 Blood Pressure 141/96 11/18/24 17:19 Pulse Oximetry 90 11/18/24 17:19 Oxygen Delivery Me thod Room Air 11/18/24 14:48 MDM - Recheck/Abnormal Lab/Rx Medical Decision Making MEDICAL DECISION MAKING: Differential diagnoses considered but not limited to: Diabetic ketoacidosis, acute infection including urinary tract infection, intra-abdominal infection, or pneumonia, medication effect, increased need for insulin, dietary causes. Vitals nonactionable. Given history, examination, and pretest risk factors, patient hyperglycemic at home without downtrending glucose. Patient is taking at home insulin as prescribed and has a Dexcom. Contacted Dr. Medina who recommends discharge to outpatient follow-up based on description of patient's symptoms. Patient was observed in the emergency department with downtrending glucose to 200. She was advised on hypoglycemia protocols in her [place] language in the discharge paperwork. presents with the patient and translates all instructions to the patient. No acute emergent etiology of the patient's hyperglycemia at this time that requires inpatient admission. DISPO: DC Oneil Salazar MD Staff physician, [facility] Emergency Department [phone] Lab Data 11/18/24 15:00 11/18/24 15:00 Radiology Impressions Chest X-Ray 11/18/24 15:52 IMPRESSION: No acute findings. Laboratory Results WBC 12.03 10^3/uL (3.29-11.43) H 11/18/24 15:00 RBC 5.88 10^6/uL (3.85-5.65) H 11/18/24 15:00 Hgb 14.10 g/dL (11.27-16.99) 11/18/24 15:00 Hct 43.7 % (36-47) 11/18/24 15:00 MCV 74.3 fl (85-98) L 11/18/24 15:00 MCH 24.0 pg (27-33) L 11/18/24 15:00 MCHC 32.3 g/dL (30-55) 11/18/24 15:00 RDW 18.9 % (12.1-15.1) H 11/18/24 15:00 Plt Count 468 10^3/cmm (157-399) H 11/18/24 15:00 MPV 9.7 fL (7.4-10.4) 11/18/24 15:00 Neut % (Auto) 64.2 % 11/18/24 15:00 Lymph % (Auto) 27.8 % 11/18/24 15:00 Walker % (Auto) 5.2 % 11/18/24 15:00 Eos % (Auto) 2.0 % 11/18/24 15:00 Baso % (Auto) 0.5 % 11/18/24 15:00 Neut # (Auto) 7.72 10^3/uL (1.8-7.7) H 11/18/24 15:00 Lymph # (Auto) 3.4 10^3/uL (0.8-4.8) 11/18/24 15:00 Walker # (Auto) 0.6 10^3/uL (0.2-0.9) 11/18/24 15:00 Eos # (Auto) 0.2 10^3/uL (0.0-0.8) 11/18/24 15:00 Baso # (Auto) 0.1 10^3/uL (0.0-0.1) 11/18/24 15:00 Nucleated RBC % (auto) 0 % 11/18/24 15:00 Nucleated RBCs # 0.0 /100WBC 11/18/24 15:00 Specimen Type Venous 11/18/24 15:48 Sample Site Not specified 11/18/24 15:48 Jak Test N/a 11/18/24 15:48 VBG pH 7.39 (7.32-7.42) 11/18/24 15:48 VBG pCO2 39.9 mmHg (41-51) L 11/18/24 15:48 VBG pO2 35.6 mmHg (25-40) 11/18/24 15:48 VBG HCO3 23.9 mmol/L (24-28) L 11/18/24 15:48 VBG Base Excess -1.0 mmol/L (-3.0-3.0) 11/18/24 15:48 VBG Hematocrit 44.8 % (37-47) 11/18/24 15:48 O2 Delivery Device Room air 11/18/24 15:48 FiO2 21.0 % 11/18/24 15:48 Decay Control Operator ID Monro 11/18/24 15:48 Sodium 136 mmol/L (136-145) 11/18/24 15:00 Potassium 3.5 mmol/L (3.5-5.1) 11/18/24 15:00 Chloride 98 mmol/L (98-107) 11/18/24 15:00 Carbon Dioxide 22 mmol/L (22-29) 11/18/24 15:00 Anion Gap 19.5 (5-19) H 11/18/24 15:00 BUN 11 mg/dL (6-20) 11/18/24 15:00 Creatinine 0.6 mg/dL (0.5-0.9) 11/18/24 15:00 GFR Calculation 108.6 mL/min (90-130) 11/18/24 15:00 Glucose 270 mg/dL (65-115) H 11/18/24 15:00 POC Glucose 201 mg/dL (70-110) H 11/18/24 16:28 Calculated Osmolality 291 mOsm/kg (285-295) 11/18/24 15:00 Calcium 10.8 mg/dL (8.5-10.5) H 11/18/24 15:00 Total Bilirubin 0.2 mg/dL (0.15-1.2) 11/18/24 15:00 AST 15 U/L (0-32) 11/18/24 15:00 ALT 23 U/L (0-33) 11/18/24 15:00 Alkaline Phosphatase 120 U/L (35-105) H 11/18/24 15:00 Total Protein 8.6 g/dL (6.6-8.7) 11/18/24 15:00 Albumin 4.6 g/dL (3.5-5.2) 11/18/24 15:00 Globulin 4.0 g/dL (1.3-4.6) 11/18/24 15:00 HCG, Qual Negative (Negative) 11/18/24 16:05 Urine Color Yellow (Yellow) 11/18/24 16:05 Urine Appearance Clear (CLEAR) 11/18/24 16:05 Urine pH 5.0 (5-7) 11/18/24 16:05 Ur Specific [place] 1.044 (1.005-1.030) H 11/18/24 16:05 Urine Protein Trace (Negative) A 11/18/24 16:05 Urine Glucose (UA) 3+ (Normal) H 11/18/24 16:05 Urine Ketones Trace (Negative) 11/18/24 16:05 Urine Blood Negative (Negative) 11/18/24 16:05 Urine Nitrate Negative (Negative) 11/18/24 16:05 Urine Bilirubin Negative (Negative) 11/18/24 16:05 Urine Urobilinogen 1.0 mg/dL (Negative) 11/18/24 16:05 Ur Leukocyte Esterase Negative (Negative) 11/18/24 16:05 Urine RBC None /hpf (0-2) 11/18/24 16:05 Urine WBC 11-20 /hpf (0-5) H 11/18/24 16:05 Ur Squamous Epith Cells 5-10 /hpf (0-5) H 11/18/24 16:05 Amorphous Sediment Not Reportable 11/18/24 16:05 Urine Bacteria 2+ /hpf (NONE) H 11/18/24 16:05 Urine Yeast 1+ /hpf H 11/18/24 16:05 Serum Ketones Negative (Negative) 11/18/24 15:00 All radiology interpretation(s) finalized by discharge Discharge Plan Discharge Patient Disposition: Home Clinical Impression: Acute hyperglycemia Condition: Stable Prescriptions: No Action (DME) Dexcom G7 Service Center Appraiser Misc See Rx Instructions .Route Qty: 1 0RF Rx Instructions: As directed metoprolol succinate 25 mg tablet extended release 24 hr 12.5 mg PO DAILY Qty: 90 3RF (DME) insulin syringe-needle U-100 [[facility]ocate Syringes] 1 mL 30 gauge x 5/16 syringe See Rx Instructions .Route Qty: 100 0RF Rx Instructions: ok to use insurance preferred (DME) Dexcom G7 Sensor Device See Rx Instructions .ROUTE .COMPLEX Qty: 3 1RF Dose Instruction: CHANGE EVERY 10 DAYS Rx Instructions: CHANGE EVERY 10 DAYS atorvastatin 80 mg tablet 80 mg PO QPM hydroxyzine HCl 25 mg tablet 25 - 50 mg PO Q6H PRN (Reason: Anxiety) pantoprazole 40 mg tablet,delayed release (DR/EC) 40 mg PO DAILY hydrochlorothiazide 12.5 mg tablet 12.5 mg PO QAM insulin aspart U-100 100 unit/mL (3 mL) insulin pen 35 unit SUBCUT TID trazodone 50 mg tablet 50 mg PO BEDTIME PRN (Reason: Sleep) paroxetine HCl 40 mg tablet 40 mg PO QPM tizanidine 4 mg tablet 4 mg PO Q6H PRN (Reason: muscle spasticity) Qty: 20 0RF Rx Instructions: do not exceed 3 doses per 24 hrs tramadol 50 mg tablet 50 mg PO Q6H PRN (Reason: pain) Qty: 14 0RF hydrocodone-acetaminophen 5-325 mg tablet 1 tab PO Q6H PRN (Reason: pain) Qty: 14 0RF ezetimibe 10 mg tablet 10 mg PO DAILY cyclobenzaprine 10 mg tablet 10 mg PO Q8H PRN (Reason: Muscle Spasm) levothyroxine 150 mcg tablet See Rx Instructions .ROUTE .COMPLEX Rx Instructions: TAKE 1 TABLET BY MOUTH DAILY AND TAKE 2 TABLETS ON WEDNESDAY. insulin glargine-yfgn 100 unit/mL (3 mL) insulin pen 80 unit SUBCUT BEDTIME ferrous sulfate [Iron (ferrous sulfate)] 325 mg (65 mg iron) tablet 325 mg PO BID Qty: 60 0RF acetaminophen 325 mg capsule 325 mg PO Q4H PRN (Reason: fever or pain) Qty: 60 0RF Discharge Orders: Discharge ED (Routine); Ordered 11/18/24 Ordered By: Oneil Salazar Referrals: Cooper Venegas MD [Primary Care Provider, [facility]] Discharge Diet: Advance as tolerated Discharge Activity: Resume usual activity Patient Instructions: Hypoglycemia, What to Do if Your Blood Sugar is Low (ED), Opioid Safety, Pain Management, Patient Portal & Chloe Instructions Activity Restrictions/Additional Instructions: It has been a pleasure caring for you in the emergency department. Please ensure that you follow-up with your primary care physician for review of all data obtained during this encounter including any incidental findings and laboratory values. Keep in mind that if your condition worsens in any way, I strongly recommend that you return to the emergency department for repeat evaluation immediately. LO QUE NECESITA SABER: Los niveles bajos de az?car en la crystal (hipoglucemia) pueden ocurrir con diabetes tipo 1 y tipo 2. Es m?s probable que los niveles bajos ocurran si usa insulina. La hipoglucemia puede causarle ca?green, accidentes y lesiones. Un nivel de az?car en la crystal que baja demasiado puede provocar convulsiones, coma y la muerte. Aprenda a reconocer los s?ntomas tempranamente para que pueda obtener tratamiento r?pidamente.? INSTRUCCIONES AL [place]: Pida a alguien que llame a jean baptiste n?aris local de emergencias (911 en los [place] si: No puede ser despertado. Tiene ta convulsi?n.? Llame a jean baptiste m?dico si: Tiene s?ntomas de un nivel bajo de az?car en la crystal, sveta dificultad para pensar, sudoraci?n o latidos card?acos yohan. Jean Baptiste nivel de az?car en la crystal es m?s bajo de lo normal y no mejora con el tratamiento. Con frecuencia tiene niveles de az?car en la crystal m?s bajos que karen objetivos. Tiene problemas para afrontar jean baptiste enfermedad, o se siente ansioso o deprimido. Tiene preguntas o inquietudes sobre jean baptiste condici?n o atenci?n.? Qu? hacer si tiene s?ntomas de bajo nivel de az?car en la crystal:?Si est? sudoroso, ansioso, confundido o tiene un latido card?aco r?pido y laurence: Verifique jean baptiste nivel de az?car en la crystal, si es posible. Jean Baptiste nivel de az?car en la crystal es demasiado bajo si es de 70 mg/dL o menos. Coma o david 15 gramos de carbohidratos de acci?n r?pida. Los carbohidratos de acci?n r?pida elevar?n jean baptiste nivel de az?car en la crystal r?pidamente. Ejemplos de 15 gramos de carbohidratos de acci?n r?pida: 4 onzas (? taza) de jugo de frutas 4 onzas de refresco regular 2 cucharadas de pasas 1 tubo de gel de glucosa o de 3 a 4 tabletas de glucosa Revise jean baptiste nivel de az?car en la crystal 15 minutos despu?s. Si el nivel sigue bajo (menos de 100 mg/dL), coma otros 15 gramos de carbohidratos. Cuando el nivel regrese a 100 mg/dL, coma un refrigerio o ta comida que contenga carbohidratos. [place] ayudar? a prevenir otra ca?da del az?car en la crystal. Ense?e a las personas cercanas a usted c?mo usar jean baptiste kit de glucag?n. Jean Baptiste nivel de az?car en la crystal puede ser demasiado bajo para que usted est? despierto. Las personas necesitan saber cu?ndo y c?mo usar jean baptiste kit.? Prevenga los niveles bajos de az?car en la crystal:?Prevenga los niveles bajos de az?car en la crystal sabiendo qu? aumenta jean baptiste riesgo. Preg?ntele a jean baptiste proveedor de atenci?n m?dica sobre formas de prevenir los niveles bajos de az?car en la crystal. Cualquiera de los siguientes puede aumentar jean baptiste riesgo de bajo nivel de az?car en la crystal:? Ayuno para pruebas o procedimientos [place] o despu?s de ejercicio intenso Comidas tard?as o pospuestas Dormir (es posible que necesite un refrigerio antes de acostarse) Beber alcohol si usa insulina o pastillas que liberan insulina? Arnold un seguimiento con jean baptiste m?dico seg?n las indicaciones:?Anote karen preguntas para recordarlas haris karen visitas. This is for informational purposes only. For medical advice or diagnosis, consult a professional. AI responses may include mistakes.?Learn [email or web address] Stand Alone Forms: Work/School Release Print Language: Romansh Coding Level of Care Code ED Energy Project Engineer for Allison Pope
--- NOTE | 2024-11-18 15:52 | XRR_ITS ---
PROCEDURE INFORMATION: Exam: XR Chest Exam date and time: 11/18/2024 4:06 PM Age: 43 years old Clinical indication: Cough; Additional info: Cough, eval pneumonia TECHNIQUE: Imaging protocol: Radiologic exam of the chest. Views: 1 view. COMPARISON: CT angio chest w abd pel w con 08/02/2024 1:49 AM FINDINGS: Lungs: Unremarkable. No consolidation. Pleural spaces: Unremarkable. No pleural effusion. No pneumothorax. Heart/Mediastinum: Unremarkable. No cardiomegaly. Bones/joints: Unremarkable. Upper abdomen: Unremarkable. XR/XR chest 1V [id number] IMPRESSION: No acute findings.
[2024-11-18 15:56] LABS: Base Excess VBG -1.0 mmol/L (-3.0-3.0); HCO3 VBG 23.9 mmol/L (24-28); PCO2 VBG 39.9 mmHg (41-51); PO2 VBG 35.6 mmHg (25-40); Venous Blood Gas Hematocrit 44.8 % (37-47); pH VBG 7.39 (7.32-7.42)
[2024-11-18 15:57] LABS: Blood Gas Operator Identificat MONRO; Blood Gas Sample Site Not specified; Blood Gas Sample Type Venous
[2024-11-18 16:15] LABS: HCG Qualitative Urine. Negative (Negative)
[2024-11-18 16:18] LABS: Glucose Urine UA 3+ (Normal); Nitrate Urine Negative (Negative)
[2024-11-18 16:23] LABS: Add Urine Microscopic? YES; Universal Test for UA Present (0)
[2024-11-18 16:30] VITALS: BP 146/91; PULSE 93; O2SAT 99
[2024-11-18 16:34] LABS: Specific Gravity, Urine 1.044 (1.005-1.030); UA Manual Slide Review YES
--- NOTE | 2024-11-18 16:34 | PC.PHAR ---
Pt and spouse verified all her medications. Pt has 2 duplicate medications on her chart which she verifies she is still taking: + Atorvastatin 80mg daily/Ezetimibe 10mg daily and also Flexeril 10mg q8h prn/Tizanidine 4mg q6h prn.
[2024-11-18 17:19] VITALS: BP 141/96; PULSE 85; O2SAT 90
== END 2024-11-18 17:20 | disposition home or self-care (01) ==
PROVIDERS: Emergency Provider General Practice; PCP Family Medicine
DX: E11.65 Type 2 diabetes mellitus with hyperglycemia (principal); E78.5 Hyperlipidemia, unspecified; I25.10 Atherosclerotic heart disease of native coronary artery without angina pectoris; I10 Essential (primary) hypertension; Z79.4 Long term (current) use of insulin
CPT/HCPCS: 36415; 36416; 71045; 80053; 81001; 81025; 82009; 82803; 82962; 85025; 87077; 87086; 87186; 99284; J7030

== ENCOUNTER 2024-11-23 06:06 | Day surgery (SDC) | payer OTHER, SELFPAY ==
[2024-11-23 06:21] VITALS: BP 153/108; PULSE 84; RESP 16; TEMP 36.6; O2SAT 99; BMI 29.0
--- NOTE | 2024-11-23 06:56 | ANES.PREANE2 ---
Pre-Anesthetic Assessment Height/Weight: Height 1.6 m Weight 74.389 kg Temp Pulse Resp BP Pulse Ox O2 Del Method 97.9 F 84 16 153/108 99 Room Air 11/23/24 06:21 11/23/24 06:21 11/23/24 06:21 11/23/24 06:21 11/23/24 06:21 11/23/24 06:21 Preop Diagnosis: GERD, chest pain Operation Date: 11/23/24 07:00 Proposed Procedures p EGD with Biopsy 73944, K21.9(Not Applicable) - Thony Reyes MD Familial anesthetic complications: none Was Beta Kamila taken within 24 hours: Yes Was Clonidine taken within 24 hours: N/A Last intake: Intake Last Liquid Date 11/22/24 Last Liquid Time 20:30 Last Solid Date 11/22/24 Last Solid Time 16:00 Exam alert, oriented x 3, clear to auscultation bilaterally and regular rate & rhythm Airway Cervical ROM: within normal limits Mallampati: Class III Dentition: full Pulmonary None reported CV/HEM Hypertension Pt. denies hx of [place], recently was seen in [place] for chest pain and was diagnosed with costochondritis, cardiology here recommended stress test which has not been completed. pt. able to climb stairs and be active without cardiac/resp. symptoms. None reported Hepatic None reported GI Gastroesophageal Reflux Disease Metabolic Diabetes Mellitus, Hyperlipidemia, Morbid Obesity and Thyroid Disease Musc/skel None reported Neuropsych None reported Anesthetic Plan ASA status: 3 Anesthesia: MAC Risk of > 500 ml blood loss (7ml/kg in children): No Medications/Allergies Home Medications ?Medication ?Instructions ?Recorded ?Confirmed ?Last Taken ?Type 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,veneer jointer,cont #1 ea 06/08/23 11/18/24 07/05/23 Rx (Dexcom G7 Cushion Former) atorvastatin 80 mg tablet 80 mg PO QPM 08/03/23 11/20/24 11/19/24 History hydroxyzine HCl 25 mg tablet 25 - 50 mg PO Q6H PRN Anxiety 08/03/23 11/20/24 11/19/24 History hydrochlorothiazide 12.5 mg tablet 12.5 mg PO QAM 01/21/24 11/20/24 11/19/24 History insulin aspart U-100 100 unit/mL 35 unit SUBCUT TID 1011/20/24 11/19/24 History (3 mL) subcutaneous pen pantoprazole 40 mg tablet,delayed 40 mg PO DAILY 01/21/24 11/20/24 11/19/24 History release ferrous sulfate 325 mg (65 mg 325 mg PO BID #60 tabs 04/01/24 11/20/24 11/19/24 Rx iron) tablet (Iron (ferrous sulfate)) 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 sensor ([employer] G7 #3 ea 06/01/24 11/18/24 Unknown Rx Sensor device) paroxetine HCl 40 mg tablet 40 mg PO QPM 07/18/24 11/20/24 11/19/24 History trazodone 50 mg tablet 50 mg PO BEDTIME PRN Sleep 07/18/24 11/20/24 11/19/24 History metoprolol succinate 25 mg 12.5 mg (1/2 x 25 mg) PO DAILY #90 09/12/24 11/20/24 11/19/24 Rx tablet,extended release 24 hr tabs insulin syringe-needle U-100 1 mL #100 ea 09/14/24 11/18/24 Unknown Rx 30 gauge x 5/16 (Advocate Syringes) cyclobenzaprine 10 mg tablet 10 mg PO Q8H PRN Muscle Spasm 11/18/24 11/20/24 11/19/24 History ezetimibe 10 mg tablet 10 mg PO DAILY 11/18/24 11/20/24 11/19/24 History insulin glargine-yfgn 100 unit/mL 100 unit SUBCUT BEDTIME 11/18/24 11/20/24 11/19/24 History (3 mL) subcutaneous pen levothyroxine 150 mcg tablet 150 mcg PO DAILY 11/18/24 11/20/24 11/19/24 History aspirin 81 mg tablet 81 mg PO DAILY 11/20/24 11/20/24 11/19/24 History nitroglycerin 0.4 mg sublingual 0.4 mg sublingual Q5M PRN Chest 11/20/24 11/20/24 Unknown History tablet Pain sitagliptin phosphate 50 1 tab PO BID 11/20/24 11/20/24 11/19/24 History mg-metformin 1,000 mg tablet (Janumet) Allergies Allergy/AdvReac Type Severity Reaction Status Date / Time No Known Allergies Allergy Verified 11/20/24 12:11 Current Medications Generic Name Dose Route Start Last Admin Trade Name Freq PRN Reason Stop Dose Admin Sodium Chloride 1,000 mls @ 15 mls/hr 11/23/24 06:10 11/23/24 06:31 Sodium Chloride 0.9% IV 11/24/24 06:09 15 mls/hr .Q24H PRN Administration COLONOSCOPY FLUIDS PFSH Anesthesia Medical History (Updated 11/18/24 @ 17:09 by Oneil Salazar MD) Abdominal adhesions Treated during laparoscopy in June 2023 Chronic pelvic pain in female Leukocytosis Hyperglycemia Ovarian cyst Abdominal pain Acute hyponatremia Diabetes mellitus due to underlying condition with hyperglycemia UTI symptoms Dyspareunia Dysmenorrhea Irregular menstrual bleeding GERD (gastroesophageal reflux disease) Hypothyroidism Rheumatoid arthritis CAD (coronary artery disease) Migraine Hx of myocardial infarction Hyperlipidemia Type 2 diabetes mellitus Hypertension Surgical History H/O tubal ligation Status post total abdominal hysterectomy (~05/30/23) SHERI, CONCETTA, left ovarian cystectomy--performed for fibroid uterus, pelvic pain, dysmenorrhea, dyspareunia by Dr. Jones at [facility]. Multiple pelvic adhesions were noted on the anterior surface of the uterus to the anterior abdominal wall and bladder. Benign pathology History of laparoscopy (~07/06/23) Diagnostic laparoscopy with lysis of adhesions performed by Dr. Jones at [facility]. Multiple abdominal adhesions with the right upper quadrant uterus adhered to the anterior abdominal wall, omental adhesions to the anterior abdominal wall, left adnexal adhesions History of laparoscopic appendectomy Hx of section History of thyroid surgery Family History Father Diabetes Heart disease Mother Heart disease Grandmother Heart disease paternal/maternal Grandfather Heart disease paternal/maternal Family/Other Thyroid disease aunt/paternal Father Diabetes Denies family history of Colon cancer Ovarian cancer Hyperlipidemia Breast cancer Hypertension Uterine cancer Stroke Social History Smoking and tobacco/nicotine status: unknown if used tobacco/nicotine
--- NOTE | 2024-11-23 07:07 | W.PM.OPSFHP ---
Same Day Surgery H&P Indication for Procedure/HPI DATE OF PROCEDURE: November 23, 2024 CHIEF COMPLAINT/INDICATIONFOR SURGICAL PROCEDURE: GERD PREOP DIAGNOSIS: GERD, chest pain PLANNED PROCEDURE: Operation Date: 11/23/24 07:00 Proposed Procedures p EGD with Biopsy 16705, K21.9(Not Applicable) - Thony Reyes MD Medications/Allergies* Home Medications ?Medication ?Instructions ?Recorded ?Confirmed ?Type atorvastatin 80 mg tablet 80 mg PO QPM 08/03/23 11/20/24 History hydroxyzine HCl 25 mg tablet 25 - 50 mg PO Q6H PRN Anxiety 08/03/23 11/20/24 History hydrochlorothiazide 12.5 mg tablet 12.5 mg PO QAM 01/21/24 11/20/24 History insulin aspart U-100 100 unit/mL 35 unit SUBCUT TID 01/21/24 11/20/24 History (3 mL) subcutaneous pen pantoprazole 40 mg tablet,delayed 40 mg PO DAILY 01/21/24 11/20/24 History release paroxetine HCl 40 mg tablet 40 mg PO QPM 07/18/24 11/20/24 History trazodone 50 mg tablet 50 mg PO BEDTIME PRN Sleep 07/18/24 11/20/24 History cyclobenzaprine 10 mg tablet 10 mg PO Q8H PRN Muscle Spasm 11/18/24 11/20/24 History ezetimibe 10 mg tablet 10 mg PO DAILY 11/18/24 11/20/24 History insulin glargine-yfgn 100 unit/mL 100 unit SUBCUT BEDTIME 11/18/24 11/20/24 History (3 mL) subcutaneous pen levothyroxine 150 mcg tablet 150 mcg PO DAILY 11/18/24 11/20/24 History aspirin 81 mg tablet 81 mg PO DAILY 11/20/24 11/20/24 History nitroglycerin 0.4 mg sublingual 0.4 mg sublingual Q5M PRN Chest 11/20/24 11/20/24 History tablet Pain sitagliptin phosphate 50 1 tab PO BID 11/20/24 11/20/24 History mg-metformin 1,000 mg tablet (Aprumet) Allergies/Adverse Reactions Allergy/AdvReac Type Severity Reaction Status Date / Time No Known Allergies Allergy Verified 11/20/24 12:11 Current Medications: Generic Name Dose Route Start Last Admin Trade Name Freq PRN Reason Stop Dose Admin Sodium Chloride 1,000 mls @ 15 mls/hr 11/23/24 06:10 11/23/24 06:31 Sodium Chloride 0.9% IV 11/24/24 06:09 15 mls/hr .Q24H PRN Administration COLONOSCOPY FLUIDS Pertinent History/Comorbid Conditions* Medical History (Updated 11/18/24 @ 17:09 by Oneil Salazar MD) Abdominal adhesions Treated during laparoscopy in June 2023 Chronic pelvic pain in female Leukocytosis Hyperglycemia Ovarian cyst Abdominal pain Acute hyponatremia Diabetes mellitus due to underlying condition with hyperglycemia UTI symptoms Dyspareunia Dysmenorrhea Irregular menstrual bleeding GERD (gastroesophageal reflux disease) Hypothyroidism Rheumatoid arthritis CAD (coronary artery disease) Migraine Hx of myocardial infarction Hyperlipidemia Type 2 diabetes mellitus Hypertension Surgical History (Updated 04/27/24 @ 18:15 by Cassidy Black APN, VARUN) H/O tubal ligation Status post total abdominal hysterectomy (~05/30/23) SHERI, CONCETTA, left ovarian cystectomy--performed for fibroid uterus, pelvic pain, dysmenorrhea, dyspareunia by Dr. Jones at [facility]. Multiple pelvic adhesions were noted on the anterior surface of the uterus to the anterior abdominal wall and bladder. Benign pathology History of laparoscopy (~07/06/23) Diagnostic laparoscopy with lysis of adhesions performed by Dr. Jones at [facility]. Multiple abdominal adhesions with the right upper quadrant uterus adhered to the anterior abdominal wall, omental adhesions to the anterior abdominal wall, left adnexal adhesions History of laparoscopic appendectomy Hx of section History of thyroid surgery Family History (Updated 10/25/23 @ 13:30 by Bindu Phelps RN) Diabetes Father Father Heart disease Father Mother Grandmother paternal/maternal Grandfather paternal/maternal Thyroid disease Family/Other aunt/paternal Denies family history of Colon cancer Ovarian cancer Hyperlipidemia Breast cancer Hypertension Uterine cancer Stroke Social History Smoking and tobacco/nicotine status: unknown if used tobacco/nicotine Pertinent Exam Findings alert, oriented x 3, clear to auscultation bilaterally, regular rate & rhythm and procedure specific exam findings abdomen soft, nt, nd Recommendations Risks and benefits of procedure reviewed and Patient/family agree to proceed Surgery/Procedure today Coding Level of Care Code Acute Code for Chg Fwd
[2024-11-23 07:19] VITALS: BP 128/84; PULSE 102; RESP 16; TEMP 36.2; O2SAT 96
--- NOTE | 2024-11-23 07:30 | ANE.PACU2 ---
Inpatient post-anesthesia follow up: Airway intact: Yes Vital signs: Temperature 97.1 F Pulse Rate 100 Respiratory Rate 18 Blood Pressure 119/90 Pulse Oximetry 97 Oxygen Delivery Me thod Room Air Oxygen Flow Rate Fraction of Inspir ed Oxygen Hydration adequate: Yes Nausea and vomiting: No Pain level: 1 Mental status: Baseline
[2024-11-23 07:33] VITALS: BP 119/90; PULSE 100; RESP 18; O2SAT 97
== END 2024-11-23 07:43 | disposition home or self-care (01) ==
PROVIDERS: PCP Family Medicine; Visit Provider Student in an Organized Health Care Education/Training Program
PROC: 0DJ08ZZ Inspection of Upper Intestinal Tract, Via Natural or Artificial Opening Endoscopic (ICD-10-PCS; principal; 2024-11-23 07:00)
DX: K21.9 Gastro-esophageal reflux disease without esophagitis (principal); K29.50 Unspecified chronic gastritis without bleeding; K31.89 Other diseases of stomach and duodenum; R07.9 Chest pain, unspecified; E11.65 Type 2 diabetes mellitus with hyperglycemia; E03.9 Hypothyroidism, unspecified; M06.9 Rheumatoid arthritis, unspecified; I25.10 Atherosclerotic heart disease of native coronary artery without angina pectoris; E78.5 Hyperlipidemia, unspecified; I10 Essential (primary) hypertension; Z79.4 Long term (current) use of insulin; Z79.82 Long term (current) use of aspirin; E66.01 Morbid (severe) obesity due to excess calories; Z68.29 Body mass index [BMI] 29.0-29.9, adult
CPT/HCPCS: 36416; 43239; 82962; 88305; 88342; J2704; J7030

== ENCOUNTER 2025-01-20 10:14 | Emergency (ER) | payer SELFPAY ==
--- OUTSIDE RECORDS SUMMARY | 2025-01-20 10:21 | XMS_ITS | Clinical Summary ---
Author Organization [facility] Address [address] [place] [address] Phone Care Team Providers Care Manager Technical Services Name Role Phone Unavailable Primary Care Provider Unavailabl e Encounters Date Type Department Care Team Description 11/30/2024 Orders Only [facility] [address] [phone] Thony Yanez MD Gastroparesis (Primary Dx) from Last 3 Months Social History Tobacco Use Types Packs/Day Years Used Date Smoking Tobacco: Never Assessed Comments Unknown Sex and Gender Information Value Date Recorded Sex Assigned at Not on file Legal Sex Female 4:24 PM CDT Gender Identity Not on file Sexual Orientation Not on file Plan of Treatment Upcoming Encounters Date Type Department Care Team (Late st Contact Info) Description 07/04/2025 2:30 PM CDT Office [facility] [address] [phone] Marysol Davila [address] [address] Health Maintenance Due Date Last Done Comments DTAP/TDAP/TD VACCINES (1 - Tdap) 12/14/1998 HEPATITIS B VACCINES (1 of 3 - 19+ 3-dose series) 07/1998 HPV/Cotest (21-29) 12/14/2000 HPV VACCINES (1 - 3-dose SCDM series) 12/14/2006 CERVICAL CANCER SCREENING 12/14/2009 HPV/Cotest (30-65) 12/14/2009 PAP SMEAR 12/14/2009 BREAST CANCER SCREENING 2019 INFLUENZA VACCINE (#1) 2024 COLORECTAL SCREENING 12/14/2024 Colorectal Cancer Screening 12/14/2024 FIT-DNA Q 3 years 12/14/2024 FIT/FOBT Q 1 year 12/14/2024 Flex Sig/CT Colonography Q 5 years 12/14/2024
--- OUTSIDE RECORDS SUMMARY | 2025-01-20 10:22 | XMS_ITS | Data Portability ---
Author Organization [facility] Emma Garcia [facility] Address [address] [facility] [address] [place] [address] Assessment Encounter Date Assessment Date Assessment LastModified by Organization Details LastModified Time 08/11/2022 08/11/2022 She is bleeding with each bm. She would benefit from a colonoscopy. Not available 08/11/2022 12:34:04 09/17/2022 09/17/2022 She continues to have bleeding and is concerned about that. We discussed the nature of hemmorhoids. Not available 09/17/2022 17:55:48 Plan of Treatment Reminders Order Date Submit Date Provider Last Modified By Organization Details Last Modified Time Details Appointments None recorded. Lab None recorded. Referral None recorded. Procedures None recorded. Surgeries None recorded. Imaging None recorded. Medication Orders hydrocortis one 2.5 % topical cream with perineal applicator 2022 [id number] [address], [place], [place], [phone], 17:53:21 Patient TargetsNo targets recorded. Patient Instructions Encounter Date Encounter Id Patient Instructions Last Modified By Organization Details Last Modified Time 09/17/2022 [id number] high fiber diet Not availabl e 09/17/2022 17:53:15 dieta ruben en fibra: instrucciones de cuidado - [high-fiber diet: care instructions] Not available 09/17/2022 17:53:15 Reason for Referral None Reported. Problems Name Problem SNOMED Code Status Onset Date Resolution Date Notes Provider Name and Address Organization Details Recorded Time Diabetes mellitus 79428875 Active 2022 Diabetes Mellitus; 3 10:34AM by Rosemary owens, Office Visit; Promoted; acuity set as *; Not Available [facility] 3 03:18:13 Hypothyroid ism 23411324 Active 2022 Hypothyro idism; 3 10:34AM by Rosemary owens, Office Visit; Promoted; acuity set as *; Not Available [facility] 3 03:18:13 Problem Notes None recorded. Procedures Surgical History Date Name Laterality Status Provider Name and Address Organization Details Recorded Time 09/04/19 colonoscopy completed ROSEMARY HUA [facility], [place] 09/17/2022 17:20:28 Imaging Results None recorded. Procedure Notes None recorded. Medical Equipment None Reported. Allergies No known drug allergies Medications Name Sig Start Date Stop Date Status Note LastModified by Organization Details LastModified Time cyclobenza rosanna 10 mg tablet TAKE ONE TABLET BY MOUTH THREE TIMES DAILY NEEDED FOR MUSCLE SPASMS active Not Available Not Available No t Available atorvastat in 40 mg tablet TAKE 1 TABLET BY MOUTH DAILY active Not Available Not Available No t Available atorvastat in 80 mg tablet TAKE 1 TABLET BY MOUTH DAILY active Not Available Not Available No t Available acetaminop hen 325 mg tablet TAKE 1 TABLET BY MOUTH EVERY 4 HOURS NEEDED FOR FEVER OR PAIN. active Not Available Not Available No t Available clindamyci n HCl 300 mg capsule TAKE 1 CAPSULE BY MOUTH TWICE DAILY active Not Available Not Available No t Available ibuprofen 800 mg tablet TAKE 1 TABLET BY MOUTH THREE TIMES DAILY NEEDED FOR PAIN active Not Available Not Available No t Available hydrocodon e 5 mg-acetami nophen 325 mg tablet TAKE 1 TABLET BY MOUTH EVERY 4 HOURS NEEDED FOR PAIN active Not Available Not Available No t Available senna 8.6 mg tablet TAKE ONE TABLET BY MOUTH DAILY active Not Available Not Available No t Available meloxicam 15 mg tablet TAKE 1 TABLET BY MOUTH DAILY NEEDED FOR PAIN active Not Available Not Available No t Available ondansetro n HCl 4 mg tablet TAKE 1 TABLET BY MOUTH EVERY 8 HOURS FOR 4 DAYS NEEDED FOR NAUSEA OR VOMITING active Not Available Not Available No t Available prednisone 20 mg tablet TAKE 1 TABLET BY MOUTH TWICE DAILY FOR 5 DAYS active Not Available Not Available No t Available Lantus U-100 Insulin 100 unit/mL subcutaneo us solution ADMINISTE R 85 UNITS UNDER THE SKIN DAILY active Not Available Not Available No t Available pioglitazo ne 45 mg tablet TAKE 1 TABLET BY MOUTH EVERY DAY active Not Available Not Available No t Available aspirin 81 mg tablet,del ayed release TAKE 1 TABLET BY MOUTH DAILY active Not Available Not Available No t Available tramadol 50 mg tablet TAKE ONE TABLET BY MOUTH THREE TIMES DAILY NEEDED FOR PAIN active Not Available Not Available No t Available oxycodone- acetaminop hen 5 mg-325 mg tablet TAKE 1 TABLET BY MOUTH EVERY 8 HOURS NEEDED FOR PAIN active Not Available Not Available No t Available hydrocorti sone 2.5 % topical cream with perineal applicator APPLY THIN LAYER TOPICALLY TO THE AFFECTED AREA TWICE DAILY active Not Available Not Available No t Available paroxetine 20 mg tablet TAKE 1 TABLET BY MOUTH DAILY active Not Available Not Available No t Available pantoprazo le 40 mg tablet,del ayed release TAKE 1 TABLET BY MOUTH EVERY DAY active Not Available Not Available No t Available levothyrox ine 150 mcg tablet TAKE 1 TABLET BY MOUTH DAILY AND TAKE 2 TABLETS ON WEDNESDAY active Not Available Not Available No t Available Synthroid 300 mcg tablet QD active 0; Recorded 3 10:38AM by Rosemary owens, Office Visit; Not Available Not Available Not Available nitroglyce rin 0.[address] ONE TABLET UNDER TONGUE NEEDED FOR CHEST PAIN EVERY 5 MINUTES active Not Available Not Available No t Available Synthroid 50 mcg tablet QD active 0; Recorded 3 10:39AM by Rosemary owens, Office Visit; Not Available Not Available Not Available hydroxyzin e HCl 25 mg tablet TAKE 1 TO 2 TABLETS BY MOUTH EVERY 6 HOURS NEEDED FOR SEVERE ANXIETY active Not Available Not Available No t Available levothyrox ine 200 mcg tablet TAKE 1 TABLET BY MOUTH DAILY active Not Available Not Available No t Available Novolog U-100 Insulin aspart 100 unit/mL subcutaneo us solution ADMINISTE R 200 UNITS DAILY VIA INSULIM PUMP. active Not Available Not Available No t Available insulin lispro (U-100) 100 unit/mL subcutaneo us solution INJECT 35 UNITS UNDER THE SKIN THREE TIMES DAILY active Not Available Not Available No t Available Pepcid 20 mg tablet QD active 0; Recorded 3 10:40AM by Rosemary owens, Office Visit; Not Available Not Available Not Available polyethyle ne glycol 3350 17 gram/dose oral powder DISSOLVE 17grams in liquid AND drink TWICE DAILY active Not Available Not Available No t Available levofloxac in 750 mg tablet TAKE 1 TABLET BY MOUTH DAILY FOR 5 DAYS active Not Available Not Available No t Available lisinopril 40 mg tablet TAKE 1 TABLET BY MOUTH ONCE A DAY active Not Available Not Available No t Available naproxen 500 mg tablet TAKE 1 TABLET BY MOUTH TWICE DAILY WITH FOOD FOR 7 DAYS THEN NEEDED active Not Available Not Available No t Available insulin aspart (U-100) 100 unit/mL (3 mL) subcutaneo us pen ADMINISTE R 35 UNITS UNDER THE SKIN THREE TIMES DAILY active Not Available Not Available No t Available etodolac bid active 0; Recorded 3 10:42AM by Rosemary owens, Office Visit; Not Available Not Available Not Available hydrocorti sone BID to affected area prn 2022 active Recorded 3 11:17AM by Shady De León MD, Office Visit; Refill Quantity: 0; Not Available Not Available Not Available lisinopril QD active 0; Recorded 3 10:38AM by Rosemary owens, Office Visit; Not Available Not Available Not Available Neurontin QD active 0; Recorded 3 10:41AM by Rosemary owens, Office Visit; Not Available Not Available Not Available Humalog U-100 Insulin active 0; Recorded 3 10:37AM by Rosemary owens, Office Visit; Not Available Not Available Not Available hydrochlor othiazide 12.5 mg tablet TAKE 1 TABLET BY MOUTH IN THE MORNING active Not Available Not Available No t Available Janumet 50 mg-1,000 mg tablet TAKE 1 TABLET BY MOUTH DAILY WITH LUNCH active Not Available Not Available No t Available Janumet QD active 0; Recorded 3 10:42AM by Rosemary owens, Office Visit; Not Available Not Available Not Available Lantus Solostar U-100 Insulin 100 unit/mL (3 mL) subcutaneo us pen ADMINISTE R 75 UNITS UNDER THE SKIN DAILY AT NIGHT active Not Available Not Available No t Available butalbital -acetamino phen-caffe ine 50 mg-300 mg-40 mg capsule TAKE 1 CAPSULE NEEDED FOR MIGRAINES active Not Available Not Available No t Available BD Insulin Syringe Ultra-Fine 1 mL 31 gauge x 5/16 USE TO INJECT LANTUS EVERY NIGHT AT BEDTIME active Not Available Not Available No t Available BD Insulin Syringe Ultra-Fine 0.5 mL 31 gauge x 5/16 USE WITH LANTUS EVERY NIGHT AT BEDTIME active Not Available Not Available No t Available FreeStyle Federico 2 Sensor kit PARA USO CADA 14 [place] active Not Available Not Available No t Available FreeStyle Federico 2 [place] PARA USO SAAD LO INDICADO EN EMPAQUE active Not Available Not Available No t Available Dexcom G7 Sensor device USE DIRECTED CHANGE EVERY 10 DAYS. active Not Available Not Available No t Available Vitals Date Recorded Body weight Respiratory rate Heart rate Body temperature Systolic And Diastolic Provider Name and Address Organization Details Last Updated DateTime 3 18900.4 g 18 /min 80 /min 98.2 [degF] 122/76 mm[Hg] BEBE FERNANDEZ [facility] 3 12:11:49 Date Recorded Body weight Oxygen saturation Oxygen saturation in Arterial blood by Pulse oximetry Heart rate Respiratory rate Body temperature Systolic And Diastolic Provider Name and Address Organization Details Last Updated DateTime 3 66628.9 6 g 98 % 98 % 92 /min 18 /min 97.9 [degF] 130/80 mm[Hg] ROSEMARY OWENS [facility] 3 17:20:54 Social History None recorded. Functional Status None recorded. Mental Status None recorded. Family History Nothing Reported Notes:Father: Diabetes, Hype rtension, Colon Cancer Paternal Grandfather: Colon Cancer Medical History No medical history recorded. Gynecological HistoryNo gynecological history recorded. Obstetrics History GPAL:G 0 P 0 0 0 0 Past Encounters Encounter ID Performer Location Encounter Start Date Encounter Closed Date Diagnosis/Indication Diagnosis SNOMED-CT Code Diagnosis ICD10 Code Diagnosis IMO Codes Diagnosis Note [id number] Shady De León MD [facility] ([facility]) [address] [place] [phone] 08/11/2022 11:06:52 08/11/2022 20:23:26 Painless rectal bleeding 807351748 K62.5 We discussed the risks and alternativ es to a colonoscop y. We discussed the risks of bleeding, perforatio n, and sedation. She had no further questions and wishes to proceed. I explained these things in Azeri and she had no further questions. Pruritus ani [id number] L2 9.0 [id number] Shady De León MD [facility] ([facility]) [address] [place] [address] 09/17/2022 16:21:14 09/30/2022 08:15:47 History of colonoscopy 6675473263 09 Z98.890 Internal hemorrhoids 904 48681 K64.8 Health Concerns Section Related Observation LastModified by Organization Detai ls LastModified Time None Recorded Concern Status LastModified by Organization Details LastModified Time None Recorded Advance Directives Directive None Recorded Payers Insurance Date Sequence Insurance Name Policy Number Policy Black Covered Member ID Black Member ID Guarantor Name 2023 1 [employer] [place] (MEDICA[place] REPLAC[place] - HMO) [id number] Suzanna Chaidez [id number] Suzanna huston Notes Date Note Type Note Provider Name and Address Organization Details Recorded Time 08/11/2022 text/html Colonoscopy ScreeningReported by PatientColonoscopy ScreeningFor gi symptoms, patient reportsrectal bleedingbut reportsno abdominal pain,no diarrhea,no constipation,no recent change in bowel movements, andno change in the stool. For context, patient reportshistory of colon polyps. For family history, patient reportscolon cancer. For associated symptoms, patient reportsnormal appetite,no fever,no nausea, andno vomiting. Shady De León MD [address] [place] [address], [phone], [facility], [place] 08/11/2022 12:34:23 09/17/2022 text/html Pt has not had any rectal bleeding, GI follow up Shady De León MD [address] [place] [address], [phone], [facility], [place] 09/18/2022 08:13:48 OBGyn Episode No OBEpisode recorded.
--- NOTE | 2025-01-20 10:30 | XRR_ITS ---
PROCEDURE INFORMATION: Exam: XR Left Foot Exam date and time: 01/20/2025 10:55 AM Age: 44 years old Clinical indication: Pain; Foot; Left TECHNIQUE: Imaging protocol: Radiologic exam of the left foot. Views: 3 or more views. COMPARISON: No relevant prior studies available. 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 Otherwise, no displaced fracture nor dislocation seen. No gross bone destruction and no aggressive appearing periosteal reaction seen. Mild degenerative changes 1st metatarsophalangeal joint. Calcaneal spurring/enthesophytes. Soft tissues: No metallic foreign body seen. XR/XR foot LT min 3V* [id number] IMPRESSION: No displaced fracture seen. Please see body of report for additional findings.
[2025-01-20 10:40] VITALS: BP 143/87; PULSE 94; RESP 18; TEMP 36.7; O2SAT 99
[2025-01-20] MEDS: orphenadrine 30 mg/mL Inj 2 mL 60 MG IV (10:56)
[2025-01-20 10:57] VITALS: RESP 16; O2SAT 96
[2025-01-20] MEDS: morphine 4 mg/mL SDV 1 mL IVP (10:57)
[2025-01-20] MEDS: promethazine 25 mg/mL SDV 1 mL IM (10:57)
--- NOTE | 2025-01-20 11:37 | W.ED.EXTPRO ---
HPI - Extremity Problem General: Chief complaint: Extremity Problem,Nontraumatic Stated complaint: L foot pain Time Seen by Provider: 01/20/25 10:28 History of Present Illness: 44-year-old female presents emergency room complaining of pain radiating from the buttock down to her left foot. No recent trauma or fall or injury. She has had a history of back issues in the past. No loss of sensation of the lower extremities no numbness in the groin or perineal area no fecal incontinence or urinary retention. Patient denies previous back surgeries, injections or epidurals. Associated symptoms: Deny chest pain, fever(s) or rash Related Data Home Medications ?Medication ?Instructions ?Recorded ?Confirmed atorvastatin 80 mg tablet 80 mg PO QPM 08/03/23 12/14/24 hydroxyzine HCl 25 mg tablet 25 - 50 mg PO Q6H PRN Anxiety 08/03/23 12/14/24 hydrochlorothiazide 12.5 mg tablet 12.5 mg PO QAM 01/21/24 12/14/24 insulin aspart U-100 100 unit/mL 35 unit SUBCUT TID 01/21/24 12/14/24 (3 mL) subcutaneous pen pantoprazole 40 mg tablet,delayed 40 mg PO DAILY 01/21/24 12/14/24 release paroxetine HCl 40 mg tablet 40 mg PO QPM 07/18/24 12/14/24 trazodone 50 mg tablet 50 mg PO BEDTIME PRN Sleep 07/18/24 12/14/24 cyclobenzaprine 10 mg tablet 10 mg PO Q8H PRN Muscle Spasm 11/18/24 12/14/24 ezetimibe 10 mg tablet 10 mg PO DAILY 11/18/24 12/14/24 insulin glargine-yfgn 100 unit/mL 100 unit SUBCUT BEDTIME 11/18/24 12/14/24 (3 mL) subcutaneous pen levothyroxine 150 mcg tablet 150 mcg PO DAILY 11/18/24 12/14/24 aspirin 81 mg tablet 81 mg PO DAILY 11/20/24 12/14/24 nitroglycerin 0.4 mg sublingual 0.4 mg sublingual Q5M PRN Chest 11/20/24 12/14/24 tablet Pain sitagliptin phosphate 50 1 tab PO BID 11/20/24 12/14/24 mg-metformin 1,000 mg tablet (Janumet) Previous Rx's ?Medication ?Instructions ?Recorded 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,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,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 ea 06/08/23 (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) ferrous sulfate 325 mg (65 mg 325 mg PO BID #60 tabs 04/01/24 iron) tablet (Iron (ferrous sulfate)) metoprolol succinate 25 mg 12.5 mg (1/2 x 25 mg) PO DAILY #90 09/12/24 tablet,extended release 24 hr tabs sucralfate 100 mg/mL oral 10 ml PO BID 30 days #600 mL 12/04/24 suspension 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 sensor (Dexcom G7 #9 ea 12/07/24 Sensor device) insulin syringe-needle U-100 1 mL #100 ea 01/15/25 30 gauge x 5/16 (Advocate Syringes) diclofenac sodium 75 mg 75 mg PO Q12H PRN pain #20 tabs 01/20/25 tablet,delayed release prednisone 20 mg tablet 20 mg PO TID #15 tabs 01/20/25 tizanidine 4 mg tablet 4 mg PO Q6H PRN muscle spasticity 01/20/25 #20 tabs Allergies Allergy/AdvReac Type Severity Reaction Status Date / Time No Known Allergies Allergy Verified 12/04/24 09:09 Review of Systems Const: Denies: fever(s) or chills Card: Denies: chest pain Resp: Denies: dyspnea GI: Denies: abdominal pain : Denies: dysuria, urinary frequency or urinary urgency Musc: Reports: back pain and extremity pain; Denies: neck pain Skin/Breast: Denies: rash PFSH ED PFSH: Medical History Abdominal adhesions Treated during laparoscopy in June 2023 Chronic pelvic pain in female Leukocytosis Hyperglycemia Ovarian cyst Abdominal pain Acute hyponatremia Diabetes mellitus due to underlying condition with hyperglycemia UTI symptoms Dyspareunia Dysmenorrhea Irregular menstrual bleeding GERD (gastroesophageal reflux disease) Hypothyroidism Rheumatoid arthritis CAD (coronary artery disease) Migraine Hx of myocardial infarction Hyperlipidemia Type 2 diabetes mellitus Hypertension Surgical History H/O tubal ligation Status post total abdominal hysterectomy (~05/30/23) SHERI, [place]CET[place], left ovarian cystectomy--performed for fibroid uterus, pelvic pain, dysmenorrhea, dyspareunia by Dr. Jones at [facility]. Multiple pelvic adhesions were noted on the anterior surface of the uterus to the anterior abdominal wall and bladder. Benign pathology History of laparoscopy (~07/06/23) Diagnostic laparoscopy with lysis of adhesions performed by Dr. Jones at [facility]. Multiple abdominal adhesions with the right upper quadrant uterus adhered to the anterior abdominal wall, omental adhesions to the anterior abdominal wall, left adnexal adhesions History of laparoscopic appendectomy Hx of section History of thyroid surgery Family History Father Diabetes Heart disease Mother Heart disease Grandmother Heart disease paternal/maternal Grandfather Heart disease paternal/maternal Family/Other Thyroid disease aunt/paternal Father Diabetes Denies family history of Colon cancer Ovarian cancer Hyperlipidemia Breast cancer Hypertension Uterine cancer Stroke Social History Smoking and tobacco/nicotine status: unknown if used tobacco/nicotine Physical Exam Const: COMMON NORMALS: no acute distress GENERAL APPEARANCE: cooperative and comfortable ORIENTATION/CONSCIOUSNESS: Yes awake, Yes oriented to person, Yes oriented to place and Yes oriented to time HENMT: COMMON NORMALS: normocephalic, atraumatic and hearing grossly normal bilaterally HEAD & SCALP: normocephalic and atraumatic Resp: COMMON NORMALS: normal respiratory effort, No retractions, No use of accessory muscles and clear to auscultation bilaterally AUSCULTATION: clear to auscultation bilaterally Cardio: COMMON NORMALS: regular rate, regular rhythm and No murmurs present (Cardio) RATE: regular rate RHYTHM: regular rhythm GI: COMMON NORMALS: Soft to palpation and No hepatosplenomegaly present AUSCULTATION: Yes normoactive bowel sounds PALPATION: Yes Soft to palpation, No Tenderness to palpation present (GI), No Guarding due to palpation present (GI) and Yes No hepatosplenomegaly present Extremity: COMMON NORMALS: normal to inspection, capillary refill normal, no clubbing, cyanosis or edema, no calf tenderness and no pedal edema Neuro: SENSORIUM/ORIENTATION: Yes oriented to person, Yes oriented to place and Yes oriented to time OTHER: Deep tendon reflexes +2/4 patellar tendons bilaterally. Neurovascularly intact mild hyperesthesias to the left leg. Straight leg raising positive Skin: COMMON NORMALS: no rashes or lesions noted GENERAL SKIN EXAM: no rashes or lesions noted Course Vital Signs: Vital signs: Vital Signs Temperature 98.1 F 01/20/25 10:40 Pulse Rate 94 01/20/25 10:40 Respiratory Rate 16 01/20/25 10:57 Blood Pressure 143/87 01/20/25 10:40 Pulse Oximetry 96 01/20/25 10:57 Oxygen Delivery Me thod Room Air 01/20/25 10:40 MDM - Extremity (Nontraumatic) Medical Decision Making Patient's initial complaint was primarily foot pain x-ray reviewed was negative on further history and exam is more radicular in nature.Pain improved with medications given discharge home with steroid taper muscle relaxers and anti-inflammatory. Referral to orthopedic spine surgery return if has worsening pain fecal incontinence urinary retention or numbness in the groin region. Medical Records I reviewed the patient's medical records. Lab Data Radiology Impressions Foot X-Ray 01/20/25 10:30 IMPRESSION: No displaced fracture seen. Please see body of report for additional findings. All radiology interpretation(s) finalized by discharge Discharge Plan Discharge Patient Disposition: Home Clinical Impression: Acute left lumbar radiculopathy Condition: Stable Prescriptions: New tizanidine 4 mg tablet 4 mg PO Q6H PRN (Reason: muscle spasticity) Qty: 20 0RF Rx Instructions: do not exceed 3 doses per 24 hrs prednisone 20 mg tablet 20 mg PO TID Qty: 15 0RF Rx Instructions: 1 p.o. 3 times daily x3 days, 1 p.o. twice daily x2 days, 1 p.o. 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 Misc See Rx Instructions .Route Qty: 1 0RF Rx Instructions: As directed metoprolol succinate 25 mg tablet extended release 24 hr 12.5 mg PO DAILY Qty: 90 3RF sucralfate 100 mg/mL suspension 10 ml PO BID 30 Days Qty: 600 5RF (DME) Dexcom G7 Sensor Device See Rx Instructions .ROUTE .COMPLEX Qty: 9 0RF Dose Instruction: DIRECTED FOR BLOOD GLUCOSE, CHANGE SENSOR EVERY 10 DAYS Rx Instructions: DIRECTED FOR BLOOD GLUCOSE, CHANGE SENSOR EVERY 10 DAYS (DME) insulin syringe-needle U-100 [Advocate Syringes] 1 mL 30 gauge x 5/16 syringe See Rx Instructions .Route Qty: 100 0RF Rx Instructions: ok to use insurance preferred atorvastatin 80 mg tablet 80 mg PO QPM hydroxyzine HCl 25 mg tablet 25 - 50 mg PO Q6H PRN (Reason: Anxiety) pantoprazole 40 mg tablet,delayed release (DR/EC) 40 mg PO DAILY hydrochlorothiazide 12.5 mg tablet 12.5 mg PO QAM insulin aspart U-100 100 unit/mL (3 mL) insulin pen 35 unit SUBCUT TID trazodone 50 mg tablet 50 mg PO BEDTIME PRN (Reason: Sleep) paroxetine HCl 40 mg tablet 40 mg PO QPM ezetimibe 10 mg tablet 10 mg PO DAILY cyclobenzaprine 10 mg tablet 10 mg PO Q8H PRN (Reason: Muscle Spasm) levothyroxine 150 mcg tablet 150 mcg PO DAILY Rx Instructions: TAKE 1 TABLET BY MOUTH DAILY AND TAKE 2 TABLETS ON WEDNESDAY. insulin glargine-yfgn 100 unit/mL (3 mL) insulin pen 100 unit SUBCUT BEDTIME ferrous sulfate [Iron (ferrous sulfate)] 325 mg (65 mg iron) tablet 325 mg PO BID Qty: 60 0RF nitroglycerin 0.4 mg Tablet, Sublingual 0.4 mg SUBLINGUAL Q5M PRN (Reason: Chest Pain) Rx Instructions: do not exceed 3 doses per episode aspirin 81 mg Tablet 81 mg PO DAILY Janumet 50-1,000 mg Tablet 1 tab PO BID Discharge Orders: Discharge ED (Routine); Ordered 01/20/25 Ordered By: Demetrius Padilla Referrals: Cooper Venegas MD [Primary Care Provider, Family Practice] Discharge Diet: Usual diet Discharge Activity: Increase activity as tolerated Patient Instructions: Opioid Safety, Pain Management, Patient Portal & Chole Instructions Activity Restrictions/Additional Instructions: Thank you for choosing [facility] for your healthcare needs today. It is very important that you follow up as instructed or that you return to the Emergency Department should you have concerns or if your condition changes or worsens in any way. Emergency department visits are focused on emergent conditions, in some cases you may require further evaluation on an outpatient basis. You were seen in the emergency room with complaints of low back pain with left leg pain. Pain improved with medications given will discharge home on steroid taper anti-inflammatories muscle relaxers to use as needed follow-up with your primary care doctor for further evaluation if pain persists (Please note that included in your discharge packet is information concerning opioid safety and pain management. This information is given to all patients were discharged from the ER regardless of their discharge diagnosis or the medicines they usually take or are prescribed.) Stand Alone Forms: Work/School Release Print Language: Tuvaluan Coding Level of Care Code ED Pitch Gatherer for Allison Pope
== END 2025-01-20 12:25 | disposition home or self-care (01) ==
PROVIDERS: Emergency Provider Family Medicine; PCP Family Medicine
DX: M54.16 Radiculopathy, lumbar region (principal)
CPT/HCPCS: 73630; 96372; 96374; 96375; 99284; J1885; J2270; J2360; J2550

== ENCOUNTER 2025-01-24 12:03 | Outpatient (CLI) | payer SELFPAY ==
--- NOTE | 2025-01-24 12:13 | XR_ITS ---
WS: [id number] XR lumbar spine min 4V [id number] REASON FOR EXAM: LUMBAGO W/SCIATICA, LEFT SIDE FINDINGS: Minimal rotatory levoscoliosis. Normal lordosis. No significant vertebral body abnormality. Intervertebral disc spaces are intact and well preserved. No spondylolysis and no significant spondylolisthesis. XR/XR lumbar spine min 4V [id number] IMPRESSION: Minimal scoliosis with no other significant lumbar spine abnormality.
== END 2025-01-24 12:04 | disposition home or self-care (01) ==
LOC: RAD 12:05
PROVIDERS: PCP Family Medicine; Visit Provider Nurse Practitioner Family
DX: M54.42 Lumbago with sciatica, left side (principal)
CPT/HCPCS: 72110

== ENCOUNTER 2025-02-01 12:45 | Outpatient (CLI) | payer SELFPAY ==
--- NOTE | 2025-02-01 12:54 | XR_ITS ---
WS: [id number] Left ankle, 3 views, 02/01/2025 Clinical Data: PAIN IN L ANKLE Comparison: None. Findings: No fractures or dislocations are seen. The ankle mortise is normal. The talus and calcaneus are unremarkable. No soft tissue swelling over the medial or lateral malleolus is seen. There is a plantar spur. XR/XR ankle LT min 3V* [id number] Impression: Negative left ankle.
== END 2025-02-01 12:46 | disposition home or self-care (01) ==
PROVIDERS: PCP Family Medicine; Visit Provider Family Medicine
DX: M25.572 Pain in left ankle and joints of left foot (principal); M77.32 Calcaneal spur, left foot
CPT/HCPCS: 73610

== ENCOUNTER → 2025-02-08 12:40 | Outpatient (BNVA) | payer OTHER, SELFPAY | PROVIDERS: PCP Family Medicine; Visit Provider Podiatrist Foot & Ankle Surgery | DX: M79.672 Pain in left foot (principal); M54.16 Radiculopathy, lumbar region; M79.605 Pain in left leg | CPT/HCPCS: 73630 ==

== ENCOUNTER → 2025-03-13 13:59 | Outpatient (BNVA) | payer OTHER, SELFPAY | PROVIDERS: PCP Family Medicine; Visit Provider Orthopaedic Surgery | DX: M54.16 Radiculopathy, lumbar region (principal); M54.9 Dorsalgia, unspecified | CPT/HCPCS: 72110 ==

== ENCOUNTER 2025-03-23 11:54 | Outpatient (CLI) | payer OTHER, SELFPAY ==
--- NOTE | 2025-03-23 16:00 | MR_ITS ---
WS: [id number] MRI LUMBAR SPINE NONCONTRAST TECHNIQUE: Sagittal T1, T2 and STIR imaging. Axial T1 and T2 imaging. CLINICAL INFORMATION: back pain down left leg COMPARISON: None. FINDINGS: Mild lumbar curve. No acute compression. No high-grade central canal stenosis. L1-L2: Normal. L2-L3: Normal. L3-L4: No significant disc bulging. Spinal canal foramina are patent. L4-L5: Mild annular bulging. Mild facet arthropathy. Spinal canal and foramen are patent. L5-S1: Mild disc bulging with slight contact of the LEFT S1 nerve root. Slight impingement on the exiting LEFT L5 nerve root. Mild facet arthropathy. Visualized pelvic bony structures: Normal. Paravertebral soft tissues: Normal. Complex cystic RIGHT ovarian lesion measuring 3.8 x 3.8 cm MR/MR lumbar spine wo con* [id number] IMPRESSION: 1. Disc bulging L5-S1 with slight contact of the LEFT S1 nerve root. 2. Mild LEFT L5-S1 foraminal narrowing with contact of the exiting LEFT L5 ner ve root. 3. Partially visualized RIGHT complex cystic RIGHT ovarian lesion measuring 3. 8 x 3.8 cm. This could be further evaluated with ultrasound.
== END 2025-03-23 11:55 | disposition home or self-care (01) ==
LOC: RAD 11:56
PROVIDERS: PCP Family Medicine; Visit Provider Orthopaedic Surgery
DX: M51.17 Intervertebral disc disorders with radiculopathy, lumbosacral region (principal); M48.07 Spinal stenosis, lumbosacral region; N83.201 Unspecified ovarian cyst, right side; M47.26 Other spondylosis with radiculopathy, lumbar region; M48.061 Spinal stenosis, lumbar region without neurogenic claudication
CPT/HCPCS: 72148

== ENCOUNTER 2025-03-27 09:39 | Outpatient (CLI) | payer OTHER, SELFPAY ==
--- NOTE | 2025-03-27 | ECG_ITS ---
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 The perfusion scan will be documented separately. DATA: Baseline heart rate was 72 beats per minute. Baseline blood pressure was 139/88 millimeters of mercury. Target heart rate was 175. Maximum heart rate achieved was 110. which was 62 % of the predicted target heart rate. Maximum blood pressure was 154/93 millimeters of mercury. The reason for ending the test was completion of the protocol. The patient did not experience any symptoms. ELECTROCARDIOGRAM: BASELINE: Sinus rhythm. Normal axis. Interventricular conduction delay, otherwise, no ST-T changes suggestive of ischemia noted. No arrhythmia noted. EXERCISE: After Lexiscan injection, no ST-T changes suggestive of ischemic noted. No arrhythmia noted. CONCLUSION: Please note due to baseline abnormality of the EKG specificity and sensitivity of the EKG portion of LexiScan MIBI stress test will be low 1. EKG not suggestive of ischemia 2. Lexiscan injection unremarkable. 3. Perfusion scan will be documented separately. Electronically Signed On 04-12-2025 18:41:35 PBX SUPERVISOR by CHAY PADILLA [email or web address]
--- NOTE | 2025-03-27 09:58 | NMCV_ITS ---
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 Supine position only as patient was unable to lay prone. SPECT RESULTS Technical Quality: Good Raw Data Analysis: Normal Image Corrections: No attenuation or motion correction applied Summed Stress Score: 0 Summed Rest Score: 0 Summed Difference Score: 0 PERFUSION FINDINGS SPECT images demonstrate homogeneous tracer distribution throughout the myocardium. FUNCTIONAL RESULTS (calculated via Gated SPECT) Stress Image LV EF (%): 77 Stress EDV (mL):77 TID: 1 Stress ESV (mL):18 Rest Image LV EF (%): 70 FUNCTIONAL FINDINGS: There is normal left ventricular systolic function. IMPRESSIONS Myocardial perfusion imaging is normal. Светлана Rocha MD (Electronically Signed) Final Date: 27 March 2025 13:10 S
[2025-03-27 09:59] VITALS: BMI 29.5
[2025-03-27 11:27] VITALS: BP 120/87; PULSE 94
== END 2025-03-27 09:40 | disposition home or self-care (01) ==
LOC: CDL 09:40
PROVIDERS: PCP Family Medicine; Visit Provider Internal Medicine Cardiovascular Disease
DX: R07.9 Chest pain, unspecified (principal); R06.02 Shortness of breath
CPT/HCPCS: 36415; 78452; 93017; 96374; A9500; J2785